=== PATIENT | female | born 1940 | race Caucasian/White ===

== ENCOUNTER 2018-09-26 06:08 | Inpatient (IN) | payer OTHER ==
[2018-09-26 07:11] LABS: BASO % 0.3 % (0-2.0); HEMATOCRIT 35.8 % (32.4-45.2); HEMOGLOBIN 11.1 GM/dL (10.7-15.3); LYMPH % 2.6 % (8-40); MCH 25.5 pg (25.7-33.7); MCHC 30.9 g/dl (32.0-36.0); MEAN CELL VOLUME 82.7 fl (80-96); MEAN PLT VOLUME 8.9 fl (7.5-11.1); NEUT % 90.1 % (42.8-82.8); PLATELET COUNT 246 K/MM3 (134-434); RBC 4.33 M/mm3 (3.60-5.2); RDW 15.8 % (11.6-15.6); WHITE BLOOD COUNT 18.2 K/mm3 (4.0-10.0)
--- NOTE | 2018-09-26 07:25 | PDOC ---
History of Present Illness - General Chief Complaint: Nausea/Vomiting Stated Complaint: NAUSEA,VOMITING Time Seen by Provider: 09/26/18 07:08 History Source: Patient, Family (daughter) Exam Limitations: Language Barrier - History of Present Illness Initial Comments: 09/26/18 07:25 Pt is a 78yo f with PMH of DM, HTN, CKD? dementia BIBA with daughter for nausea/ vomiting (green) x3 days, weakness, AMS and UTI. Per daughter pt was feeling weak, hallucinating and had reduced appetite. She called the nursing center and was told that patient had a UTI with hematuria. Per daughter, no abx were given. Daughter says that UTI was diagnosed 1 week ago. Daughter was also told that patient had "vaginal bleeding" last Thursday and Thursday but has since resolved. Pt has been unable to tolerate PO for three days and has green vomitus. Denies blood in vomit or stools. No fevers at home. Pt has been hallucinating, and has been unable to stand; she is usually ambulatory on her own. Pt says she has diffuse pain in her abdomen and throat. Pt lives alone PMD: PMH: see hpi PSH: hysterectomy Meds: see med rec Allergies: nkda 09/26/18 14:14 Daughter phone number: Sana Past History - Past Medical History Allergies/Adverse Reactions: Allergies Allergy/AdvReac Type Severity Reaction Status Date / Time No Known Allergies Allergy Verified 09/26/18 06:24 Home Medications: Ambulatory Orders Aripiprazole 1 tab PO HS 09/26/18 Calcium 500 + Vit D Caplet 1 cap PO DAILY 09/26/18 Duloxetine HCl 20 mg PO HS 09/26/18 Levothyroxine [Synthroid -] 50 mcg PO DAILY 09/26/18 Loratadine [Claritin] 10 mg PO DAILY 09/26/18 Losartan Potassium 50 mg PO DAILY 09/26/18 Mirabegron [Myrbetriq] 50 mg PO DAILY 09/26/18 Nabumetone 500 mg PO BID PRN 09/26/18 Omeprazole 20 mg PO AC 09/26/18 Rosuvastatin [Crestor -] 20 mg PO DAILY 09/26/18 Sitagliptin Phos/Metformin HCl [Janumet 50-1,000 mg Tablet] 1 tab PO BID Tramadol HCl 50 mg PO BID PRN 09/26/18 traZODone HCL [Trazodone HCl] 100 mg PO HS 09/26/18 COPD: No Diabetes: Yes GI Disorders: Yes Disorders: Yes (overactive bladder) HTN: Yes Thyroid Disease: Yes Other medical history: spinal stenosis - Suicide/Smoking/Psychosocial Hx Smoking History: Current every day smoker Number of Cigarettes Smoked Daily: 5 Information on smoking cessation initiated: No Hx Alcohol Use: No Drug/Substance Use Hx: No Review of Systems - Review of Systems Able to Perform ROS?: Yes Constitutional: No: Chills, Fever HEENTM: Yes: Throat Pain. No: Recent change in vision Respiratory: No: Cough, Shortness of Breath Cardiac (ROS): Yes: Lightheadedness. No: Chest Pain, Palpitations, Syncope ABD/GI: Yes: See HPI, Nausea, Vomiting, Abdominal cramping. No: Constipated, Diarrhea : Yes: Dysuria, Hematuria. No: Flank Pain Musculoskeletal: No: Symptoms Reported Integumentary: No: Symptoms Reported Neurological: No: Headache, Numbness, Paresthesia, Tingling *Physical Exam - Vital Signs Last Vital Signs Temp Pulse Resp BP Pulse Ox 97.8 F 98 H 18 114/51 L 96 09/26/18 06:24 09/26/18 06:24 09/26/18 06:24 09/26/18 06:24 09/26/18 06:24 - Physical Exam General Appearance: Yes: Nourished, Appropriately Dressed, Mild Distress HEENT: positive: EOMI, MEDHAT, Pharynx Normal Neck: positive: Trachea midline, Supple. negative: Lymphadenopathy (R), Lymphadenopathy (L) Respiratory/Chest: positive: Lungs Clear, Normal Breath Sounds. negative: Crackles, Rales, Rhonchi, Stridor, Wheezing Cardiovascular: positive: Regular Rhythm, Regular Rate, S1, S2, Systolic Murmur. negative: Edema, JVD, Murmur Vascular Pulses: Carotid (R): 2+, Carotid (L): 2+, Dorsalis-Pedis (R): 2+, Doralis-Pedis (L): 2+ Gastrointestinal/Abdominal: positive: Normal Bowel Sounds, Soft, Tenderness (RUQ , RLQ). negative: Pulsatile Mass, Distended, Guarding, Rebound Musculoskeletal: negative: CVA Tenderness Extremity: positive: Delayed Capillary Refill. negative: Coldness, Cyanosis, Pedal Edema, Swelling, Calf Tenderness Integumentary: positive: Normal Color, Dry, Warm. 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 Vitals: bp 114/51, HR 98 PE: dry membranes, delayed capillary refill, diffuse abdominal tenderness, no cva tenderness DDx includes but not limited to: UTI, pyelonephritis, nephrolithiasis, hypoglycemia, cholecystitis, pancreatitis, colitis, gastritis, pud, acs Dr Noguera placed in labs including bcx, ucx, ua, lactic, trop, lipase, pt/inr ekg, cxr. pt started on 1L NS. Pt needs to be straight cath for urine specimen 09/26/18 08:24 EKG: LBBB (no priors) negative sgarbossa. Labs significant for elevated K at 6.6. Pt started on nebulizer, sodium bicarb, calcium gluconate, insulin(6u) +D50. -Cr at 6.5 (no baseline to compare to). Refraining from giving Lasix and Kayaxelate. -Lactate at 10.8 -phos 8 and Na 130 -WBC 18.1 -Lipase and troponin negative. Added on CPK and Urine electrolytes. Lac and cmp will be repeated after medications. Zofran for nausea. Pt started on vanc/zosyn and another L of NS. Waiting for urine sample. Ordered CTAP. Daughter gave phone number of [facility]: [phone]. Left VM. Pt most likely has pyelo with SHERRON (however do not have baseline to compare to ). 09/26/18 08:[address] Woodward (television production assistant for nephrology) CXR: elevated R hemidiaphragm. Large heart. No acute chest pathology. Clear lung [place]. 09/26/18 09:[address] Slight tachycardia up to 105, most likely from albuterol. BP 124/ 50. Saturating 96% 3LNC. Will reevaluate. Will call back Dr. Woodward because no response yet 09/26/18 09:37 Sent out second call to Dr. Woodward. UA positive for infection (LE, WBC, bacteria) 1+ blood with RBC, 3+ protein. Urine electrolytes show normal Na 09/26/18 09:[address] Lewis. consult placed. Repeat EKG shows sinus tachycardia, no ingrid or depressions. poor lead quality in I, II, aVR, aVL. 09/26/18 09:53 CTAP: liver, spleen, pancreas and adrenal glands unremarkable. No gall stones, no retroperitoneal lymphadenopathy or AAA. Significant inflmmatory changes and stranding seen in retroperitoneum appear to originate and surround kidneys. Bilateral renal infection. No discrete abscess can be identified by CT scan due to lack of contrast. No hydronephrosis. Pt will need admission for pyelonephritis because pt lives on her own, is not tolerating PO. 09/26/18 09:56 09/26/18 10:23 *DC/Admit/Observation/Transfer Diagnosis at time of Disposition: Pyelonephritis, SHERRON (acute kidney injury) Sepsis Qualifiers: Sepsis type: sepsis due to unspecified organism Qualified Code(s): A41.9 - Sepsis, unspecified organism UTI (urinary tract infection) Qualifiers: Urinary tract infection type: site unspecified Hematuria presence: with hematuria Qualified Code(s): N39.0 - Urinary tract infection, site not specified - Discharge Dispostion Condition at time of disposition: Good Decision to Admit order: Yes - Referrals - Patient Instructions - Post Discharge Activity
[2018-09-26 07:38] LABS: INR 1.17 (0.83-1.09); PROTHROMBIN TIME (PATIENT) 13.8 SEC (9.7-13.0)
--- NOTE | 2018-09-26 07:46 | PDOC ---
Attending Attestation - Resident Resident Name: Litzy Taveras - ED Attending Attestation I have performed the following: I have examined & evaluated the patient, The case was reviewed & discussed with the resident, I agree w/resident's findings & plan, Exceptions are as noted - HPI HPI: 78 yo F presents with weakness, vomiting for past few days. As per daughter at bedside, she was diagnosed with a UTI as an outpatient but was not placed on antibiotics (unclear why and also unclear what testing she had). Now presenting with weakness and vomiting, inability to tolerate PO. +Lower abd pain, denies back pain, denies dysuria. - Physicial Exam PE: GENERAL: Awake, alert, and fully oriented, appears ill but nontoxic. HEAD: No signs of trauma EYES: PERRLA, EOMI, sclera anicteric, conjunctiva clear ENT: Auricles normal inspection, hearing grossly normal, nares patent, oropharynx clear without exudates. Dry mucosa NECK: Normal ROM, supple, no lymphadenopathy, JVD, or masses LUNGS: Breath sounds equal, clear to auscultation bilaterally. No wheezes, and no crackles HEART: Regular rate and rhythm, normal S1 and S2, no murmurs, rubs or gallops ABDOMEN: Soft, +BLQ tenderness with guarding, normoactive bowel sounds. No rebound. No masses. No CVAT. EXTREMITIES: Normal range of motion, no edema. No clubbing or cyanosis. No cords, erythema, or tenderness NEUROLOGICAL: Cranial nerves II through XII grossly intact. Normal speech. Motor and sensation intact. SKIN: Warm, Dry, normal turgor, no rashes or lesions noted. - Medical Decision Making Sxs suggestive of pyelonephritis. Pt found to have acute renal failure, hyperkalemia, UTI. Will plan for admission.
[2018-09-26 07:59] LABS: ALBUMIN 2.6 g/dl (3.4-5.0); ALK PHOS 108 U/L (45-117); ANION GAP 24 MMOL/L (8-16); BILIRUBIN,TOTAL 0.8 mg/dL (0.2-1); BLOOD UREA NITROGEN 77 mg/dL (7-18); CALCIUM 9.9 mg/dL (8.5-10.1); CHLORIDE 89 mmol/L (98-107); CO2 17 mmol/L (21-32); CREATININE 6.5 mg/dL (0.55-1.3); GLUCOSE,RANDOM 116 mg/dL (74-106); LIPASE 58 U/L (73-393); SGOT/AST 24 U/L (15-37); SGPT/ALT 16 U/L (13-61); SODIUM 130 mmol/L (136-145); TOT PROT 6.1 g/dl (6.4-8.2)
[2018-09-26 08:04] LABS: POTASSIUM 6.6 mmol/L (3.5-5.1)
[2018-09-26] MEDS ORDERED: ONDANSETRON 4 MG/2 ML VIAL IVPUSH ONE (08:04)
[2018-09-26] MEDS ORDERED: SODIUM CHLORIDE 1,000 ML IV STA ×2 (08:04→12:44)
[2018-09-26] MEDS ORDERED: VANCOMYCIN 1,000 MG in DEXTROSE 5%-WATER - 250 ML IVPB ONE (08:05)
[2018-09-26] MEDS ORDERED: PIPERACILLIN/TAZOB 3.375 GM 3.375 GM in DEXTROSE 5%-WATER - 50 ML IVPB ONE (08:05)
[2018-09-26] MEDS ORDERED: ALBUTEROL SO4 0.083% IH SOL 2.5 MG/3 ML VIAL.NEB. NEB ONE ×2 (08:08→08:09)
[2018-09-26] MEDS ORDERED: INSULIN REGULAR HUMAN 100 UNITS/ML *VIAL IVPUSH ONE (08:08)
[2018-09-26] MEDS ORDERED: SODIUM BICARBONATE 8.4% 50 MEQ/50 ML DISP.SYRIN IVPUSH ONE ×2 (08:08→17:50)
[2018-09-26] MEDS ORDERED: CALCIUM GLUCONATE 10% - 1,000 MG/10 ML VIAL IVPB ONE (08:08)
[2018-09-26] MEDS ORDERED: DEXTROSE 50%-WATER - 25 GM/50 ML VIAL IVPUSH ONE (08:08)
[2018-09-26] MEDS ORDERED: ONDANSETRON 4 MG/2 ML VIAL ONE (08:08)
[2018-09-26] MEDS ORDERED: DEXTROSE 50%-WATER - 25 GM/50 ML VIAL ONE (08:09)
[2018-09-26] MEDS ORDERED: INSULIN REGULAR HUMAN 100 UNITS/ML *VIAL ONE (08:10)
[2018-09-26] MEDS ORDERED: SODIUM BICARBONATE 8.4% 50 MEQ/50 ML VIAL ONE ×2 (08:10→17:43)
[2018-09-26] MEDS ORDERED: CALCIUM GLUCONATE 10% - 1,000 MG/10 ML VIAL ONE (08:28)
[2018-09-26] MEDS ORDERED: VANCOMYCIN 1 GRAM (PRE-DOCKED) 1,000 MG/250 ML BAG IVPB ONE (08:44)
[2018-09-26] MEDS ORDERED: PIPERACILLIN/TAZOB 3.375 GM 3.375 GM/50 ML BAG IVPB ONE (08:45)
[2018-09-26 09:22] LABS: URINE APPEARANCE TURBID; URINE BILIRUBIN NEGATIVE (<2.0 mg/dL); URINE COLOR YELLOW; URINE GLUCOSE (UA) NEGATIVE (NEGATIVE); URINE KETONE TRACE (NEGATIVE); URINE LEUK ESTERASE 3+ (NEGATIVE); URINE NITRITE NEGATIVE (NEGATIVE); URINE PROTEIN 3+ (NEGATIVE); URINE UROBILINOGEN NEGATIVE mg/dL (0.2-1.0)
[2018-09-26 09:33] LABS: URINE BACTERIA MODERATE /hpf (NONE SEEN)
[2018-09-26 10:25] LABS: ARTERIAL BLD GAS O2 SATURATION 97.9 % (90-98.9); ARTERIAL BLOOD GAS BASE EXCESS -10.5 meq/l (-2-2); ARTERIAL BLOOD GAS pH 7.22 (7.35-7.45); CARBOXYHEMOGLOBIN 0.4 gm% (0.5-2.0)
[2018-09-26 10:26] LABS: ALLENS TEST POSITIVE
[2018-09-26 10:35] LABS: ANISOCYTOSIS 1+; MACROCYTOSIS 0; OVALOCYTE 1+; PLATELET ESTIMATE NORMAL
[2018-09-26 10:46] LABS: ALBUMIN 2.1 g/dl (3.4-5.0); ALK PHOS 89 U/L (45-117); ANION GAP 21 MMOL/L (8-16); BILIRUBIN,TOTAL 0.6 mg/dL (0.2-1); BLOOD UREA NITROGEN 72 mg/dL (7-18); CALCIUM 8.4 mg/dL (8.5-10.1); CHLORIDE 102 mmol/L (98-107); CO2 16 mmol/L (21-32); GLUCOSE,RANDOM 80 mg/dL (74-106); POTASSIUM 5.7 mmol/L (3.5-5.1); SGOT/AST 18 U/L (15-37); SGPT/ALT 15 U/L (13-61); SODIUM 138 mmol/L (136-145)
--- NOTE | 2018-09-26 12:20 | EKG ---
Test Reason : Blood Pressure : / mmHG Vent. Rate : 105 BPM Atrial Rate : 105 BPM P-R Int : 192 ms QRS Dur : 082 ms QT Int : 332 ms P-R-T Axes : 034 048 029 degrees QTc Int : 438 ms POOR DATA QUALITY, INTERPRETATION MAY BE ADVERSELY AFFECTED SINUS TACHYCARDIA LOW VOLTAGE QRS POOR DATA QUALITY IN CURRENT ECG PRECLUDES SERIAL COMPARISON REPEAT EKG IF CLINICALLY INDICATED Confirmed by James Smart ([id number]) on 09/26/2018 12:19:42 PM Referred By: Confirmed By:James Smart
--- NOTE | 2018-09-26 12:31 | EKG ---
Test Reason : Blood Pressure : / mmHG Vent. Rate : 097 BPM Atrial Rate : 097 BPM P-R Int : 182 ms QRS Dur : 158 ms QT Int : 420 ms P-R-T Axes : -11 -34 110 degrees QTc Int : 533 ms NORMAL SINUS RHYTHM LEFT AXIS DEVIATION LEFT BUNDLE BRANCH BLOCK ABNORMAL ECG NO PREVIOUS ECGS AVAILABLE Confirmed by James Smart ([id number]) on 09/26/2018 12:30:58 PM Referred By: Confirmed By:James mSart
--- NOTE | 2018-09-26 12:58 | HP ---
CHIEF COMPLAINT: Weakness, vomiting x 3 days PCP: None HISTORY OF PRESENT ILLNESS: Pt is a 78 y/o lady with a significant past medical history of DM, HTN, CKD, and dementia. Pt presented to [facility] ED this AM with daughter c/o weakness, nausea /vomiting and AMS. Per ED records, daughter endorses that her mother has been hallucinating, feeling weak, and has had decreased PO intake. Furthermore, pt also endorses she had experienced 3 days of hematuria. Pt endorses subjective fevers and chills. Denies any dysuria or increased frequency of urination. No previous h/o previous UTI. Has not had consistent medical follow up. She states that she has visiting health care providers that come to her building, "[facility]" ?Denies chest pain, shortness of breath, or palpitations. ER course was notable for: (1) K+ 6.6 (2) CTAP--> Significant inflammatory changes in retroperitoneum appear to originate from kidneys compatible with significant b/l renal infection. (3) WBC 18.2 Recent Travel: PAST MEDICAL HISTORY: Per HPI PAST SURGICAL HISTORY: Hysterectomy approximately 20 years ago. Social History: Smokin pack year smoking history Alcohol: denies Drugs: denies Family History: Allergies denies No Known Allergies Allergy (Verified 09/26/18 06:24) HOME MEDICATIONS: Home Medications Medication Instructions Recorded Aripiprazole 1 tab PO HS 09/26/18 Calcium 500 + Vit D Caplet 1 cap PO DAILY 09/26/18 Duloxetine HCl 20 mg PO HS 09/26/18 Levothyroxine [Synthroid -] 50 mcg PO DAILY 09/26/18 Loratadine [Claritin] 10 mg PO DAILY 09/26/18 Losartan Potassium 50 mg PO DAILY 09/26/18 Mirabegron [Myrbetriq] 50 mg PO DAILY 09/26/18 Nabumetone 500 mg PO BID PRN 09/26/18 Omeprazole 20 mg PO AC 09/26/18 Rosuvastatin [Crestor -] 20 mg PO DAILY 09/26/18 Sitagliptin Phos/Metformin HCl 1 tab PO BID 09/26/18 [Janumet 50-1,000 mg Tablet] Tramadol HCl 50 mg PO BID PRN 09/26/18 traZODone HCL [Trazodone HCl] 100 mg PO HS 11/18/18 REVIEW OF SYSTEMS CONSTITUTIONAL: Absent: fever, chills, diaphoresis, generalized weakness, malaise, loss of appetite, weight change HEENT: PRESENT: headache CARDIOVASCULAR: Absent: chest pain, syncope, palpitations, irregular heart rate, lightheadedness , peripheral edema RESPIRATORY: Absent: cough, shortness of breath, dyspnea with exertion, orthopnea, wheezing, stridor, hemoptysis GASTROINTESTINAL: PRESENT: abdominal discomfort GENITOURINARY: PRESENT: hematuria MUSCULOSKELETAL: Absent: myalgia, arthralgia, joint swelling, back pain, neck pain SKIN: Absent: rash, itching, pallor HEMATOLOGIC/IMMUNOLOGIC: Absent: easy bleeding, easy bruising, lymphadenopathy, frequent infections ENDOCRINE: Absent: unexplained weight gain, unexplained weight loss, heat intolerance, cold intolerance NEUROLOGIC: Absent: headache, focal weakness or paresthesias, dizziness, unsteady gait, seizure, mental status changes, bladder or bowel incontinence PSYCHIATRIC: Absent: anxiety, depression, suicidal or homicidal ideation, hallucinations. PHYSICAL EXAMINATION Vital Signs - 24 hr 09/26/18 09/26/18 09/26/18 06:24 09:30 10:16 Temperature 97.8 F Pulse Rate 98 H Pulse Rate [ 105 H 107 H Apical] Respiratory 18 18 26 H Rate Blood Pressure 114/51 L Blood Pressure 124/50 L 126/54 L [Right Arm] O2 Sat by Pulse 96 97 98 Oximetry (%) 09/26/18 09/26/18 10:22 12:55 Temperature 97.4 F L Pulse Rate Pulse Rate [ 102 H Apical] Respiratory 18 Rate Blood Pressure Blood Pressure 101/44 L [Right Arm] O2 Sat by Pulse 99 Oximetry (%) GENERAL: Awake, alert, not oriented to time. HEAD: NC/AT EYES:EOMI PERRLA EARS, NOSE, THROAT: Dry mucous membranes NECK: Supple, No JVD LUNGS: CTA B/L No wheezing rhonchi or rales HEART: Systolic ejection murmur? ABDOMEN: B/L CVA Tenderness R more than left. MUSCULOSKELETAL: FROM UPPER EXTREMITIES: No CCE LOWER EXTREMITIES: No CCE. NEUROLOGICAL: Cranial nerves II-XII intact. Laboratory Results - last 24 hr 09/26/18 09/26/18 09/26/18 06:53 06:53 06:53 WBC 18.2 H RBC 4.33 Hgb 11.1 Hct 35.8 MCV 82.7 MCH 25.5 L MCHC 30.9 L RDW 15.8 H Plt Count 246 MPV 8.9 Absolute Neuts (auto) 16.4 H Neutrophils % 90.1 H Neutrophils % (Manual) 88.1 H Band Neutrophils % 4.0 Lymphocytes % 2.6 L Lymphocytes % (Manual) 1.0 L Monocytes % 7.0 Monocytes % (Manual) 4 Eosinophils % 0.0 Eosinophils % (Manual) 0.0 Basophils % 0.3 Basophils % (Manual) 1.0 Myelocytes % (Man) 0 Promyelocytes % (Man) 0 Blast Cells % (Manual) 0 Nucleated RBC % 0 Metamyelocytes 1 Hypochromia 1+ Platelet Estimate Normal Polychromasia 0 Poikilocytosis 1+ Anisocytosis 1+ Microcytosis 0 Macrocytosis 0 Ovalocytes 1+ Schistocytes 1+ PT with INR 13.80 H INR 1.17 H Anticoagulation Therapy Puncture Site ABG pH ABG pCO2 at Pt Temp ABG pO2 at Pt Temp ABG HCO3 ABG O2 Sat (Measured) ABG O2 Content ABG Base Excess Sam Test Carboxyhemoglobin Methemoglobin O2 Delivery Device Oxygen Flow Rate Vent Mode Vent Rate Mechanical Rate Pressure Support Vent Sodium 130 L Potassium 6.6 H* Chloride 89 L Carbon Dioxide 17 L Anion Gap 24 H BUN 77 H Creatinine 6.5 H Creat Clearance w eGFR 6.22 Random Glucose 116 H Lactic Acid Calcium 9.9 Phosphorus 8.0 H Magnesium 2.0 Total Bilirubin 0.8 AST 24 ALT 16 Alkaline Phosphatase 108 Creatine Kinase 61 Troponin I < 0.02 Total Protein 6.1 L Albumin 2.6 L Lipase 58 L Urine Color Urine Appearance Urine pH Ur Specific Naylor Urine Protein Urine Glucose (UA) Urine Ketones Urine Blood Urine Nitrite Urine Bilirubin Urine Urobilinogen Ur Leukocyte Esterase Urine WBC (Auto) Urine RBC (Auto) Urine Bacteria Ur Random Sodium Ur Random Potassium Ur Random Chloride Blood Type Antibody Screen 09/26/18 09/26/18 09/26/18 06:53 06:53 08:50 WBC RBC Hgb Hct MCV MCH MCHC RDW Plt Count MPV Absolute Neuts (auto) Neutrophils % Neutrophils % (Manual) Band Neutrophils % Lymphocytes % Lymphocytes % (Manual) Monocytes % Monocytes % (Manual) Eosinophils % Eosinophils % (Manual) Basophils % Basophils % (Manual) Myelocytes % (Man) Promyelocytes % (Man) Blast Cells % (Manual) Nucleated RBC % Metamyelocytes Hypochromia Platelet Estimate Polychromasia Poikilocytosis Anisocytosis Microcytosis Macrocytosis Ovalocytes Schistocytes PT with INR INR Anticoagulation Therapy Puncture Site ABG pH ABG pCO2 at Pt Temp ABG pO2 at Pt Temp ABG HCO3 ABG O2 Sat (Measured) ABG O2 Content ABG Base Excess Sam Test Carboxyhemoglobin Methemoglobin O2 Delivery Device Oxygen Flow Rate Vent Mode Vent Rate Mechanical Rate Pressure Support Vent Sodium Potassium Chloride Carbon Dioxide Anion Gap BUN Creatinine Creat Clearance w eGFR Random Glucose Lactic Acid 10.4 H* Calcium Phosphorus Magnesium Total Bilirubin AST ALT Alkaline Phosphatase Creatine Kinase Troponin I Total Protein Albumin Lipase Urine Color Yellow Urine Appearance Turbid Urine pH 5.0 Ur Specific Naylor 1.014 Urine Protein 3+ H Urine Glucose (UA) Negative Urine Ketones Trace H Urine Blood 1+ H Urine Nitrite Negative Urine Bilirubin Negative Urine Urobilinogen Negative Ur Leukocyte Esterase 3+ H Urine WBC (Auto) 500 Urine RBC (Auto) 54 Urine Bacteria Moderate Ur Random Sodium Ur Random Potassium Ur Random Chloride Blood Type A POSITIVE Antibody Screen Negative 09/26/18 09/26/18 09/26/18 08:50 09:54 09:54 WBC RBC Hgb Hct MCV MCH MCHC RDW Plt Count MPV Absolute Neuts (auto) Neutrophils % Neutrophils % (Manual) Band Neutrophils % Lymphocytes % Lymphocytes % (Manual) Monocytes % Monocytes % (Manual) Eosinophils % Eosinophils % (Manual) Basophils % Basophils % (Manual) Myelocytes % (Man) Promyelocytes % (Man) Blast Cells % (Manual) Nucleated RBC % Metamyelocytes Hypochromia Platelet Estimate Polychromasia Poikilocytosis Anisocytosis Microcytosis Macrocytosis Ovalocytes Schistocytes PT with INR INR Anticoagulation Therapy Puncture Site ABG pH ABG pCO2 at Pt Temp ABG pO2 at Pt Temp ABG HCO3 ABG O2 Sat (Measured) ABG O2 Content ABG Base Excess Sam Test Carboxyhemoglobin Methemoglobin O2 Delivery Device Oxygen Flow Rate Vent Mode Vent Rate Mechanical Rate Pressure Support Vent Sodium 138 Potassium 5.7 H Chloride 102 Carbon Dioxide 16 L Anion Gap 21 H BUN 72 H Creatinine 6.0 H Creat Clearance w eGFR 6.82 Random Glucose 80 Lactic Acid 8.0 H* Calcium 8.4 L Phosphorus Magnesium Total Bilirubin 0.6 AST 18 ALT 15 Alkaline Phosphatase 89 Creatine Kinase Troponin I Total Protein 5.0 L Albumin 2.1 L Lipase Urine Color Urine Appearance Urine pH Ur Specific Naylor Urine Protein Urine Glucose (UA) Urine Ketones Urine Blood Urine Nitrite Urine Bilirubin Urine Urobilinogen Ur Leukocyte Esterase Urine WBC (Auto) Urine RBC (Auto) Urine Bacteria Ur Random Sodium 89 Ur Random Potassium 17.0 L Ur Random Chloride 57 L Blood Type Antibody Screen 09/26/18 10:16 WBC RBC Hgb Hct MCV MCH MCHC RDW Plt Count MPV Absolute Neuts (auto) Neutrophils % Neutrophils % (Manual) Band Neutrophils % Lymphocytes % Lymphocytes % (Manual) Monocytes % Monocytes % (Manual) Eosinophils % Eosinophils % (Manual) Basophils % Basophils % (Manual) Myelocytes % (Man) Promyelocytes % (Man) Blast Cells % (Manual) Nucleated RBC % Metamyelocytes Hypochromia Platelet Estimate Polychromasia Poikilocytosis Anisocytosis Microcytosis Macrocytosis Ovalocytes Schistocytes PT with INR INR Anticoagulation Therapy No Result Required. Puncture Site No Result Required. ABG pH 7.22 L* ABG pCO2 at Pt Temp 41.0 ABG pO2 at Pt Temp 134.0 H ABG HCO3 16.1 L ABG O2 Sat (Measured) 97.9 ABG O2 Content 13.5 L ABG Base Excess -10.5 L* Sam Test Positive Carboxyhemoglobin 0.4 L Methemoglobin 0.7 O2 Delivery Device No Result Required. Oxygen Flow Rate No Result Required. Vent Mode No Result Required. Vent Rate No Result Required. Mechanical Rate No Result Required. Pressure Support Vent No Result Required. Sodium Potassium Chloride Carbon Dioxide Anion Gap BUN Creatinine Creat Clearance w eGFR Random Glucose Lactic Acid Calcium Phosphorus Magnesium Total Bilirubin AST ALT Alkaline Phosphatase Creatine Kinase Troponin I Total Protein Albumin Lipase Urine Color Urine Appearance Urine pH Ur Specific Naylor Urine Protein Urine Glucose (UA) Urine Ketones Urine Blood Urine Nitrite Urine Bilirubin Urine Urobilinogen Ur Leukocyte Esterase Urine WBC (Auto) Urine RBC (Auto) Urine Bacteria Ur Random Sodium Ur Random Potassium Ur Random Chloride Blood Type Antibody Screen ASSESSMENT/PLAN: Pt is a 78 y/o lady with a significant past medical history of DM, HTN, CKD, and dementia. Pt presented to [facility] ED this AM with daughter c/o weakness, nausea /vomiting and AMS. #Sepsis 2/2 Pyelonephritis -WBC 18.2 -Troponin negative - CTAP--> Significant inflammatory changes in retroperitoneum appear to originate from kidneys compatible with significant b/l renal infection. - Nephrology on Board - Renal Bladder Ultrasound to r/o Obstruction. - Lactic Acid 10.4--> 8.0 on repeat. Continue to trend. - ABG PH 7.22, repeat ABG pending, BiCarb drip if repeat PH < 7.0 - I.D on board--> Meropenem 1 gm today, 500 mg tomorrow- Per I.D--> adjusted for renal failure to cover for esbl organisms # Hyperkalemia - Potassium in ED 6.6, repeat 5.7. - Given Insulin/D5W, Albuterol 1 amp, Sodium Bicarb -Repeat BMP, if Hyperkalemia persistent to nonresolving acidosis---> HD #UTI: -Leukocyte Esterase 3+ - WBC 18.2 - Urine/Blood cultures pending - Vanc/Zosyn in ED - I.D on board #Murmur? -Echo to assess anatomy and function #FEN NS@100cc/hr Monitor electrolytes Diabetic Diet DVT ppx: Heparin SQ TID Dispo: Tele Visit type - Emergency Visit Emergency Visit: Yes ED Registration Date: 09/26/18 Care time: The patient presented to the Emergency Department on the above date and was hospitalized for further evaluation of their emergent condition. - New Patient This patient is new to me today: Yes Date on this admission: 09/26/18 - Critical Care Critical Care patient: No
[2018-09-26] MEDS ORDERED: HEPARIN NA (PORCINE) 5,000 UNITS/ML 1ML VIAL ONE (13:05)
[2018-09-26] MEDS: MEROPENEM 1 GM in DEXTROSE 5%-WATER 100 ML IVPB ONE (13:55)
[2018-09-26] MEDS ORDERED: HEPARIN NA (PORCINE) 5,000 UNITS/ML 1ML VIAL SQ SCH (14:00)
--- NOTE | 2018-09-26 14:15 | CON.ID ---
Consult Consult Specialty:: infectious disease Referred by:: hospitalist Reason for Consultation:: sepsis - History of Present Illness Chief Complaint: vomiting, UTI, weakness, change in mental status History of Present Illness: 78 yo female pmh DM, htn, dementia with 4 day history of vomiting and abdominal pain, weakness, couldn't walk daughter reports diagnosed with UTI last week with hematuria but not treated? 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 Cardio/Vascular: Yes: HTN Endocrine: Yes: Diabetes Mellitus - Past Surgical History Past Surgical History: Yes: Hysterectomy - Alcohol/Substance Use Hx Alcohol Use: No - Smoking History Smoking history: Current every day smoker Aproximately how many cigarettes per day: 5 - Social History Usual Living Arrangement: Assisted Living ADL: Independent History of Recent Travel: No Home Medications - Allergies Allergies/Adverse Reactions: Allergies Allergy/AdvReac Type Severity Reaction Status Date / Time No Known Allergies Allergy Verified 09/26/18 06:24 - Home Medications Home Medications: Ambulatory Orders Aripiprazole 1 tab PO HS 09/26/18 Calcium 500 + Vit D Caplet 1 cap PO DAILY 09/26/18 Duloxetine HCl 20 mg PO HS 09/26/18 Levothyroxine [Synthroid -] 50 mcg PO DAILY 09/26/18 Loratadine [Claritin] 10 mg PO DAILY 09/26/18 Losartan Potassium 50 mg PO DAILY 09/26/18 Mirabegron [Myrbetriq] 50 mg PO DAILY 09/26/18 Nabumetone 500 mg PO BID PRN 09/26/18 Omeprazole 20 mg PO AC 09/26/18 Rosuvastatin [Crestor -] 20 mg PO DAILY 09/26/18 Sitagliptin Phos/Metformin HCl [Janumet 50-1,000 mg Tablet] 1 tab PO BID Tramadol HCl 50 mg PO BID PRN 09/26/18 traZODone HCL [Trazodone HCl] 100 mg PO HS 09/26/18 Family Disease History - Family Disease History Family History: Unable to Obtain Review of Systems - Review of Systems Constitutional: reports: Lethargy, Weakness. denies: Fever Eyes: reports: No Symptoms HENT: reports: No Symptoms Neck: reports: No Symptoms Cardiovascular: reports: No Symptoms. denies: Chest Pain Respiratory: reports: No Symptoms. denies: Cough, SOB Gastrointestinal: reports: Abdominal Pain, Nausea, Vomiting Genitourinary: reports: Hematuria Physical Exam Vital Signs: Vital Signs Temperature 97.4 F L 09/26/18 10:22 Pulse Rate 102 H 09/26/18 12:55 Respiratory Rate 18 09/26/18 12:55 Blood Pressure 101/44 L 09/26/18 12:55 O2 Sat by Pulse Oximetry (%) 99 09/26/18 12:55 Constitutional: Yes: Well Nourished, No Distress, Calm Eyes: Yes: Conjunctiva Clear, EOM Intact HENT: Yes: Atraumatic, Normocephalic, Other (dry mucous membranes). No: Pharyngeal Erythema Neck: Yes: Supple Cardiovascular: Yes: Regular Rate and Rhythm Respiratory: Yes: Regular, CTA Bilaterally Gastrointestinal: Yes: Normal Bowel Sounds, Soft, Other (suprapubic pain to palpation) Renal/: Yes: CVA Tenderness - Left, CVA Tenderness - Right (right greater then left) Breast(s): Yes: WNL Musculoskeletal: Yes: WNL Extremities: Yes: WNL Edema: No Labs: CBC, BMP 09/26/18 06:53 09/26/18 09:54 Laboratory Tests 09/26/18 08:50 Ur Leukocyte Esterase 3+ H Urine WBC (Auto) 500 Imaging - Results Chest X-ray: Report Reviewed Cat Scan: Report Reviewed, Image Reviewed Problem List - Problems (1) Sepsis Code(s): A41.9 - SEPSIS, UNSPECIFIED ORGANISM Qualifiers: Sepsis type: sepsis due to unspecified organism Qualified Code(s): A41.9 - Sepsis, unspecified organism (2) SHERRON (acute kidney injury) Code(s): N17.9 - ACUTE KIDNEY FAILURE, UNSPECIFIED Assessment/Plan Severe sepsis ct scan with bilateral kidney inflammation-reviewed with radiologist patient interviewed with interpretor, poor historian agree with ultrasound-if she has renal abscess will need urology eval and IR for drainage continue agressive IV hydration, no signs volume overload do switch to meropenem adjusted for renal failure to cover for esbl organsims received vancomycin already check random vancomycin level in am renal consult pending over 45 minutes spent in the care of this critically ill ICU patient d/w john
[2018-09-26 14:20] LABS: ARTERIAL BLD GAS O2 SATURATION 93.3 % (90-98.9); ARTERIAL BLOOD GAS BASE EXCESS -9.6 meq/l (-2-2); ARTERIAL BLOOD GAS PCO2 42.6 mmHg (35-45); ARTERIAL BLOOD GAS PO2 80.3 mmHg (70-100); ARTERIAL BLOOD GAS pH 7.22 (7.35-7.45)
[2018-09-26 14:21] LABS: ALLENS TEST POSITIVE
[2018-09-26] MEDS ORDERED: SODIUM CHLORIDE 1,000 ML IV SCH ×2 (14:30→17:45)
[2018-09-26 14:42] LABS: ANION GAP 20 MMOL/L (8-16); BLOOD UREA NITROGEN 77 mg/dL (7-18); CALCIUM 8.1 mg/dL (8.5-10.1); CHLORIDE 100 mmol/L (98-107); CO2 15 mmol/L (21-32); GLUCOSE,RANDOM 128 mg/dL (74-106); SODIUM 135 mmol/L (136-145)
[2018-09-26 14:44] LABS: POTASSIUM 6.1 mmol/L (3.5-5.1)
--- NOTE | 2018-09-26 15:08 | CON.NEP ---
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 Cardio/Vascular: Yes: HTN Endocrine: Yes: Diabetes Mellitus - Past Surgical History Past Surgical History: Yes: Hysterectomy - Alcohol/Substance Use Hx Alcohol Use: No - Smoking History Smoking history: Current every day smoker Aproximately how many cigarettes per day: 5 - Social History Usual Living Arrangement: Assisted Living ADL: Independent History of Recent Travel: No Home Medications - Allergies Allergies/Adverse Reactions: Allergies Allergy/AdvReac Type Severity Reaction Status Date / Time No Known Allergies Allergy Verified 09/26/18 06:24 - Home Medications Home Medications: Ambulatory Orders Aripiprazole 1 tab PO HS 09/26/18 Calcium 500 + Vit D Caplet 1 cap PO DAILY 09/26/18 Duloxetine HCl 20 mg PO HS 09/26/18 Levothyroxine [Synthroid -] 50 mcg PO DAILY 09/26/18 Loratadine [Claritin] 10 mg PO DAILY 09/26/18 Losartan Potassium 50 mg PO DAILY 09/26/18 Mirabegron [Myrbetriq] 50 mg PO DAILY 09/26/18 Nabumetone 500 mg PO BID PRN 09/26/18 Omeprazole 20 mg PO AC 09/26/18 Rosuvastatin [Crestor -] 20 mg PO DAILY 09/26/18 Sitagliptin Phos/Metformin HCl [Janumet 50-1,000 mg Tablet] 1 tab PO BID Tramadol HCl 50 mg PO BID PRN 09/26/18 traZODone HCL [Trazodone HCl] 100 mg PO HS 09/26/18 Nephrology Consult - Height Height: 5 ft 1 in - Weight Weight: 150 lb - BMI Body Mass Index (BMI): 28.3 - Lab Results CBC,BMP: CBC, BMP 09/26/18 06:53 09/26/18 14:10 Anion Gap: Anion Gap Anion Gap 20 MMOL/L (8-16) H 09/26/18 14:10 - Physical Examination Vital Signs: Vital Signs Temperature 97.4 F L 09/26/18 10:22 Pulse Rate 94 H 09/26/18 14:39 Respiratory Rate 17 09/26/18 14:39 Blood Pressure 119/57 L 09/26/18 14:39 O2 Sat by Pulse Oximetry (%) 98 09/26/18 14:40 Constitutional: Yes: Well Nourished, No Distress, Calm Eyes: Yes: WNL, Conjunctiva Clear, EOM Intact HENT: Yes: WNL, Atraumatic, Normocephalic Neck: Yes: WNL, Supple, Trachea Midline Cardiovascular: Yes: WNL, Regular Rate and Rhythm Respiratory: Yes: WNL, Regular, CTA Bilaterally Gastrointestinal: Yes: WNL, Normal Bowel Sounds Renal/: Yes: WNL Musculoskeletal: Yes: WNL Extremities: Yes: WNL Edema: No Peripheral Pulses WNL: Yes Neurological: Yes: Confusion, Dysarthria, Lethargy, Pre-Existing Deficit, Weakness Assessment/Plan Oliguric ARF severe Metabolic acidosis/Hyperkalemia Sepsis/UTI/ Lactic acidosis Underlying CKD Urosepsis with signs of kidney inflammation on abd ct Plan- dialyze emergently today for hyperkalemia and acidosis with oliguria she is not expected to improve with medical treatment
--- NOTE | 2018-09-26 15:36 | PN ---
Teaching Attending Note Name of Resident: Pb Camargo ATTENDING PHYSICIAN STATEMENT I saw and evaluated the patient. I reviewed the resident's note and discussed the case with the resident. I agree with the resident's findings and plan as documented. HPI per report as pt is unable to provide good history SUBJECTIVE:78yo F with PMH DM, HTN, dementia and CKD brought in by daughter for altered mental status. as per report was not responding appropriately. was also c/o nausea and vomiting for the past 3 days with assoc subjective fevers and chills. also reports hematuria several days ago but has since resolved. currently only c/o gas. denies CP, SOB, fever, chills, N/V/C/D, dysuria, hematuria, urinary frequency OBJECTIVE: Last Vital Signs Temp Pulse Resp BP Pulse Ox 97.4 F L 94 H 17 119/57 L 98 09/26/18 10:22 09/26/18 14:39 09/26/18 14:39 09/26/18 14:39 09/26/18 14:39 General NAD, A&O x2 (self and place) HEENT dry oral mucosa CV S1 S2 RRR +murmur Lungs CTA B/L no wheezing/rales/rhonchi Abdomen soft diffusely tender +CVA tenderness, not distended Extremities no pedal edema ASSESSMENT AND PLAN: 78yo F with PMH DM, HTN, dementia and CKD brought in by daughter for altered mental status with nausea and vomiting. Pt was found to be acidemic with renal failure 1. Acute renal failure- has underlying Renal disease but unclear baseline values. pt also has AGMA with hyperkalemia. poor UOP iwth less than 30cc output after 4L IVF hydration. will repeat stat labs now. if acidemia and hyperkalemia persist will require emergent HD. spoke with yamiletcarlyle who agrees. awaiting repeat labs, will upgrade to MICU pending repeat labs. will attempt tomorrow to reach out to PMD for baseline labs. monitor UOP, IVF, stat renal/bladder u/s to look for obstruction and pyelo which are not seen on CT. CT also showing questionable renal abscess. will f/u imaging 2. AGMA- due to lactic acidosis. s/p sodium bicarb in the ER. slight improvement on repeat. repeat now 3. Acute metabolic uremic encephalopathy- due to infection and uremia. will treat underlying disorders. frequent neurochecks and re-direction. 4. Hyperkalemia- due to renal failure. treated in the ER. will liekly require HD if does not respond. check FOBT 5. severe sepsis due to pyelonephritis- tachycardia with leukocytosis, received 4L NS in the ER. will bolus another 2L NS. received vanco/zosyn in the ER. spoke with ID who will start meropenem. monitor UOP. f/u Cx 6. +murmur- unclear if new or not. will check echo 7. DM- hold oral agents. iss and BGM 8. HTN- currently normotesnive. hold oral antihypertensives 9. DVT ppx- hep sq The care of this patient involved high complexity decision making to prevent further life threatening deterioration of the patient's condition and/or to evaluate & treat vital organ system(s) failure or risk of failure. 45 mins
[2018-09-26] MEDS ORDERED: SODIUM CHLORIDE 250 ML IV PRN (15:37)
--- NOTE | 2018-09-26 16:02 | CONSULT ---
Consult - text type - Consultation Consultation Note: Pulm/CCM Pt seen and examined in ICU Hx obtained from medical record and family, pt poor historian,somewhat altered CC: Altered mental status, hematuria HPI: Ms Waldron is a 78 y/o lady with a significant past medical history of DM, HTN, CKD, and dementia. Pt presented to [facility] ED this AM with daughter c/o weakness, nausea/vomiting and AMS over last 48-72 Hrs. Daughter related that her mother has been hallucinating, feeling weak, and has had decreased PO intake. There was a report of hematuria and possibly that she had been seen for UTI but not prescribed medications. It is unclear where she gets her medical care, she is new to [facility]. In ED pt was awake but altered, appeared uremic. She was unable to clearly participate in history taking or ROS. She was non toxic appearing normotensive and without distress. Labs appeared to show acute on chronic renal failure BUN/Cr 6/70, K was 6, pH 7.22, Hco3 15. She appeared clinically dry. A fluid challenge of 4 Liters did not produce a significant UOP and K remained near 6 despite hyperK coctail. There were no acute Twave changes. CTAP was notable for inflammatory changes around kidneys, there was no hydro. She was started on Meropenem for possible pyelo. She was seen by Nephrology. Urgent HD was recommended. Coordination of HD ongoing. LIJ HD cath placed in ICU. 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 Cardio/Vascular HTN Endocrine Diabetes Mellitus Past Surgical History Past Surgical History Hysterectomy Smoking History Smoking history Current every day smoker Aproximately how many 5 cigarettes per day Alcohol/Substance Use Hx Alcohol Use No Social History Usual Living Arrangement Assisted Living ADL Independent History of Recent Travel No ROS unable 2/2 Altered mentation Ambulatory Orders Aripiprazole 1 tab PO HS 09/26/18 Calcium 500 + Vit D Caplet 1 cap PO DAILY 09/26/18 Duloxetine HCl 20 mg PO HS 09/26/18 Levothyroxine [Synthroid -] 50 mcg PO DAILY 09/26/18 Loratadine [Claritin] 10 mg PO DAILY 09/26/18 Losartan Potassium 50 mg PO DAILY 09/26/18 Mirabegron [Myrbetriq] 50 mg PO DAILY 09/26/18 Nabumetone 500 mg PO BID PRN 09/26/18 Omeprazole 20 mg PO AC 09/26/18 Rosuvastatin [Crestor -] 20 mg PO DAILY 09/26/18 Sitagliptin Phos/Metformin HCl [Janumet 50-1,000 mg Tablet] 1 tab PO BID Tramadol HCl 50 mg PO BID PRN 09/26/18 traZODone HCL [Trazodone HCl] 100 mg PO HS 09/26/18 Current Medications Chlorhexidine Gluconate (Hibiclens For Decolonization -) 1 applic TP HS [facility] Heparin Sodium (Porcine) (Heparin -) 5,000 unit SQ TID BLAYNE Last Admin: 09/26/18 13:04 Dose: 5,000 unit Meropenem 500 mg/ Dextrose 100 mls @ 200 mls/hr IVPB DAILY [facility] Sodium Chloride (Normal Saline -) 1,000 mls @ 100 mls/hr IV ASDIR BLAYNE Last Admin: 09/26/18 14:30 Dose: 100 mls/hr Sodium Chloride (Normal Saline -) 250 mls @ 3,000 mls/hr IV PRN PRN PRN Reason: Hypotension during Dialysis Stop: 09/27/18 15:37 Mupirocin (Bactroban Ointment (For Decolonization) -) 1 applic NS BID [facility] Stop: 10/01/18 21:59 CBCD WBC 18.2 K/mm3 (4.0-10.0) H 09/26/18 06:53 RBC 4.33 M/mm3 (3.60-5.2) 09/26/18 06:53 Hgb 11.1 GM/dL (10.7-15.3) 09/26/18 06:53 Hct 35.8 % (32.4-45.2) 09/26/18 06:53 MCV 82.7 fl (80-96) 09/26/18 06:53 MCHC 30.9 g/dl (32.0-36.0) L 09/26/18 06:53 RDW 15.8 % (11.6-15.6) H 09/26/18 06:53 Plt Count 246 K/MM3 (134-434) 09/26/18 06:53 MPV 8.9 fl (7.5-11.1) 09/26/18 06:53 CMP Sodium 135 mmol/L (136-145) L 09/26/18 14:10 Potassium 6.1 mmol/L (3.5-5.1) H* 09/26/18 14:10 Chloride 100 mmol/L (98-107) 09/26/18 14:10 Carbon Dioxide 15 mmol/L (21-32) L 09/26/18 14:10 Anion Gap 20 MMOL/L (8-16) H 09/26/18 14:10 BUN 77 mg/dL (7-18) H 09/26/18 14:10 Creatinine 6.0 mg/dL (0.55-1.3) H 09/26/18 14:10 Creat Clearance w eGFR 6.82 (>60) 09/26/18 14:10 Calcium 8.1 mg/dL (8.5-10.1) L 09/26/18 14:10 Total Bilirubin 0.6 mg/dL (0.2-1) 09/26/18 09:54 AST 18 U/L (15-37) 09/26/18 09:54 ALT 15 U/L (13-61) 09/26/18 09:54 Alkaline Phosphatase 89 U/L (45-117) 09/26/18 09:54 Total Protein 5.0 g/dl (6.4-8.2) L 09/26/18 09:54 Albumin 2.1 g/dl (3.4-5.0) L 09/26/18 09:54 ABG Results ABG pH 7.22 (7.35-7.45) L* 09/26/18 14:15 ABG pCO2 at Pt Temp 42.6 mmHg (35-45) 09/26/18 14:15 ABG pO2 at Pt Temp 80.3 mmHg (70-100) D 09/26/18 14:15 ABG HCO3 16.8 meq/L (22-26) L 09/26/18 14:15 ABG O2 Sat (Measured) 93.3 % (90-98.9) 09/26/18 14:15 ABG O2 Content 8.1 % vol (15-22) L* 09/26/18 14:15 ABG Base Excess -9.6 meq/l (-2-2) L 09/26/18 14:15 Vital Signs Temp 98.4 F 09/26/18 16:20 Pulse 94 H 09/26/18 17:35 Resp 17 09/26/18 17:35 BP 109/48 L 09/26/18 17:35 Pulse Ox 100 09/26/18 16:40 Intake & Output 09/25/18 09/26/18 09/26/18 23:59 11:59 23:59 Intake Total 3000 Balance 3000 Weight 68.039 kg 65.952 kg Intake: IV 3000 Normal Saline - 1,000 ml 3000 @ 1000 mls/hr IV ASDIR STA Rx#:[id number] Other: Voiding Method Indwelling Catheter Height 5 ft 1 in 5 ft 1 in Body Mass Index (BMI) 28.3 28.3 Weight Measurement Method Built in [facility] Weight Measurement Method Estimated by Staff CXR: no focal infiltrate, LI[facility] HD cath crosses midline, tip flips up into R inominate. PE: Gen: eld woman, confused, INAD HEENT: PERRL, EOMI, neck supple PULM: clear anterior, no wheezes CV: RRR, iii/Vi EYAL LSB ABD: soft, NT, ND Ext wwp Neuro: non focal but confused, uremic. 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 IR if found -started on david, ID consulted, repeat bcxl until cleared -f/u cxls DM -sliding scale, hold oral agents -check a1c and hx from PMD CV: has EYAL, likely flow in high output sepsis -again need hx from familyPPMD -no ischmeic changes on EKG FEN: NPo until more awake and then renal diet Proph -[facility] [place] ACNP [id number]
[2018-09-26] MEDS ORDERED: MIDAZOLAM HCL 2 MG/2 ML SINGLE DOSE VIAL IVPUSH ONE (16:15)
[2018-09-26] MEDS ORDERED: SODIUM BICARBONATE 8.4% - 50 ML ONE (17:44)
[2018-09-26] MEDS ORDERED: MEROPENEM 500 MG in DEXTROSE 5%-WATER 100 ML IVPB ONE ×2 (18:30→21:15)
[2018-09-26] MEDS ORDERED: SODIUM BICARBONATE 8.4% 50 MEQ/50 ML VIAL IV ONE (18:30)
[2018-09-26] MEDS: MUPIROCIN 2% TOPICAL OINTMENT FOR DECOLONIZATION NS SCH (21:44)
[2018-09-26] MEDS: HEPARIN NA (PORCINE) 5,000 UNITS/ML 1ML VIAL SQ SCH (21:46)
[2018-09-26] MEDS: CHLORHEXIDINE GLUCONATE 4% CLEANSER FOR DECOLONIZATION TP SCH (21:46)
[2018-09-26 22:12] LABS: ARTERIAL BLD GAS O2 SATURATION 95.4 % (90-98.9); ARTERIAL BLOOD GAS BASE EXCESS 3.6 meq/l (-2-2); ARTERIAL BLOOD GAS PCO2 50.9 mmHg (35-45); ARTERIAL BLOOD GAS pH 7.37 (7.35-7.45)
[2018-09-26 22:13] LABS: ALLENS TEST POSITIVE
[2018-09-26 22:30] LABS: ANION GAP 14 MMOL/L (8-16); BLOOD UREA NITROGEN 43 mg/dL (7-18); CALCIUM 7.2 mg/dL (8.5-10.1); CHLORIDE 102 mmol/L (98-107); CO2 25 mmol/L (21-32); CREATININE 3.8 mg/dL (0.55-1.3); GLUCOSE,RANDOM 122 mg/dL (74-106); POTASSIUM 5.1 mmol/L (3.5-5.1); SODIUM 141 mmol/L (136-145)
[2018-09-27 06:16] LABS: HEMATOCRIT 29.8 % (32.4-45.2); HEMOGLOBIN 9.6 GM/dL (10.7-15.3); MCHC 32.3 g/dl (32.0-36.0); MEAN CELL VOLUME 80.7 fl (80-96); MEAN PLT VOLUME 8.5 fl (7.5-11.1); PLATELET COUNT 154 K/MM3 (134-434); RBC 3.69 M/mm3 (3.60-5.2); RDW 15.7 % (11.6-15.6); WHITE BLOOD COUNT 9.1 K/mm3 (4.0-10.0)
[2018-09-27] MEDS: HEPARIN NA (PORCINE) 5,000 UNITS/ML 1ML VIAL SQ SCH ×3 (06:17→21:33)
[2018-09-27 07:14] LABS: ALBUMIN 1.9 g/dl (3.4-5.0); ALK PHOS 89 U/L (45-117); ANION GAP 8 MMOL/L (8-16); BILIRUBIN,TOTAL 0.6 mg/dL (0.2-1); BLOOD UREA NITROGEN 44 mg/dL (7-18); CALCIUM 7.7 mg/dL (8.5-10.1); CHLORIDE 99 mmol/L (98-107); CO2 31 mmol/L (21-32); GLUCOSE,RANDOM 135 mg/dL (74-106); MAGNESIUM 2.1 mg/dL (1.8-2.4); PHOSPHOROUS 5.1 mg/dL (2.5-4.9); POTASSIUM 5.3 mmol/L (3.5-5.1); SGOT/AST 25 U/L (15-37); SGPT/ALT 17 U/L (13-61); SODIUM 138 mmol/L (136-145); TOT PROT 4.8 g/dl (6.4-8.2)
[2018-09-27 07:18] LABS: ARTERIAL BLD GAS O2 SATURATION 95.2 % (90-98.9); ARTERIAL BLOOD GAS BASE EXCESS 3.8 meq/l (-2-2); ARTERIAL BLOOD GAS PO2 84.3 mmHg (70-100); ARTERIAL BLOOD GAS pH 7.34 (7.35-7.45)
--- NOTE | 2018-09-27 09:00 | PN ---
Progress Note (short form) - Note Progress Note: s/p emergent HD last night awake and alert but confused daughter at bedside anuric never required pressors last night d/w records technician last pm, she received meropenem post HD Vital Signs Period Temp Pulse Resp BP Sys/Ivan Pulse Ox Last 24 Hr 97.4 F-99.2 F 89-107 14-26 85-126/44-97 97-100 left IJ HD catheter cor-rrr lung decreased bs at bases abd diffuse discomfort to palpation ext no edema CBC, BMP 09/27/18 05:30 09/27/18 05:30 Microbiology 09/26/18 06:53 Blood - Peripheral Venous Blood Culture - Preliminary Pending Organism 09/26/18 06:53 Blood - Peripheral Venous Blood Culture - Preliminary Pending Organism a/p gram negative sepsis urinary source- ?pyelo, ?renal abscess, ?stones acute renal failure daughter reports she urinates poorly and has hematuria ?history of stones continue meropenem-adjust for renal failure needs renal ultrasound - if abscess or obstruction will need intervention continue meropenem (history prior UTIs predisposes to drug resistance) would contact PMD- daughter has information d/w ICU residents Problem List - Problems (1) Sepsis Code(s): A41.9 - SEPSIS, UNSPECIFIED ORGANISM Qualifiers: Sepsis type: sepsis due to unspecified organism Qualified Code(s): A41.9 - Sepsis, unspecified organism (2) SHERRON (acute kidney injury) Code(s): N17.9 - ACUTE KIDNEY FAILURE, UNSPECIFIED
[2018-09-27] MEDS ORDERED: PT OWN MED DRAWER 7, Y5N ONE (09:46)
[2018-09-27] MEDS ORDERED: MEROPENEM 500 MG in DEXTROSE 5%-WATER 100 ML IVPB SCH (10:00)
[2018-09-27] MEDS: MEROPENEM 500 MG in DEXTROSE 5%-WATER 100 ML IVPB SCH (10:30)
[2018-09-27] MEDS: MUPIROCIN 2% TOPICAL OINTMENT FOR DECOLONIZATION NS SCH ×2 (10:30→21:34)
--- NOTE | 2018-09-27 12:24 | PN ---
Teaching Attending Note Name of Resident: Delilah Rao ATTENDING PHYSICIAN STATEMENT I saw and evaluated the patient. I reviewed the resident's note and discussed the case with the resident. I agree with the resident's findings and plan as documented. SUBJECTIVE: Patient seen and examined in the ICU. Drowsy but arousable. Confused. S/P HD Intake & Output 09/24/18 09/25/18 09/26/18 09/27/18 23:59 23:59 23:59 23:59 Intake Total 3250 Balance 3250 Weight 150 lb 149 lb 8 oz Last Vital Signs Temp Pulse Resp BP Pulse Ox 99.2 F 90 18 113/50 L 96 09/27/18 02:00 09/27/18 08:00 09/27/18 08:00 09/27/18 08:00 09/27/18 09:00 Active Medications Chlorhexidine Gluconate (Hibiclens For Decolonization -) 1 applic TP HS [facility] Last Admin: 09/26/18 21:46 Dose: 1 applic Heparin Sodium (Porcine) (Heparin -) 5,000 unit SQ TID [facility] Last Admin: 09/27/18 06:17 Dose: 5,000 unit Sodium Chloride (Normal Saline -) 250 mls @ 3,000 mls/hr IV PRN PRN PRN Reason: Hypotension during Dialysis Stop: 09/27/18 15:37 Meropenem 500 mg/ Dextrose 100 mls @ 200 mls/hr IVPB Q24H [facility] Mupirocin (Bactroban Ointment (For Decolonization) -) 1 applic NS BID [facility] Stop: 10/01/18 21:59 Last Admin: 09/26/18 21:44 Dose: 1 applic Gen: elderly woman, confused, INAD HEENT: PERRL, EOMI, neck supple PULM: clear anterior, no wheezes CV: RRR, iii/Vi EYAL LSB ABD: soft, NT, ND Ext: (-) edema Neuro: non focal but confused Laboratory Results - last 24 hr 09/26/18 09/26/18 09/26/18 12:00 14:10 14:10 WBC RBC Hgb Hct MCV MCH MCHC RDW Plt Count MPV Anticoagulation Therapy Puncture Site ABG pH ABG pCO2 at Pt Temp ABG pO2 at Pt Temp ABG HCO3 ABG O2 Sat (Measured) ABG O2 Content ABG Base Excess Sam Test O2 Delivery Device Oxygen Flow Rate Vent Mode Vent Rate Mechanical Rate Pressure Support Vent Sodium 135 L Potassium 6.1 H* Chloride 100 Carbon Dioxide 15 L Anion Gap 20 H BUN 77 H Creatinine 6.0 H Creat Clearance w eGFR 6.82 POC Glucometer Random Glucose 128 H Lactic Acid 6.3 H* Calcium 8.1 L Phosphorus Magnesium Total Bilirubin AST ALT Alkaline Phosphatase Total Protein Albumin Blood Type A POSITIVE 09/26/18 09/26/18 09/26/18 14:15 17:09 21:45 WBC RBC Hgb Hct MCV MCH MCHC RDW Plt Count MPV Anticoagulation Therapy Puncture Site Right brachial ABG pH 7.22 L* ABG pCO2 at Pt Temp 42.6 ABG pO2 at Pt Temp 80.3 D ABG HCO3 16.8 L ABG O2 Sat (Measured) 93.3 ABG O2 Content 8.1 L* ABG Base Excess -9.6 L Sam Test Positive O2 Delivery Device Oxygen Flow Rate Yes Vent Mode Vent Rate Mechanical Rate Pressure Support Vent Sodium 141 Potassium 5.1 Chloride 102 Carbon Dioxide 25 Anion Gap 14 BUN 43 H Creatinine 3.8 H Creat Clearance w eGFR 11.55 POC Glucometer [phone] Random Glucose 122 H Lactic Acid Calcium 7.2 L Phosphorus Magnesium Total Bilirubin AST ALT Alkaline Phosphatase Total Protein Albumin Blood Type 09/26/18 09/26/18 09/27/18 21:45 22:00 05:30 WBC 9.1 RBC 3.69 Hgb 9.6 L Hct 29.8 L D MCV 80.7 MCH 26.0 MCHC 32.3 RDW 15.7 H Plt Count 154 D MPV 8.5 Anticoagulation Therapy No Result Required. Puncture Site Right radial ABG pH 7.37 D ABG pCO2 at Pt Temp 50.9 H ABG pO2 at Pt Temp 79.0 ABG HCO3 28.9 H ABG O2 Sat (Measured) 95.4 ABG O2 Content 11.9 L ABG Base Excess 3.6 H Sam Test Positive O2 Delivery Device N/c Oxygen Flow Rate 3 Vent Mode No Result Required. Vent Rate No Result Required. Mechanical Rate No Result Required. Pressure Support Vent No Result Required. Sodium Potassium Chloride Carbon Dioxide Anion Gap BUN Creatinine Creat Clearance w eGFR POC Glucometer Random Glucose Lactic Acid 4.5 H* Calcium Phosphorus Magnesium Total Bilirubin AST ALT Alkaline Phosphatase Total Protein Albumin Blood Type 09/27/18 09/27/18 09/27/18 05:30 05:39 06:00 WBC RBC Hgb Hct MCV MCH MCHC RDW Plt Count MPV Anticoagulation Therapy Puncture Site Right brachial ABG pH 7.34 L ABG pCO2 at Pt Temp 58.0 H ABG pO2 at Pt Temp 84.3 ABG HCO3 30.2 H ABG O2 Sat (Measured) 95.2 ABG O2 Content 14.9 L ABG Base Excess 3.8 H Sam Test No Result Required. O2 Delivery Device Oxygen Flow Rate Yes Vent Mode Vent Rate Mechanical Rate Pressure Support Vent Sodium 138 Potassium 5.3 H Chloride 99 Carbon Dioxide 31 Anion Gap 8 BUN 44 H Creatinine 4.0 H Creat Clearance w eGFR 10.89 POC Glucometer [phone] Random Glucose 135 H Lactic Acid Calcium 7.7 L Phosphorus 5.1 H Magnesium 2.1 Total Bilirubin 0.6 AST 25 ALT 17 Alkaline Phosphatase 89 Total Protein 4.8 L Albumin 1.9 L Blood Type 09/27/18 10:21 WBC RBC Hgb Hct MCV MCH MCHC RDW Plt Count MPV Anticoagulation Therapy Puncture Site ABG pH ABG pCO2 at Pt Temp ABG pO2 at Pt Temp ABG HCO3 ABG O2 Sat (Measured) ABG O2 Content ABG Base Excess Sam Test O2 Delivery Device Oxygen Flow Rate Vent Mode Vent Rate Mechanical Rate Pressure Support Vent Sodium Potassium Chloride Carbon Dioxide Anion Gap BUN Creatinine Creat Clearance w eGFR POC Glucometer Random Glucose Lactic Acid 1.8 Calcium Phosphorus Magnesium Total Bilirubin AST ALT Alkaline Phosphatase Total Protein Albumin Blood Type ASSESSMENT AND PLAN: Uremia due to Suspected Acute on Chronic Kidney Disease DM HTN Dementia Hyperkalemia Metabolic Acidosis HD per Renal O2 as needed Follow K+ Will likely remove access today Repeat blood cultures ABX per ID Glycemic control Renal US: May need IR intervention ICU Monitoring for tenuous overall status Dr Nova Critical care time spent in reviewing chart, evaluating patient and formulating plan - 36 minutes.
--- NOTE | 2018-09-27 12:40 | PN ---
Physical Exam: SUBJECTIVE: Patient seen and examined Patient minimally verbal, mumbling able to follow commands. OBJECTIVE: Vital Signs Period Temp Pulse Resp BP Sys/Ivan Pulse Ox Last 24 Hr 98.4 F-99.2 F 89-102 14-20 85-123/44-97 96-100 GENERAL: confused, repeatedly mumbling HEAD: Normal with no signs of trauma. EYES: PERRLA, extraocular movements intact, sclera anicteric, conjunctiva clear. No ptosis. ENT:moist mucous membranes. NECK: Trachea midline, full range of motion, supple. L IJ catheter LUNGS: Breath sounds equal, clear to auscultation bilaterally, no wheezes, no crackles, no accessory muscle use. HEART: Regular rate and rhythm, S1, S2 without murmur, rub or gallop. ABDOMEN: Soft, + tender in all qaudrants w/ guarding, no rebound, no hepatosplenomegaly, no masses. EXTREMITIES: 2+ pulses, warm, well-perfused, no edema. NEUROLOGICAL: AOx2, can follow commands, gait not observed. PSYCH: Normal mood, normal affect. SKIN: Warm, dry, normal turgor, no rashes or lesions noted Laboratory Results - last 24 hr 09/26/18 09/26/18 09/26/18 12:00 14:10 14:10 WBC RBC Hgb Hct MCV MCH MCHC RDW Plt Count MPV Anticoagulation Therapy Puncture Site ABG pH ABG pCO2 at Pt Temp ABG pO2 at Pt Temp ABG HCO3 ABG O2 Sat (Measured) ABG O2 Content ABG Base Excess Sam Test O2 Delivery Device Oxygen Flow Rate Vent Mode Vent Rate Mechanical Rate Pressure Support Vent Sodium 135 L Potassium 6.1 H* Chloride 100 Carbon Dioxide 15 L Anion Gap 20 H BUN 77 H Creatinine 6.0 H Creat Clearance w eGFR 6.82 POC Glucometer Random Glucose 128 H Lactic Acid 6.3 H* Calcium 8.1 L Phosphorus Magnesium Total Bilirubin AST ALT Alkaline Phosphatase Total Protein Albumin Blood Type A POSITIVE 09/26/18 09/26/18 09/26/18 14:15 17:09 21:45 WBC RBC Hgb Hct MCV MCH MCHC RDW Plt Count MPV Anticoagulation Therapy Puncture Site Right brachial ABG pH 7.22 L* ABG pCO2 at Pt Temp 42.6 ABG pO2 at Pt Temp 80.3 D ABG HCO3 16.8 L ABG O2 Sat (Measured) 93.3 ABG O2 Content 8.1 L* ABG Base Excess -9.6 L Sam Test Positive O2 Delivery Device Oxygen Flow Rate Yes Vent Mode Vent Rate Mechanical Rate Pressure Support Vent Sodium 141 Potassium 5.1 Chloride 102 Carbon Dioxide 25 Anion Gap 14 BUN 43 H Creatinine 3.8 H Creat Clearance w eGFR 11.55 POC Glucometer [phone] Random Glucose 122 H Lactic Acid Calcium 7.2 L Phosphorus Magnesium Total Bilirubin AST ALT Alkaline Phosphatase Total Protein Albumin Blood Type 09/26/18 09/26/18 09/27/18 21:45 22:00 05:30 WBC 9.1 RBC 3.69 Hgb 9.6 L Hct 29.8 L D MCV 80.7 MCH 26.0 MCHC 32.3 RDW 15.7 H Plt Count 154 D MPV 8.5 Anticoagulation Therapy No Result Required. Puncture Site Right radial ABG pH 7.37 D ABG pCO2 at Pt Temp 50.9 H ABG pO2 at Pt Temp 79.0 ABG HCO3 28.9 H ABG O2 Sat (Measured) 95.4 ABG O2 Content 11.9 L ABG Base Excess 3.6 H Sam Test Positive O2 Delivery Device N/c Oxygen Flow Rate 3 Vent Mode No Result Required. Vent Rate No Result Required. Mechanical Rate No Result Required. Pressure Support Vent No Result Required. Sodium Potassium Chloride Carbon Dioxide Anion Gap BUN Creatinine Creat Clearance w eGFR POC Glucometer Random Glucose Lactic Acid 4.5 H* Calcium Phosphorus Magnesium Total Bilirubin AST ALT Alkaline Phosphatase Total Protein Albumin Blood Type 09/27/18 09/27/18 09/27/18 05:30 05:39 06:00 WBC RBC Hgb Hct MCV MCH MCHC RDW Plt Count MPV Anticoagulation Therapy Puncture Site Right brachial ABG pH 7.34 L ABG pCO2 at Pt Temp 58.0 H ABG pO2 at Pt Temp 84.3 ABG HCO3 30.2 H ABG O2 Sat (Measured) 95.2 ABG O2 Content 14.9 L ABG Base Excess 3.8 H Sam Test No Result Required. O2 Delivery Device Oxygen Flow Rate Yes Vent Mode Vent Rate Mechanical Rate Pressure Support Vent Sodium 138 Potassium 5.3 H Chloride 99 Carbon Dioxide 31 Anion Gap 8 BUN 44 H Creatinine 4.0 H Creat Clearance w eGFR 10.89 POC Glucometer [phone] Random Glucose 135 H Lactic Acid Calcium 7.7 L Phosphorus 5.1 H Magnesium 2.1 Total Bilirubin 0.6 AST 25 ALT 17 Alkaline Phosphatase 89 Total Protein 4.8 L Albumin 1.9 L Blood Type 09/27/18 10:21 WBC RBC Hgb Hct MCV MCH MCHC RDW Plt Count MPV Anticoagulation Therapy Puncture Site ABG pH ABG pCO2 at Pt Temp ABG pO2 at Pt Temp ABG HCO3 ABG O2 Sat (Measured) ABG O2 Content ABG Base Excess Sam Test O2 Delivery Device Oxygen Flow Rate Vent Mode Vent Rate Mechanical Rate Pressure Support Vent Sodium Potassium Chloride Carbon Dioxide Anion Gap BUN Creatinine Creat Clearance w eGFR POC Glucometer Random Glucose Lactic Acid 1.8 Calcium Phosphorus Magnesium Total Bilirubin AST ALT Alkaline Phosphatase Total Protein Albumin Blood Type Active Medications Generic Name Dose Route Start Last Admin Trade Name Freq PRN Reason Stop Dose Admin Chlorhexidine Gluconate 1 applic 09/26/18 22:00 09/26/18 21:46 Hibiclens For Decolonization - TP 1 applic HS BLAYNE Administration Heparin Sodium (Porcine) 5,000 unit 09/26/18 22:00 09/27/18 06:17 Heparin - SQ 5,000 unit TID BLAYNE Administration Sodium Chloride 250 mls @ 3,000 mls/hr 09/26/18 15:37 Normal Saline - IV 09/27/18 15:37 PRN PRN Hypotension during Dialysis Meropenem 500 mg/ Dextrose 100 mls @ 200 mls/hr 09/27/18 09:15 IVPB Q24H BLAYNE Mupirocin 1 applic 09/26/18 22:00 09/26/18 21:44 Bactroban Ointment (For Decolonization) - NS 10/01/18 21:59 1 applic BID BLAYNE Administration ASSESSMENT/PLAN: 78 year old with history of DM, HTN, CKD and dementia who presented with AMS and UTI and found to have hyperkalemia, acute renal failure and uremic encephalopathy. CTA showed inflammatory changes in the retroperitoneum likely bilateral renal infection. Patient was emergently dialyzed overnight. K 5.3 up from 5.1 BUN: 44 up from 43 Cr: 4 up from 3.8 lactic 1.8 down from 4.5 UO of 100cc Nephro Acute renal failure - Spoke with patient's PCP Dr. Green ([phone]) who denies CKD. And notes patient was alert oriented and coorehent at last visit on 08/18/18. PMD to fax patient records to ICU. - Dr. Corcoran contacted would like to hemodialyze patient this AM - L IJ hemodialysis catheter measured 20 at the neck. however missed placed and looped cephalad into the R IV. Plan to replace catheter for AM dialysis - Patient with 100cc urine output in last 24 - Pending renal/bladder ultrasound to r/o obstruction vs abscess ID UTI/Pylenophritis - Meropenem 500mg as recommended by ID. - Per ID s/p ultrasound-if she has renal abscess will need urology eval and IR for drainage Cardiac Murmur - ECHO done this AM, pending final read. PPX - Heparin SQ Visit type - Emergency Visit Emergency Visit: Yes ED Registration Date: 09/26/18 Care time: The patient presented to the Emergency Department on the above date and was hospitalized for further evaluation of their emergent condition. - New Patient This patient is new to me today: Yes Date on this admission: 09/27/18 - Critical Care Critical Care patient: Yes Total Critical Care Time (in minutes): 35 Critical Care Statement: The care of this patient involved high complexity decision making to prevent further life threatening deterioration of the patient 's condition and/or to evaluate & treat vital organ system(s) failure or risk of failure.
--- NOTE | 2018-09-27 13:21 | ECHO ---
Name: CRIS PERALES Exam:Adult Echocardiogram Study Date: 09/27/2018 08:00 AM Age: 78 yrs Reason For Study: LV Function Height: 61 in Weight: 150 lb BSA: 1.7 m2 BP: 113/52 mmHg MMode/2D Measurements & Calculations IVSd: 0.90 cm Ao root diam: 3.2 cm LVIDd: 4.4 cm LA dimension: 3.0 cm LVIDs: 2.9 cm LVPWd: 0.98 cm EDV(Teich): 88.3 ml LVOT diam: 2.0 cm ESV(Teich): 30.9 ml TAPSE: 2.6 cm RV S Jagdeep: 14.4 cm/sec Doppler Measurements & Calculations MV E max jagdeep: 102.0 cm/sec Ao V2 max: 225.3 cm/sec MV A max jagdeep: 110.1 cm/sec Ao max P.3 mmHg MV E/A: 0.93 CLARISA(V,D): 1.4 cm2 LV V1 max P.1 mmHg Med Peak E' Jagdeep: 7.7 cm/sec LV V1 max: 100.9 cm/sec Med E/e': 13.2 Lat Peak E' Jagdeep: 7.1 cm/sec Lat E/e': 14.4 Procedure A complete two-dimensional transthoracic echocardiogram was performed (2D, M-mode, Doppler and color flow Doppler). Left Ventricle The left ventricle is normal in size. Left ventricular systolic function is normal. Ejection Fraction = 60- 65%. No regional wall motion abnormalities noted. Right Ventricle The right ventricle is normal size. The right ventricular systolic function is normal. RV systolic TD I is 14 cm/s. Atria The left atrial size is normal. Right atrial size is normal. Mitral Valve There is mild mitral annular calcification. There is trace mitral regurgitation. Tricuspid Valve The tricuspid valve is normal in structure and function. There is mild tricuspid regurgitation. Aortic Valve There is mild aortic sclerosis.;. No aortic regurgitation is present. Pulmonic Valve The pulmonic valve is not well visualized. Mild pulmonic valvular regurgitation. Great Vessels The aortic root is normal size. Pericardium/Pleura Trivial pericardial effusion not hemodynamically significant. Interpretation Summary The left ventricle is normal in size. Left ventricular systolic function is normal. No regional wall motion abnormalities noted. Ejection Fraction = 60-65%. The right ventricular systolic function is normal. The left atrial size is normal. Right atrial size is normal. There is mild mitral annular calcification. There is trace mitral regurgitation. There is mild tricuspid regurgitation. There is mild aortic sclerosis. Mild pulmonic valvular regurgitation. Trivial pericardial effusion not hemodynamically significant Previous study is not available for comparison Moses Pelletier MD 09/27/2018 01:21 PM
[2018-09-27] MEDS ORDERED: SODIUM POLYSTYRENE SULFONATE 15 GM/60 ML BOTTLE PO ONE (13:49)
[2018-09-27] MEDS ORDERED: SODIUM CHLORIDE 0.45% 1,000 ML IV SCH (14:00)
--- NOTE | 2018-09-27 17:14 | PN ---
Progress Note, Physician History of Present Illness: Pt seen and examined at bedside. She remain in the ICU. She denies shortness of breath. - Current Medication List Current Medications: Active Medications Chlorhexidine Gluconate (Hibiclens For Decolonization -) 1 applic TP HS [facility] Last Admin: 09/26/18 21:46 Dose: 1 applic Heparin Sodium (Porcine) (Heparin -) 5,000 unit SQ TID [facility] Last Admin: 09/27/18 15:17 Dose: 5,000 unit Sodium Chloride (Normal Saline -) 250 mls @ 3,000 mls/hr IV PRN PRN PRN Reason: Hypotension during Dialysis Stop: 09/27/18 15:37 Meropenem 500 mg/ Dextrose 100 mls @ 200 mls/hr IVPB Q24H [facility] Last Admin: 09/27/18 10:30 Dose: 200 mls/hr Sodium Chloride (1/2 Normal Saline) 1,000 mls @ 75 mls/hr IV ASDIR [facility] Last Admin: 09/27/18 16:27 Dose: 75 mls/hr Insulin Aspart (Novolog Vial Sliding Scale -) 1 vial SQ ACHS [facility]; Protocol Mupirocin (Bactroban Ointment (For Decolonization) -) 1 applic NS BID [facility] Stop: 10/01/18 21:59 Last Admin: 09/27/18 10:30 Dose: 1 applic - Objective Vital Signs: Vital Signs Temperature 98.2 F 09/27/18 16:17 Pulse Rate 92 H 09/27/18 16:17 Respiratory Rate 18 09/27/18 16:17 Blood Pressure 96/53 L 09/27/18 16:17 O2 Sat by Pulse Oximetry (%) 96 09/27/18 09:00 Constitutional: Yes: Calm Eyes: Yes: Conjunctiva Clear HENT: Yes: Atraumatic Neck: Yes: Supple Cardiovascular: Yes: S1, S2 Respiratory: Yes: CTA Bilaterally Gastrointestinal: Yes: Soft Genitourinary: Yes: [place] Present Musculoskeletal: Yes: Muscle Weakness Edema: No Neurological: Yes: Confusion Labs: CBC, BMP 09/27/18 05:30 09/27/18 05:30 INR, PTT INR 1.17 (0.83-1.09) H 09/26/18 06:53 - ....Imaging Ultrasound: Report Reviewed Problem List - Problems (1) SHERRON (acute kidney injury) Code(s): N17.9 - ACUTE KIDNEY FAILURE, UNSPECIFIED (2) Sepsis Code(s): A41.9 - SEPSIS, UNSPECIFIED ORGANISM Qualifiers: Sepsis type: sepsis due to unspecified organism Qualified Code(s): A41.9 - Sepsis, unspecified organism (3) UTI (urinary tract infection) Code(s): N39.0 - URINARY TRACT INFECTION, SITE NOT SPECIFIED Qualifiers: Urinary tract infection type: site unspecified Hematuria presence: with hematuria Qualified Code(s): N39.0 - Urinary tract infection, site not specified; R31.9 - Hematuria, unspecified Assessment/Plan Current Medications Generic Name Dose Route Start Last Admin Trade Name Freq PRN Reason Stop Dose Admin Chlorhexidine Gluconate 1 applic 09/26/18 22:00 09/26/18 21:46 Hibiclens For Decolonization - TP 1 applic HS BLAYNE Administration Heparin Sodium (Porcine) 5,000 unit 09/26/18 22:00 09/27/18 15:17 Heparin - SQ 5,000 unit TID BLAYNE Administration Sodium Chloride 250 mls @ 3,000 mls/hr 09/26/18 15:37 Normal Saline - IV 09/27/18 15:37 PRN PRN Hypotension during Dialysis Meropenem 500 mg/ Dextrose 100 mls @ 200 mls/hr 09/27/18 09:15 09/27/18 10:30 IVPB 200 mls/hr Q24H BLAYNE Administration Sodium Chloride 1,000 mls @ 75 mls/hr 09/27/18 14:00 09/27/18 16:27 1/2 Normal Saline IV 75 mls/hr ASDIR BLAYNE Administration Insulin Aspart 1 vial 09/27/18 16:30 Novolog Vial Sliding Scale - SQ ACHS BLAYNE Protocol Mupirocin 1 applic 09/26/18 22:00 09/27/18 10:30 Bactroban Ointment (For Decolonization) - NS 10/01/18 21:59 1 applic BID BLAYNE Administration Microbiology 09/26/18 08:50 Urine - Urine Clean Catch Urine Culture - Preliminary Lactose Fermenting Neg Bacilli 09/26/18 06:53 Blood - Peripheral Venous Blood Culture - Preliminary Lactose Fermenting Neg Bacilli 09/26/18 06:53 Blood - Peripheral Venous Blood Culture - Preliminary Lactose Fermenting Neg Bacilli Impression 1. SHERRON vs progression of CKD 2. sepsis 3. bacteremia 4. DM 5. HTN 6. active smoker 7. dementia Plan - remove shiley catheter as it is not in correct position - pt will get another catheter tomorrow - will likely dialyze tomorrow - renal ultrasound reviewed - discussed with ICU team - cont abx - monitor urine output Dr Conde
--- NOTE | 2018-09-27 18:46 | PN ---
Teaching Attending Note Name of Resident: Pb Camargo ATTENDING PHYSICIAN STATEMENT I saw and evaluated the patient. I reviewed the resident's note and discussed the case with the resident. I agree with the resident's findings and plan as documented. SUBJECTIVE:states she has no pain and asked to be left alone. denies Cp, SOB, fever, chills, N/V/C/D OBJECTIVE: Last Vital Signs Temp Pulse Resp BP Pulse Ox 98.2 F 92 H 18 96/53 L 96 09/27/18 16:17 09/27/18 16:17 09/27/18 16:17 09/27/18 16:17 09/27/18 09:00 Intake & Output 09/24/18 09/25/18 09/26/18 09/27/18 23:59 23:59 23:59 23:59 Intake Total 3250 Output Total 20 Balance 3250 -20 Weight 150 lb 149 lb 8 oz General NAD, A&O x2 (self and place) CV S1 S2 RRR +murmur Lungs CTA B/L no wheezing/rales/rhonchi Abdomen soft + flank tenderness, not distended Extremities no pedal edema ASSESSMENT AND PLAN: 78yo F with PMH DM, HTN, dementia brought in by daughter for altered mental status with nausea and vomiting. Pt was found to be acidemic with renal failure 1. Acute renal failure-s/p HD yesterday. tolerated well. acidemia and hyperkalemia resolved. no indication for urgent HD at this time. resident spoke with PMD who states based on labs from last month has no pre-existing renal disease. renal/bladdder u/s pending. do in place. strict I&O. nephro on board. 2. AGMA- due to lactic acidosis. s/p sodium bicarb in the ER and urgent HD last night. resolved 3. Acute metabolic uremic encephalopathy- due to infection and uremia. will treat underlying disorders. as per family improved from yesterday but not at baseline. states she is typically oriented but forgetful. performs her own ADL' s with minimal assistance from [employer]. cont neurochecks 4. Hyperkalemia- due to renal failure. s/p HD iwth resolution, slight uptrend. will medically treat. if persists may require repeat HD 5. severe sepsis due to pyelonephritis and bacteremia- clinically improved. cont meropenem. f/u renal u/s. ID on board. f/u Cx 6. +murmur- unclear if new or not. will check echo 7. DM- hold oral agents. iss and BGM 8. HTN- currently normotesnive. hold oral antihypertensives 9. DVT ppx- hep sq 10. MICU monitoring 11. spoke with daughter and granddaughter present at bedside, states both are HCP and will bring in forms from home. all questions answered. verbalized understanding and agreement with plan The care of this patient involved high complexity decision making to prevent further life threatening deterioration of the patient's condition and/or to evaluate & treat vital organ system(s) failure or risk of failure. 40 mins
--- NOTE | 2018-09-27 19:30 | PN ---
Physical Exam: SUBJECTIVE: Patient seen and examined at bedside. Confused, mumbling. Underwent emergent dialysis yesterday. OBJECTIVE: Vital Signs Period Temp Pulse Resp BP Sys/Ivan Pulse Ox Last 24 Hr 98.2 F-99.2 F 88-100 14-20 85-123/45-97 96-100 GENERAL: Confused, AAOx2 HEAD:NC/AT EYES: EOMI ENT: Dry mucous membranes LUNGS: CTA B/L HEART: Systolic murmur? ABDOMEN: Tender to touch. Flank tenderness persists. EXTREMITIES: No CCE Laboratory Results - last 24 hr 09/26/18 09/26/18 09/26/18 21:45 21:45 22:00 WBC RBC Hgb Hct MCV MCH MCHC RDW Plt Count MPV Anticoagulation Therapy No Result Required. Puncture Site Right radial ABG pH 7.37 D ABG pCO2 at Pt Temp 50.9 H ABG pO2 at Pt Temp 79.0 ABG HCO3 28.9 H ABG O2 Sat (Measured) 95.4 ABG O2 Content 11.9 L ABG Base Excess 3.6 H Sam Test Positive O2 Delivery Device N/c Oxygen Flow Rate 3 Vent Mode No Result Required. Vent Rate No Result Required. Mechanical Rate No Result Required. Pressure Support Vent No Result Required. Sodium 141 Potassium 5.1 Chloride 102 Carbon Dioxide 25 Anion Gap 14 BUN 43 H Creatinine 3.8 H Creat Clearance w eGFR 11.55 POC Glucometer Random Glucose 122 H Lactic Acid 4.5 H* Calcium 7.2 L Phosphorus Magnesium Total Bilirubin AST ALT Alkaline Phosphatase Total Protein Albumin 09/27/18 09/27/18 09/27/18 05:30 05:30 05:39 WBC 9.1 RBC 3.69 Hgb 9.6 L Hct 29.8 L D MCV 80.7 MCH 26.0 MCHC 32.3 RDW 15.7 H Plt Count 154 D MPV 8.5 Anticoagulation Therapy Puncture Site ABG pH ABG pCO2 at Pt Temp ABG pO2 at Pt Temp ABG HCO3 ABG O2 Sat (Measured) ABG O2 Content ABG Base Excess Sam Test O2 Delivery Device Oxygen Flow Rate Vent Mode Vent Rate Mechanical Rate Pressure Support Vent Sodium 138 Potassium 5.3 H Chloride 99 Carbon Dioxide 31 Anion Gap 8 BUN 44 H Creatinine 4.0 H Creat Clearance w eGFR 10.89 POC Glucometer 164.49835 Random Glucose 135 H Lactic Acid Calcium 7.7 L Phosphorus 5.1 H Magnesium 2.1 Total Bilirubin 0.6 AST 25 ALT 17 Alkaline Phosphatase 89 Total Protein 4.8 L Albumin 1.9 L 09/27/18 09/27/18 06:00 10:21 WBC RBC Hgb Hct MCV MCH MCHC RDW Plt Count MPV Anticoagulation Therapy Puncture Site Right brachial ABG pH 7.34 L ABG pCO2 at Pt Temp 58.0 H ABG pO2 at Pt Temp 84.3 ABG HCO3 30.2 H ABG O2 Sat (Measured) 95.2 ABG O2 Content 14.9 L ABG Base Excess 3.8 H Sam Test No Result Required. O2 Delivery Device Oxygen Flow Rate Yes Vent Mode Vent Rate Mechanical Rate Pressure Support Vent Sodium Potassium Chloride Carbon Dioxide Anion Gap BUN Creatinine Creat Clearance w eGFR POC Glucometer Random Glucose Lactic Acid 1.8 Calcium Phosphorus Magnesium Total Bilirubin AST ALT Alkaline Phosphatase Total Protein Albumin Active Medications Generic Name Dose Route Start Last Admin Trade Name Freq PRN Reason Stop Dose Admin Chlorhexidine Gluconate 1 applic 09/26/18 22:00 09/26/18 21:46 Hibiclens For Decolonization - TP 1 applic HS BLAYNE Administration Heparin Sodium (Porcine) 5,000 unit 09/26/18 22:00 09/27/18 15:17 Heparin - SQ 5,000 unit TID BLAYNE Administration Sodium Chloride 250 mls @ 3,000 mls/hr 09/26/18 15:37 Normal Saline - IV 09/27/18 15:37 PRN PRN Hypotension during Dialysis Meropenem 500 mg/ Dextrose 100 mls @ 200 mls/hr 09/27/18 09:15 09/27/18 10:30 IVPB 200 mls/hr Q24H BLAYNE Administration Sodium Chloride 1,000 mls @ 75 mls/hr 09/27/18 14:00 09/27/18 16:27 1/2 Normal Saline IV 75 mls/hr ASDIR BLAYNE Administration Insulin Aspart 1 vial 09/27/18 16:30 Novolog Vial Sliding Scale - SQ ACHS [facility] Protocol Mupirocin 1 applic 09/26/18 22:00 09/27/18 10:30 Bactroban Ointment (For Decolonization) - NS 10/01/18 21:59 1 applic BID BLAYNE Administration ASSESSMENT/PLAN: Pt is a 78 y/o lady with a significant past medical history of DM, HTN, CKD, and dementia. Pt presented to [facility] ED this AM with daughter c/o weakness, nausea /vomiting and AMS. #Sepsis 2/2 Pyelonephritis -WBC 18.2--> 9.1 today 09/27/2018 -Troponin negative - CTAP--> Significant inflammatory changes in retroperitoneum appear to originate from kidneys compatible with significant b/l renal infection. - Nephrology on Board - Renal Bladder Ultrasound--> MORPHOLOGICALLY NORMAL KIDNEYS WITH NO EVIDENCE OF HYDRONEPHROSIS OR ACUTE PATHOLOGY - Lactic Acid 10.4--> 8.0--> 4.5--> 1.8 TODAY 09/27/18 - ABG PH 7.22,7.34 TODAY 09/27/2018 - I.D on board--> Meropenem 1 gm Yesterday, 500 mg today- Per I.D--> adjusted for renal failure to cover for esbl organisms -Spoke with PCP Dr Green this afternoon 09/27/2018, States that pt has NO underlying Kidney disease and Creatinine has been WNL. PCP recently saw and examined pt and has faxed blood work to ICU. # Hyperkalemia - Potassium in ED 6.6, 5.3 today 09/27/18 - Given Insulin/D5W, Albuterol 1 amp, Sodium Bicarb -HD yesterday 09/26/2018 #UTI: -Leukocyte Esterase 3+ - WBC 18.2--> now 9.1 - Urine/Blood cultures--> Lactose Fermenting Gram Neg Bacilli - Vanc/Zosyn in ED - I.D on board - Merrem #Murmur? -Echo -->EF 60-65%. #FEN 1/2 NS @75cc/hr Monitor electrolytes Diabetic Diet DVT ppx: Heparin SQ TID Dispo: ICU Visit type - Emergency Visit Emergency Visit: Yes ED Registration Date: 09/26/18 Care time: The patient presented to the Emergency Department on the above date and was hospitalized for further evaluation of their emergent condition. - New Patient This patient is new to me today: No - Critical Care Critical Care patient: Yes Total Critical Care Time (in minutes): 35 Critical Care Statement: The care of this patient involved high complexity decision making to prevent further life threatening deterioration of the patient 's condition and/or to evaluate & treat vital organ system(s) failure or risk of failure.
[2018-09-27] MEDS: INSULIN SLIDING SCALE (NOVOLOG) 1 VIAL SQ SCH (21:33)
[2018-09-27] MEDS: CHLORHEXIDINE GLUCONATE 4% CLEANSER FOR DECOLONIZATION TP SCH (21:34)
[2018-09-28] MEDS: HEPARIN NA (PORCINE) 5,000 UNITS/ML 1ML VIAL SQ SCH ×3 (05:52→21:27)
[2018-09-28] MEDS: INSULIN SLIDING SCALE (NOVOLOG) 1 VIAL SQ SCH ×5 (05:52→21:33)
[2018-09-28] MEDS ORDERED: PT OWN MED DRAWER 7, Y5N ONE (08:01)
[2018-09-28] MEDS: MEROPENEM 500 MG in DEXTROSE 5%-WATER 100 ML IVPB SCH (08:19)
[2018-09-28] MEDS: MUPIROCIN 2% TOPICAL OINTMENT FOR DECOLONIZATION NS SCH ×2 (10:13→21:26)
[2018-09-28] MEDS ORDERED: DEXTROSE 50%-WATER - 25 GM/50 ML VIAL IVPUSH ONE (11:29)
[2018-09-28] MEDS ORDERED: DEXTROSE 50%-WATER 25 GM/50 ML DISP.SYRIN ONE (11:30)
[2018-09-28 11:35] LABS: ANION GAP 16 MMOL/L (8-16); BLOOD UREA NITROGEN 65 mg/dL (7-18); CALCIUM 7.4 mg/dL (8.5-10.1); CHLORIDE 102 mmol/L (98-107); CO2 24 mmol/L (21-32); CREATININE 5.9 mg/dL (0.55-1.3); GLUCOSE,RANDOM 129 mg/dL (74-106); MAGNESIUM 2.4 mg/dL (1.8-2.4); PHOSPHOROUS 5.3 mg/dL (2.5-4.9); POTASSIUM 4.8 mmol/L (3.5-5.1); SODIUM 142 mmol/L (136-145)
[2018-09-28 11:36] LABS: ALBUMIN 1.9 g/dl (3.4-5.0); ALK PHOS 192 U/L (45-117); BILIRUBIN,TOTAL 0.5 mg/dL (0.2-1); SGOT/AST 35 U/L (15-37); SGPT/ALT 19 U/L (13-61)
--- NOTE | 2018-09-28 12:09 | PN ---
Teaching Attending Note Name of Resident: Delilah Rao ATTENDING PHYSICIAN STATEMENT I saw and evaluated the patient. I reviewed the resident's note and discussed the case with the resident. I agree with the resident's findings and plan as documented. SUBJECTIVE: Patient seen and examined in the ICU. Remains lethargic and confused. Labs are pending. Only 25cc Urine Output. Intake & Output 09/25/18 09/26/18 09/27/18 09/28/18 23:59 23:59 23:59 23:59 Intake Total 3250 100 900 Output Total 20 25 Balance 3250 80 875 Weight 150 lb 149 lb 8 oz 151 lb 11.2 oz Last Vital Signs Temp Pulse Resp BP Pulse Ox 98.2 F 90 18 131/64 96 09/28/18 10:02 09/28/18 10:02 09/28/18 10:02 09/28/18 10:02 09/28/18 09:00 Active Medications Chlorhexidine Gluconate (Hibiclens For Decolonization -) 1 applic TP HS [facility] Last Admin: 09/27/18 21:34 Dose: 1 applic Heparin Sodium (Porcine) (Heparin -) 5,000 unit SQ TID [facility] Last Admin: 09/28/18 05:52 Dose: 5,000 unit Sodium Chloride (Normal Saline -) 250 mls @ 3,000 mls/hr IV PRN PRN PRN Reason: Hypotension during Dialysis Stop: 09/27/18 15:37 Meropenem 500 mg/ Dextrose 100 mls @ 200 mls/hr IVPB Q24H [facility] Last Admin: 09/28/18 08:19 Dose: 200 mls/hr Sodium Chloride (1/2 Normal Saline) 1,000 mls @ 75 mls/hr IV ASDIR [facility] Last Admin: 09/27/18 16:27 Dose: 75 mls/hr Insulin Aspart (Novolog Vial Sliding Scale -) 1 vial SQ ACHS [facility]; Protocol Last Admin: 09/28/18 11:23 Dose: Not Given Mupirocin (Bactroban Ointment (For Decolonization) -) 1 applic NS BID [facility] Stop: 10/01/18 21:59 Last Admin: 09/28/18 10:13 Dose: 1 applic Gen: elderly woman, confused, INAD HEENT: PERRL, EOMI, neck supple PULM: clear anterior, no wheezes CV: RRR, iii/Vi EYAL LSB ABD: soft, NT, ND Ext: (-) edema Neuro: non focal but confused ASSESSMENT AND PLAN: Uremia due to Suspected Acute on Chronic Kidney Disease DM HTN Dementia Hyperkalemia Metabolic Acidosis Will need access HD per Renal O2 as needed Follow K+ Repeat blood cultures ABX per ID Glycemic control Follow Renal US ICU Monitoring for tenuous overall status Dr Nova Critical care time spent in reviewing chart, evaluating patient and formulating plan - 36 minutes.
--- NOTE | 2018-09-28 12:21 | PN ---
Physical Exam: SUBJECTIVE: Patient seen and examined Patient more alert than yesterday, AOx2. Conversational, improved since yesterday OBJECTIVE: Vital Signs Period Temp Pulse Resp BP Sys/Ivan Pulse Ox Last 24 Hr 98.2 F-98.6 F 83-98 14-21 89-131/44-80 96-96 GENERAL: awake, alert, AOx2 HEAD: Normal with no signs of trauma. EYES: PERRL, extraocular movements intact, sclera anicteric, conjunctiva clear. No ptosis. ENT: moist mucous membranes. NECK: Trachea midline, full range of motion, supple. LUNGS: Breath sounds equal, clear to auscultation bilaterally, no wheezes, no crackles, no accessory muscle use. HEART: Regular rate and rhythm, S1, S2 without murmur, rub or gallop. ABDOMEN: Soft, + mild tenderness to palpation in all quadrants, nondistended, normoactive bowel sounds, no guarding, no rebound, no hepatosplenomegaly, no masses. EXTREMITIES: 2+ pulses, warm, well-perfused, no edema. NEUROLOGICAL: Cranial nerves II through XII grossly intact. Mumbling speech, gait not observed. PSYCH: Normal mood, normal affect. SKIN: Warm, dry, normal turgor, no rashes or lesions noted Laboratory Results - last 24 hr 09/26/18 09/26/18 09/27/18 19:08 22:05 11:51 Sodium Potassium Chloride Carbon Dioxide Anion Gap BUN Creatinine Creat Clearance w eGFR POC Glucometer 143.78735 167.55110 Random Glucose Lactic Acid Calcium Phosphorus Magnesium Total Bilirubin AST ALT Alkaline Phosphatase Total Protein Albumin Hep C Ab Diagnostic <0.1 09/27/18 09/27/18 09/28/18 17:31 21:29 05:59 Sodium Potassium Chloride Carbon Dioxide Anion Gap BUN Creatinine Creat Clearance w eGFR POC Glucometer 182.57633 141.46591 102.42913 Random Glucose Lactic Acid Calcium Phosphorus Magnesium Total Bilirubin AST ALT Alkaline Phosphatase Total Protein Albumin Hep C Ab Diagnostic 09/28/18 09/28/18 07:45 08:15 Sodium 142 Potassium 4.8 Chloride 102 Carbon Dioxide 24 Anion Gap 16 BUN 65 H Creatinine 5.9 H Creat Clearance w eGFR 6.95 POC Glucometer Random Glucose 129 H Lactic Acid 1.5 Calcium 7.4 L Phosphorus 5.3 H Magnesium 2.4 Total Bilirubin 0.5 AST 35 ALT 19 Alkaline Phosphatase 192 H Total Protein 5.0 L Albumin 1.9 L Hep C Ab Diagnostic Active Medications Generic Name Dose Route Start Last Admin Trade Name Josue PRN Reason Stop Dose Admin Chlorhexidine Gluconate 1 applic 09/26/18 22:00 09/27/18 21:34 Hibiclens For Decolonization - TP 1 applic HS [facility] Administration Heparin Sodium (Porcine) 5,000 unit 09/26/18 22:00 09/28/18 05:52 Heparin - SQ 5,000 unit TID [facility] Administration Sodium Chloride 250 mls @ 3,000 mls/hr 09/26/18 15:37 Normal Saline - IV 09/27/18 15:37 PRN PRN Hypotension during Dialysis Meropenem 500 mg/ Dextrose 100 mls @ 200 mls/hr 09/27/18 09:15 09/28/18 08:19 IVPB 200 mls/hr Q24H [facility] Administration Sodium Chloride 1,000 mls @ 75 mls/hr 09/27/18 14:00 09/27/18 16:27 1/2 Normal Saline IV 75 mls/hr ASDIR [facility] Administration Insulin Aspart 1 vial 09/27/18 16:30 09/28/18 11:23 Novolog Vial Sliding Scale - SQ Not Given ACHS [facility] Protocol Mupirocin 1 applic 09/26/18 22:00 09/28/18 10:13 Bactroban Ointment (For Decolonization) - NS 10/01/18 21:59 1 applic BID [facility] Administration ASSESSMENT/PLAN: 78 year old with history of DM, HTN, CKD and dementia who presented with AMS and UTI and found to have hyperkalemia, acute renal failure and uremic encephalopathy. CTA showed inflammatory changes in the retroperitoneum likely bilateral renal infection. Patient was emergently dialyzed overnight. Nephro Acute renal failure - Spoke with patient's PCP Dr. Green ([phone]) who denies CKD. And notes patient was alert oriented and coorehent at last visit on 08/18/18. PMD to fax patient records to ICU. - Dr. Corcoran contacted would like to hemodialyze patient this AM - L IJ shiley catheter to be replaced today for subsequent hemodialysis. - Patient with 50cc urine output in last 24 - Pending renal/bladder ultrasound to r/o obstruction vs abscess ID UTI/Pylenophritis - Meropenem 500mg as recommended by ID. Cardiac Murmur - ECHO done 09/27 - 60%EF PPX - Heparin SQ Visit type - Emergency Visit Emergency Visit: No - New Patient This patient is new to me today: No - Critical Care Critical Care patient: No
[2018-09-28 12:30] LABS: BASO % 0.1 % (0-2.0); EOS % 0.5 % (0-4.5); HEMATOCRIT 31.3 % (32.4-45.2); HEMOGLOBIN 9.8 GM/dL (10.7-15.3); LYMPH % 4.1 % (8-40); MCH 25.5 pg (25.7-33.7); MCHC 31.2 g/dl (32.0-36.0); MEAN PLT VOLUME 8.5 fl (7.5-11.1); NEUT % 88.3 % (42.8-82.8); PLATELET COUNT 119 K/MM3 (134-434); RBC 3.82 M/mm3 (3.60-5.2); WHITE BLOOD COUNT 8.6 K/mm3 (4.0-10.0)
[2018-09-28 12:51] LABS: ANION GAP 13 MMOL/L (8-16); BLOOD UREA NITROGEN 63 mg/dL (7-18); CALCIUM 7.3 mg/dL (8.5-10.1); CHLORIDE 100 mmol/L (98-107); CO2 28 mmol/L (21-32); CREATININE 6.2 mg/dL (0.55-1.3); GLUCOSE,RANDOM 263 mg/dL (74-106); POTASSIUM 4.4 mmol/L (3.5-5.1); SODIUM 140 mmol/L (136-145)
[2018-09-28] MEDS ORDERED: MIDAZOLAM HCL 2 MG/2 ML SINGLE DOSE VIAL IVPUSH ONE (13:00)
--- NOTE | 2018-09-28 13:09 | PN ---
Physical Exam: SUBJECTIVE: Patient seen and examined at bedside. No acute events overnight. HD today,Dialysis catheter placed today by ER Resident. OBJECTIVE: Vital Signs Period Temp Pulse Resp BP Sys/Ivan Pulse Ox Last 24 Hr 98.2 F-98.6 F 83-98 14-21 89-131/44-80 96-96 GENERAL: Confused, lethargic HEAD:NC/AT EYES: EOMI ENT: Dry mucous membranes LUNGS: CTA B/L No wheezing rales or rhonchi Anteriorly HEART: Possible Systolic murmur? ABDOMEN: Not tender upon palpation this AM, jarod vest on. [place] in place EXTREMITIES: No CCE Laboratory Results - last 24 hr 09/26/18 09/26/18 09/27/18 19:08 22:05 11:51 WBC RBC Hgb Hct MCV MCH MCHC RDW Plt Count MPV Absolute Neuts (auto) Neutrophils % Lymphocytes % Monocytes % Eosinophils % Basophils % Nucleated RBC % Sodium Potassium Chloride Carbon Dioxide Anion Gap BUN Creatinine Creat Clearance w eGFR POC Glucometer 143.06765 167.96082 Random Glucose Lactic Acid Calcium Phosphorus Magnesium Total Bilirubin AST ALT Alkaline Phosphatase Total Protein Albumin Hep C Ab Diagnostic <0.1 09/27/18 09/27/18 09/28/18 17:31 21:29 05:59 WBC RBC Hgb Hct MCV MCH MCHC RDW Plt Count MPV Absolute Neuts (auto) Neutrophils % Lymphocytes % Monocytes % Eosinophils % Basophils % Nucleated RBC % Sodium Potassium Chloride Carbon Dioxide Anion Gap BUN Creatinine Creat Clearance w eGFR POC Glucometer 182.31899 141.17807 102.16141 Random Glucose Lactic Acid Calcium Phosphorus Magnesium Total Bilirubin AST ALT Alkaline Phosphatase Total Protein Albumin Hep C Ab Diagnostic 09/28/18 09/28/18 09/28/18 07:45 08:15 11:21 WBC RBC Hgb Hct MCV MCH MCHC RDW Plt Count MPV Absolute Neuts (auto) Neutrophils % Lymphocytes % Monocytes % Eosinophils % Basophils % Nucleated RBC % Sodium 142 Potassium 4.8 Chloride 102 Carbon Dioxide 24 Anion Gap 16 BUN 65 H Creatinine 5.9 H Creat Clearance w eGFR 6.95 POC Glucometer < 50 Random Glucose 129 H Lactic Acid 1.5 Calcium 7.4 L Phosphorus 5.3 H Magnesium 2.4 Total Bilirubin 0.5 AST 35 ALT 19 Alkaline Phosphatase 192 H Total Protein 5.0 L Albumin 1.9 L Hep C Ab Diagnostic 09/28/18 09/28/18 12:05 12:05 WBC 8.6 RBC 3.82 Hgb 9.8 L Hct 31.3 L MCV 82.0 MCH 25.5 L MCHC 31.2 L RDW 16.0 H Plt Count 119 L D MPV 8.5 Absolute Neuts (auto) 7.6 Neutrophils % 88.3 H Lymphocytes % 4.1 L D Monocytes % 7.0 Eosinophils % 0.5 D Basophils % 0.1 Nucleated RBC % 0 Sodium 140 Potassium 4.4 Chloride 100 Carbon Dioxide 28 Anion Gap 13 BUN 63 H Creatinine 6.2 H Creat Clearance w eGFR 6.56 POC Glucometer Random Glucose 263 H Lactic Acid Calcium 7.3 L Phosphorus Magnesium Total Bilirubin AST ALT Alkaline Phosphatase Total Protein Albumin Hep C Ab Diagnostic Active Medications Generic Name Dose Route Start Last Admin Trade Name Freq PRN Reason Stop Dose Admin Chlorhexidine Gluconate 1 applic 09/26/18 22:00 09/27/18 21:34 Hibiclens For Decolonization - TP 1 applic HS [facility] Administration Heparin Sodium (Porcine) 5,000 unit 09/26/18 22:00 09/28/18 05:52 Heparin - SQ 5,000 unit TID [facility] Administration Meropenem 500 mg/ Dextrose 100 mls @ 200 mls/hr 09/27/18 09:15 09/28/18 08:19 IVPB 200 mls/hr Q24H [facility] Administration Sodium Chloride 1,000 mls @ 75 mls/hr 09/27/18 14:00 09/27/18 16:27 1/2 Normal Saline IV 75 mls/hr ASDIR [facility] Administration Insulin Aspart 1 vial 09/27/18 16:30 09/28/18 11:23 Novolog Vial Sliding Scale - SQ Not Given ACHS [facility] Protocol Mupirocin 1 applic 09/26/18 22:00 09/28/18 10:13 Bactroban Ointment (For Decolonization) - NS 10/01/18 21:59 1 applic BID [facility] Administration ASSESSMENT/PLAN: Pt is a 78 y/o lady with a significant past medical history of DM, HTN, CKD, and dementia. Pt presented to [facility] ED this AM with daughter c/o weakness, nausea /vomiting and AMS. #Sepsis 2/2 Pyelonephritis -WBC 18.2--> 9.1 09/27/2018-- WBC 8.2 today 09/28/18 -Troponin negative - CTAP--> Significant inflammatory changes in retroperitoneum appear to originate from kidneys compatible with significant b/l renal infection. - Nephrology on Board - Renal Bladder Ultrasound--> MORPHOLOGICALLY NORMAL KIDNEYS WITH NO EVIDENCE OF HYDRONEPHROSIS OR ACUTE PATHOLOGY - Lactic Acid 10.4--> 8.0--> 4.5--> 1.8 09/27/18 - ABG PH 7.22,7.34 09/27/2018 - I.D on board--> Meropenem 1 gm 09/26/18, 500 mg 09/27/18- Per I.D--> SWITCHED to Cefazolin 1 GM Q24H -Spoke with PCP Dr Green 09/27/2018, States that pt has NO underlying Kidney disease and Creatinine has been WNL. PCP recently saw and examined pt and has faxed blood work to ICU. # Hyperkalemia - Potassium in ED 6.6, 4.8 today 09/28/18 - Given Insulin/D5W, Albuterol 1 amp, Sodium Bicarb -HD 09/26/2018 -HD Today 09/28/18 #UTI: -Leukocyte Esterase 3+ - WBC 18.2--> 8.6 today - Urine/Blood cultures--> Lactose Fermenting Gram Neg Bacilli - Vanc/Zosyn in ED - I.D on board - Merrem switched to Cefazolin to day 1 GM Q24H #Murmur? -Echo -->EF 60-65%. #FEN No Fluids Monitor electrolytes Diabetic Diet DVT ppx: Heparin SQ TID Dispo: ICU Visit type - Emergency Visit Emergency Visit: Yes ED Registration Date: 09/26/18 Care time: The patient presented to the Emergency Department on the above date and was hospitalized for further evaluation of their emergent condition. - New Patient This patient is new to me today: No - Critical Care Critical Care patient: Yes Total Critical Care Time (in minutes): 35 Critical Care Statement: The care of this patient involved high complexity decision making to prevent further life threatening deterioration of the patient 's condition and/or to evaluate & treat vital organ system(s) failure or risk of failure. - Discharge Referral Referred to [facility] Med P.C.: No
[2018-09-28] MEDS ORDERED: LIDOCAINE HCL 1%, 10 MG/ML (20ML VIAL) ONE (13:23)
--- NOTE | 2018-09-28 14:13 | PN ---
Progress Note, Physician History of Present Illness: Pt seen and examined at bedside. She is more awake. She is confused. She denies shortness of breath. - Current Medication List Current Medications: Active Medications Chlorhexidine Gluconate (Hibiclens For Decolonization -) 1 applic TP HS [facility] Last Admin: 09/27/18 21:34 Dose: 1 applic Heparin Sodium (Porcine) (Heparin -) 5,000 unit SQ TID [facility] Last Admin: 09/28/18 05:52 Dose: 5,000 unit Meropenem 500 mg/ Dextrose 100 mls @ 200 mls/hr IVPB Q24H [facility] Last Admin: 09/28/18 08:19 Dose: 200 mls/hr Sodium Chloride (1/2 Normal Saline) 1,000 mls @ 75 mls/hr IV ASDIR [facility] Last Admin: 09/27/18 16:27 Dose: 75 mls/hr Insulin Aspart (Novolog Vial Sliding Scale -) 1 vial SQ ACHS [facility]; Protocol Last Admin: 09/28/18 11:23 Dose: Not Given Mupirocin (Bactroban Ointment (For Decolonization) -) 1 applic NS BID [facility] Stop: 10/01/18 21:59 Last Admin: 09/28/18 10:13 Dose: 1 applic - Objective Vital Signs: Vital Signs Temperature 98.2 F 09/28/18 10:02 Pulse Rate 90 09/28/18 10:02 Respiratory Rate 18 09/28/18 10:02 Blood Pressure 131/64 09/28/18 10:02 O2 Sat by Pulse Oximetry (%) 96 09/28/18 09:00 Constitutional: Yes: Calm Eyes: Yes: Conjunctiva Clear HENT: Yes: Atraumatic Cardiovascular: Yes: S1, S2 Respiratory: Yes: CTA Bilaterally Gastrointestinal: Yes: Normal Bowel Sounds, Soft Genitourinary: Yes: Austin Present, Oliguria Musculoskeletal: Yes: Muscle Weakness Edema: LLE: Trace, RLE: Trace Neurological: Yes: Confusion Labs: CBC, BMP 09/28/18 12:05 09/28/18 12:05 INR, PTT INR 1.17 (0.83-1.09) H 09/26/18 06:53 Problem List - Problems (1) SHERRON (acute kidney injury) Code(s): N17.9 - ACUTE KIDNEY FAILURE, UNSPECIFIED (2) Sepsis Code(s): A41.9 - SEPSIS, UNSPECIFIED ORGANISM Qualifiers: Sepsis type: sepsis due to unspecified organism Qualified Code(s): A41.9 - Sepsis, unspecified organism (3) UTI (urinary tract infection) Code(s): N39.0 - URINARY TRACT INFECTION, SITE NOT SPECIFIED Qualifiers: Urinary tract infection type: site unspecified Hematuria presence: with hematuria Qualified Code(s): N39.0 - Urinary tract infection, site not specified; R31.9 - Hematuria, unspecified Assessment/Plan Current Medications Generic Name Dose Route Start Last Admin Trade Name Freq PRN Reason Stop Dose Admin Chlorhexidine Gluconate 1 applic 09/26/18 22:00 09/27/18 21:34 Hibiclens For Decolonization - TP 1 applic HS [facility] Administration Heparin Sodium (Porcine) 5,000 unit 09/26/18 22:00 09/28/18 05:52 Heparin - SQ 5,000 unit TID [facility] Administration Meropenem 500 mg/ Dextrose 100 mls @ 200 mls/hr 09/27/18 09:15 09/28/18 08:19 IVPB 200 mls/hr Q24H [facility] Administration Sodium Chloride 1,000 mls @ 75 mls/hr 09/27/18 14:00 09/27/18 16:27 1/2 Normal Saline IV 75 mls/hr ASDIR [facility] Administration Insulin Aspart 1 vial 09/27/18 16:30 09/28/18 11:23 Novolog Vial Sliding Scale - SQ Not Given ACHS [facility] Protocol Mupirocin 1 applic 09/26/18 22:00 09/28/18 10:13 Bactroban Ointment (For Decolonization) - NS 10/01/18 21:59 1 applic BID [facility] Administration Impression 1. SHERRON vs progression of CKD 2. sepsis 3. bacteremia 4. DM 5. HTN 6. active smoker 7. dementia Plan - ICU to place access - HD today - follow renal workup - pt remains oliguric - discussed with ICU team - cont abx - monitor urine output Dr Conde
[2018-09-28] MEDS ORDERED: SODIUM CHLORIDE 250 ML IV PRN (14:15)
--- NOTE | 2018-09-28 14:20 | PROC ---
Central Line Insertion Indication: Other Risks and Benefits Explained: Yes Consent on Chart: Yes Central Line: Dialysis Cath, Tri Lumen Anesthesia: 1% Lidocaine Sterile Technique: Yes Ultrasound Guided Assistance: Yes Position: Right Internal Jugular Post Insertion: Yes: Bilateral Breath Sounds Sterile Dressing Applied: Yes
--- NOTE | 2018-09-28 15:35 | PN ---
Progress Note (short form) - Note Progress Note: sedated for dialysis today confused earlier jarod vest anuric Vital Signs Period Temp Pulse Resp BP Sys/Ivan Pulse Ox Last 24 Hr 98.0 F-98.6 F 83-98 14-21 89-131/44-80 96-96 cor-rrr lungs clear abd soft,nt do ext no edema CBC, BMP 09/28/18 12:05 09/28/18 12:05 Microbiology 09/26/18 06:53 Blood - Peripheral Venous Blood Culture - Final Lactose Fermenting Neg Bacilli 09/26/18 06:53 Blood - Peripheral Venous Blood Culture - Final Escherichia Coli 09/26/18 08:50 Urine - Urine Clean Catch Urine Culture - Final Escherichia Coli a/p gram negative sepsis-Ecoli urinary source--ecoli uti, sonogram no obstruction acute renal failure can switch to cefazolin for HD blood cultures repeated Problem List - Problems (1) Sepsis Code(s): A41.9 - SEPSIS, UNSPECIFIED ORGANISM Qualifiers: Sepsis type: sepsis due to unspecified organism Qualified Code(s): A41.9 - Sepsis, unspecified organism (2) SHERRON (acute kidney injury) Code(s): N17.9 - ACUTE KIDNEY FAILURE, UNSPECIFIED
[2018-09-28] MEDS ORDERED: LIDOCAINE HCL 1%, 10 MG/ML (50 mL VIAL) SQ ONE (16:13)
[2018-09-28] MEDS ORDERED: METOPROLOL TARTRATE 5 MG/5 ML VIAL IVPUSH ONE ×2 (17:11→18:09)
[2018-09-28] MEDS ORDERED: DIGOXIN 0.5 MG/2 ML AMPUL IVPUSH ONE (17:20)
--- NOTE | 2018-09-28 17:26 | PN ---
Progress Note (short form) - Note Progress Note: Patient on dialysis. starting have HR of 152-160 found to be in afib. BP 98/70. Called Dr. Corcoran advised to stop dialysis. Called cardiology Dr. Guerin advised to load with digoxin. If BP improves, rate control with beta zoe.
[2018-09-28 17:50] LABS: ALBUMIN 1.9 g/dl (3.4-5.0); ALK PHOS 234 U/L (45-117); ANION GAP 9 MMOL/L (8-16); BILIRUBIN,TOTAL 0.4 mg/dL (0.2-1); BLOOD UREA NITROGEN 34 mg/dL (7-18); CHLORIDE 101 mmol/L (98-107); CO2 31 mmol/L (21-32); CREATININE 3.4 mg/dL (0.55-1.3); GLUCOSE,RANDOM 165 mg/dL (74-106); PHOSPHOROUS 2.4 mg/dL (2.5-4.9); POTASSIUM 3.2 mmol/L (3.5-5.1); SGOT/AST 50 U/L (15-37); SGPT/ALT 26 U/L (13-61); SODIUM 141 mmol/L (136-145)
--- NOTE | 2018-09-28 18:55 | PN ---
Teaching Attending Note Name of Resident: Pb Camargo ATTENDING PHYSICIAN STATEMENT I saw and evaluated the patient. I reviewed the resident's note and discussed the case with the resident. I agree with the resident's findings and plan as documented with exceptions below. SUBJECTIVE: Patient seen and examined, confused but denies pain, dyspnea or complaints. ROS limited by confusion, underlying dementia. OBJECTIVE: Vital Signs Period Temp Pulse Resp BP Sys/Ivan Pulse Ox Last 24 Hr 98.0 F-98.6 F 83-155 14-21 89-131/44-80 96-96 Intake & Output 09/25/18 09/26/18 09/27/18 09/28/18 23:59 23:59 23:59 23:59 Intake Total 3250 100 1300 Output Total 20 75 Balance 3250 80 1225 Weight 150 lb 149 lb 8 oz 151 lb General: lying in bed in no acute distress Chest: poor effort, few basilar rales Abdomen: soft, NT, ND, no CVA tenderness Extremities: no edema Neuro : drowsy but appropriate, oriented to self, moves all extremities freely Home Medications Medication Instructions Recorded Aripiprazole 1 tab PO HS 09/26/18 Calcium 500 + Vit D Caplet 1 cap PO DAILY 09/26/18 Duloxetine HCl 20 mg PO HS 09/26/18 Levothyroxine [Synthroid -] 50 mcg PO DAILY 09/26/18 Loratadine [Claritin] 10 mg PO DAILY 09/26/18 Losartan Potassium 50 mg PO DAILY 09/26/18 Mirabegron [Myrbetriq] 50 mg PO DAILY 09/26/18 Nabumetone 500 mg PO BID PRN 09/26/18 Omeprazole 20 mg PO AC 09/26/18 Rosuvastatin [Crestor -] 20 mg PO DAILY 09/26/18 Sitagliptin Phos/Metformin HCl 1 tab PO BID 09/26/18 [Janumet 50-1,000 mg Tablet] Tramadol HCl 50 mg PO BID PRN 09/26/18 traZODone HCL [Trazodone HCl] 100 mg PO HS 09/26/18 Active Medications Chlorhexidine Gluconate (Hibiclens For Decolonization -) 1 applic TP HS [facility] Last Admin: 09/27/18 21:34 Dose: 1 applic Digoxin (Lanoxin Injection -) 0.25 mg IVPUSH Q6H [facility] Stop: 09/29/18 06:01 Heparin Sodium (Porcine) (Heparin -) 5,000 unit SQ TID [facility] Last Admin: 09/28/18 14:11 Dose: 5,000 unit Sodium Chloride (Normal Saline -) 250 mls @ 3,000 mls/hr IV PRN PRN PRN Reason: Hypotension during Dialysis Stop: 09/29/18 14:15 Cefazolin Sodium 1 gm/ (Dextrose) 50 mls @ 100 mls/hr IVPB Q24H [facility] Insulin Aspart (Novolog Vial Sliding Scale -) 1 vial SQ ACHS [facility]; Protocol Last Admin: 09/28/18 16:42 Dose: 4 units Mupirocin (Bactroban Ointment (For Decolonization) -) 1 applic NS BID [facility] Stop: 10/01/18 21:59 Last Admin: 09/28/18 10:13 Dose: 1 applic Laboratory Results - last 24 hr 09/26/18 09/26/18 09/27/18 19:08 22:05 11:51 WBC RBC Hgb Hct MCV MCH MCHC RDW Plt Count MPV Absolute Neuts (auto) Neutrophils % Lymphocytes % Monocytes % Eosinophils % Basophils % Nucleated RBC % Sodium Potassium Chloride Carbon Dioxide Anion Gap BUN Creatinine Creat Clearance w eGFR POC Glucometer 143.45009 167.08957 Random Glucose Lactic Acid Calcium Phosphorus Magnesium Total Bilirubin AST ALT Alkaline Phosphatase Total Protein Albumin Hep C Ab Diagnostic <0.1 09/27/18 09/27/18 09/28/18 17:31 21:29 05:59 WBC RBC Hgb Hct MCV MCH MCHC RDW Plt Count MPV Absolute Neuts (auto) Neutrophils % Lymphocytes % Monocytes % Eosinophils % Basophils % Nucleated RBC % Sodium Potassium Chloride Carbon Dioxide Anion Gap BUN Creatinine Creat Clearance w eGFR POC Glucometer 182.36185 141.35002 102.56473 Random Glucose Lactic Acid Calcium Phosphorus Magnesium Total Bilirubin AST ALT Alkaline Phosphatase Total Protein Albumin Hep C Ab Diagnostic 09/28/18 09/28/18 09/28/18 07:45 08:15 11:21 WBC RBC Hgb Hct MCV MCH MCHC RDW Plt Count MPV Absolute Neuts (auto) Neutrophils % Lymphocytes % Monocytes % Eosinophils % Basophils % Nucleated RBC % Sodium 142 Potassium 4.8 Chloride 102 Carbon Dioxide 24 Anion Gap 16 BUN 65 H Creatinine 5.9 H Creat Clearance w eGFR 6.95 POC Glucometer < 50 Random Glucose 129 H Lactic Acid 1.5 Calcium 7.4 L Phosphorus 5.3 H Magnesium 2.4 Total Bilirubin 0.5 AST 35 ALT 19 Alkaline Phosphatase 192 H Total Protein 5.0 L Albumin 1.9 L Hep C Ab Diagnostic 09/28/18 09/28/18 09/28/18 12:05 12:05 16:20 WBC 8.6 RBC 3.82 Hgb 9.8 L Hct 31.3 L MCV 82.0 MCH 25.5 L MCHC 31.2 L RDW 16.0 H Plt Count 119 L D MPV 8.5 Absolute Neuts (auto) 7.6 Neutrophils % 88.3 H Lymphocytes % 4.1 L D Monocytes % 7.0 Eosinophils % 0.5 D Basophils % 0.1 Nucleated RBC % 0 Sodium 140 Potassium 4.4 Chloride 100 Carbon Dioxide 28 Anion Gap 13 BUN 63 H Creatinine 6.2 H Creat Clearance w eGFR 6.56 POC Glucometer 211.67025 Random Glucose 263 H Lactic Acid Calcium 7.3 L Phosphorus Magnesium Total Bilirubin AST ALT Alkaline Phosphatase Total Protein Albumin Hep C Ab Diagnostic 09/28/18 17:00 WBC RBC Hgb Hct MCV MCH MCHC RDW Plt Count MPV Absolute Neuts (auto) Neutrophils % Lymphocytes % Monocytes % Eosinophils % Basophils % Nucleated RBC % Sodium 141 Potassium 3.2 L Chloride 101 Carbon Dioxide 31 Anion Gap 9 BUN 34 H Creatinine 3.4 H Creat Clearance w eGFR 13.13 POC Glucometer Random Glucose 165 H Lactic Acid Calcium 7.0 L Phosphorus 2.4 L Magnesium 2.0 Total Bilirubin 0.4 AST 50 H ALT 26 Alkaline Phosphatase 234 H Total Protein 5.0 L Albumin 1.9 L Hep C Ab Diagnostic Microbiology 09/26/18 06:53 Blood - Peripheral Venous Blood Culture - Final Lactose Fermenting Neg Bacilli 09/26/18 06:53 Blood - Peripheral Venous Blood Culture - Final Escherichia Coli 09/26/18 08:50 Urine - Urine Clean Catch Urine Culture - Final Escherichia Coli ASSESSMENT AND PLAN: 78yo F with PMH DM, HTN, dementia brought in by daughter for altered mental status with nausea and vomiting. Pt was found to be acidemic with renal failure -Severe sepsis with pyelonephritis/E. coli bacteremia -Complicated E. coli UTI/pyelonephritis -Acute renal failure, -Anion gap metabolic acidosis -Acute metabolic uremic encephalopathy -Hyperkalemia -DM -HTN Plan: Plan for repeat [facility] and HD today. Closely monitor. ID input noted. Abx changed to Ancef. Hold antihypertensives. Continue MICU monitoring. The care of this patient involved high complexity decision making to prevent further life threatening deterioration of the patient's condition and/or to evaluate & treat vital organ system(s) failure or risk of failure. 40 mins
[2018-09-28] MEDS ORDERED: dilTIAZem HCL 50 MG/10 ML - 10 ML VIAL IVPUSH ONE (18:57)
[2018-09-28] MEDS ORDERED: dilTIAZem HCL 50 MG/10 ML - 10 ML VIAL IVPUSH PRN ×2 (20:25→20:34)
[2018-09-28] MEDS ORDERED: DEXTROSE 5%-WATER - 50 ML IVPB ONE (21:02)
[2018-09-28] MEDS ORDERED: ceFAZolin SODIUM 1 GM VIAL ONE (21:02)
[2018-09-28] MEDS: CEFAZOLIN 1 GM in DEXTROSE 5%-WATER - 50 ML IVPB SCH (21:26)
[2018-09-28] MEDS: CHLORHEXIDINE GLUCONATE 4% CLEANSER FOR DECOLONIZATION TP SCH (21:27)
[2018-09-28 22:08] LABS: RATIO URIN PROTEIN/URIN CREAT 7.3 MG/DL
[2018-09-28 22:16] LABS: URINE APPEARANCE SLCLOUDY; URINE BILIRUBIN NEGATIVE (<2.0 mg/dL); URINE COLOR LTYELLOW; URINE GLUCOSE (UA) 2+ (NEGATIVE); URINE KETONE TRACE (NEGATIVE); URINE LEUK ESTERASE 3+ (NEGATIVE); URINE NITRITE NEGATIVE (NEGATIVE); URINE PROTEIN 2+ (NEGATIVE); URINE UROBILINOGEN NEGATIVE mg/dL (0.2-1.0)
[2018-09-28 22:43] LABS: URINE BACTERIA RARE /hpf (NONE SEEN); URINE MUCUS RARE
[2018-09-29 00:07] LABS: HBSAG SCREEN Negative (Negative); HEP A AB, IGM Negative (Negative); HEP B CORE AB, TOT Positive (Negative)
[2018-09-29] MEDS: DIGOXIN 0.5 MG/2 ML AMPUL IVPUSH SCH ×2 (00:21→06:27)
[2018-09-29 06:24] LABS: BASO % 0.2 % (0-2.0); EOS % 1.6 % (0-4.5); HEMATOCRIT 29.9 % (32.4-45.2); HEMOGLOBIN 9.5 GM/dL (10.7-15.3); LYMPH % 5.6 % (8-40); MCH 25.7 pg (25.7-33.7); MCHC 31.7 g/dl (32.0-36.0); MEAN CELL VOLUME 81.2 fl (80-96); MEAN PLT VOLUME 8.4 fl (7.5-11.1); MONO % 8.1 % (3.8-10.2); NEUT % 84.5 % (42.8-82.8); PLATELET COUNT 117 K/MM3 (134-434); RBC 3.68 M/mm3 (3.60-5.2); RDW 15.7 % (11.6-15.6); WHITE BLOOD COUNT 8.5 K/mm3 (4.0-10.0)
[2018-09-29] MEDS: INSULIN SLIDING SCALE (NOVOLOG) 1 VIAL SQ SCH ×4 (06:25→22:19)
[2018-09-29] MEDS: HEPARIN NA (PORCINE) 5,000 UNITS/ML 1ML VIAL SQ SCH ×3 (06:27→22:06)
[2018-09-29] MEDS ORDERED: VASOPRESSIN 20 UNITS/ML VIAL IV ONE (06:37)
[2018-09-29 07:43] LABS: ALBUMIN 1.6 g/dl (3.4-5.0); ALK PHOS 208 U/L (45-117); ANION GAP 7 MMOL/L (8-16); BILIRUBIN,TOTAL 0.4 mg/dL (0.2-1); BLOOD UREA NITROGEN 41 mg/dL (7-18); CHLORIDE 101 mmol/L (98-107); CO2 32 mmol/L (21-32); CREATININE 4.5 mg/dL (0.55-1.3); GLUCOSE,RANDOM 123 mg/dL (74-106); PHOSPHOROUS 3.1 mg/dL (2.5-4.9); SGOT/AST 39 U/L (15-37); SGPT/ALT 22 U/L (13-61); SODIUM 140 mmol/L (136-145); TOT PROT 4.6 g/dl (6.4-8.2)
[2018-09-29 08:13] LABS: CALCIUM 6.6 mg/dL (8.5-10.1)
--- NOTE | 2018-09-29 09:00 | PN ---
Progress Note (short form) - Note Progress Note: awake and alert jarod on-wants it off s/p HD yesterday minimal urine output Vital Signs Period Temp Pulse Resp BP Sys/Ivan Pulse Ox Last 24 Hr 98 F-99.5 F 73-155 12- 92-138/48-70 96-96 cor-rrr lungs decreased bs at bases abd soft, diffuse discomfort to palpation ext no edema +do CBC, BMP 09/29/18 05:30 09/29/18 05:30 cxray unchanged Microbiology 09/28/18 05:35 Blood - Peripheral Venous Blood Culture - Preliminary NO GROWTH OBTAINED AFTER 24 HOURS, INCUBATION TO CONTINUE FOR 4 DAYS. 09/28/18 05:20 Blood - Peripheral Venous Blood Culture - Preliminary NO GROWTH OBTAINED AFTER 24 HOURS, INCUBATION TO CONTINUE FOR 4 DAYS. 09/26/18 06:53 Blood - Peripheral Venous Blood Culture - Final Lactose Fermenting Neg Bacilli 09/26/18 06:53 Blood - Peripheral Venous Blood Culture - Final Escherichia Coli 09/26/18 08:50 Urine - Urine Clean Catch Urine Culture - Final Escherichia Coli Current Medications Chlorhexidine Gluconate (Hibiclens For Decolonization -) 1 applic TP HS [facility] Last Admin: 09/28/18 21:27 Dose: Not Given Heparin Sodium (Porcine) (Heparin -) 5,000 unit SQ TID [facility] Last Admin: 09/29/18 06:27 Dose: 5,000 unit Sodium Chloride (Normal Saline -) 250 mls @ 3,000 mls/hr IV PRN PRN PRN Reason: Hypotension during Dialysis Stop: 09/29/18 14:15 Cefazolin Sodium 1 gm/ (Dextrose) 50 mls @ 100 mls/hr IVPB Q24H [facility] Last Admin: 09/28/18 21:26 Dose: 100 mls/hr Insulin Aspart (Novolog Vial Sliding Scale -) 1 vial SQ ACHS [facility]; Protocol Last Admin: 09/29/18 06:25 Dose: Not Given Metoprolol Tartrate (Lopressor -) 25 mg PO BID [facility] Mupirocin (Bactroban Ointment (For Decolonization) -) 1 applic NS BID [facility] Stop: 10/01/18 21:59 Last Admin: 09/28/18 21:26 Dose: 1 applic a/p gram negative sepsis-Ecoli urinary source--ecoli uti, sonogram no obstruction acute renal failure continue cefazolin adjusted for renal failure repat blood cultures are negative to date Problem List - Problems (1) Sepsis Code(s): A41.9 - SEPSIS, UNSPECIFIED ORGANISM Qualifiers: Sepsis type: sepsis due to unspecified organism Qualified Code(s): A41.9 - Sepsis, unspecified organism (2) SHERRON (acute kidney injury) Code(s): N17.9 - ACUTE KIDNEY FAILURE, UNSPECIFIED
[2018-09-29] MEDS: MUPIROCIN 2% TOPICAL OINTMENT FOR DECOLONIZATION NS SCH (10:01)
[2018-09-29] MEDS: METOPROLOL TARTRATE 25 MG TABLET (FP) PO SCH ×2 (10:01→22:06)
--- NOTE | 2018-09-29 13:12 | PN ---
Teaching Attending Note Name of Resident: Delilah Rao ATTENDING PHYSICIAN STATEMENT I saw and evaluated the patient. I reviewed the resident's note and discussed the case with the resident. I agree with the resident's findings and plan as documented. SUBJECTIVE: Pt seen and examined in the ICU. Confused but more alert. Blood and urine cultures growing E coli. OBJECTIVE: Vital Signs Period Temp Pulse Resp BP Sys/Ivan Pulse Ox Last 24 Hr 98 F-99.5 F 73-155 12-21 92-156/48-70 96-96 Intake & Output 09/26/18 09/27/18 09/28/18 09/29/18 23:59 23:59 23:59 23:59 Intake Total 3250 100 1650 50 Output Total 20 75 40 Balance 3250 80 1575 10 Weight 68.039 kg 67.812 kg 68.492 kg 68.521 kg Gen: confused but in NAD Heart: RRR Lung: decreased breath sounds at the bases Abd: soft, nontender Ext: no edema CBC, BMP 09/29/18 05:30 09/29/18 05:30 Active Medications Chlorhexidine Gluconate (Hibiclens For Decolonization -) 1 applic TP HS [facility] Last Admin: 09/28/18 21:27 Dose: Not Given Heparin Sodium (Porcine) (Heparin -) 5,000 unit SQ TID [facility] Last Admin: 09/29/18 06:27 Dose: 5,000 unit Sodium Chloride (Normal Saline -) 250 mls @ 3,000 mls/hr IV PRN PRN PRN Reason: Hypotension during Dialysis Stop: 09/29/18 14:15 Cefazolin Sodium 1 gm/ (Dextrose) 50 mls @ 100 mls/hr IVPB Q24H [facility] Last Admin: 09/28/18 21:26 Dose: 100 mls/hr Insulin Aspart (Novolog Vial Sliding Scale -) 1 vial SQ ACHS [facility]; Protocol Last Admin: 09/29/18 11:32 Dose: 2 units Metoprolol Tartrate (Lopressor -) 25 mg PO BID [facility] Last Admin: 09/29/18 10:01 Dose: 25 mg Mupirocin (Bactroban Ointment (For Decolonization) -) 1 applic NS BID [facility] Stop: 10/01/18 21:59 Last Admin: 09/29/18 10:01 Dose: 1 applic ASSESSMENT AND PLAN: UTI Gram Negative Bacteremia Acute on Chronic Renal Failure requiring HD Severe Sepsis Lactic Acidosis Thrombocytopenia ?Paroxysmal Atrial Fibrillation Hyperkalemia improved Metabolic Acidosis resolved HTN DM - continue antibiotics - HD per renal - monitor urine output, creatinine - glucose control - monitor CBC - PO as tolerated - aspiration precautions - DVT prophylaxis - can monitor on telemetry critical care time spent in reviewing chart, evaluating patient and formulating plan 35 minutes.
--- NOTE | 2018-09-29 13:24 | PN ---
Progress Note, Physician History of Present Illness: Pt seen and examined at bedside. She had an episode of rapid a-fib and HD was stopped last night. She is awake but confused. - Current Medication List Current Medications: Active Medications Chlorhexidine Gluconate (Hibiclens For Decolonization -) 1 applic TP HS [facility] Last Admin: 09/28/18 21:27 Dose: Not Given Heparin Sodium (Porcine) (Heparin -) 5,000 unit SQ TID [facility] Last Admin: 09/29/18 13:12 Dose: 5,000 unit Sodium Chloride (Normal Saline -) 250 mls @ 3,000 mls/hr IV PRN PRN PRN Reason: Hypotension during Dialysis Stop: 09/29/18 14:15 Cefazolin Sodium 1 gm/ (Dextrose) 50 mls @ 100 mls/hr IVPB Q24H [facility] Last Admin: 09/28/18 21:26 Dose: 100 mls/hr Insulin Aspart (Novolog Vial Sliding Scale -) 1 vial SQ ACHS [facility]; Protocol Last Admin: 09/29/18 11:32 Dose: 2 units Metoprolol Tartrate (Lopressor -) 25 mg PO BID [facility] Last Admin: 09/29/18 10:01 Dose: 25 mg Mupirocin (Bactroban Ointment (For Decolonization) -) 1 applic NS BID [facility] Stop: 10/01/18 21:59 Last Admin: 09/29/18 10:01 Dose: 1 applic - Objective Vital Signs: Vital Signs Temperature 98.6 F 09/29/18 10:00 Pulse Rate 73 09/29/18 12:00 Respiratory Rate 19 09/29/18 12:00 Blood Pressure 138/65 09/29/18 12:00 O2 Sat by Pulse Oximetry (%) 96 09/29/18 09:00 Constitutional: Yes: Calm Eyes: Yes: Conjunctiva Clear HENT: Yes: Atraumatic Neck: Yes: Supple Cardiovascular: Yes: S1, S2 Respiratory: Yes: CTA Bilaterally Gastrointestinal: Yes: Soft Musculoskeletal: Yes: Muscle Weakness Edema: No Neurological: Yes: Confusion Labs: CBC, BMP 09/29/18 05:30 09/29/18 05:30 INR, PTT INR 1.17 (0.83-1.09) H 09/26/18 06:53 Problem List - Problems (1) SHERRON (acute kidney injury) Code(s): N17.9 - ACUTE KIDNEY FAILURE, UNSPECIFIED (2) Sepsis Code(s): A41.9 - SEPSIS, UNSPECIFIED ORGANISM Qualifiers: Sepsis type: sepsis due to unspecified organism Qualified Code(s): A41.9 - Sepsis, unspecified organism (3) UTI (urinary tract infection) Code(s): N39.0 - URINARY TRACT INFECTION, SITE NOT SPECIFIED Qualifiers: Urinary tract infection type: site unspecified Hematuria presence: with hematuria Qualified Code(s): N39.0 - Urinary tract infection, site not specified; R31.9 - Hematuria, unspecified Assessment/Plan Current Medications Generic Name Dose Route Start Last Admin Trade Name Freq PRN Reason Stop Dose Admin Chlorhexidine Gluconate 1 applic 09/26/18 22:00 09/28/18 21:27 Hibiclens For Decolonization - TP Not Given HS [facility] Heparin Sodium (Porcine) 5,000 unit 09/26/18 22:00 09/29/18 13:12 Heparin - SQ 5,000 unit TID [facility] Administration Sodium Chloride 250 mls @ 3,000 mls/hr 09/28/18 14:15 Normal Saline - IV 09/29/18 14:15 PRN PRN Hypotension during Dialysis Cefazolin Sodium 1 gm/ 50 mls @ 100 mls/hr 09/28/18 22:00 09/28/18 21:26 Dextrose IVPB 100 mls/hr Q24H [facility] Administration Insulin Aspart 1 vial 09/27/18 16:30 09/29/18 11:32 Novolog Vial Sliding Scale - SQ 2 units ACHS [facility] Administration Protocol Metoprolol Tartrate 25 mg 09/29/18 10:00 09/29/18 10:01 Lopressor - PO 25 mg BID [facility] Administration Mupirocin 1 applic 09/26/18 22:00 09/29/18 10:01 Bactroban Ointment (For Decolonization) - NS 10/01/18 21:59 1 applic BID [facility] Administration Laboratory Tests 09/26/18 09/28/18 19:08 16:00 PATRICIA M-Neil Pending CHARLES Screen Pending c-ANCA Pending Proteinase 3 (PR3) Pending p-ANCA Pending Atypical p-ANCA Pending Myeloperoxidase Ab Pending Double Strand DNA Ab Pending Glomerular Base Memb Ab Pending Hep Bs Antigen Negative Hep Bs Antibody Reactive Hep B Core Total Ab Positive H Impression 1. SHERRON vs progression of CKD 2. sepsis 3. bacteremia 4. DM 5. HTN 6. active smoker 7. dementia Plan - pt dialyzed last night - HD tomorrow - will evaluate tomorrow - follow renal workup - pt remains oliguric - discussed with ICU team - cont abx - monitor urine output Dr Conde
--- NOTE | 2018-09-29 14:08 | PN ---
Physical Exam: SUBJECTIVE: Patient seen and examined Patient more coherent, able to hold conversation. Uncooperative with commands as desires to have restraints removed. OBJECTIVE: Vital Signs Period Temp Pulse Resp BP Sys/Ivan Pulse Ox Last 24 Hr 98 F-99.5 F 73-155 12-21 92-156/48-70 96-96 GENERAL: awake, alert, AOx2 HEAD: Normal with no signs of trauma. EYES: PERRL, extraocular movements intact, sclera anicteric, conjunctiva clear. No ptosis. ENT: moist mucous membranes. NECK: Trachea midline, full range of motion, supple. LUNGS: Breath sounds equal, clear to auscultation bilaterally, no wheezes, no crackles, no accessory muscle use. HEART: Regular rate and rhythm, S1, S2 without murmur, rub or gallop. ABDOMEN: Soft, + mild tenderness to palpation in RUQ and LUQ, nondistended, normoactive bowel sounds, no guarding, no rebound, no hepatosplenomegaly, no masses. EXTREMITIES: 2+ pulses, warm, well-perfused, no edema. NEUROLOGICAL: Cranial nerves II through XII grossly intact. Mumbling speech, gait not observed. PSYCH: Normal mood, normal affect. SKIN: Warm, dry, normal turgor, no rashes or lesions noted Laboratory Results - last 24 hr 09/26/18 09/28/18 09/28/18 19:08 16:20 17:00 WBC RBC Hgb Hct MCV MCH MCHC RDW Plt Count MPV Absolute Neuts (auto) Neutrophils % Lymphocytes % Monocytes % Eosinophils % Basophils % Nucleated RBC % Sodium 141 Potassium 3.2 L Chloride 101 Carbon Dioxide 31 Anion Gap 9 BUN 34 H Creatinine 3.4 H Creat Clearance w eGFR 13.13 POC Glucometer [phone] Random Glucose 165 H Calcium 7.0 L Phosphorus 2.4 L Magnesium 2.0 Total Bilirubin 0.4 AST 50 H ALT 26 Alkaline Phosphatase 234 H Total Protein 5.0 L Albumin 1.9 L TSH Urine Color Urine Appearance Urine pH Ur Specific [place] Urine Protein Urine Glucose (UA) Urine Ketones Urine Blood Urine Nitrite Urine Bilirubin Urine Urobilinogen Ur Leukocyte Esterase Urine WBC (Auto) Urine RBC (Auto) Urine Bacteria Urine Mucus U Random Total Protein Urine Creatinine Protein/Creatinin Ratio Hep A IgM Ab Confirm Negative Hepatitis A Ab Total Positive H Hep Bs Antigen Negative Hep Bs Antibody Reactive Hep B Core Total Ab Positive H 09/28/18 09/28/18 09/28/18 21:00 21:00 21:32 WBC RBC Hgb Hct MCV MCH MCHC RDW Plt Count MPV Absolute Neuts (auto) Neutrophils % Lymphocytes % Monocytes % Eosinophils % Basophils % Nucleated RBC % Sodium Potassium Chloride Carbon Dioxide Anion Gap BUN Creatinine Creat Clearance w eGFR POC Glucometer [phone] Random Glucose Calcium Phosphorus Magnesium Total Bilirubin AST ALT Alkaline Phosphatase Total Protein Albumin TSH Urine Color Ltyellow Urine Appearance Slcloudy Urine pH 7.0 D Ur Specific [place] 1.011 Urine Protein 2+ H Urine Glucose (UA) 2+ H Urine Ketones Trace H Urine Blood 2+ H Urine Nitrite Negative Urine Bilirubin Negative Urine Urobilinogen Negative Ur Leukocyte Esterase 3+ H Urine WBC (Auto) 192 Urine RBC (Auto) 40 Urine Bacteria Rare Urine Mucus Rare U Random Total Protein 242 H Urine Creatinine 33.0 Protein/Creatinin Ratio 7.3 Hep A IgM Ab Confirm Hepatitis A Ab Total Hep Bs Antigen Hep Bs Antibody Hep B Core Total Ab 09/29/18 09/29/18 09/29/18 05:30 05:30 05:40 WBC 8.5 RBC 3.68 Hgb 9.5 L Hct 29.9 L MCV 81.2 MCH 25.7 MCHC 31.7 L RDW 15.7 H Plt Count 117 L MPV 8.4 Absolute Neuts (auto) 7.2 Neutrophils % 84.5 H Lymphocytes % 5.6 L D Monocytes % 8.1 Eosinophils % 1.6 D Basophils % 0.2 Nucleated RBC % 0 Sodium 140 Potassium 4.0 Chloride 101 Carbon Dioxide 32 Anion Gap 7 L BUN 41 H Creatinine 4.5 H Creat Clearance w eGFR 9.50 POC Glucometer 141.55814 Random Glucose 123 H Calcium 6.6 L* Phosphorus 3.1 Magnesium 2.0 Total Bilirubin 0.4 AST 39 H ALT 22 Alkaline Phosphatase 208 H Total Protein 4.6 L Albumin 1.6 L TSH 0.28 L Urine Color Urine Appearance Urine pH Ur Specific [place] Urine Protein Urine Glucose (UA) Urine Ketones Urine Blood Urine Nitrite Urine Bilirubin Urine Urobilinogen Ur Leukocyte Esterase Urine WBC (Auto) Urine RBC (Auto) Urine Bacteria Urine Mucus U Random Total Protein Urine Creatinine Protein/Creatinin Ratio Hep A IgM Ab Confirm Hepatitis A Ab Total Hep Bs Antigen Hep Bs Antibody Hep B Core Total Ab 09/29/18 11:28 WBC RBC Hgb Hct MCV MCH MCHC RDW Plt Count MPV Absolute Neuts (auto) Neutrophils % Lymphocytes % Monocytes % Eosinophils % Basophils % Nucleated RBC % Sodium Potassium Chloride Carbon Dioxide Anion Gap BUN Creatinine Creat Clearance w eGFR POC Glucometer [phone] Random Glucose Calcium Phosphorus Magnesium Total Bilirubin AST ALT Alkaline Phosphatase Total Protein Albumin TSH Urine Color Urine Appearance Urine pH Ur Specific [place] Urine Protein Urine Glucose (UA) Urine Ketones Urine Blood Urine Nitrite Urine Bilirubin Urine Urobilinogen Ur Leukocyte Esterase Urine WBC (Auto) Urine RBC (Auto) Urine Bacteria Urine Mucus U Random Total Protein Urine Creatinine Protein/Creatinin Ratio Hep A IgM Ab Confirm Hepatitis A Ab Total Hep Bs Antigen Hep Bs Antibody Hep B Core Total Ab Active Medications Generic Name Dose Route Start Last Admin Trade Name Freq PRN Reason Stop Dose Admin Chlorhexidine Gluconate 1 applic 09/26/18 22:00 09/28/18 21:27 Hibiclens For Decolonization - TP Not Given HS [facility] Heparin Sodium (Porcine) 5,000 unit 09/26/18 22:00 09/29/18 13:12 Heparin - SQ 5,000 unit TID [facility] Administration Sodium Chloride 250 mls @ 3,000 mls/hr 09/28/18 14:15 Normal Saline - IV 09/29/18 14:15 PRN PRN Hypotension during Dialysis Cefazolin Sodium 1 gm/ 50 mls @ 100 mls/hr 09/28/18 22:00 09/28/18 21:26 Dextrose IVPB 100 mls/hr Q24H [facility] Administration Insulin Aspart 1 vial 09/27/18 16:30 09/29/18 11:32 Novolog Vial Sliding Scale - SQ 2 units ACHS [facility] Administration Protocol Metoprolol Tartrate 25 mg 09/29/18 10:00 09/29/18 10:01 Lopressor - PO 25 mg BID [facility] Administration Mupirocin 1 applic 09/26/18 22:00 09/29/18 10:01 Bactroban Ointment (For Decolonization) - NS 10/01/18 21:59 1 applic BID [facility] Administration ASSESSMENT/PLAN: 78 year old with history of DM, HTN, CKD and dementia who presented with AMS and UTI and found to have hyperkalemia, acute renal failure and uremic encephalopathy. CTA showed inflammatory changes in the retroperitoneum likely bilateral renal infection. Patient was emergently dialyzed with improvement of mentation. Second dialysis attempted yesterday - stopped 2/2 Afib w/RVR and hypotension. Per Cardiology ([place]) Digoxin .5mg load at 1730 with total of 1mg administered until 0630 09/29. Patient now normotensive and in sinus rhythm. Pending completion of dialysis. Nephro Acute Renal Failure - Pending second hemodialysis, will discuss w/ Dr. Corcoran - Patient with 115cc urine output in last 24hr - still anuric - Renal/Bladder US (09/27) - without obstruction ID UTI/Pylenophritis - Blood cultures w/ gram neg - per ID d/c meropenem, started cefazolin day 11/15 Cardiac Murmur, New onset Afib w/RVR - Metoprolol 25mg BID - ECHO done 09/27 - 60%EF DVT PPX - Heparin SQ Visit type Visit type - Emergency Visit Emergency Visit: No - New Patient This patient is new to me today: No - Critical Care Critical Care patient: Yes Total Critical Care Time (in minutes): 35 Critical Care Statement: The care of this patient involved high complexity decision making to prevent further life threatening deterioration of the patient 's condition and/or to evaluate & treat vital organ system(s) failure or risk of failure.
--- NOTE | 2018-09-29 15:00 | CON.CARD ---
Consult Consult Specialty:: Cardiology Referred by:: ICU Reason for Consultation:: PAF - History of Present Illness Chief Complaint: paf History of Present Illness: Ms Waldron is a 78 y/o lady with a significant past medical history of DM, HTN, CKD, and dementia. She was admitted with acute on chronic renal failure, started HD, had unresponsive episode with low bp on HD found also in atrial fibrillation with RVR. Given dig, dilt and BB. Now in NSR. Being treated for sepsis. Echo 09/27/18 nlef trace MR, mild TR, FCDAOV. 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 Cardio/Vascular: Yes: HTN Endocrine: Yes: Diabetes Mellitus - Past Surgical History Past Surgical History: Yes: Hysterectomy - Alcohol/Substance Use Hx Alcohol Use: No - Smoking History Smoking history: Current every day smoker Aproximately how many cigarettes per day: 5 - Social History Usual Living Arrangement: Assisted Living ADL: Independent History of Recent Travel: No Home Medications - Allergies Allergies/Adverse Reactions: Allergies Allergy/AdvReac Type Severity Reaction Status Date / Time No Known Allergies Allergy Verified 09/26/18 06:24 - Home Medications Home Medications: Ambulatory Orders Aripiprazole 1 tab PO HS 09/26/18 Calcium 500 + Vit D Caplet 1 cap PO DAILY 09/26/18 Duloxetine HCl 20 mg PO HS 09/26/18 Levothyroxine [Synthroid -] 50 mcg PO DAILY 09/26/18 Loratadine [Claritin] 10 mg PO DAILY 09/26/18 Losartan Potassium 50 mg PO DAILY 09/26/18 Mirabegron [Myrbetriq] 50 mg PO DAILY 09/26/18 Nabumetone 500 mg PO BID PRN 09/26/18 Omeprazole 20 mg PO AC 09/26/18 Rosuvastatin [Crestor -] 20 mg PO DAILY 09/26/18 Sitagliptin Phos/Metformin HCl [Janumet 50-1,000 mg Tablet] 1 tab PO BID Tramadol HCl 50 mg PO BID PRN 09/26/18 traZODone HCL [Trazodone HCl] 100 mg PO HS 09/26/18 Vital Signs: Vital Signs Temperature 98.6 F 09/29/18 10:00 Pulse Rate 73 09/29/18 12:00 Respiratory Rate 19 09/29/18 12:00 Blood Pressure 138/65 09/29/18 12:00 O2 Sat by Pulse Oximetry (%) 96 09/29/18 09:00 Constitutional: Yes: No Distress, Calm Eyes: Yes: Conjunctiva Clear, EOM Intact HENT: Yes: Atraumatic, Normocephalic Neck: Yes: Supple, Trachea Midline Respiratory: Yes: CTA Bilaterally Gastrointestinal: Yes: Normal Bowel Sounds, Soft Renal/: Yes: WNL Cardiovascular: Yes: Regular Rate and Rhythm JVD: No Carotid Bruit: No PMI: Non-Displaced Heart Sounds: Yes: S1, S2 Murmur: No: Systolic Murmur, Diastolic Murmur, Grade 1, Grade 2, Grade 3, Grade 4, Grade 5, Grade 6 Musculoskeletal: Yes: WNL Extremities: Yes: WNL Edema: No Peripheral Pulses WNL: Yes - Other Data Labs, Other Data: CBC, BMP 09/29/18 05:30 09/29/18 05:30 INR, PTT INR 1.17 (0.83-1.09) H 09/26/18 06:53 Imaging - Results Chest X-ray: Report Reviewed X-ray: Report Reviewed EKG: Report Reviewed Assessment/Plan Ms Waldron is a 78 y/o lady with a significant past medical history of DM, HTN, CKD, and dementia. She was admitted with acute on chronic renal failure, started HD, had unresponsive episode with low bp on HD found also in atrial fibrillation with RVR. Given dig, dilt and BB. Now in NSR. Being treated for sepsis, gram negative bacteremia. Echo 09/27/18 nlef trace MR, mild TR, FCDAOV. 1. PAF -Now in NSR -possibly all driven by severe sepsis and metabolic status. -defer AC for now. -Echo is unremarkable -ABx per primary team -continue telemetry for one more day.
--- NOTE | 2018-09-29 18:17 | PN ---
Physical Exam: SUBJECTIVE: Patient seen and examined at bedside. Received Inderal and Cardizem yesterday evening for tachycardia. Eventually placed on Toprol XL per cardiology. OBJECTIVE: Vital Signs Period Temp Pulse Resp BP Sys/Ivan Pulse Ox Last 24 Hr 98 F-99.5 F 73-144 12-21 92-156/48-68 96-96 GENERAL: Mumbling, Lethargic HEAD:NC/AT EYES: EOMI no scleral icterus conjunctiva not injected ENT: MMM LUNGS: CTA B/L No wheezing rales or rhonchi Anteriorly HEART: RRR. Murmur? ABDOMEN: Tenderness entire abdomen. B/L CVA tenderness. EXTREMITIES: No CCE Laboratory Results - last 24 hr 09/26/18 09/28/18 09/28/18 19:08 21:00 21:00 WBC RBC Hgb Hct MCV MCH MCHC RDW Plt Count MPV Absolute Neuts (auto) Neutrophils % Lymphocytes % Monocytes % Eosinophils % Basophils % Nucleated RBC % Sodium Potassium Chloride Carbon Dioxide Anion Gap BUN Creatinine Creat Clearance w eGFR POC Glucometer Random Glucose Calcium Phosphorus Magnesium Total Bilirubin AST ALT Alkaline Phosphatase Total Protein Albumin TSH Urine Color Ltyellow Urine Appearance Slcloudy Urine pH 7.0 D Ur Specific [place] 1.011 Urine Protein 2+ H Urine Glucose (UA) 2+ H Urine Ketones Trace H Urine Blood 2+ H Urine Nitrite Negative Urine Bilirubin Negative Urine Urobilinogen Negative Ur Leukocyte Esterase 3+ H Urine WBC (Auto) 192 Urine RBC (Auto) 40 Urine Bacteria Rare Urine Mucus Rare U Random Total Protein 242 H Urine Creatinine 33.0 Protein/Creatinin Ratio 7.3 Hep A IgM Ab Confirm Negative Hepatitis A Ab Total Positive H Hep Bs Antigen Negative Hep Bs Antibody Reactive Hep B Core Total Ab Positive H 09/28/18 09/29/18 09/29/18 21:32 05:30 05:30 WBC 8.5 RBC 3.68 Hgb 9.5 L Hct 29.9 L MCV 81.2 MCH 25.7 MCHC 31.7 L RDW 15.7 H Plt Count 117 L MPV 8.4 Absolute Neuts (auto) 7.2 Neutrophils % 84.5 H Lymphocytes % 5.6 L D Monocytes % 8.1 Eosinophils % 1.6 D Basophils % 0.2 Nucleated RBC % 0 Sodium 140 Potassium 4.0 Chloride 101 Carbon Dioxide 32 Anion Gap 7 L BUN 41 H Creatinine 4.5 H Creat Clearance w eGFR 9.50 POC Glucometer [phone] Random Glucose 123 H Calcium 6.6 L* Phosphorus 3.1 Magnesium 2.0 Total Bilirubin 0.4 AST 39 H ALT 22 Alkaline Phosphatase 208 H Total Protein 4.6 L Albumin 1.6 L TSH 0.28 L Urine Color Urine Appearance Urine pH Ur Specific [place] Urine Protein Urine Glucose (UA) Urine Ketones Urine Blood Urine Nitrite Urine Bilirubin Urine Urobilinogen Ur Leukocyte Esterase Urine WBC (Auto) Urine RBC (Auto) Urine Bacteria Urine Mucus U Random Total Protein Urine Creatinine Protein/Creatinin Ratio Hep A IgM Ab Confirm Hepatitis A Ab Total Hep Bs Antigen Hep Bs Antibody Hep B Core Total Ab 09/29/18 09/29/18 09/29/18 05:40 11:28 16:34 WBC RBC Hgb Hct MCV MCH MCHC RDW Plt Count MPV Absolute Neuts (auto) Neutrophils % Lymphocytes % Monocytes % Eosinophils % Basophils % Nucleated RBC % Sodium Potassium Chloride Carbon Dioxide Anion Gap BUN Creatinine Creat Clearance w eGFR POC Glucometer 141.15017 164.35095 169.07932 Random Glucose Calcium Phosphorus Magnesium Total Bilirubin AST ALT Alkaline Phosphatase Total Protein Albumin TSH Urine Color Urine Appearance Urine pH Ur Specific [place] Urine Protein Urine Glucose (UA) Urine Ketones Urine Blood Urine Nitrite Urine Bilirubin Urine Urobilinogen Ur Leukocyte Esterase Urine WBC (Auto) Urine RBC (Auto) Urine Bacteria Urine Mucus U Random Total Protein Urine Creatinine Protein/Creatinin Ratio Hep A IgM Ab Confirm Hepatitis A Ab Total Hep Bs Antigen Hep Bs Antibody Hep B Core Total Ab Active Medications Generic Name Dose Route Start Last Admin Trade Name Freq PRN Reason Stop Dose Admin Chlorhexidine Gluconate 1 applic 09/26/18 22:00 09/28/18 21:27 Hibiclens For Decolonization - TP Not Given HS BLAYNE Heparin Sodium (Porcine) 5,000 unit 09/26/18 22:00 09/29/18 13:12 Heparin - SQ 5,000 unit TID [facility] Administration Sodium Chloride 250 mls @ 3,000 mls/hr 09/28/18 14:15 Normal Saline - IV 09/29/18 14:15 PRN PRN Hypotension during Dialysis Cefazolin Sodium 1 gm/ 50 mls @ 100 mls/hr 09/28/18 22:00 09/28/18 21:26 Dextrose IVPB 100 mls/hr Q24H [facility]NE Administration Insulin Aspart 1 vial 09/27/18 16:30 09/29/18 18:08 Novolog Vial Sliding Scale - SQ Not Given ACHS [facility] Protocol Metoprolol Tartrate 25 mg 09/29/18 10:00 09/29/18 10:01 Lopressor - PO 25 mg BID [facility]NE Administration Mupirocin 1 applic 09/26/18 22:00 09/29/18 10:01 Bactroban Ointment (For Decolonization) - NS 10/01/18 21:59 1 applic BID [facility]LAYNE Administration ASSESSMENT/PLAN: Pt is a 78 y/o lady with a significant past medical history of DM, HTN, CKD, and dementia. Pt presented to [facility] ED this AM with daughter c/o weakness, nausea /vomiting and AMS. #Sepsis 2/2 Pyelonephritis -WBC trending down. Today--> 8.5 09/29/18 -Troponin negative - CTAP--> Significant inflammatory changes in retroperitoneum appear to originate from kidneys compatible with significant b/l renal infection. - Nephrology on Board - Renal Bladder Ultrasound--> MORPHOLOGICALLY NORMAL KIDNEYS WITH NO EVIDENCE OF HYDRONEPHROSIS OR ACUTE PATHOLOGY - Lactic Acidosis resolved - ABG PH 7.22,7.34 09/27/2018 - I.D on board--> Cefazolin 1 GM Q24H day 2 -Spoke with PCP Dr Green 09/27/2018, States that pt has NO underlying Kidney disease and Creatinine has been WNL. PCP recently saw and examined pt and has faxed blood work to ICU. # Hyperkalemia - Potassium WNL today - HD Tomorrow 09/30/18 #UTI: -Leukocyte Esterase 3+ - WBC 18.2--> 8.6 today - Urine/Blood cultures--> Lactose Fermenting Gram Neg Bacilli - Vanc/Zosyn in ED - I.D on board - Cefazolin to day 2 GM Q24H #Atrial Fibrillation W/ RVR? - Metoprolol 25 MG PO BID -Echo -->EF 60-65%. #FEN No Fluids Monitor electrolytes Diabetic Diet DVT ppx: Heparin SQ TID Dispo: ICU Visit type - Emergency Visit Emergency Visit: Yes ED Registration Date: 09/26/18 Care time: The patient presented to the Emergency Department on the above date and was hospitalized for further evaluation of their emergent condition. - New Patient This patient is new to me today: No - Critical Care Critical Care patient: Yes Total Critical Care Time (in minutes): 35 Critical Care Statement: The care of this patient involved high complexity decision making to prevent further life threatening deterioration of the patient 's condition and/or to evaluate & treat vital organ system(s) failure or risk of failure. - Discharge Referral Referred to [facility] Med P.C.: No
--- NOTE | 2018-09-29 18:17 | PN ---
Teaching Attending Note Name of Resident: Pb Camargo ATTENDING PHYSICIAN STATEMENT I saw and evaluated the patient. I reviewed the resident's note and discussed the case with the resident. I agree with the resident's findings and plan as documented with exceptions below. SUBJECTIVE: Patient seen and examined. oriented to self and time, no pain or dyspnea, more awake and interactive today. OBJECTIVE: Vital Signs Period Temp Pulse Resp BP Sys/Ivan Pulse Ox Last 24 Hr 98 F-99.5 F 73-144 12-21 92-156/48-68 96-96 Intake & Output 09/26/18 09/27/18 09/28/18 09/29/18 23:59 23:59 23:59 23:59 Intake Total 3250 100 1650 50 Output Total 20 75 40 Balance 3250 80 1575 10 Weight 150 lb 149 lb 8 oz 151 lb 151 lb 1 oz General: sitting in bed in no acute distress, more awake and interactive, oriented to self, knows is Nov, but not to place, re-oriented. Chest: decreased effort, few basilar rales, no wheezing Abdomen:soft, obese, NT, no CVA tenderness Extremities: no edema Home Medications Medication Instructions Recorded Aripiprazole 1 tab PO HS 09/26/18 Calcium 500 + Vit D Caplet 1 cap PO DAILY 09/26/18 Duloxetine HCl 20 mg PO HS 09/26/18 Levothyroxine [Synthroid -] 50 mcg PO DAILY 09/26/18 Loratadine [Claritin] 10 mg PO DAILY 09/26/18 Losartan Potassium 50 mg PO DAILY 09/26/18 Mirabegron [Myrbetriq] 50 mg PO DAILY 09/26/18 Nabumetone 500 mg PO BID PRN 09/26/18 Omeprazole 20 mg PO AC 09/26/18 Rosuvastatin [Crestor -] 20 mg PO DAILY 09/26/18 Sitagliptin Phos/Metformin HCl 1 tab PO BID 09/26/18 [Janumet 50-1,000 mg Tablet] Tramadol HCl 50 mg PO BID PRN 09/26/18 traZODone HCL [Trazodone HCl] 100 mg PO HS 09/26/18 Active Medications Chlorhexidine Gluconate (Hibiclens For Decolonization -) 1 applic TP HS [facility] Last Admin: 09/28/18 21:27 Dose: Not Given Heparin Sodium (Porcine) (Heparin -) 5,000 unit SQ TID [facility] Last Admin: 09/29/18 13:12 Dose: 5,000 unit Sodium Chloride (Normal Saline -) 250 mls @ 3,000 mls/hr IV PRN PRN PRN Reason: Hypotension during Dialysis Stop: 09/29/18 14:15 Cefazolin Sodium 1 gm/ (Dextrose) 50 mls @ 100 mls/hr IVPB Q24H [facility] Last Admin: 09/28/18 21:26 Dose: 100 mls/hr Insulin Aspart (Novolog Vial Sliding Scale -) 1 vial SQ ACHS [facility]; Protocol Last Admin: 09/29/18 18:08 Dose: Not Given Metoprolol Tartrate (Lopressor -) 25 mg PO BID [facility] Last Admin: 09/29/18 10:01 Dose: 25 mg Mupirocin (Bactroban Ointment (For Decolonization) -) 1 applic NS BID [facility] Stop: 10/01/18 21:59 Last Admin: 09/29/18 10:01 Dose: 1 applic Laboratory Results - last 24 hr 09/26/18 09/28/18 09/28/18 19:08 21:00 21:00 WBC RBC Hgb Hct MCV MCH MCHC RDW Plt Count MPV Absolute Neuts (auto) Neutrophils % Lymphocytes % Monocytes % Eosinophils % Basophils % Nucleated RBC % Sodium Potassium Chloride Carbon Dioxide Anion Gap BUN Creatinine Creat Clearance w eGFR POC Glucometer Random Glucose Calcium Phosphorus Magnesium Total Bilirubin AST ALT Alkaline Phosphatase Total Protein Albumin TSH Urine Color Ltyellow Urine Appearance Slcloudy Urine pH 7.0 D Ur Specific [place] 1.011 Urine Protein 2+ H Urine Glucose (UA) 2+ H Urine Ketones Trace H Urine Blood 2+ H Urine Nitrite Negative Urine Bilirubin Negative Urine Urobilinogen Negative Ur Leukocyte Esterase 3+ H Urine WBC (Auto) 192 Urine RBC (Auto) 40 Urine Bacteria Rare Urine Mucus Rare U Random Total Protein 242 H Urine Creatinine 33.0 Protein/Creatinin Ratio 7.3 Hep A IgM Ab Confirm Negative Hepatitis A Ab Total Positive H Hep Bs Antigen Negative Hep Bs Antibody Reactive Hep B Core Total Ab Positive H 09/28/18 09/29/18 09/29/18 21:32 05:30 05:30 WBC 8.5 RBC 3.68 Hgb 9.5 L Hct 29.9 L MCV 81.2 MCH 25.7 MCHC 31.7 L RDW 15.7 H Plt Count 117 L MPV 8.4 Absolute Neuts (auto) 7.2 Neutrophils % 84.5 H Lymphocytes % 5.6 L D Monocytes % 8.1 Eosinophils % 1.6 D Basophils % 0.2 Nucleated RBC % 0 Sodium 140 Potassium 4.0 Chloride 101 Carbon Dioxide 32 Anion Gap 7 L BUN 41 H Creatinine 4.5 H Creat Clearance w eGFR 9.50 POC Glucometer [phone] Random Glucose 123 H Calcium 6.6 L* Phosphorus 3.1 Magnesium 2.0 Total Bilirubin 0.4 AST 39 H ALT 22 Alkaline Phosphatase 208 H Total Protein 4.6 L Albumin 1.6 L TSH 0.28 L Urine Color Urine Appearance Urine pH Ur Specific [place] Urine Protein Urine Glucose (UA) Urine Ketones Urine Blood Urine Nitrite Urine Bilirubin Urine Urobilinogen Ur Leukocyte Esterase Urine WBC (Auto) Urine RBC (Auto) Urine Bacteria Urine Mucus U Random Total Protein Urine Creatinine Protein/Creatinin Ratio Hep A IgM Ab Confirm Hepatitis A Ab Total Hep Bs Antigen Hep Bs Antibody Hep B Core Total Ab 09/29/18 09/29/18 09/29/18 05:40 11:28 16:34 WBC RBC Hgb Hct MCV MCH MCHC RDW Plt Count MPV Absolute Neuts (auto) Neutrophils % Lymphocytes % Monocytes % Eosinophils % Basophils % Nucleated RBC % Sodium Potassium Chloride Carbon Dioxide Anion Gap BUN Creatinine Creat Clearance w eGFR POC Glucometer 141.92753 164.32321 169.66697 Random Glucose Calcium Phosphorus Magnesium Total Bilirubin AST ALT Alkaline Phosphatase Total Protein Albumin TSH Urine Color Urine Appearance Urine pH Ur Specific [place] Urine Protein Urine Glucose (UA) Urine Ketones Urine Blood Urine Nitrite Urine Bilirubin Urine Urobilinogen Ur Leukocyte Esterase Urine WBC (Auto) Urine RBC (Auto) Urine Bacteria Urine Mucus U Random Total Protein Urine Creatinine Protein/Creatinin Ratio Hep A IgM Ab Confirm Hepatitis A Ab Total Hep Bs Antigen Hep Bs Antibody Hep B Core Total Ab Microbiology 09/27/18 12:00 Urine - Urine [place] Urine Culture - Preliminary Lactose Fermenting Neg Bacilli 09/28/18 05:35 Blood - Peripheral Venous Blood Culture - Preliminary NO GROWTH OBTAINED AFTER 24 HOURS, INCUBATION TO CONTINUE FOR 4 DAYS. 09/28/18 05:20 Blood - Peripheral Venous Blood Culture - Preliminary NO GROWTH OBTAINED AFTER 24 HOURS, INCUBATION TO CONTINUE FOR 4 DAYS. 09/26/18 06:53 Blood - Peripheral Venous Blood Culture - Final Lactose Fermenting Neg Bacilli 09/26/18 06:53 Blood - Peripheral Venous Blood Culture - Final Escherichia Coli 09/26/18 08:50 Urine - Urine Clean Catch Urine Culture - Final Escherichia Coli ASSESSMENT AND PLAN: 78yo F with PMH DM, HTN, dementia brought in by daughter for altered mental status with nausea and vomiting. Pt was found to be acidemic with renal failure -Severe sepsis with pyelonephritis/E. coli bacteremia -Complicated E. coli UTI/pyelonephritis -Acute renal failure, -Anion gap metabolic acidosis -Acute metabolic uremic encephalopathy -Atrial fibrillation with RVR, ?new onset. -Hyperkalemia -DM -HTN Plan: Reverted to NSR now, cardiology input appreciated. Metoprolol BID. 2D echo results noted. s/p HD yesterday, terminated given tachycardia/hypotension. discussed with Dr. Conde, plan for HD tomorrow Will follow up for permacath and additional access. ID input appreciated. Cefazolin, monitor for now. Hold oral hypoglycemics. . Agree with transfer to telemetry. The care of this patient involved high complexity decision making to prevent further life threatening deterioration of the patient's condition and/or to evaluate & treat vital organ system(s) failure or risk of failure. 40 mins
[2018-09-29] MEDS ORDERED: DEXTROSE 5%-WATER - 50 ML IVPB ONE (21:48)
[2018-09-29] MEDS ORDERED: ceFAZolin SODIUM 1 GM VIAL ONE (21:48)
[2018-09-29] MEDS: CEFAZOLIN 1 GM in DEXTROSE 5%-WATER - 50 ML IVPB SCH (22:05)
[2018-09-30] MEDS: HEPARIN NA (PORCINE) 5,000 UNITS/ML 1ML VIAL SQ SCH ×3 (05:21→22:09)
[2018-09-30] MEDS: INSULIN SLIDING SCALE (NOVOLOG) 1 VIAL SQ SCH ×4 (06:27→22:08)
[2018-09-30 07:51] LABS: BASO % 0.3 % (0-2.0); EOS % 0.8 % (0-4.5); HEMATOCRIT 34.9 % (32.4-45.2); HEMOGLOBIN 10.9 GM/dL (10.7-15.3); MCH 25.7 pg (25.7-33.7); MCHC 31.3 g/dl (32.0-36.0); MEAN PLT VOLUME 8.6 fl (7.5-11.1); MONO % 9.7 % (3.8-10.2); NEUT % 80.2 % (42.8-82.8); PLATELET COUNT 143 K/MM3 (134-434); RBC 4.25 M/mm3 (3.60-5.2); RDW 15.7 % (11.6-15.6); WHITE BLOOD COUNT 11.6 K/mm3 (4.0-10.0)
[2018-09-30 08:08] LABS: ALBUMIN 1.7 g/dl (3.4-5.0); ALK PHOS 207 U/L (45-117); ANION GAP 11 MMOL/L (8-16); BILIRUBIN,TOTAL 0.5 mg/dL (0.2-1); BLOOD UREA NITROGEN 56 mg/dL (7-18); CALCIUM 7.6 mg/dL (8.5-10.1); CHLORIDE 99 mmol/L (98-107); CO2 28 mmol/L (21-32); CREATININE 5.6 mg/dL (0.55-1.3); GLUCOSE,RANDOM 100 mg/dL (74-106); MAGNESIUM 2.3 mg/dL (1.8-2.4); PHOSPHOROUS 2.8 mg/dL (2.5-4.9); POTASSIUM 4.3 mmol/L (3.5-5.1); SGOT/AST 34 U/L (15-37); SGPT/ALT 15 U/L (13-61); SODIUM 139 mmol/L (136-145); TOT PROT 5.2 g/dl (6.4-8.2)
[2018-09-30] MEDS ORDERED: SODIUM CHLORIDE 250 ML IV PRN (08:27)
--- NOTE | 2018-09-30 08:47 | PN ---
Progress Note (short form) - Note Progress Note: 400 cc urine output overnight! remains agitated Vital Signs Period Temp Pulse Resp BP Sys/Ivan Pulse Ox Last 24 Hr 97.9 F-98.8 F 55-85 17-19 138-161/60-79 96-96 cor-rrr lungs clear abd soft,nt ext no edema CBC, BMP 09/30/18 05:45 09/30/18 05:45 Microbiology 09/28/18 05:35 Blood - Peripheral Venous Blood Culture - Preliminary NO GROWTH OBTAINED AFTER 48 HOURS, INCUBATION TO CONTINUE FOR 3 DAYS. 09/28/18 05:20 Blood - Peripheral Venous Blood Culture - Preliminary NO GROWTH OBTAINED AFTER 48 HOURS, INCUBATION TO CONTINUE FOR 3 DAYS. 09/27/18 12:00 Urine - Urine [place] Urine Culture - Preliminary Lactose Fermenting Neg Bacilli 09/26/18 06:53 Blood - Peripheral Venous Blood Culture - Final Lactose Fermenting Neg Bacilli 09/26/18 06:53 Blood - Peripheral Venous Blood Culture - Final Escherichia Coli 09/26/18 08:50 Urine - Urine Clean Catch Urine Culture - Final Escherichia Coli Current Medications Heparin Sodium (Porcine) (Heparin -) 5,000 unit SQ TID [facility] Last Admin: 09/30/18 05:21 Dose: 5,000 unit Sodium Chloride (Normal Saline -) 250 mls @ 3,000 mls/hr IV PRN PRN PRN Reason: Hypotension during Dialysis Stop: 09/29/18 14:15 Cefazolin Sodium 1 gm/ (Dextrose) 50 mls @ 100 mls/hr IVPB Q24H [facility] Last Admin: 09/29/18 22:05 Dose: 100 mls/hr Sodium Chloride (Normal Saline -) 250 mls @ 3,000 mls/hr IV PRN PRN PRN Reason: Hypotension during Dialysis Stop: 10/01/18 08:27 Insulin Aspart (Novolog Vial Sliding Scale -) 1 vial SQ ACHS [facility]; Protocol Last Admin: 09/30/18 06:27 Dose: Not Given Metoprolol Tartrate (Lopressor -) 25 mg PO BID [facility] Last Admin: 09/29/18 22:06 Dose: 25 mg a/p gram negative sepsis-Ecoli urinary source--ecoli uti, sonogram no obstruction acute renal failure-oliguric continue cefazolin adjusted for renal failure increased urine output today Problem List - Problems (1) Sepsis Code(s): A41.9 - SEPSIS, UNSPECIFIED ORGANISM Qualifiers: Sepsis type: sepsis due to unspecified organism Qualified Code(s): A41.9 - Sepsis, unspecified organism (2) SHERRON (acute kidney injury) Code(s): N17.9 - ACUTE KIDNEY FAILURE, UNSPECIFIED
--- NOTE | 2018-09-30 10:22 | PN ---
Teaching Attending Note Name of Resident: Pb Camargo ATTENDING PHYSICIAN STATEMENT I saw and evaluated the patient. I reviewed the resident's note and discussed the case with the resident. I agree with the resident's findings and plan as documented with exceptions below. SUBJECTIVE: Patient seen and examined. agitated, oriented to self only, unable to do further ROS. OBJECTIVE: Vital Signs Period Temp Pulse Resp BP Sys/Ivan Pulse Ox Last 24 Hr 97.9 F-98.8 F 55-85 17-19 138-161/60-79 96-98 Intake & Output 09/27/18 09/28/18 09/29/18 09/30/18 23:59 23:59 23:59 23:59 Intake Total 100 1650 50 Output Total 20 75 40 Balance 80 1575 10 Weight 149 lb 8 oz 151 lb 151 lb 1 oz General: sitting in bed, agitated but no acute distress Neck: right permacath present Chest: limited given lack of co=operation and intermittent screaming Abdomen:soft, obese, NT Extremities: no edema Active Medications Heparin Sodium (Porcine) (Heparin -) 5,000 unit SQ TID [facility] Last Admin: 09/30/18 05:21 Dose: 5,000 unit Sodium Chloride (Normal Saline -) 250 mls @ 3,000 mls/hr IV PRN PRN PRN Reason: Hypotension during Dialysis Stop: 09/29/18 14:15 Cefazolin Sodium 1 gm/ (Dextrose) 50 mls @ 100 mls/hr IVPB Q24H [facility] Last Admin: 09/29/18 22:05 Dose: 100 mls/hr Sodium Chloride (Normal Saline -) 250 mls @ 3,000 mls/hr IV PRN PRN PRN Reason: Hypotension during Dialysis Stop: 10/01/18 08:27 Insulin Aspart (Novolog Vial Sliding Scale -) 1 vial SQ ACHS [facility]; Protocol Last Admin: 09/30/18 06:27 Dose: Not Given Metoprolol Tartrate (Lopressor -) 25 mg PO BID [facility] Last Admin: 09/29/18 22:06 Dose: 25 mg Laboratory Results - last 24 hr 09/29/18 09/29/18 09/29/18 11:28 16:34 18:04 WBC RBC Hgb Hct MCV MCH MCHC RDW Plt Count MPV Absolute Neuts (auto) Neutrophils % Lymphocytes % Monocytes % Eosinophils % Basophils % Nucleated RBC % Sodium Potassium Chloride Carbon Dioxide Anion Gap BUN Creatinine Creat Clearance w eGFR POC Glucometer 164.12500 169.44165 68 Random Glucose Calcium Phosphorus Magnesium Total Bilirubin AST ALT Alkaline Phosphatase Total Protein Albumin Free T4 09/29/18 09/30/18 09/30/18 22:18 05:22 05:45 WBC RBC Hgb Hct MCV MCH MCHC RDW Plt Count MPV Absolute Neuts (auto) Neutrophils % Lymphocytes % Monocytes % Eosinophils % Basophils % Nucleated RBC % Sodium 139 Potassium 4.3 Chloride 99 Carbon Dioxide 28 Anion Gap 11 BUN 56 H Creatinine 5.6 H Creat Clearance w eGFR 7.38 POC Glucometer 103 106 Random Glucose 100 Calcium 7.6 L Phosphorus 2.8 Magnesium 2.3 Total Bilirubin 0.5 AST 34 ALT 15 Alkaline Phosphatase 207 H Total Protein 5.2 L Albumin 1.7 L Free T4 1.15 09/30/18 05:45 WBC 11.6 H RBC 4.25 Hgb 10.9 Hct 34.9 D MCV 82.0 MCH 25.7 MCHC 31.3 L RDW 15.7 H Plt Count 143 D MPV 8.6 Absolute Neuts (auto) 9.3 H Neutrophils % 80.2 Lymphocytes % 9.0 D Monocytes % 9.7 Eosinophils % 0.8 Basophils % 0.3 Nucleated RBC % 0 Sodium Potassium Chloride Carbon Dioxide Anion Gap BUN Creatinine Creat Clearance w eGFR POC Glucometer Random Glucose Calcium Phosphorus Magnesium Total Bilirubin AST ALT Alkaline Phosphatase Total Protein Albumin Free T4 ASSESSMENT AND PLAN: 78yo F with PMH DM, HTN, dementia brought in by daughter for altered mental status with nausea and vomiting. Pt was found to be acidemic with renal failure -Severe sepsis with pyelonephritis/E. coli bacteremia -Complicated E. coli UTI/pyelonephritis -Acute renal failure, -Anion gap metabolic acidosis -Acute toxic metabolic encephalopathy, suspect multifactorial from Uremia/sepsis /hospitalization superimposed on underlying dementia. -Atrial fibrillation with RVR, ?new onset. -Hyperkalemia -DM -HTN Plan: For HD today. FOllow up with renal. Anticipate will need permacath and HD given lack of renal recovery so far. Cardiology input noted. Continue metoprolol. 2D echo noted. ID input appreciated. Mild leucocytosis, trend. Cefazolin, monitor for now. Check LFTs. Hold oral hypoglycemics. ISS, diabetic diet Behavioral measures, frequent re-orientation to environment, encourage OOB, avoid frequent stimulus. DVTPPX with heparin Dispo in 2-3 days pending HD plans and clinical improvement. .
[2018-09-30 12:02] LABS: ANISOCYTOSIS 1+; MACROCYTOSIS 0; PLATELET ESTIMATE NORMAL
--- NOTE | 2018-09-30 12:23 | PN ---
Progress Note, Physician History of Present Illness: Pt seen and examined at bedside. She is agitated. She is also confused. - Current Medication List Current Medications: Active Medications Heparin Sodium (Porcine) (Heparin -) 5,000 unit SQ TID [facility] Last Admin: 09/30/18 05:21 Dose: 5,000 unit Sodium Chloride (Normal Saline -) 250 mls @ 3,000 mls/hr IV PRN PRN PRN Reason: Hypotension during Dialysis Stop: 09/29/18 14:15 Cefazolin Sodium 1 gm/ (Dextrose) 50 mls @ 100 mls/hr IVPB Q24H [facility] Last Admin: 09/29/18 22:05 Dose: 100 mls/hr Sodium Chloride (Normal Saline -) 250 mls @ 3,000 mls/hr IV PRN PRN PRN Reason: Hypotension during Dialysis Stop: 10/01/18 08:27 Insulin Aspart (Novolog Vial Sliding Scale -) 1 vial SQ ACHS [facility]; Protocol Last Admin: 09/30/18 06:27 Dose: Not Given Metoprolol Tartrate (Lopressor -) 25 mg PO BID [facility] Last Admin: 09/29/18 22:06 Dose: 25 mg - Objective Vital Signs: Vital Signs Temperature 98.8 F 09/30/18 05:00 Pulse Rate 78 09/30/18 09:00 Respiratory Rate 18 09/30/18 09:00 Blood Pressure 143/68 09/30/18 09:00 O2 Sat by Pulse Oximetry (%) 98 09/30/18 09:00 Constitutional: Yes: Calm Eyes: Yes: Conjunctiva Clear Cardiovascular: Yes: S1, S2 Respiratory: Yes: CTA Bilaterally Gastrointestinal: Yes: Soft Genitourinary: Yes: WNL Musculoskeletal: Yes: WNL Edema: No Neurological: Yes: Confusion Psychiatric: Yes: Agitated Labs: CBC, BMP 09/30/18 05:45 09/30/18 05:45 INR, PTT INR 1.17 (0.83-1.09) H 09/26/18 06:53 Problem List - Problems (1) SHERRON (acute kidney injury) Code(s): N17.9 - ACUTE KIDNEY FAILURE, UNSPECIFIED (2) Sepsis Code(s): A41.9 - SEPSIS, UNSPECIFIED ORGANISM Qualifiers: Sepsis type: sepsis due to unspecified organism Qualified Code(s): A41.9 - Sepsis, unspecified organism (3) UTI (urinary tract infection) Code(s): N39.0 - URINARY TRACT INFECTION, SITE NOT SPECIFIED Qualifiers: Urinary tract infection type: site unspecified Hematuria presence: with hematuria Qualified Code(s): N39.0 - Urinary tract infection, site not specified; R31.9 - Hematuria, unspecified Assessment/Plan Current Medications Generic Name Dose Route Start Last Admin Trade Name Freq PRN Reason Stop Dose Admin Heparin Sodium (Porcine) 5,000 unit 09/26/18 22:00 09/30/18 05:21 Heparin - SQ 5,000 unit TID [facility]LAYNE Administration Sodium Chloride 250 mls @ 3,000 mls/hr 09/28/18 14:15 Normal Saline - IV 09/29/18 14:15 PRN PRN Hypotension during Dialysis Cefazolin Sodium 1 gm/ 50 mls @ 100 mls/hr 09/28/18 22:00 09/29/18 22:05 Dextrose IVPB 100 mls/hr Q24H [facility] Administration Sodium Chloride 250 mls @ 3,000 mls/hr 09/30/18 08:27 Normal Saline - IV 10/01/18 08:27 PRN PRN Hypotension during Dialysis Insulin Aspart 1 vial 09/27/18 16:30 09/30/18 06:27 Novolog Vial Sliding Scale - SQ Not Given ACHS [facility] Protocol Metoprolol Tartrate 25 mg 09/29/18 10:00 09/29/18 22:06 Lopressor - PO 25 mg BID [facility]LAYNE Administration Laboratory Tests 09/28/18 16:00 PATRICIA M-Neil Pending CHARLES Screen Pending c-ANCA Pending Proteinase 3 (PR3) Pending p-ANCA Pending Atypical p-ANCA Pending Myeloperoxidase Ab Pending Double Strand DNA Ab Pending Glomerular Base Memb Ab Pending Impression 1. SHERRON vs progression of CKD 2. sepsis 3. bacteremia 4. DM 5. HTN 6. active smoker 7. dementia 8. a-fib Plan - renal workup is in progress - HD today - called family to discuss kidney biopsy - pt remains oliguric - monitor urine output Dr Conde
[2018-09-30] MEDS: METOPROLOL TARTRATE 25 MG TABLET (FP) PO SCH ×2 (12:25→22:11)
--- NOTE | 2018-09-30 14:39 | PN ---
Progress Note, Physician History of Present Illness: seen and examined today in [facility]. awake and alert. appears confused. closing manager used. - Current Medication List Current Medications: Active Medications Heparin Sodium (Porcine) (Heparin -) 5,000 unit SQ TID [facility] Last Admin: 09/30/18 05:21 Dose: 5,000 unit Sodium Chloride (Normal Saline -) 250 mls @ 3,000 mls/hr IV PRN PRN PRN Reason: Hypotension during Dialysis Stop: 09/29/18 14:15 Cefazolin Sodium 1 gm/ (Dextrose) 50 mls @ 100 mls/hr IVPB Q24H [facility] Last Admin: 09/29/18 22:05 Dose: 100 mls/hr Sodium Chloride (Normal Saline -) 250 mls @ 3,000 mls/hr IV PRN PRN PRN Reason: Hypotension during Dialysis Stop: 10/01/18 08:27 Insulin Aspart (Novolog Vial Sliding Scale -) 1 vial SQ ACHS [facility]; Protocol Last Admin: 09/30/18 12:25 Dose: Not Given Metoprolol Tartrate (Lopressor -) 25 mg PO BID [facility] Last Admin: 09/30/18 12:25 Dose: 25 mg - Objective Vital Signs: Vital Signs Temperature 98.2 F 09/30/18 14:13 Pulse Rate 69 09/30/18 14:13 Respiratory Rate 18 09/30/18 14:13 Blood Pressure 150/64 09/30/18 14:13 O2 Sat by Pulse Oximetry (%) 98 09/30/18 09:00 Constitutional: Yes: No Distress, Calm Eyes: Yes: Conjunctiva Clear, EOM Intact HENT: Yes: Atraumatic, Normocephalic Neck: Yes: Supple, Trachea Midline Cardiovascular: Yes: Regular Rate and Rhythm, S1, S2. No: Bradycardia, Tachycardia, Pulse Irregular, Bruit, JVD, Gallop, Murmur, Rub, S3, S4, Varicosities Respiratory: Yes: Regular, Diminished. No: Rales, Rhonchi, SOB, Wheezes Gastrointestinal: Yes: Normal Bowel Sounds, Soft. No: Distention, Tenderness Extremities: Yes: WNL Edema: No Peripheral Pulses WNL: Yes Peripheral Pulses: Left Doralis Pedis: 2+, Right Dorsalis Pedis: 2+ Neurological: Yes: Alert Psychiatric: Yes: Alert Labs: CBC, BMP 09/30/18 05:45 09/30/18 05:45 INR, PTT INR 1.17 (0.83-1.09) H 09/26/18 06:53 - ....Imaging Chest X-ray: Report Reviewed, Image Reviewed EKG: Report Reviewed, Image Reviewed Other: Report Reviewed, Image Reviewed (tele-nsr, brief psvt vs paf overnight, otherwise currently nsr, HR adequate) Assessment/Plan Ms Waldron is a 78 y/o lady with a significant past medical history of DM, HTN, CKD, and dementia. She was admitted with acute on chronic renal failure, started HD, had unresponsive episode with low bp on HD found also in atrial fibrillation with RVR. Given dig, dilt and BB. Now in NSR. Being treated for sepsis, gram negative bacteremia. Echo 09/27/18 nlef trace MR, mild TR, FCDAOV. 1. PAF -Now in NSR, Paf overnight -possibly all driven by severe sepsis and metabolic status. -can start heparin gtt for now which can be held for procedures if needed ( kidney bx, permacath). -Echo is unremarkable -ABx per primary team -nsr on tele today -can dc tele -cont metoprolol 25mg bid for now, can be uptitrated as needed if recurrent afib with RVR
--- NOTE | 2018-09-30 18:36 | PN ---
Physical Exam: SUBJECTIVE: Patient seen and examined today at bedside. Agitated and confused. Oligouric. HD today. OBJECTIVE: Vital Signs Period Temp Pulse Resp BP Sys/Ivan Pulse Ox Last 24 Hr 97.3 F-98.8 F 55-85 17-18 141-177/60-88 96-98 GENERAL: Agitated Confused HEAD: NC/AT EYES: EOMI no scleral icterus conjunctiva not injected ENT: MMM LUNGS: CTA B/L HEART: RRR. ABDOMEN: NDNT EXTREMITIES: No CCE Laboratory Results - last 24 hr 09/29/18 09/30/18 09/30/18 22:18 05:22 05:45 WBC RBC Hgb Hct MCV MCH MCHC RDW Plt Count MPV Absolute Neuts (auto) Neutrophils % Neutrophils % (Manual) Band Neutrophils % Lymphocytes % Lymphocytes % (Manual) Monocytes % Monocytes % (Manual) Eosinophils % Eosinophils % (Manual) Basophils % Basophils % (Manual) Myelocytes % (Man) Promyelocytes % (Man) Blast Cells % (Manual) Nucleated RBC % Metamyelocytes Hypochromia Platelet Estimate Polychromasia Poikilocytosis Anisocytosis Microcytosis Macrocytosis [place] Cells Sodium 139 Potassium 4.3 Chloride 99 Carbon Dioxide 28 Anion Gap 11 BUN 56 H Creatinine 5.6 H Creat Clearance w eGFR 7.38 POC Glucometer 103 106 Random Glucose 100 Calcium 7.6 L Phosphorus 2.8 Magnesium 2.3 Total Bilirubin 0.5 AST 34 ALT 15 Alkaline Phosphatase 207 H Total Protein 5.2 L Albumin 1.7 L Free T4 1.15 09/30/18 09/30/18 05:45 11:43 WBC 11.6 H RBC 4.25 Hgb 10.9 Hct 34.9 D MCV 82.0 MCH 25.7 MCHC 31.3 L RDW 15.7 H Plt Count 143 D MPV 8.6 Absolute Neuts (auto) 9.3 H Neutrophils % 80.2 Neutrophils % (Manual) 79.4 Band Neutrophils % 0.0 Lymphocytes % 9.0 D Lymphocytes % (Manual) 7.2 L D Monocytes % 9.7 Monocytes % (Manual) 10 D Eosinophils % 0.8 Eosinophils % (Manual) 1.0 D Basophils % 0.3 Basophils % (Manual) 0.0 Myelocytes % (Man) 0 Promyelocytes % (Man) 0 Blast Cells % (Manual) 0 Nucleated RBC % 0 Metamyelocytes 2 D Hypochromia 0 Platelet Estimate Normal Polychromasia 1+ Poikilocytosis 1+ Anisocytosis 1+ Microcytosis 1+ Macrocytosis 0 [place] Cells 1+ Sodium Potassium Chloride Carbon Dioxide Anion Gap BUN Creatinine Creat Clearance w eGFR POC Glucometer 108 Random Glucose Calcium Phosphorus Magnesium Total Bilirubin AST ALT Alkaline Phosphatase Total Protein Albumin Free T4 Active Medications Generic Name Dose Route Start Last Admin Trade Name Freq PRN Reason Stop Dose Admin Heparin Sodium (Porcine) 5,000 unit 09/26/18 22:00 09/30/18 15:18 Heparin - SQ Not Given TID BLAYNE Cefazolin Sodium 1 gm/ 50 mls @ 100 mls/hr 09/28/18 22:00 09/29/18 22:05 Dextrose IVPB 100 mls/hr Q24H [facility] Administration Sodium Chloride 250 mls @ 3,000 mls/hr 09/30/18 08:27 Normal Saline - IV 10/01/18 08:27 PRN PRN Hypotension during Dialysis Insulin Aspart 1 vial 09/27/18 16:30 09/30/18 12:25 Novolog Vial Sliding Scale - SQ Not Given ACHS [facility] Protocol Metoprolol Tartrate 25 mg 09/29/18 10:00 09/30/18 12:25 Lopressor - PO 25 mg BID [facility] Administration ASSESSMENT/PLAN: Pt is a 78 y/o lady with a significant past medical history of DM, HTN, CKD, and dementia. Pt presented to [facility] ED this AM with daughter c/o weakness, nausea /vomiting and AMS. #Sepsis 2/2 Pyelonephritis -WBC trending down. Today--> 8.5 09/29/18 -Troponin negative - CTAP--> Significant inflammatory changes in retroperitoneum appear to originate from kidneys compatible with significant b/l renal infection. - Nephrology on Board - Renal Bladder Ultrasound--> MORPHOLOGICALLY NORMAL KIDNEYS WITH NO EVIDENCE OF HYDRONEPHROSIS OR ACUTE PATHOLOGY - Lactic Acidosis resolved - ABG PH 7.22,7.34 09/27/2018 - I.D on board--> Cefazolin 1 GM Q24H day 3 -Spoke with PCP Dr Green 09/27/2018, States that pt has NO underlying Kidney disease and Creatinine has been WNL. PCP recently saw and examined pt and has faxed blood work to ICU. # SHERRON, Oliguria, Hyperkalemia -Potassium WNL -HD today HD x 3 hours initiated without problems; UF 0.5-0.7L as tolerated -Possible kidney biopsy -Monitor urine output -400 cc urine output overnight #UTI: -Leukocyte Esterase 3+ - WBC 18.2--> 11.6 today - Urine/Blood cultures--> Lactose Fermenting Gram Neg Bacilli - Vanc/Zosyn in ED - I.D on board - Cefazolin to day 3 GM Q24H #Atrial Fibrillation W/ RVR? - Metoprolol 25 MG PO BID, Dr Argueta on board -Echo --> EF 60-65%. #FEN No Fluids Monitor electrolytes Diabetic Diet DVT ppx: Heparin SQ TID Dispo: Tele Visit type - Emergency Visit Emergency Visit: Yes ED Registration Date: 09/26/18 Care time: The patient presented to the Emergency Department on the above date and was hospitalized for further evaluation of their emergent condition. - New Patient This patient is new to me today: No - Critical Care Critical Care patient: No - Discharge Referral Referred to [facility] Med P.C.: No
[2018-09-30] MEDS ORDERED: ceFAZolin SODIUM 1 GM VIAL ONE (21:51)
[2018-09-30] MEDS ORDERED: DEXTROSE 5%-WATER - 50 ML IVPB ONE (21:52)
[2018-09-30] MEDS ORDERED: INSULIN (NOVOLOG) ASPART 100 UNITS/ML 10ML VIAL ONE ×2 (21:53→21:54)
[2018-09-30] MEDS: CEFAZOLIN 1 GM in DEXTROSE 5%-WATER - 50 ML IVPB SCH (22:09)
[2018-10-01] MEDS: HEPARIN NA (PORCINE) 5,000 UNITS/ML 1ML VIAL SQ SCH ×3 (05:34→21:16)
[2018-10-01] MEDS: INSULIN SLIDING SCALE (NOVOLOG) 1 VIAL SQ SCH ×4 (06:11→21:07)
[2018-10-01 07:20] LABS: ALBUMIN 1.9 g/dl (3.4-5.0); ALK PHOS 178 U/L (45-117); BILIRUBIN,DIRECT 0.1 mg/dL (0.0-0.2); BILIRUBIN,TOTAL 0.5 mg/dL (0.2-1); SGOT/AST 31 U/L (15-37); SGPT/ALT 11 U/L (13-61); TOT PROT 5.6 g/dl (6.4-8.2)
[2018-10-01 08:27] LABS: BASO % 0.3 % (0-2.0); EOS % 0.8 % (0-4.5); HEMATOCRIT 33.7 % (32.4-45.2); HEMOGLOBIN 10.6 GM/dL (10.7-15.3); LYMPH % 6.7 % (8-40); MCH 25.5 pg (25.7-33.7); MCHC 31.6 g/dl (32.0-36.0); MEAN CELL VOLUME 80.8 fl (80-96); MEAN PLT VOLUME 8.3 fl (7.5-11.1); MONO % 7.1 % (3.8-10.2); NEUT % 85.1 % (42.8-82.8); PLATELET COUNT 170 K/MM3 (134-434); RBC 4.17 M/mm3 (3.60-5.2); RDW 15.4 % (11.6-15.6); WHITE BLOOD COUNT 11.5 K/mm3 (4.0-10.0)
[2018-10-01 08:46] LABS: ANION GAP 10 MMOL/L (8-16); BLOOD UREA NITROGEN 32 mg/dL (7-18); CALCIUM 8.1 mg/dL (8.5-10.1); CHLORIDE 100 mmol/L (98-107); CO2 30 mmol/L (21-32); GLUCOSE,RANDOM 113 mg/dL (74-106); POTASSIUM 4.5 mmol/L (3.5-5.1); SODIUM 140 mmol/L (136-145)
--- NOTE | 2018-10-01 09:20 | PN ---
Progress Note, Physician Chief Complaint: Off tele Some confusion Appears in no distress History of Present Illness: Ms Waldron is a 78 y/o lady with a significant past medical history of DM, HTN, CKD, and dementia. She was admitted with acute on chronic renal failure, started HD, had unresponsive episode with low bp on HD found also in atrial fibrillation with RVR. Given dig, dilt and BB. Now in NSR. Being treated for sepsis, gram negative bacteremia. Echo 09/27/18 nlef trace MR, mild TR, FCDAOV. - Current Medication List Current Medications: Active Medications Heparin Sodium (Porcine) (Heparin -) 5,000 unit SQ TID [facility] Last Admin: 10/01/18 05:34 Dose: 5,000 unit Cefazolin Sodium 1 gm/ (Dextrose) 50 mls @ 100 mls/hr IVPB Q24H [facility] Last Admin: 09/30/18 22:09 Dose: 100 mls/hr Sodium Chloride (Normal Saline -) 250 mls @ 3,000 mls/hr IV PRN PRN PRN Reason: Hypotension during Dialysis Stop: 10/01/18 08:27 Insulin Aspart (Novolog Vial Sliding Scale -) 1 vial SQ ACHS [facility]; Protocol Last Admin: 10/01/18 06:11 Dose: Not Given Metoprolol Tartrate (Lopressor -) 25 mg PO BID [facility] Last Admin: 09/30/18 22:11 Dose: 25 mg - Objective Vital Signs: Vital Signs Temperature 98.8 F 10/01/18 05:00 Pulse Rate 78 10/01/18 07:56 Respiratory Rate 18 10/01/18 07:56 Blood Pressure 142/64 10/01/18 07:56 O2 Sat by Pulse Oximetry (%) 97 09/30/18 21:00 Constitutional: Yes: No Distress Neck: Yes: Supple Cardiovascular: Yes: Regular Rate and Rhythm, S1, S2. No: JVD Respiratory: Yes: CTA Bilaterally Gastrointestinal: Yes: Soft Edema: No Labs: CBC, BMP 10/01/18 06:00 10/01/18 06:00 INR, PTT INR 1.17 (0.83-1.09) H 09/26/18 06:53 Assessment/Plan Ms Waldron is a 78 y/o lady with a significant past medical history of DM, HTN, CKD, and dementia. She was admitted with acute on chronic renal failure, started HD, had unresponsive episode with low bp on HD found also in atrial fibrillation with RVR. Given dig, dilt and BB. Now in NSR. Being treated for sepsis, gram negative bacteremia. Echo 09/27/18 nlef trace MR, mild TR, FCDAOV. 1. PAF -off tele. HR regular and controlled on exam today. -possibly all driven by severe sepsis and metabolic status. -Echo is unremarkable -ABx per primary team -cont metoprolol 25mg bid for now, can be uptitrated as needed if recurrent afib with RVR -Has indications for afib but it has been on hold during admission. Would leave decision for anticoagulation up to primary team and need to discuss with family given patients confusion. Will sign off at this time.
--- NOTE | 2018-10-01 10:37 | PN ---
Progress Note (short form) - Note Progress Note: improved urine output alert Vital Signs Period Temp Pulse Resp BP Sys/Ivan Pulse Ox Last 24 Hr 97.2 F-98.8 F 60-78 17-20 142-177/64-88 97 cor-rrr lungs decreased bs at bases abd soft,nt ext no edema +do CBC, BMP 10/01/18 06:00 10/01/18 06:00 Microbiology 09/28/18 05:35 Blood - Peripheral Venous Blood Culture - Preliminary NO GROWTH OBTAINED AFTER 72 HOURS, INCUBATION TO CONTINUE FOR 2 DAYS. 09/28/18 05:20 Blood - Peripheral Venous Blood Culture - Preliminary NO GROWTH OBTAINED AFTER 72 HOURS, INCUBATION TO CONTINUE FOR 2 DAYS. 09/27/18 12:00 Urine - Urine Do Urine Culture - Final Escherichia Coli 09/26/18 06:53 Blood - Peripheral Venous Blood Culture - Final Lactose Fermenting Neg Bacilli 09/26/18 06:53 Blood - Peripheral Venous Blood Culture - Final Escherichia Coli 09/26/18 08:50 Urine - Urine Clean Catch Urine Culture - Final Escherichia Coli Current Medications Heparin Sodium (Porcine) (Heparin -) 5,000 unit SQ TID [facility] Last Admin: 09/30/18 05:21 Dose: 5,000 unit Sodium Chloride (Normal Saline -) 250 mls @ 3,000 mls/hr IV PRN PRN PRN Reason: Hypotension during Dialysis Stop: 09/29/18 14:15 Cefazolin Sodium 1 gm/ (Dextrose) 50 mls @ 100 mls/hr IVPB Q24H [facility] Last Admin: 09/29/18 22:05 Dose: 100 mls/hr Sodium Chloride (Normal Saline -) 250 mls @ 3,000 mls/hr IV PRN PRN PRN Reason: Hypotension during Dialysis Stop: 10/01/18 08:27 Insulin Aspart (Novolog Vial Sliding Scale -) 1 vial SQ ACHS [facility]; Protocol Last Admin: 09/30/18 06:27 Dose: Not Given Metoprolol Tartrate (Lopressor -) 25 mg PO BID [facility] Last Admin: 09/29/18 22:06 Dose: 25 mg a/p gram negative sepsis-Ecoli urinary source--ecoli uti, sonogram no obstruction acute renal failure-urine output improving continue cefazolin adjusted for renal failure-day #4 Problem List - Problems (1) Sepsis Code(s): A41.9 - SEPSIS, UNSPECIFIED ORGANISM Qualifiers: Sepsis type: sepsis due to unspecified organism Qualified Code(s): A41.9 - Sepsis, unspecified organism (2) SHERRON (acute kidney injury) Code(s): N17.9 - ACUTE KIDNEY FAILURE, UNSPECIFIED
[2018-10-01] MEDS: METOPROLOL TARTRATE 25 MG TABLET (FP) PO SCH ×2 (10:40→21:07)
[2018-10-01 12:22] LABS: ANISOCYTOSIS 1+; MACROCYTOSIS 0; PLATELET ESTIMATE NORMAL
--- NOTE | 2018-10-01 13:49 | PN ---
Physical Exam: SUBJECTIVE: Patient seen and examined at bedside. No acute events overnight. Complaining that she needs help but cannot elaborate on what she wants. HD Tomorrow. OBJECTIVE: Vital Signs Period Temp Pulse Resp BP Sys/Ivan Pulse Ox Last 24 Hr 97.2 F-98.8 F 60-78 17-20 142-177/64-88 97 GENERAL: Remains Agitated and Confused. HEAD: NC/AT EYES: EOMI no scleral icterus conjunctiva not injected ENT: MMM LUNGS: CTA B/L Dec Bs at bases HEART: RRR. ABDOMEN: Tenderness to deep palpation of abdomen. EXTREMITIES: No CCE Laboratory Results - last 24 hr 09/30/18 10/01/18 10/01/18 22:07 05:41 06:00 WBC RBC Hgb Hct MCV MCH MCHC RDW Plt Count MPV Absolute Neuts (auto) Neutrophils % Neutrophils % (Manual) Band Neutrophils % Lymphocytes % Lymphocytes % (Manual) Monocytes % Monocytes % (Manual) Eosinophils % Eosinophils % (Manual) Basophils % Basophils % (Manual) Myelocytes % (Man) Promyelocytes % (Man) Blast Cells % (Manual) Nucleated RBC % Metamyelocytes Hypochromia Platelet Estimate Polychromasia Poikilocytosis Anisocytosis Microcytosis Macrocytosis Sodium 140 Potassium 4.5 Chloride 100 Carbon Dioxide 30 Anion Gap 10 BUN 32 H Creatinine 4.0 H Creat Clearance w eGFR 10.89 POC Glucometer 166 118 Random Glucose 113 H Calcium 8.1 L Total Bilirubin 0.5 Direct Bilirubin 0.1 AST 31 ALT 11 L Alkaline Phosphatase 178 H Total Protein 5.6 L Albumin 1.9 L 10/01/18 10/01/18 06:00 12:29 WBC 11.5 H RBC 4.17 Hgb 10.6 L Hct 33.7 MCV 80.8 MCH 25.5 L MCHC 31.6 L RDW 15.4 Plt Count 170 MPV 8.3 Absolute Neuts (auto) 9.8 H Neutrophils % 85.1 H Neutrophils % (Manual) 77.0 Band Neutrophils % 0.0 Lymphocytes % 6.7 L D Lymphocytes % (Manual) 6.0 L Monocytes % 7.1 Monocytes % (Manual) 7 Eosinophils % 0.8 Eosinophils % (Manual) 4.0 D Basophils % 0.3 Basophils % (Manual) 1.0 D Myelocytes % (Man) 1 D Promyelocytes % (Man) 0 Blast Cells % (Manual) 0 Nucleated RBC % 0 Metamyelocytes 1 D Hypochromia 0 Platelet Estimate Normal Polychromasia 0 Poikilocytosis 0 Anisocytosis 1+ Microcytosis 1+ Macrocytosis 0 Sodium Potassium Chloride Carbon Dioxide Anion Gap BUN Creatinine Creat Clearance w eGFR POC Glucometer 116 Random Glucose Calcium Total Bilirubin Direct Bilirubin AST ALT Alkaline Phosphatase Total Protein Albumin Active Medications Generic Name Dose Route Start Last Admin Trade Name Freq PRN Reason Stop Dose Admin Heparin Sodium (Porcine) 5,000 unit 09/26/18 22:00 10/01/18 05:34 Heparin - SQ 5,000 unit TID [facility] Administration Cefazolin Sodium 1 gm/ 50 mls @ 100 mls/hr 09/28/18 22:00 09/30/18 22:09 Dextrose IVPB 100 mls/hr Q24H [facility] Administration Sodium Chloride 250 mls @ 3,000 mls/hr 09/30/18 08:27 Normal Saline - IV 10/01/18 08:27 PRN PRN Hypotension during Dialysis Insulin Aspart 1 vial 09/27/18 16:30 10/01/18 13:05 Novolog Vial Sliding Scale - SQ Not Given ACHS [facility] Protocol Metoprolol Tartrate 25 mg 09/29/18 10:00 10/01/18 10:40 Lopressor - PO 25 mg BID [facility]NE Administration ASSESSMENT/PLAN: Pt is a 78 y/o lady with a significant past medical history of DM, HTN, CKD, and dementia. Pt presented to [facility] ED this AM with daughter c/o weakness, nausea /vomiting and AMS. #Sepsis 2/2 Pyelonephritis -WBC 11.5 today. -Troponin negative - CTAP--> Significant inflammatory changes in retroperitoneum appear to originate from kidneys compatible with significant b/l renal infection. - Nephrology on Board - Renal Bladder Ultrasound--> MORPHOLOGICALLY NORMAL KIDNEYS WITH NO EVIDENCE OF HYDRONEPHROSIS OR ACUTE PATHOLOGY - I.D on board--> Cefazolin 1 GM Q24H day 4 -Spoke with PCP Dr Green 09/27/2018, States that pt has NO underlying Kidney disease and Creatinine has been WNL. PCP recently saw and examined pt and has faxed blood work to ICU. # SHERRON, Oliguria, Hyperkalemia -Potassium WNL -HD tomorrow -Possible kidney biopsy -Monitor urine output #UTI: -Leukocyte Esterase 3+ - WBC 11.6 today - Urine/Blood cultures--> Lactose Fermenting Gram Neg Bacilli - I.D on board - Cefazolin to day 4 GM Q24H #Atrial Fibrillation W/ RVR? - Metoprolol 25 MG PO BID, Dr Guevara saw pt today -Echo --> EF 60-65%. #FEN No Fluids Monitor electrolytes Diabetic Diet DVT ppx: Heparin SQ TID Dispo: med-surg Visit type - Emergency Visit Emergency Visit: Yes ED Registration Date: 09/26/18 Care time: The patient presented to the Emergency Department on the above date and was hospitalized for further evaluation of their emergent condition. - New Patient This patient is new to me today: No - Critical Care Critical Care patient: No - Discharge Referral Referred to [facility] Med P.C.: No
--- NOTE | 2018-10-01 16:09 | PN ---
Progress Note, Physician History of Present Illness: Pt seen and examined at bedside. She is much calmer today. She tolerated HD yesterday. She is starting to make urine. - Current Medication List Current Medications: Active Medications Heparin Sodium (Porcine) (Heparin -) 5,000 unit SQ TID [facility] Last Admin: 10/01/18 05:34 Dose: 5,000 unit Cefazolin Sodium 1 gm/ (Dextrose) 50 mls @ 100 mls/hr IVPB Q24H [facility] Last Admin: 09/30/18 22:09 Dose: 100 mls/hr Sodium Chloride (Normal Saline -) 250 mls @ 3,000 mls/hr IV PRN PRN PRN Reason: Hypotension during Dialysis Stop: 10/01/18 08:27 Insulin Aspart (Novolog Vial Sliding Scale -) 1 vial SQ ACHS [facility]; Protocol Last Admin: 10/01/18 13:05 Dose: Not Given Metoprolol Tartrate (Lopressor -) 25 mg PO BID [facility] Last Admin: 10/01/18 10:40 Dose: 25 mg - Objective Vital Signs: Vital Signs Temperature 98.1 F 10/01/18 15:46 Pulse Rate 61 10/01/18 15:46 Respiratory Rate 20 10/01/18 15:46 Blood Pressure 142/51 L 10/01/18 15:46 O2 Sat by Pulse Oximetry (%) 97 09/30/18 21:00 Constitutional: Yes: Calm Eyes: Yes: Conjunctiva Clear Cardiovascular: Yes: S1, S2 Respiratory: Yes: CTA Bilaterally Gastrointestinal: Yes: Normal Bowel Sounds, Soft Genitourinary: Yes: [place] Present Musculoskeletal: Yes: WNL Edema: No Neurological: Yes: Oriented Psychiatric: Yes: Oriented Labs: CBC, BMP 10/01/18 06:00 10/01/18 06:00 INR, PTT INR 1.17 (0.83-1.09) H 09/26/18 06:53 Problem List - Problems (1) SHERRON (acute kidney injury) Code(s): N17.9 - ACUTE KIDNEY FAILURE, UNSPECIFIED (2) Sepsis Code(s): A41.9 - SEPSIS, UNSPECIFIED ORGANISM Qualifiers: Sepsis type: sepsis due to unspecified organism Qualified Code(s): A41.9 - Sepsis, unspecified organism (3) UTI (urinary tract infection) Code(s): N39.0 - URINARY TRACT INFECTION, SITE NOT SPECIFIED Qualifiers: Urinary tract infection type: site unspecified Hematuria presence: with hematuria Qualified Code(s): N39.0 - Urinary tract infection, site not specified; R31.9 - Hematuria, unspecified Assessment/Plan Current Medications Generic Name Dose Route Start Last Admin Trade Name Freq PRN Reason Stop Dose Admin Heparin Sodium (Porcine) 5,000 unit 09/26/18 22:00 10/01/18 05:34 Heparin - SQ 5,000 unit TID [facility]NE Administration Cefazolin Sodium 1 gm/ 50 mls @ 100 mls/hr 09/28/18 22:00 09/30/18 22:09 Dextrose IVPB 100 mls/hr Q24H [facility]LAYNE Administration Sodium Chloride 250 mls @ 3,000 mls/hr 09/30/18 08:27 Normal Saline - IV 10/01/18 08:27 PRN PRN Hypotension during Dialysis Insulin Aspart 1 vial 09/27/18 16:30 10/01/18 13:05 Novolog Vial Sliding Scale - SQ Not Given ACHS [facility] Protocol Metoprolol Tartrate 25 mg 09/29/18 10:00 10/01/18 10:40 Lopressor - PO 25 mg BID [facility]LAYNE Administration Laboratory Tests 09/26/18 09/28/18 19:08 16:00 PATRICIA M-Neil Pending CHARLES Screen Pending c-ANCA Pending Proteinase 3 (PR3) Pending p-ANCA Pending Atypical p-ANCA Pending Myeloperoxidase Ab Pending Double Strand DNA Ab <1 Glomerular Base Memb Ab Pending Hep Bs Antigen Negative Hep Bs Antibody Reactive Hep B Core Total Ab Positive H Impression 1. SHERRON vs progression of CKD 2. sepsis 3. bacteremia 4. DM 5. HTN 6. active smoker 7. dementia 8. a-fib Plan - pt is starting to make urine - renal workup is in progress, will follow - discussed care with daughter Sana, - discussed kidney biopsy - renal function appears to be improving - will order an HD session for tomorrow - pt may have had ATN from sepsis Dr Conde
[2018-10-01] MEDS ORDERED: SODIUM CHLORIDE 250 ML IV PRN (16:11)
[2018-10-01] MEDS ORDERED: SODIUM CHLORIDE 0.45% 1,000 ML IV SCH (16:15)
[2018-10-01] MEDS ORDERED: ACETAMINOPHEN 650 MG/20.3 ML ORAL SOLUTION (CUPS) PO PRN (17:26)
--- NOTE | 2018-10-01 17:58 | PN ---
Teaching Attending Note Name of Resident: Pb Camargo ATTENDING PHYSICIAN STATEMENT I saw and evaluated the patient. I reviewed the resident's note and discussed the case with the resident. I agree with the resident's findings and plan as documented with exceptions below. SUBJECTIVE: Patient seen and examined. calmer today, generalized aches and pains currently. OBJECTIVE: Vital Signs Period Temp Pulse Resp BP Sys/Ivan Pulse Ox Last 24 Hr 97.2 F-98.8 F 60-78 17-20 142-169/51-86 97 Intake & Output 09/28/18 09/29/18 09/30/18 10/01/18 23:59 23:59 23:59 23:59 Intake Total 1650 50 150 Output Total 75 40 500 400 Balance 1575 10 -500 -250 Weight 151 lb 151 lb 1 oz General: sleeping comfortably, easily arousable, no acute distress Chest: CTAB, no rales or wheezing Abdomen: soft, obese, NT Extremities: no edema Active Medications Acetaminophen (Tylenol Oral Solution -) 650 mg PO Q6H PRN PRN Reason: PAIN 1-3 Heparin Sodium (Porcine) (Heparin -) 5,000 unit SQ TID [facility] Last Admin: 10/01/18 15:00 Dose: 5,000 unit Cefazolin Sodium 1 gm/ (Dextrose) 50 mls @ 100 mls/hr IVPB Q24H [facility] Last Admin: 09/30/18 22:09 Dose: 100 mls/hr Sodium Chloride (Normal Saline -) 250 mls @ 3,000 mls/hr IV PRN PRN PRN Reason: Hypotension during Dialysis Stop: 10/02/18 16:11 Sodium Chloride (1/2 Normal Saline) 1,000 mls @ 65 mls/hr IV ASDIR [facility] Stop: 10/01/18 23:14 Last Admin: 10/01/18 17:01 Dose: 65 mls/hr Insulin Aspart (Novolog Vial Sliding Scale -) 1 vial SQ ACHS [facility]; Protocol Last Admin: 10/01/18 17:22 Dose: 2 units Metoprolol Tartrate (Lopressor -) 25 mg PO BID [facility] Last Admin: 10/01/18 10:40 Dose: 25 mg Laboratory Results - last 24 hr 09/28/18 09/30/18 10/01/18 16:00 22:07 05:41 WBC RBC Hgb Hct MCV MCH MCHC RDW Plt Count MPV Absolute Neuts (auto) Neutrophils % Neutrophils % (Manual) Band Neutrophils % Lymphocytes % Lymphocytes % (Manual) Monocytes % Monocytes % (Manual) Eosinophils % Eosinophils % (Manual) Basophils % Basophils % (Manual) Myelocytes % (Man) Promyelocytes % (Man) Blast Cells % (Manual) Nucleated RBC % Metamyelocytes Hypochromia Platelet Estimate Polychromasia Poikilocytosis Anisocytosis Microcytosis Macrocytosis Sodium Potassium Chloride Carbon Dioxide Anion Gap BUN Creatinine Creat Clearance w eGFR POC Glucometer 166 118 Random Glucose Calcium Total Bilirubin Direct Bilirubin AST ALT Alkaline Phosphatase Total Protein Albumin Double Strand DNA Ab <1 10/01/18 10/01/18 10/01/18 06:00 06:00 12:29 WBC 11.5 H RBC 4.17 Hgb 10.6 L Hct 33.7 MCV 80.8 MCH 25.5 L MCHC 31.6 L RDW 15.4 Plt Count 170 MPV 8.3 Absolute Neuts (auto) 9.8 H Neutrophils % 85.1 H Neutrophils % (Manual) 77.0 Band Neutrophils % 0.0 Lymphocytes % 6.7 L D Lymphocytes % (Manual) 6.0 L Monocytes % 7.1 Monocytes % (Manual) 7 Eosinophils % 0.8 Eosinophils % (Manual) 4.0 D Basophils % 0.3 Basophils % (Manual) 1.0 D Myelocytes % (Man) 1 D Promyelocytes % (Man) 0 Blast Cells % (Manual) 0 Nucleated RBC % 0 Metamyelocytes 1 D Hypochromia 0 Platelet Estimate Normal Polychromasia 0 Poikilocytosis 0 Anisocytosis 1+ Microcytosis 1+ Macrocytosis 0 Sodium 140 Potassium 4.5 Chloride 100 Carbon Dioxide 30 Anion Gap 10 BUN 32 H Creatinine 4.0 H Creat Clearance w eGFR 10.89 POC Glucometer 116 Random Glucose 113 H Calcium 8.1 L Total Bilirubin 0.5 Direct Bilirubin 0.1 AST 31 ALT 11 L Alkaline Phosphatase 178 H Total Protein 5.6 L Albumin 1.9 L Double Strand DNA Ab 10/01/18 16:56 WBC RBC Hgb Hct MCV MCH MCHC RDW Plt Count MPV Absolute Neuts (auto) Neutrophils % Neutrophils % (Manual) Band Neutrophils % Lymphocytes % Lymphocytes % (Manual) Monocytes % Monocytes % (Manual) Eosinophils % Eosinophils % (Manual) Basophils % Basophils % (Manual) Myelocytes % (Man) Promyelocytes % (Man) Blast Cells % (Manual) Nucleated RBC % Metamyelocytes Hypochromia Platelet Estimate Polychromasia Poikilocytosis Anisocytosis Microcytosis Macrocytosis Sodium Potassium Chloride Carbon Dioxide Anion Gap BUN Creatinine Creat Clearance w eGFR POC Glucometer 185 Random Glucose Calcium Total Bilirubin Direct Bilirubin AST ALT Alkaline Phosphatase Total Protein Albumin Double Strand DNA Ab Microbiology 09/28/18 05:35 Blood - Peripheral Venous Blood Culture - Preliminary NO GROWTH OBTAINED AFTER 72 HOURS, INCUBATION TO CONTINUE FOR 2 DAYS. 09/28/18 05:20 Blood - Peripheral Venous Blood Culture - Preliminary NO GROWTH OBTAINED AFTER 72 HOURS, INCUBATION TO CONTINUE FOR 2 DAYS. 09/27/18 12:00 Urine - Urine [place] Urine Culture - Final Escherichia Coli 09/26/18 06:53 Blood - Peripheral Venous Blood Culture - Final Lactose Fermenting Neg Bacilli 09/26/18 06:53 Blood - Peripheral Venous Blood Culture - Final Escherichia Coli 09/26/18 08:50 Urine - Urine Clean Catch Urine Culture - Final Escherichia Coli ASSESSMENT AND PLAN: 78yo F with PMH DM, HTN, dementia brought in by daughter for altered mental status with nausea and vomiting. Pt was found to be acidemic with renal failure -Severe sepsis with pyelonephritis/E. coli bacteremia -Complicated E. coli UTI/pyelonephritis -Acute renal failure, -Anion gap metabolic acidosis -Acute toxic metabolic encephalopathy, suspect multifactorial from Uremia/sepsis /hospitalization superimposed on underlying dementia. -Atrial fibrillation with RVR, ?new onset. -Hyperkalemia -DM -HTN Plan: Urine output with some improvement. REnal function better. Discussed with Dr. Conde, plan for HD tomorrow and likely removal of Shiley Cardiology input noted. Continue metoprolol. 2D echo noted. AC on hold given removal of Shiley and possible HD access procedures planned. Discuss with family about AC once active issues improve and no procedures planned. ID input appreciated. Cefazolin, monitor for now. Hold oral hypoglycemics. ISS, diabetic diet Behavioral measures, frequent re-orientation to environment, encourage OOB, avoid frequent stimulus. DVTPPX with heparin Dispo in 2-3 days pending HD plans and clinical improvement. .
[2018-10-01] MEDS ORDERED: MAG HYDROX/AL HYDROX/SIMETH -MYLANTA- ORAL SUSPENSION PO ONE (19:35)
[2018-10-01] MEDS ORDERED: MAG HYDROX/AL HYDROX/SIMETH 30 ML UNIT-DOSE CUP PO ONE (20:15)
[2018-10-01] MEDS ORDERED: DEXTROSE 5%-WATER - 50 ML IVPB ONE (20:21)
[2018-10-01] MEDS ORDERED: ceFAZolin SODIUM 1 GM VIAL ONE (20:21)
[2018-10-01] MEDS: CEFAZOLIN 1 GM in DEXTROSE 5%-WATER - 50 ML IVPB SCH (21:07)
[2018-10-02] MEDS: INSULIN SLIDING SCALE (NOVOLOG) 1 VIAL SQ SCH ×4 (07:01→23:20)
[2018-10-02] MEDS: HEPARIN NA (PORCINE) 5,000 UNITS/ML 1ML VIAL SQ SCH ×3 (07:02→23:12)
[2018-10-02 09:40] LABS: BASO % 0.5 % (0-2.0); EOS % 1.1 % (0-4.5); HEMATOCRIT 28.9 % (32.4-45.2); HEMOGLOBIN 9.1 GM/dL (10.7-15.3); LYMPH % 6.4 % (8-40); MCH 25.5 pg (25.7-33.7); MCHC 31.6 g/dl (32.0-36.0); MEAN CELL VOLUME 80.6 fl (80-96); MEAN PLT VOLUME 7.9 fl (7.5-11.1); MONO % 7.6 % (3.8-10.2); NEUT % 84.4 % (42.8-82.8); PLATELET COUNT 191 K/MM3 (134-434); RBC 3.58 M/mm3 (3.60-5.2); RDW 15.8 % (11.6-15.6); WHITE BLOOD COUNT 12.4 K/mm3 (4.0-10.0)
[2018-10-02] MEDS: METOPROLOL TARTRATE 25 MG TABLET (FP) PO SCH ×3 (10:35→23:12)
--- NOTE | 2018-10-02 11:46 | PN ---
Physical Exam: SUBJECTIVE: Patient seen and examined at bedside. Pt states her bed is uncomfortable. OBJECTIVE: Vital Signs Period Temp Pulse Resp BP Sys/Ivan Pulse Ox Last 24 Hr 97.6 F-98.1 F 57-72 18-20 142-152/51-81 99 Gen: NAD, sleeping comfortably HEENT: NCAT, EOMI, moist membranes Neck: supple, no jvd Cardio: rrr, normal s1s2, systolic 3/6 murmur at RUSB, no rubs/gallops Pulm: CTA b/l ext: 2+ pulses, no edema Laboratory Results - last 24 hr 09/28/18 10/01/18 10/01/18 16:00 06:00 12:29 WBC RBC Hgb Hct MCV MCH MCHC RDW Plt Count MPV Absolute Neuts (auto) Neutrophils % Neutrophils % (Manual) 77.0 Band Neutrophils % 0.0 Lymphocytes % Lymphocytes % (Manual) 6.0 L Monocytes % Monocytes % (Manual) 7 Eosinophils % Eosinophils % (Manual) 4.0 D Basophils % Basophils % (Manual) 1.0 D Myelocytes % (Man) 1 D Promyelocytes % (Man) 0 Blast Cells % (Manual) 0 Nucleated RBC % Metamyelocytes 1 D Hypochromia 0 Platelet Estimate Normal Polychromasia 0 Poikilocytosis 0 Anisocytosis 1+ Microcytosis 1+ Macrocytosis 0 POC Glucometer 116 Total Protein (PEP) 4.6 L Albumin (PEP) 1.9 L Globulin 2.7 Albumin/Globulin Ratio 0.7 Beta Globulins 0.7 PATRICIA M-Neil Not observed CHARLES Screen Negative Double Strand DNA Ab <1 10/01/18 10/01/18 10/02/18 16:56 21:06 06:57 WBC RBC Hgb Hct MCV MCH MCHC RDW Plt Count MPV Absolute Neuts (auto) Neutrophils % Neutrophils % (Manual) Band Neutrophils % Lymphocytes % Lymphocytes % (Manual) Monocytes % Monocytes % (Manual) Eosinophils % Eosinophils % (Manual) Basophils % Basophils % (Manual) Myelocytes % (Man) Promyelocytes % (Man) Blast Cells % (Manual) Nucleated RBC % Metamyelocytes Hypochromia Platelet Estimate Polychromasia Poikilocytosis Anisocytosis Microcytosis Macrocytosis POC Glucometer 185 93 110 Total Protein (PEP) Albumin (PEP) Globulin Albumin/Globulin Ratio Beta Globulins PATRICIA M-Neil CHARLES Screen Double Strand DNA Ab 10/02/18 10/02/18 09:00 11:10 WBC 12.4 H RBC 3.58 L Hgb 9.1 L Hct 28.9 L MCV 80.6 MCH 25.5 L MCHC 31.6 L RDW 15.8 H Plt Count 191 MPV 7.9 Absolute Neuts (auto) 10.5 H Neutrophils % 84.4 H Neutrophils % (Manual) Band Neutrophils % Lymphocytes % 6.4 L Lymphocytes % (Manual) Monocytes % 7.6 Monocytes % (Manual) Eosinophils % 1.1 Eosinophils % (Manual) Basophils % 0.5 Basophils % (Manual) Myelocytes % (Man) Promyelocytes % (Man) Blast Cells % (Manual) Nucleated RBC % 0 Metamyelocytes Hypochromia Platelet Estimate Polychromasia Poikilocytosis Anisocytosis Microcytosis Macrocytosis POC Glucometer 108 Total Protein (PEP) Albumin (PEP) Globulin Albumin/Globulin Ratio Beta Globulins PATRICIA M-Neil CHARLES Screen Double Strand DNA Ab Active Medications Generic Name Dose Route Start Last Admin Trade Name Freq PRN Reason Stop Dose Admin Acetaminophen 650 mg 10/02/18 03:28 Tylenol - PO Q4H PRN PAIN LEVEL 1 - 3 Heparin Sodium (Porcine) 5,000 unit 09/26/18 22:00 10/02/18 07:02 Heparin - SQ 5,000 unit TID [facility] Administration Cefazolin Sodium 1 gm/ 50 mls @ 100 mls/hr 09/28/18 22:00 10/01/18 21:07 Dextrose IVPB 100 mls/hr Q24H [facility] Administration Sodium Chloride 250 mls @ 3,000 mls/hr 10/01/18 16:11 Normal Saline - IV 10/02/18 16:11 PRN PRN Hypotension during Dialysis Insulin Aspart 1 vial 09/27/18 16:30 10/02/18 07:01 Novolog Vial Sliding Scale - SQ Not Given ACHS [facility] Protocol Metoprolol Tartrate 25 mg 09/29/18 10:00 10/01/18 21:07 Lopressor - PO 25 mg BID [facility] Administration ASSESSMENT/PLAN: Pt is a 78 y/o lady with past medical history of DM, HTN, CKD, and dementia. Pt presented to [facility] ED by daughter with c/o weakness, nausea/vomiting and AMS. #Complicated E. coli UTI/pyelonephritis -ID on board. continue cefazolin #Acute renal failure -making urine now -? ATN 2/2 sepsis -no obstruction/abscess noted on sono -? need for renal Biopsy at a future time -Nephro on board. f/u HD recs #Acute toxic metabolic encephalopathy, suspect multifactorial from Uremia/sepsis /hospitalization superimposed on underlying dementia. #Atrial fibrillation with RVR, ?new onset. -likely 2/2 electrolyte derrangement with sepsis -cardio input noted -will hold AC at this time -c/w lopressor #DM -BGM -ISS #HTN -Lopressor #Hyperkalemia -resolved #Severe sepsis 2/2 pyelonephritis & E. coli bacteremia -resolved #Anion gap metabolic acidosis -resolved #FEN -fluid prn for hypotension during HD -lytes wnl -DM diet #PPx -Hep SubQ #Dispo -MedSurg Pb Badillo MD PGY-2 IM Visit type - Emergency Visit Emergency Visit: No - New Patient This patient is new to me today: No - Critical Care Critical Care patient: No
[2018-10-02 12:11] LABS: ANISOCYTOSIS 1+; MACROCYTOSIS 1+; PLATELET ESTIMATE NORMAL
--- NOTE | 2018-10-02 12:43 | PN ---
Teaching Attending Note Name of Resident: Pb Badillo ATTENDING PHYSICIAN STATEMENT I saw and evaluated the patient. I reviewed the resident's note and discussed the case with the resident. I agree with the resident's findings and plan as documented with exceptions below. SUBJECTIVE: Patient seen and examined. More pleasant and awake today, uncomfortable in her bed, but no complaints otherwise. Occasional tangential conversations. OBJECTIVE: Vital Signs Period Temp Pulse Resp BP Sys/Ivan Pulse Ox Last 24 Hr 97.6 F-98.1 F 57-72 18-20 142-152/51-81 99 Intake & Output 09/29/18 09/30/18 10/01/18 10/02/18 23:59 23:59 23:59 23:59 Intake Total 50 150 Output Total 40 500 600 Balance 10 -500 -450 Weight 151 lb 1 oz General: sitting in bed in no acute distress Chest: decreased effort, occasional rales, no wheezing Abdomen:soft, obese, NT Extremities: no edema Active Medications Acetaminophen (Tylenol -) 650 mg PO Q4H PRN PRN Reason: PAIN LEVEL 1 - 3 Heparin Sodium (Porcine) (Heparin -) 5,000 unit SQ TID [facility] Last Admin: 10/02/18 07:02 Dose: 5,000 unit Cefazolin Sodium 1 gm/ (Dextrose) 50 mls @ 100 mls/hr IVPB Q24H [facility] Last Admin: 10/01/18 21:07 Dose: 100 mls/hr Sodium Chloride (Normal Saline -) 250 mls @ 3,000 mls/hr IV PRN PRN PRN Reason: Hypotension during Dialysis Stop: 10/02/18 16:11 Insulin Aspart (Novolog Vial Sliding Scale -) 1 vial SQ ACHS [facility]; Protocol Last Admin: 10/02/18 07:01 Dose: Not Given Metoprolol Tartrate (Lopressor -) 25 mg PO BID [facility] Last Admin: 10/01/18 21:07 Dose: 25 mg Laboratory Results - last 24 hr 09/28/18 10/01/18 10/01/18 16:00 12:29 16:56 WBC RBC Hgb Hct MCV MCH MCHC RDW Plt Count MPV Absolute Neuts (auto) Neutrophils % Neutrophils % (Manual) Band Neutrophils % Lymphocytes % Lymphocytes % (Manual) Monocytes % Monocytes % (Manual) Eosinophils % Eosinophils % (Manual) Basophils % Basophils % (Manual) Myelocytes % (Man) Promyelocytes % (Man) Blast Cells % (Manual) Nucleated RBC % Metamyelocytes Hypochromia Platelet Estimate Polychromasia Poikilocytosis Anisocytosis Macrocytosis POC Glucometer 116 185 Total Protein (PEP) 4.6 L Albumin (PEP) 1.9 L Globulin 2.7 Albumin/Globulin Ratio 0.7 Beta Globulins 0.7 PATRICIA M-Neil Not observed CHARLES Screen Negative Double Strand DNA Ab <1 10/01/18 10/02/18 10/02/18 21:06 06:57 09:00 WBC 12.4 H RBC 3.58 L Hgb 9.1 L Hct 28.9 L MCV 80.6 MCH 25.5 L MCHC 31.6 L RDW 15.8 H Plt Count 191 MPV 7.9 Absolute Neuts (auto) 10.5 H Neutrophils % 84.4 H Neutrophils % (Manual) 79.0 Band Neutrophils % 2.0 Lymphocytes % 6.4 L Lymphocytes % (Manual) 6.0 L Monocytes % 7.6 Monocytes % (Manual) 8 Eosinophils % 1.1 Eosinophils % (Manual) 0.0 D Basophils % 0.5 Basophils % (Manual) 0.0 Myelocytes % (Man) 3 H D Promyelocytes % (Man) 0 Blast Cells % (Manual) 0 Nucleated RBC % 0 Metamyelocytes 1 Hypochromia 1+ Platelet Estimate Normal Polychromasia 0 Poikilocytosis 0 Anisocytosis 1+ Macrocytosis 1+ POC Glucometer 93 110 Total Protein (PEP) Albumin (PEP) Globulin Albumin/Globulin Ratio Beta Globulins PATRICIA M-Neil CHARLES Screen Double Strand DNA Ab 10/02/18 11:10 WBC RBC Hgb Hct MCV MCH MCHC RDW Plt Count MPV Absolute Neuts (auto) Neutrophils % Neutrophils % (Manual) Band Neutrophils % Lymphocytes % Lymphocytes % (Manual) Monocytes % Monocytes % (Manual) Eosinophils % Eosinophils % (Manual) Basophils % Basophils % (Manual) Myelocytes % (Man) Promyelocytes % (Man) Blast Cells % (Manual) Nucleated RBC % Metamyelocytes Hypochromia Platelet Estimate Polychromasia Poikilocytosis Anisocytosis Macrocytosis POC Glucometer 108 Total Protein (PEP) Albumin (PEP) Globulin Albumin/Globulin Ratio Beta Globulins PATRICIA M-Neil CHARLES Screen Double Strand DNA Ab ASSESSMENT AND PLAN: 78yo F with PMH DM, HTN, dementia brought in by daughter for altered mental status with nausea and vomiting. Pt was found to be acidemic with renal failure -Severe sepsis with pyelonephritis/E. coli bacteremia -Complicated E. coli UTI/pyelonephritis -Acute renal failure, -Anion gap metabolic acidosis -Acute toxic metabolic encephalopathy, suspect multifactorial from Uremia/sepsis /hospitalization superimposed on underlying dementia. -Atrial fibrillation with RVR, ?new onset. -Hyperkalemia -DM -HTN Plan: Urine output with some improvement. Follow up pre-HD labs today. HD today, possible removal of Shiley after the procedure. Follow up with renal. Cardiology input noted. Continue metoprolol. 2D echo noted. AC on hold given removal of Shiley and possible HD access procedures planned. Not a candidate for NOAC currently given SHERRON and no good baseline renal function yet. Coumadin might be difficult given her overall cognitive function, need for monitoring and follow ups. Discuss with family about AC once active issues improve and no procedures planned. ID input appreciated. Cefazolin, monitor for now. WBC trending up, follow up for now. Hold oral hypoglycemics. ISS, diabetic diet Behavioral measures, frequent re-orientation to environment, encourage OOB, avoid frequent stimulus. DVTPPX with heparin Dispo in 2-3 days pending HD plans and clinical improvement. .
[2018-10-02 13:57] LABS: ANION GAP 9 MMOL/L (8-16); BLOOD UREA NITROGEN 43 mg/dL (7-18); CALCIUM 7.4 mg/dL (8.5-10.1); CHLORIDE 97 mmol/L (98-107); CO2 28 mmol/L (21-32); CREATININE 4.8 mg/dL (0.55-1.3); GLUCOSE,RANDOM 120 mg/dL (74-106); POTASSIUM 3.9 mmol/L (3.5-5.1); SODIUM 134 mmol/L (136-145)
--- NOTE | 2018-10-02 15:24 | PN ---
Progress Note (short form) - Note Progress Note: RENAL Pt was seen during HD denied complaints except that she wanted to go home Last Vital Signs Temp Pulse Resp BP Pulse Ox 97.4 F L 61 18 160/83 99 10/02/18 12:50 10/02/18 15:00 10/02/18 15:00 10/02/18 15:00 10/01/18 21:00 lungs clear cvs s1s2 rr abd soft ext no edema neuro a+ox3 skin no rash noted CBC, BMP 10/02/18 09:00 10/02/18 13:00 Current Medications Generic Name Dose Route Start Last Admin Trade Name Freq PRN Reason Stop Dose Admin Acetaminophen 650 mg 10/02/18 03:28 Tylenol - PO Q4H PRN PAIN LEVEL 1 - 3 Heparin Sodium (Porcine) 5,000 unit 09/26/18 22:00 10/02/18 07:02 Heparin - SQ 5,000 unit TID [facility] Administration Cefazolin Sodium 1 gm/ 50 mls @ 100 mls/hr 09/28/18 22:00 10/01/18 21:07 Dextrose IVPB 100 mls/hr Q24H [facility] Administration Sodium Chloride 250 mls @ 3,000 mls/hr 10/01/18 16:11 Normal Saline - IV 10/02/18 16:11 PRN PRN Hypotension during Dialysis Insulin Aspart 1 vial 09/27/18 16:30 10/02/18 07:01 Novolog Vial Sliding Scale - SQ Not Given ACHS [facility] Protocol Metoprolol Tartrate 25 mg 09/29/18 10:00 10/01/18 21:07 Lopressor - PO 25 mg BID [facility] Administration Impression 1. SHERRON vs progression of CKD 2. sepsis 3. bacteremia 4. DM 5. HTN 6. active smoker 7. dementia 8. a-fib Plan appears to continue to need hd would ask urology to eval given hematuria in this age group await vasculitis work up would benefit from kidney biopsy MV
--- NOTE | 2018-10-02 19:39 | HOSP ---
Subjective - Review of Symptoms Events since last encounter: Was informed that inspecting engineer requested HD cath be removed today as it presents an infection risk. Line was removed successfully, without complications. Physical Examination Vital Signs: Vital Signs Temperature 97.5 F L 10/02/18 16:30 Pulse Rate 66 10/02/18 16:30 Respiratory Rate 18 10/02/18 16:30 Blood Pressure 163/72 10/02/18 16:30 O2 Sat by Pulse Oximetry (%) 99 10/02/18 09:00 Labs: CBC, BMP 10/02/18 09:00 10/02/18 13:00 Visit type - Emergency Visit Emergency Visit: No - New Patient This patient is new to me today: No - Critical Care Critical Care patient: No
[2018-10-02] MEDS ORDERED: ceFAZolin SODIUM 1 GM VIAL ONE (21:08)
[2018-10-02] MEDS ORDERED: DEXTROSE 5%-WATER - 50 ML IVPB ONE (21:08)
[2018-10-02] MEDS ORDERED: MELATONIN 5 MG TABLETS PO ONE (21:30)
[2018-10-02] MEDS: ACETAMINOPHEN 325 MG TABLET (FP) PO PRN (23:10)
[2018-10-02] MEDS: CEFAZOLIN 1 GM in DEXTROSE 5%-WATER - 50 ML IVPB SCH (23:11)
[2018-10-03] MEDS: HEPARIN NA (PORCINE) 5,000 UNITS/ML 1ML VIAL SQ SCH ×3 (05:57→21:18)
[2018-10-03] MEDS: INSULIN SLIDING SCALE (NOVOLOG) 1 VIAL SQ SCH ×4 (06:01→21:18)
[2018-10-03] MEDS: METOPROLOL TARTRATE 25 MG TABLET (FP) PO SCH ×2 (10:23→21:19)
--- NOTE | 2018-10-03 10:52 | PN ---
Progress Note (short form) - Note Progress Note: RENAL sitting in wheel chair asking to go home says she is well Last Vital Signs Temp Pulse Resp BP Pulse Ox 97.4 F L 57 L 18 132/53 L 98 10/03/18 06:05 10/03/18 06:05 10/03/18 06:05 10/03/18 06:05 10/02/18 21:00 lungs clear cvs s1s2 rr abd soft ext no edema neuro a+ox3 skin no rash noted has a do CBC, BMP 10/02/18 09:00 10/02/18 13:00 Current Medications Generic Name Dose Route Start Last Admin Trade Name Freq PRN Reason Stop Dose Admin Acetaminophen 650 mg 10/02/18 03:28 10/02/18 23:10 Tylenol - PO 650 mg Q4H PRN Administration PAIN LEVEL 1 - 3 Heparin Sodium (Porcine) 5,000 unit 09/26/18 22:00 10/03/18 05:57 Heparin - SQ 5,000 unit TID [facility] Administration Cefazolin Sodium 1 gm/ 50 mls @ 100 mls/hr 09/28/18 22:00 10/02/18 23:11 Dextrose IVPB 100 mls/hr Q24H [facility] Administration Sodium Chloride 250 mls @ 3,000 mls/hr 10/01/18 16:11 Normal Saline - IV 10/02/18 16:11 PRN PRN Hypotension during Dialysis Insulin Aspart 1 vial 09/27/18 16:30 10/03/18 06:01 Novolog Vial Sliding Scale - SQ Not Given ACHS [facility] Protocol Metoprolol Tartrate 25 mg 09/29/18 10:00 10/03/18 10:23 Lopressor - PO 25 mg BID [facility] Administration Impression 1. SHERRON vs progression of CKD 2. sepsis 3. bacteremia 4. DM 5. HTN 6. active smoker 7. dementia 8. a-fib Plan appears to continue to need hd- repeat BMP dc do cath would ask urology to eval given hematuria in this age group- though it can be from UTI await vasculitis work up would benefit from kidney biopsy MV
--- NOTE | 2018-10-03 14:56 | PN ---
Physical Exam: SUBJECTIVE: Patient seen and examined, awake, oriented x3 currently, appropriate , eager to go home, no complaints. OBJECTIVE: Vital Signs Period Temp Pulse Resp BP Sys/Ivan Pulse Ox Last 24 Hr 97.4 F-98.0 F 57-89 18-20 132-163/53-83 98-98 GENERAL: The patient is awake, alert, and Ox3 today, in no acute distress. HEAD: Normal with no signs of trauma. EYES: PERRL, extraocular movements intact, sclera anicteric, conjunctiva clear. No ptosis. Neck: soft, supple, no JVD, Right IJ Shiley removed Chest: good effort, CTAB, no rales or wheezing Abdomen;Soft, obese, NT, no CVA tenderness Extremities: no edema Laboratory Results - last 24 hr 10/02/18 10/02/18 10/03/18 17:31 23:09 05:56 POC Glucometer 74 123 100 10/03/18 12:08 POC Glucometer 95 Active Medications Generic Name Dose Route Start Last Admin Trade Name Freq PRN Reason Stop Dose Admin Acetaminophen 650 mg 10/02/18 03:28 10/02/18 23:10 Tylenol - PO 650 mg Q4H PRN Administration PAIN LEVEL 1 - 3 Heparin Sodium (Porcine) 5,000 unit 09/26/18 22:00 10/03/18 05:57 Heparin - SQ 5,000 unit TID [facility] Administration Cefazolin Sodium 1 gm/ 50 mls @ 100 mls/hr 09/28/18 22:00 10/02/18 23:11 Dextrose IVPB 100 mls/hr Q24H [facility] Administration Sodium Chloride 250 mls @ 3,000 mls/hr 10/01/18 16:11 Normal Saline - IV 10/02/18 16:11 PRN PRN Hypotension during Dialysis Insulin Aspart 1 vial 09/27/18 16:30 10/03/18 12:16 Novolog Vial Sliding Scale - SQ Not Given ACHS [facility] Protocol Metoprolol Tartrate 25 mg 09/29/18 10:00 10/03/18 10:23 Lopressor - PO 25 mg BID [facility] Administration Microbiology 09/28/18 05:35 Blood - Peripheral Venous Blood Culture - Final NO GROWTH AFTER 5 DAYS INCUBATION 09/28/18 05:20 Blood - Peripheral Venous Blood Culture - Final NO GROWTH AFTER 5 DAYS INCUBATION 09/27/18 12:00 Urine - Urine Do Urine Culture - Final Escherichia Coli 09/26/18 06:53 Blood - Peripheral Venous Blood Culture - Final Lactose Fermenting Neg Bacilli 09/26/18 06:53 Blood - Peripheral Venous Blood Culture - Final Escherichia Coli 09/26/18 08:50 Urine - Urine Clean Catch Urine Culture - Final Escherichia Coli ASSESSMENT/PLAN: 78yo F with PMH DM, HTN, dementia brought in by daughter for altered mental status with nausea and vomiting. Pt was found to be acidemic with renal failure -Severe sepsis with pyelonephritis/E. coli bacteremia -Complicated E. coli UTI/pyelonephritis -Acute renal failure, -Anion gap metabolic acidosis -Acute toxic metabolic encephalopathy, suspect multifactorial from Uremia/sepsis /hospitalization superimposed on underlying dementia. -Atrial fibrillation with RVR, ?new onset. -Hyperkalemia -DM -HTN Plan: Follow up labs today. Overall mental status improved Urine output with minimal improvement. Nephrology input noted. Shiley removed. follow up for possible permacath. Follow up vasculitis work up. Defer kidney biopsy to nephrology. Urology input for hematuria. d/c do. Bladder scan q6h to monitor for retention. Dark stools reported by nursing today, check FOBT. Cardiology input noted. Continue metoprolol. 2D echo noted. AC on hold given possible HD access procedures planned and now with concerns for dark stools. Not a candidate for NOAC currently given SHERRON and no good baseline renal function yet. Coumadin might be difficult given her overall cognitive function, need for monitoring and follow ups. Discuss with family about AC once active issues improve and no procedures planned. ID input appreciated. Cefazolin, monitor for now. WBC trending up, follow up for now. Hold oral hypoglycemics. ISS, diabetic diet Behavioral measures, frequent re-orientation to environment, encourage OOB, avoid frequent stimulus. DVTPPX with heparin Dispo in 2-3 days pending HD plans and clinical improvement. Plan discussed with patient and nursing, all questions answered. . Visit type - Emergency Visit Emergency Visit: Yes ED Registration Date: 09/26/18 Care time: The patient presented to the Emergency Department on the above date and was hospitalized for further evaluation of their emergent condition. - New Patient This patient is new to me today: No - Critical Care Critical Care patient: No - Discharge Referral Referred to [facility] Med [facility] No
[2018-10-03 17:29] LABS: BASO % 0.7 % (0-2.0); EOS % 0.9 % (0-4.5); HEMATOCRIT 24.3 % (32.4-45.2); HEMOGLOBIN 8.1 GM/dL (10.7-15.3); LYMPH % 8.7 % (8-40); MCH 26.6 pg (25.7-33.7); MCHC 33.4 g/dl (32.0-36.0); MEAN CELL VOLUME 79.5 fl (80-96); MEAN PLT VOLUME 8.4 fl (7.5-11.1); MONO % 8.1 % (3.8-10.2); NEUT % 81.6 % (42.8-82.8); PLATELET COUNT 296 K/MM3 (134-434); RBC 3.05 M/mm3 (3.60-5.2); RDW 15.8 % (11.6-15.6); WHITE BLOOD COUNT 15.1 K/mm3 (4.0-10.0)
[2018-10-03 17:56] LABS: ANION GAP 11 MMOL/L (8-16); BLOOD UREA NITROGEN 47 mg/dL (7-18); CALCIUM 7.6 mg/dL (8.5-10.1); CHLORIDE 102 mmol/L (98-107); CO2 26 mmol/L (21-32); CREATININE 3.7 mg/dL (0.55-1.3); GLUCOSE,RANDOM 125 mg/dL (74-106); MAGNESIUM 1.7 mg/dL (1.8-2.4); PHOSPHOROUS 1.9 mg/dL (2.5-4.9); POTASSIUM 4.2 mmol/L (3.5-5.1); SODIUM 140 mmol/L (136-145)
[2018-10-03 18:06] LABS: ANISOCYTOSIS 1+; MACROCYTOSIS 1+
[2018-10-03 18:07] LABS: PLATELET ESTIMATE ADEQUATE
[2018-10-03] MEDS ORDERED: SODIUM PHOSPHATE - 20 MM in SODIUM CHLORIDE 250 ML IVPB ONE (18:30)
[2018-10-03] MEDS: MAGNESIUM OXIDE 400 MG TABLET (FP) PO SCH (18:39)
[2018-10-03] MEDS ORDERED: PT OWN MED DRAWER 7, Y5N ONE (18:51)
[2018-10-03] MEDS ORDERED: ceFAZolin SODIUM 1 GM VIAL ONE (20:20)
[2018-10-03] MEDS ORDERED: DEXTROSE 5%-WATER - 50 ML IVPB ONE (20:21)
[2018-10-03] MEDS: ACETAMINOPHEN 325 MG TABLET (FP) PO PRN (21:17)
[2018-10-03] MEDS: CEFAZOLIN 1 GM in DEXTROSE 5%-WATER - 50 ML IVPB SCH (21:17)
[2018-10-03] MEDS ORDERED: MELATONIN 5 MG TABLETS PO ONE (21:26)
[2018-10-04] MEDS: ACETAMINOPHEN 325 MG TABLET (FP) PO PRN (02:15)
--- NOTE | 2018-10-04 03:40 | HOSP ---
Physical Examination Vital Signs: Vital Signs Temperature 97.3 F L 10/03/18 23:00 Pulse Rate 74 10/03/18 23:00 Respiratory Rate 20 10/03/18 23:00 Blood Pressure 135/57 L 10/03/18 23:00 O2 Sat by Pulse Oximetry (%) 99 10/03/18 21:00 Labs: CBC, BMP 10/03/18 17:00 10/03/18 17:00 Hospitalist Encounter Assessment: Called to evaluate patient. Informed pt feeling lightheaded after bowel movement with difficulty returning to bed. Blood pressure taken 88/49 significantly lower than patients recent baseline. Arrived to evaluate pt and found pt mildly diaphoretic and states that she feels very bad. Denies any chest pain or shortness of breath. Large dark bowel movement noted in toilet Awake alert, mild acute distress Irregularly irregular, rate normal Lungs CTA b/l with no crackles Pale with cool clammy skin 1+ pitting edema LE b/l A/P chart reviewed. CBC noted trending down Stat CBC, CMP, Coag, Stool occult, Mg, Phos Will reevaluate and recheck b.p. shortly in addition to following up labs Pt currently sitting more comfortably out by nursing station and b.p stable 94/ 52 with HR of 69. Visit type - Emergency Visit Emergency Visit: Yes ED Registration Date: 09/26/18 Care time: The patient presented to the Emergency Department on the above date and was hospitalized for further evaluation of their emergent condition. - New Patient This patient is new to me today: Yes Date on this admission: 10/04/18 - Critical Care Critical Care patient: No
[2018-10-04] MEDS: INSULIN SLIDING SCALE (NOVOLOG) 1 VIAL SQ SCH ×3 (06:21→17:00)
[2018-10-04] MEDS: HEPARIN NA (PORCINE) 5,000 UNITS/ML 1ML VIAL SQ SCH (06:21)
[2018-10-04 07:24] LABS: BASO % 0.3 % (0-2.0); EOS % 0.5 % (0-4.5); HEMATOCRIT 14.5 % (32.4-45.2); LYMPH % 8.8 % (8-40); MCH 25.7 pg (25.7-33.7); MEAN CELL VOLUME 80.2 fl (80-96); MEAN PLT VOLUME 8.6 fl (7.5-11.1); MONO % 5.3 % (3.8-10.2); NEUT % 85.1 % (42.8-82.8); PLATELET COUNT 277 K/MM3 (134-434); RBC 1.81 M/mm3 (3.60-5.2); RDW 15.8 % (11.6-15.6); WHITE BLOOD COUNT 17.1 K/mm3 (4.0-10.0)
[2018-10-04 07:58] LABS: ANION GAP 9 MMOL/L (8-16); BLOOD UREA NITROGEN 79 mg/dL (7-18); CALCIUM 7.1 mg/dL (8.5-10.1); CHLORIDE 104 mmol/L (98-107); CO2 27 mmol/L (21-32); CREATININE 4.1 mg/dL (0.55-1.3); GLUCOSE,RANDOM 148 mg/dL (74-106); MAGNESIUM 2.2 mg/dL (1.8-2.4); PHOSPHOROUS 5.5 mg/dL (2.5-4.9); POTASSIUM 4.4 mmol/L (3.5-5.1); SODIUM 140 mmol/L (136-145)
[2018-10-04 08:04] LABS: HEMOGLOBIN 4.7 GM/dL (10.7-15.3)
--- NOTE | 2018-10-04 08:27 | PN ---
Teaching Attending Note Name of Resident: Pb Camargo ATTENDING PHYSICIAN STATEMENT I saw and evaluated the patient. I reviewed the resident's note and discussed the case with the resident. I agree with the resident's findings and plan as documented with exceptions below. SUBJECTIVE: patient seen and examined. Feels weak, no dyspnea, dizziness, nausea,vomiting, abdominal pain while in bed. Overnight events noted, large dark BM overnight. OBJECTIVE: Vital Signs Period Temp Pulse Resp BP Sys/Ivan Pulse Ox Last 24 Hr 97.3 F-98.4 F 62-74 18-20 94-151/57-70 98-99 Intake & Output 10/01/18 10/02/18 10/03/18 10/04/18 23:59 23:59 23:59 23:59 Intake Total 150 150 Output Total 827 638 7003 500 Balance -450 -700 -950 -500 Weight 146 lb 7 oz General: weak looking, in bed, positive pallor Chest: CTAB, no rales or wheezing Abdomen:soft, obese, NT, throughout, ND, positive bowel sounds Extremities: no edema neck: soft, supple no JVD, right IJ shiley removed with clean dressing Active Medications Acetaminophen (Tylenol -) 650 mg PO Q4H PRN PRN Reason: PAIN LEVEL 1 - 3 Last Admin: 10/04/18 02:15 Dose: 650 mg Heparin Sodium (Porcine) (Heparin -) 5,000 unit SQ TID [facility] Last Admin: 10/04/18 06:21 Dose: 5,000 unit Cefazolin Sodium 1 gm/ (Dextrose) 50 mls @ 100 mls/hr IVPB Q24H [facility] Last Admin: 10/03/18 21:17 Dose: 100 mls/hr Sodium Chloride (Normal Saline -) 250 mls @ 3,000 mls/hr IV PRN PRN PRN Reason: Hypotension during Dialysis Stop: 10/02/18 16:11 Pantoprazole Sodium 80 mg/ (Sodium Chloride) 100 mls @ 10 mls/hr IVPB Q10H [facility] Insulin Aspart (Novolog Vial Sliding Scale -) 1 vial SQ ACHS [facility]; Protocol Last Admin: 10/04/18 06:21 Dose: 2 units Magnesium Oxide (Mag-Ox -) 800 mg PO DAILY [facility] Stop: 10/05/18 10:01 Last Admin: 10/03/18 18:39 Dose: 800 mg Metoprolol Tartrate (Lopressor -) 25 mg PO BID [facility]NE Last Admin: 10/03/18 21:19 Dose: 25 mg Laboratory Results - last 24 hr 10/03/18 10/03/18 10/03/18 09:30 12:08 17:00 WBC 15.1 H RBC 3.05 L Hgb 8.1 L Hct 24.3 L D MCV 79.5 L MCH 26.6 MCHC 33.4 RDW 15.8 H Plt Count 296 D MPV 8.4 Absolute Neuts (auto) 12.3 H Neutrophils % 81.6 Neutrophils % (Manual) 80.0 Band Neutrophils % 3.0 Lymphocytes % 8.7 D Lymphocytes % (Manual) 8.0 D Monocytes % 8.1 Monocytes % (Manual) 8 Eosinophils % 0.9 Eosinophils % (Manual) 1.0 D Basophils % 0.7 Nucleated RBC % 0 Hypochromia 1+ Platelet Estimate Adequate Platelet Comment No clumping noted Poikilocytosis 1+ Anisocytosis 1+ Macrocytosis 1+ Sodium Potassium Chloride Carbon Dioxide Anion Gap BUN Creatinine Creat Clearance w eGFR POC Glucometer 95 Random Glucose Calcium Phosphorus Magnesium Stool Occult Blood Positive 10/03/18 10/03/18 10/03/18 17:00 17:08 20:56 WBC RBC Hgb Hct MCV MCH MCHC RDW Plt Count MPV Absolute Neuts (auto) Neutrophils % Neutrophils % (Manual) Band Neutrophils % Lymphocytes % Lymphocytes % (Manual) Monocytes % Monocytes % (Manual) Eosinophils % Eosinophils % (Manual) Basophils % Nucleated RBC % Hypochromia Platelet Estimate Platelet Comment Poikilocytosis Anisocytosis Macrocytosis Sodium 140 Potassium 4.2 Chloride 102 Carbon Dioxide 26 Anion Gap 11 BUN 47 H Creatinine 3.7 H Creat Clearance w eGFR 11.91 POC Glucometer 134 223 Random Glucose 125 H Calcium 7.6 L Phosphorus 1.9 L Magnesium 1.7 L Stool Occult Blood 10/04/18 10/04/18 10/04/18 06:17 06:50 06:50 WBC 17.1 H RBC 1.81 L Hgb 4.7 L* Hct 14.5 L MCV 80.2 MCH 25.7 MCHC 32.0 RDW 15.8 H Plt Count 277 MPV 8.6 Absolute Neuts (auto) 14.6 H Neutrophils % 85.1 H Neutrophils % (Manual) Band Neutrophils % Lymphocytes % 8.8 Lymphocytes % (Manual) Monocytes % 5.3 Monocytes % (Manual) Eosinophils % 0.5 Eosinophils % (Manual) Basophils % 0.3 Nucleated RBC % 0 Hypochromia Platelet Estimate Platelet Comment Poikilocytosis Anisocytosis Macrocytosis Sodium 140 Potassium 4.4 Chloride 104 Carbon Dioxide 27 Anion Gap 9 BUN 79 H Creatinine 4.1 H Creat Clearance w eGFR 10.58 POC Glucometer 155 Random Glucose 148 H Calcium 7.1 L Phosphorus 5.5 H Magnesium 2.2 Stool Occult Blood Microbiology 09/28/18 05:35 Blood - Peripheral Venous Blood Culture - Final NO GROWTH AFTER 5 DAYS INCUBATION 09/28/18 05:20 Blood - Peripheral Venous Blood Culture - Final NO GROWTH AFTER 5 DAYS INCUBATION 09/27/18 12:00 Urine - Urine [place] Urine Culture - Final Escherichia Coli 09/26/18 06:53 Blood - Peripheral Venous Blood Culture - Final Lactose Fermenting Neg Bacilli 09/26/18 06:53 Blood - Peripheral Venous Blood Culture - Final Escherichia Coli 09/26/18 08:50 Urine - Urine Clean Catch Urine Culture - Final Escherichia Coli ASSESSMENT AND PLAN: 78yo F with PMH DM, HTN, dementia brought in by daughter for altered mental status with nausea and vomiting. Pt was found to be acidemic with renal failure -severe acute anemia, suspect ongoing GI bleed, ?PUD/gastritis/AVM, suspicious for upper GI. r/o divetiucular, malignancy -Severe sepsis with pyelonephritis/E. coli bacteremia -Complicated E. coli UTI/pyelonephritis -Acute renal failure, -Anion gap metabolic acidosis -Acute toxic metabolic encephalopathy, suspect multifactorial from Uremia/sepsis /hospitalization superimposed on underlying dementia. -Atrial fibrillation with RVR, ?new onset. -Hyperkalemia -DM -HTN Plan: Overnight events noted. hb noted. Concerning for ongoing GI bleed with hemodynamic instability (hypotensive overnight) more suspicious for upper GI bleed. repeat CBC, check coags (discussed with nursing) 2 large bore IVs, Transfuse [address] on Protonix drip for now. NPO. GI consulted, case discussed with Dr. Robles. Case discussed with ICU, patient accepted. Urine output with minimal improvement. Nephrology input noted. Shiley removed. follow up for possible permacath once active GI bleed concerns resolved. Follow up vasculitis work up. Defer kidney biopsy to nephrology. Urology input for hematuria. Austin d/sherman. Bladder scan q6h to monitor for retention. Cardiology input noted. Continue metoprolol. 2D echo noted. AC on hold for now given active bleed concerns. Also possible HD access procedures planned. Not a candidate for NOAC currently given SHERRON and no good baseline renal function yet. Coumadin might be difficult given her overall cognitive function, need for monitoring and follow ups. Discuss with family about AC once active issues improve and no procedures planned. ID input appreciated. Cefazolin, monitor for now. WBC trending up, ?from GI bleed,follow up for now. Hold oral hypoglycemics. ISS, NPO Behavioral measures, frequent re-orientation to environment, encourage OOB, avoid frequent stimulus. DVTPPX d/c heparin for now. SCDs Dispo transfer to ICU for closer monitoring. Total critical care time spent including patient visit, co-ordination of care with GI, ICU, Rn 30 min.
[2018-10-04] MEDS ORDERED: PANTOPRAZOLE SODIUM 80 MG in SODIUM CHLORIDE 100 ML IVPB SCH (08:30)
[2018-10-04 08:56] LABS: HEMATOCRIT 14.2 % (32.4-45.2); MCH 25.5 pg (25.7-33.7); MCHC 31.6 g/dl (32.0-36.0); MEAN CELL VOLUME 80.6 fl (80-96); MEAN PLT VOLUME 8.3 fl (7.5-11.1); PLATELET COUNT 277 K/MM3 (134-434); RBC 1.76 M/mm3 (3.60-5.2); RDW 15.9 % (11.6-15.6); WHITE BLOOD COUNT 15.8 K/mm3 (4.0-10.0)
--- NOTE | 2018-10-04 09:03 | CON.GI ---
Consult Consult Specialty:: GI Referred by:: Hospitalist service Reason for Consultation:: Anemia - History of Present Illness Chief Complaint: Anemia History of Present Illness: 78F admitted through [facility] ER 05/26 for generalized weakness / hematuria. CT scan on admission revealed changes c/w ? bilateral pyelonephritis. Asked top evaluate anemia and dark BM's overnight. hgb 8.1 ---> 4.7 from yesterday to today. guaiac + on specimen sent from yesterday. Uclear history regarding endoscopic evaluations in past. home medications list omeprazole. She has been getting dialyzed through an access that has been removed. She is due for dialysis tomorrow. - Past Medical History [employer]: Yes: Dementia Cardio/Vascular: Yes: HTN Endocrine: Yes: Diabetes Mellitus - Past Surgical History Past Surgical History: Yes: Hysterectomy - Alcohol/Substance Use Hx Alcohol Use: No - Smoking History Smoking history: Current every day smoker Aproximately how many cigarettes per day: 5 - Social History Usual Living Arrangement: Assisted Living ADL: Independent History of Recent Travel: No Home Medications - Allergies Allergies/Adverse Reactions: Allergies Allergy/AdvReac Type Severity Reaction Status Date / Time No Known Allergies Allergy Verified 09/26/18 06:24 - Home Medications Home Medications: Ambulatory Orders Aripiprazole 1 tab PO HS 09/26/18 Calcium 500 + Vit D Caplet 1 cap PO DAILY 09/26/18 Duloxetine HCl 20 mg PO HS 09/26/18 Levothyroxine [Synthroid -] 50 mcg PO DAILY 09/26/18 Loratadine [Claritin] 10 mg PO DAILY 09/26/18 Losartan Potassium 50 mg PO DAILY 09/26/18 Mirabegron [Myrbetriq] 50 mg PO DAILY 09/26/18 Nabumetone 500 mg PO BID PRN 09/26/18 Omeprazole 20 mg PO AC 09/26/18 Rosuvastatin [Crestor -] 20 mg PO DAILY 09/26/18 Sitagliptin Phos/Metformin HCl [Janumet 50-1,000 mg Tablet] 1 tab PO BID Tramadol HCl 50 mg PO BID PRN 09/26/18 traZODone HCL [Trazodone HCl] 100 mg PO HS 09/26/18 Family Disease History - Family Disease History Family History: Unable to Obtain Review of Systems - Review of Systems Cardiovascular: denies: Chest Pain Gastrointestinal: denies: Abdominal Pain Physical Exam-GI Vital Signs: Vital Signs Temperature 97.3 F L 10/04/18899 Pulse Rate 72 10/04/18899 Respiratory Rate 18 10/04/18899 Blood Pressure 103/48 10/04/18899 O2 Sat by Pulse Oximetry (%) 99 RA 10/03/18 09 Constitutional: Yes: Calm, Pallor Eyes: No: Sclera Icterus Cardiovascular: Yes: Regular Rate and Rhythm Respiratory: Yes: CTA Bilaterally Gastrointestinal Inspection: Yes: Scars (surgical sca: + vertical pelvic midline ). No: Distention ...Auscultate: Yes: Normoactive Bowel Sounds ...Palpate: No: Hepatomegaly, Splenomegaly, Tenderness ...Percussion: No: Tympanitic ...Rectal Exam: Yes: Other (No external lesions, no masses, dark brown stool in rectal vault, strongly guaiac +) Edema: LLE: 1+, RLE: 1+ Labs: CBC, BMP 10/04/18 06:50 INR, PTT INR 1.17 (0.83-1.09) H 09/26/18 06:53 Problem List - Problems (1) Anemia Assessment/Plan: Precipitous drop in H/H with suspected Melena: Advised: Repeat CBC Type and screen if not already done Transfuse to Hgb 7-8 Large bore IV access ICU transfer NPO except meds with small sips water Check PTT along with PT/INR Agree with PPI Drip. A bolus of 80mg protonix should preceed the drip A Sana Matos called the floor stating that she is Ms. Waldron' daughter and that the name listed in the chart, Ayesha Patino, is actually a cousin and not Ms. Waldron' daughter. Clarification will be needed as Ms. Waldron carries a diagnosis of dementia. I will need to discuss the current clinical situation with her decision maker, discuss plan for upper endoscopy and obtain consent. Code(s): D64.9 - ANEMIA, UNSPECIFIED
[2018-10-04 09:09] LABS: HEMOGLOBIN 4.5 GM/dL (10.7-15.3)
[2018-10-04 09:26] LABS: INR 1.39 (0.83-1.09); PROTHROMBIN TIME (PATIENT) 16.5 SEC (9.7-13.0)
[2018-10-04] MEDS: MAGNESIUM OXIDE 400 MG TABLET (FP) PO SCH (10:00)
[2018-10-04] MEDS ORDERED: MIDAZOLAM HCL 5 MG/1 ML Single Dose Vial IVPUSH ONE (10:00)
[2018-10-04 10:07] LABS: ANTIGLOMERULAR BASEMENT MEN.AB 3 units (0-20)
[2018-10-04] MEDS ORDERED: MIDAZOLAM HCL 5 MG/1 ML Single Dose Vial ONE (10:10)
[2018-10-04] MEDS ORDERED: LIDOCAINE HCL 1%, 10 MG/ML (20ML VIAL) ONE (10:32)
[2018-10-04 11:02] LABS: ACANTHOCYTES 1+; ANISOCYTOSIS 2+; MACROCYTOSIS 0; OVALOCYTE 1+; PLATELET ESTIMATE NORMAL; TEAR DROP CELLS 1+
--- NOTE | 2018-10-04 11:02 | PN ---
Problem List - Problems (1) Anemia Code(s): D64.9 - ANEMIA, UNSPECIFIED
[2018-10-04] MEDS ORDERED: LIDOCAINE HCL 1%, 10 MG/ML (50 mL VIAL) SQ ONE (11:20)
--- NOTE | 2018-10-04 11:21 | PN ---
Progress Note (short form) - Note Progress Note: Spoke with Sana Mcmillanalta, explained the disrepency in chart re: next of kin. I explained that contact # we had for Ayesha Tubbs kept resulting in a busy signal multipe times. She gave me isabella #. [phone]. I spoke to Ms. Tubbs. She confirmed that Ms. Matos is Ms. Waldron' daughter and that she herself is her step daughter. I called back Ms. matos. Explained the concern for GI bleeding. Discussed the plan for EGD to evaluate for and potentially treat a bleeding source, once Ms. Waldron, transfused / resuscitated. Discussed potential risks of the procedure like but not limited to bleeding, perforation requiring surgery to repair, infection, sedation medication effects all of which could be potentially life threatening. She has agreed to the procedure. Witnessed by ICU nurse.I asked that she be available via cell phone as anesthesia consent will need to be obtained. Problem List - Problems (1) Anemia Code(s): D64.9 - ANEMIA, UNSPECIFIED
--- NOTE | 2018-10-04 11:27 | PROC ---
Central Line Insertion Indication: Other Risks and Benefits Explained: Yes Consent on Chart: Yes Central Line: Dialysis Cath, Tri Lumen Anesthesia: 1% Lidocaine Sterile Technique: Yes Ultrasound Guided Assistance: Yes Position: Right Internal Jugular Post Insertion: Yes: Bilateral Breath Sounds, Bilateral Chest Expansion, Chest X-Ray Ordered Sterile Dressing Applied: Yes
--- NOTE | 2018-10-04 11:35 | CONSULT ---
Consultation: REQUESTING PROVIDER: CONSULT REQUEST: We have been asked to medically evaluate this patient for ( specify). HISTORY OF PRESENT ILLNESS: 78yo F with PMH DM, HTN, dementia brought in by daughter for altered mental status with nausea and vomiting found to be acidemic with acute renal failure and uremic encephalopathy. Patient was previously in the ICU, but showed improvement and was transferred. Overnight the patient had dark stools, looked pale and diaphoretic. Morning labs showed Hb 4.7, transferred to ICU and repeat Hb was 4.5. REVIEW OF SYSTEMS: CONSTITUTIONAL: Absent: fever, chills, diaphoresis, generalized weakness, malaise, loss of appetite, weight change HEENT: Absent: rhinorrhea, nasal congestion, throat pain, throat swelling, difficulty swallowing, mouth swelling, ear pain, eye pain, visual changes CARDIOVASCULAR: Absent: chest pain, syncope, palpitations, irregular heart rate, lightheadedness , peripheral edema RESPIRATORY: Absent: cough, shortness of breath, dyspnea with exertion, orthopnea, wheezing, stridor, hemoptysis GASTROINTESTINAL: + melena Absent: abdominal pain, abdominal distension, nausea, vomiting, diarrhea, constipation, hematochezia GENITOURINARY: Absent: dysuria, frequency, urgency, hesitancy, hematuria, flank pain, genital pain MUSCULOSKELETAL: Absent: myalgia, arthralgia, joint swelling, back pain, neck pain SKIN: Absent: rash, itching, pallor HEMATOLOGIC/IMMUNOLOGIC: Absent: easy bleeding, easy bruising, lymphadenopathy, frequent infections ENDOCRINE: Absent: unexplained weight gain, unexplained weight loss, heat intolerance, cold intolerance NEUROLOGIC: Absent: headache, focal weakness or paresthesias, dizziness, unsteady gait, seizure, mental status changes, bladder or bowel incontinence PSYCHIATRIC: Absent: anxiety, depression, suicidal or homicidal ideation, hallucinations. PHYSICAL EXAMINATION Vital Signs - 24 hr 10/03/18 10/03/18 10/03/18 15:04 19:00 21:00 Temperature 98.2 F 98.4 F Pulse Rate 62 71 Respiratory 18 18 Rate Blood Pressure 139/63 149/70 O2 Sat by Pulse 99 Oximetry (%) 10/03/18 10/04/18 10/04/18 23:00 03:00 08:25 Temperature 97.3 F L 97.5 F L 98 F Pulse Rate 74 69 86 Respiratory 20 18 18 Rate Blood Pressure 135/57 L 94/65 117/76 O2 Sat by Pulse Oximetry (%) GENERAL: Awake, alert, and fully oriented, weak appearing with significant pallor HEAD: Normal with no signs of trauma. EYES: Pupils equal, round and reactive to light, extraocular movements intact, sclera anicteric, conjunctiva clear. No lid lag. + conjunctival pallor EARS, NOSE, THROAT: Ears normal, nares patent, oropharynx clear without exudates. Moist mucous membranes. NECK: Normal range of motion, supple without lymphadenopathy LUNGS: Breath sounds equal, clear to auscultation bilaterally. No wheezes, and no crackles. No accessory muscle use. HEART: Regular rate and rhythm, normal S1 and S2 without murmur, rub or gallop. ABDOMEN: Soft, nontender, not distended, normoactive bowel sounds, no guarding, no rebound, no masses. No hepatomegaly or splenomegaly. MUSCULOSKELETAL: Normal range of motion at all joints. No bony deformities or tenderness. No CVA tenderness. NEUROLOGICAL: Cranial nerves II-XII intact. Normal speech. PSYCHIATRIC: Cooperative. Good eye contact. Appropriate mood and affect. SKIN: Warm, dry, normal turgor, no rashes or lesions noted. Laboratory Results - last 24 hr 09/28/18 10/03/18 10/03/18 16:00 09:30 12:08 WBC RBC Hgb Hct MCV MCH MCHC RDW Plt Count MPV Absolute Neuts (auto) Neutrophils % Neutrophils % (Manual) Band Neutrophils % Lymphocytes % Lymphocytes % (Manual) Monocytes % Monocytes % (Manual) Eosinophils % Eosinophils % (Manual) Basophils % Nucleated RBC % Hypochromia Platelet Estimate Platelet Comment Poikilocytosis Anisocytosis Macrocytosis PT with INR INR PTT (Actin FS) Sodium Potassium Chloride Carbon Dioxide Anion Gap BUN Creatinine Creat Clearance w eGFR POC Glucometer 95 Random Glucose Calcium Phosphorus Magnesium Stool Occult Blood Positive Glomerular Base Memb Ab 3 Blood Type Antibody Screen Crossmatch 10/03/18 10/03/18 10/03/18 17:00 17:00 17:08 WBC 15.1 H RBC 3.05 L Hgb 8.1 L Hct 24.3 L D MCV 79.5 L MCH 26.6 MCHC 33.4 RDW 15.8 H Plt Count 296 D MPV 8.4 Absolute Neuts (auto) 12.3 H Neutrophils % 81.6 Neutrophils % (Manual) 80.0 Band Neutrophils % 3.0 Lymphocytes % 8.7 D Lymphocytes % (Manual) 8.0 D Monocytes % 8.1 Monocytes % (Manual) 8 Eosinophils % 0.9 Eosinophils % (Manual) 1.0 D Basophils % 0.7 Nucleated RBC % 0 Hypochromia 1+ Platelet Estimate Adequate Platelet Comment No clumping noted Poikilocytosis 1+ Anisocytosis 1+ Macrocytosis 1+ PT with INR INR PTT (Actin FS) Sodium 140 Potassium 4.2 Chloride 102 Carbon Dioxide 26 Anion Gap 11 BUN 47 H Creatinine 3.7 H Creat Clearance w eGFR 11.91 POC Glucometer 134 Random Glucose 125 H Calcium 7.6 L Phosphorus 1.9 L Magnesium 1.7 L Stool Occult Blood Glomerular Base Memb Ab Blood Type Antibody Screen Crossmatch 10/03/18 10/04/18 10/04/18 20:56 06:17 06:50 WBC 17.1 H RBC 1.81 L Hgb 4.7 L* Hct 14.5 L MCV 80.2 MCH 25.7 MCHC 32.0 RDW 15.8 H Plt Count 277 MPV 8.6 Absolute Neuts (auto) 14.6 H Neutrophils % 85.1 H Neutrophils % (Manual) Band Neutrophils % Lymphocytes % 8.8 Lymphocytes % (Manual) Monocytes % 5.3 Monocytes % (Manual) Eosinophils % 0.5 Eosinophils % (Manual) Basophils % 0.3 Nucleated RBC % 0 Hypochromia Platelet Estimate Platelet Comment Poikilocytosis Anisocytosis Macrocytosis PT with INR INR PTT (Actin FS) Sodium Potassium Chloride Carbon Dioxide Anion Gap BUN Creatinine Creat Clearance w eGFR POC Glucometer 223 155 Random Glucose Calcium Phosphorus Magnesium Stool Occult Blood Glomerular Base Memb Ab Blood Type Antibody Screen Crossmatch 10/04/18 10/04/18 10/04/18 06:50 08:47 08:47 WBC 15.8 H RBC 1.76 L Hgb 4.5 L* Hct 14.2 L MCV 80.6 MCH 25.5 L MCHC 31.6 L RDW 15.9 H Plt Count 277 MPV 8.3 Absolute Neuts (auto) Neutrophils % Neutrophils % (Manual) Band Neutrophils % Lymphocytes % Lymphocytes % (Manual) Monocytes % Monocytes % (Manual) Eosinophils % Eosinophils % (Manual) Basophils % Nucleated RBC % Hypochromia Platelet Estimate Platelet Comment Poikilocytosis Anisocytosis Macrocytosis PT with INR INR PTT (Actin FS) Sodium 140 Potassium 4.4 Chloride 104 Carbon Dioxide 27 Anion Gap 9 BUN 79 H Creatinine 4.1 H Creat Clearance w eGFR 10.58 POC Glucometer Random Glucose 148 H Calcium 7.1 L Phosphorus 5.5 H Magnesium 2.2 Stool Occult Blood Glomerular Base Memb Ab Blood Type A POSITIVE Antibody Screen Negative Crossmatch See Detail 10/04/18 10/04/18 08:47 08:47 WBC RBC Hgb Hct MCV MCH MCHC RDW Plt Count MPV Absolute Neuts (auto) Neutrophils % Neutrophils % (Manual) Band Neutrophils % Lymphocytes % Lymphocytes % (Manual) Monocytes % Monocytes % (Manual) Eosinophils % Eosinophils % (Manual) Basophils % Nucleated RBC % Hypochromia Platelet Estimate Platelet Comment Poikilocytosis Anisocytosis Macrocytosis PT with INR 16.50 H INR 1.39 H PTT (Actin FS) 28.7 Sodium Potassium Chloride Carbon Dioxide Anion Gap BUN Creatinine Creat Clearance w eGFR POC Glucometer Random Glucose Calcium Phosphorus Magnesium Stool Occult Blood Glomerular Base Memb Ab Blood Type Antibody Screen Crossmatch Active Medications Generic Name Dose Route Start Last Admin Trade Name Freq PRN Reason Stop Dose Admin Acetaminophen 650 mg 10/02/18 03:28 10/04/18 02:15 Tylenol - PO 650 mg Q4H PRN Administration PAIN LEVEL 1 - 3 Cefazolin Sodium 1 gm/ 50 mls @ 100 mls/hr 09/28/18 22:00 10/03/18 21:17 Dextrose IVPB 100 mls/hr Q24H BLAYNE Administration Sodium Chloride 250 mls @ 3,000 mls/hr 10/01/18 16:11 Normal Saline - IV 10/02/18 16:11 PRN PRN Hypotension during Dialysis Pantoprazole Sodium 80 mg/ 100 mls @ 10 mls/hr 10/04/18 09:45 Sodium Chloride IVPB Q10H BLAYNE 8 MG/HR Insulin Aspart 1 vial 09/27/18 16:30 10/04/18 06:21 Novolog Vial Sliding Scale - SQ 2 units ACHS B[facility]NE Administration Protocol Magnesium Oxide 800 mg 10/03/18 18:00 10/03/18 18:39 Mag-Ox - PO 10/05/18 10:01 800 mg DAILY BLAYNE Administration ASSESSMENT/PLAN: 78yo F with PMH DM, HTN, dementia brought in by daughter for altered mental status with nausea and vomiting found to be acidemic with acute renal failure and uremic encephalopathy. Patient was previously in the ICU, but showed improvement and was transferred. Overnight the patient had dark stools, looked pale and diaphoretic. Morning labs showed Hb 4.7, transferred to ICU and repeat Hb was 4.5. Heme - UGIB vs LGIB Patient with acute drop in Hb overnight and with notable findings of dark stools , pale and diaphoretic concerning for UGIB vs LGIB. - trend H/H - 2pRBC admin today - recheck Hb at 4pm - GI following, (Dr. Baum) consent for EGD to r/o UGIB. - protonix 80mg push and protonix gtt Renal - Acute renal failure, pyelonephritis, uremic encephalopathy In setting of ARF, uremia and now with acute GIB consider uremic bleeding. There is suggested evidence of uremia prolonging bleeding time without prolonging PT or PTT. Bleeding time test is no longer run by the laboratory. As of 10/04 platelets are wnl at 277, PTT 28.7, PTw/INR 16.50 and INR 1.39. Hemodialysis will be therapeutic for uremia and bleeding time. Will discuss with Dr. Corcoran for next dialysis. - Shiley removed 10/02 for infection risk - R IJ trilumen catheter placed this AM - Nephrology following Dr. Corcoran, vasculitis and kideny biopsy pending 2/2 GIB - Austin d/sherman. Bladder scan q6h to monitor for retention. ID - gram negative sepsis- urine source, Ecoli UTI - Per ID: cefazolin - WBC 15.1--> (10/04) 17.1 --> 15.8 likely elevated 2/2 GIB Cardiac - New onset Afib w/ RVR considered to be likely 2/2 to sepsis vs electrolyte derangement Patient now with maintained sinus rhythm after initial conversion. - AC held at this time - Cardiology following - Echo 09/27/18: nlef, trace MR, mild TR, FCDAOV. - Metoprolol 25mg bid if repeat afib with RVR - not a candidate for NOAC or coumadin considering SHERRON and cognition. F/E/N - NPO - hold oral hypoglycemics GI ppx: protonix gtt DVT ppx: SCDs, heparin held 2/2 GIB Code status: full code Dispo: Continue ICU monitoring Visit type - Emergency Visit Emergency Visit: No - New Patient This patient is new to me today: No - Critical Care Critical Care patient: Yes Total Critical Care Time (in minutes): 40 Critical Care Statement: The care of this patient involved high complexity decision making to prevent further life threatening deterioration of the patient 's condition and/or to evaluate & treat vital organ system(s) failure or risk of failure.
--- NOTE | 2018-10-04 13:17 | PN ---
Teaching Attending Note Name of Resident: Delilah Rao ATTENDING PHYSICIAN STATEMENT I saw and evaluated the patient. I reviewed the resident's note and discussed the case with the resident. I agree with the resident's findings and plan as documented. SUBJECTIVE: Pt seen and examined in the ICU. Transferred down for melena and severe anemia. Emergent trialysis catheter placed as pt without IV access. OBJECTIVE: Vital Signs Period Temp Pulse Resp BP Sys/Ivan Pulse Ox Last 24 Hr 97.3 F-98.4 F 62-88 - 94-149/40-99 97-99 Intake & Output 10/01/18 10/02/18 10/03/18 10/04/18 23:59 23:59 23:59 23:59 Intake Total 150 150 Output Total 929 883 9378 500 Balance -450 -700 -950 -500 Weight 66.423 kg Gen: NAD at rest Heart: RRR Lung: decreased breath sounds at the bases Abd: soft, nontender Ext: no edema CBC, BMP 10/04/18 08:47 10/04/18 06:50 Active Medications Acetaminophen (Tylenol -) 650 mg PO Q4H PRN PRN Reason: PAIN LEVEL 1 - 3 Last Admin: 10/04/18 02:15 Dose: 650 mg Cefazolin Sodium 1 gm/ (Dextrose) 50 mls @ 100 mls/hr IVPB Q24H [facility] Last Admin: 10/03/18 21:17 Dose: 100 mls/hr Sodium Chloride (Normal Saline -) 250 mls @ 3,000 mls/hr IV PRN PRN PRN Reason: Hypotension during Dialysis Stop: 10/02/18 16:11 Pantoprazole Sodium 80 mg/ (Sodium Chloride) 100 mls @ 10 mls/hr IVPB Q10H [facility] Insulin Aspart (Novolog Vial Sliding Scale -) 1 vial SQ ACHS BLAYNE; Protocol Last Admin: 10/04/18 06:21 Dose: 2 units Magnesium Oxide (Mag-Ox -) 800 mg PO DAILY [facility]NE Stop: 10/05/18 10:01 Last Admin: 10/03/18 18:39 Dose: 800 mg ASSESSMENT AND PLAN: GI Bleed Acute Blood Loss Anemia Acute on Chronic Renal Failure requiring HD UTI Gram Negative Bacteremia Severe Sepsis resolving Thrombocytopenia resolved Paroxysmal Atrial Fibrillation HTN DM - transfuse PRBC - monitor H/H - protonix gtt - for EGD - continue antibiotics - HD per renal - monitor urine output, creatinine - glucose control - NPO - DVT prophylaxis - continue ICU monitoring critical care time spent in reviewing chart, evaluating patient and formulating plan 35 minutes
--- NOTE | 2018-10-04 14:21 | PN ---
Progress Note (short form) - Note Progress Note: transferred to ICU for GI bleed, anemia receiving blood transfusion Vital Signs Period Temp Pulse Resp BP Sys/Ivan Pulse Ox Last 24 Hr 97.3 F-98.4 F 62-88 0-25 94-149/40-99 97-99 cor-rrr lungs clear abd soft, mild midepigastric tenderness to palpation ext no edema CBC, BMP 10/04/18 08:47 10/04/18 06:50 Microbiology 09/28/18 05:35 Blood - Peripheral Venous Blood Culture - Final NO GROWTH AFTER 5 DAYS INCUBATION 09/28/18 05:20 Blood - Peripheral Venous Blood Culture - Final NO GROWTH AFTER 5 DAYS INCUBATION 09/27/18 12:00 Urine - Urine [place] Urine Culture - Final Escherichia Coli 09/26/18 06:53 Blood - Peripheral Venous Blood Culture - Final Lactose Fermenting Neg Bacilli 09/26/18 06:53 Blood - Peripheral Venous Blood Culture - Final Escherichia Coli 09/26/18 08:50 Urine - Urine Clean Catch Urine Culture - Final Escherichia Coli Current Medications Acetaminophen (Tylenol -) 650 mg PO Q4H PRN PRN Reason: PAIN LEVEL 1 - 3 Last Admin: 10/04/18 02:15 Dose: 650 mg Cefazolin Sodium 1 gm/ (Dextrose) 50 mls @ 100 mls/hr IVPB Q24H [facility] Last Admin: 10/03/18 21:17 Dose: 100 mls/hr Sodium Chloride (Normal Saline -) 250 mls @ 3,000 mls/hr IV PRN PRN PRN Reason: Hypotension during Dialysis Stop: 10/02/18 16:11 Pantoprazole Sodium 80 mg/ (Sodium Chloride) 100 mls @ 10 mls/hr IVPB Q10H [facility] Insulin Aspart (Novolog Vial Sliding Scale -) 1 vial SQ ACHS BLAYNE; Protocol Last Admin: 10/04/18 06:21 Dose: 2 units Magnesium Oxide (Mag-Ox -) 800 mg PO DAILY [facility] Stop: 10/05/18 10:01 Last Admin: 10/03/18 18:39 Dose: 800 mg a/p gram negative sepsis-Ecoli urinary source--ecoli uti, sonogram no obstruction acute renal failure-urine output improving now with GI bleed - for transfusion and endoscoopy continue cefazolin adjusted for renal failure-day #7 Problem List - Problems (1) Sepsis Code(s): A41.9 - SEPSIS, UNSPECIFIED ORGANISM Qualifiers: Sepsis type: sepsis due to unspecified organism Qualified Code(s): A41.9 - Sepsis, unspecified organism (2) SHERRON (acute kidney injury) Code(s): N17.9 - ACUTE KIDNEY FAILURE, UNSPECIFIED
--- NOTE | 2018-10-04 14:56 | PN ---
Progress Note, Physician History of Present Illness: Pt seen and examined at bedside. She is now in the ICU. She had a GI bleed and was transferred. She is getting PRBC. - Current Medication List Current Medications: Active Medications Acetaminophen (Tylenol -) 650 mg PO Q4H PRN PRN Reason: PAIN LEVEL 1 - 3 Last Admin: 10/04/18 02:15 Dose: 650 mg Cefazolin Sodium 1 gm/ (Dextrose) 50 mls @ 100 mls/hr IVPB Q24H [facility] Last Admin: 10/03/18 21:17 Dose: 100 mls/hr Sodium Chloride (Normal Saline -) 250 mls @ 3,000 mls/hr IV PRN PRN PRN Reason: Hypotension during Dialysis Stop: 10/02/18 16:11 Pantoprazole Sodium 80 mg/ (Sodium Chloride) 100 mls @ 10 mls/hr IVPB Q10H [facility] Insulin Aspart (Novolog Vial Sliding Scale -) 1 vial SQ ACHS [facility]; Protocol Last Admin: 10/04/18 06:21 Dose: 2 units Magnesium Oxide (Mag-Ox -) 800 mg PO DAILY [facility]NE Stop: 10/05/18 10:01 Last Admin: 10/03/18 18:39 Dose: 800 mg - Objective Vital Signs: Vital Signs Temperature 98 F 10/04/18 12:00 Pulse Rate 69 10/04/18 14:23 Respiratory Rate 0 L 10/04/18 13:00 Blood Pressure 117/49 L 10/04/18 14:23 O2 Sat by Pulse Oximetry (%) 97 10/04/18 09:30 Constitutional: Yes: Calm Eyes: Yes: Conjunctiva Clear HENT: Yes: Atraumatic Cardiovascular: Yes: S1, S2 Respiratory: Yes: On Nasal O2 Gastrointestinal: Yes: Normal Bowel Sounds, Soft Genitourinary: Yes: WNL Musculoskeletal: Yes: WNL Edema: No Neurological: Yes: Confusion Labs: CBC, BMP 10/04/18 08:47 10/04/18 06:50 INR, PTT INR 1.39 (0.83-1.09) H 10/04/18 08:47 - ....Imaging Chest X-ray: Report Reviewed Problem List - Problems (1) SHERRON (acute kidney injury) Code(s): N17.9 - ACUTE KIDNEY FAILURE, UNSPECIFIED (2) Sepsis Code(s): A41.9 - SEPSIS, UNSPECIFIED ORGANISM Qualifiers: Sepsis type: sepsis due to unspecified organism Qualified Code(s): A41.9 - Sepsis, unspecified organism (3) UTI (urinary tract infection) Code(s): N39.0 - URINARY TRACT INFECTION, SITE NOT SPECIFIED Qualifiers: Urinary tract infection type: site unspecified Hematuria presence: with hematuria Qualified Code(s): N39.0 - Urinary tract infection, site not specified; R31.9 - Hematuria, unspecified Assessment/Plan Current Medications Generic Name Dose Route Start Last Admin Trade Name Freq PRN Reason Stop Dose Admin Acetaminophen 650 mg 10/02/18 03:28 10/04/18 02:15 Tylenol - PO 650 mg Q4H PRN Administration PAIN LEVEL 1 - 3 Cefazolin Sodium 1 gm/ 50 mls @ 100 mls/hr 09/28/18 22:00 10/03/18 21:17 Dextrose IVPB 100 mls/hr Q24H BLAYNE Administration Sodium Chloride 250 mls @ 3,000 mls/hr 10/01/18 16:11 Normal Saline - IV 10/02/18 16:11 PRN PRN Hypotension during Dialysis Pantoprazole Sodium 80 mg/ 100 mls @ 10 mls/hr 10/04/18 09:45 Sodium Chloride IVPB Q10H BLAYNE 8 MG/HR Insulin Aspart 1 vial 09/27/18 16:30 10/04/18 06:21 Novolog Vial Sliding Scale - SQ 2 units ACHS BLAYNE Administration Protocol Magnesium Oxide 800 mg 10/03/18 18:00 10/03/18 18:39 Mag-Ox - PO 10/05/18 10:01 800 mg DAILY BLAYNE Administration Laboratory Tests 09/28/18 16:00 PATRICIA M-Neil Not observed CHARLES Screen Negative c-ANCA Pending Proteinase 3 (PR3) Pending p-ANCA Pending Atypical p-ANCA Pending Myeloperoxidase Ab Pending Double Strand DNA Ab <1 Glomerular Base Memb Ab 3 Impression 1. SHERRON vs progression of CKD 2. sepsis 3. bacteremia 4. DM 5. HTN 6. active smoker 7. dementia 8. a-fib 9. anemia 10. GI bleed Plan - transfuse PRBC - HD tomorrow - monitor hg - GI eval - monitor urine output - renal workup is in progress, will follow - HCP Sana, [phone] - kidney biopsy once stable - pt may have had ATN from sepsis Dr Conde
[2018-10-04] MEDS ORDERED: SODIUM CHLORIDE 250 ML IV PRN (14:57)
[2018-10-04] MEDS: PANTOPRAZOLE SODIUM 80 MG in SODIUM CHLORIDE 100 ML IVPB SCH (16:00)
--- NOTE | 2018-10-04 19:38 | PN ---
Physical Exam: SUBJECTIVE: Patient seen and examined this am. Episode of dark large bowel movement overnight. No complaints. Pt has since been transferred to ICU after HGB level this am 4.7 OBJECTIVE: Vital Signs Period Temp Pulse Resp BP Sys/Ivan Pulse Ox Last 24 Hr 97.3 F-98 F 68-88 16-25 94-135/40-99 97-99 GENERAL: Awake Alert NAD HEAD: Normal with no signs of trauma. EYES: EOMi No scleral icterus ENT: MMM NECK: Trachea midline, full range of motion, supple. LUNGS:CTA B/L HEART: RRR ABDOMEN: NDNT No HSM EXTREMITIES: No CCE. NEUROLOGICAL: No neuro deficits appreciated PSYCH: Normal mood, normal affect. SKIN: No rashes or lesions appreciated Laboratory Results - last 24 hr 09/28/18 10/03/18 10/04/18 16:00 20:56 06:17 WBC RBC Hgb Hct MCV MCH MCHC RDW Plt Count MPV Absolute Neuts (auto) Neutrophils % Neutrophils % (Manual) Band Neutrophils % Lymphocytes % Lymphocytes % (Manual) Monocytes % Monocytes % (Manual) Eosinophils % Eosinophils % (Manual) Basophils % Basophils % (Manual) Myelocytes % (Man) Promyelocytes % (Man) Blast Cells % (Manual) Nucleated RBC % Metamyelocytes Hypochromia Platelet Estimate Platelet Comment Polychromasia Poikilocytosis Basophilic Stippling Anisocytosis Microcytosis Macrocytosis Tear Drop Cells Ovalocytes Acanthocytes (Spur) PT with INR INR PTT (Actin FS) Sodium Potassium Chloride Carbon Dioxide Anion Gap BUN Creatinine Creat Clearance w eGFR POC Glucometer 223 155 Random Glucose Calcium Phosphorus Magnesium Glomerular Base Memb Ab 3 Blood Type Antibody Screen Crossmatch 10/04/18 10/04/18 10/04/18 06:50 06:50 08:47 WBC 17.1 H 15.8 H RBC 1.81 L 1.76 L Hgb 4.7 L* 4.5 L* Hct 14.5 L 14.2 L MCV 80.2 80.6 MCH 25.7 25.5 L MCHC 32.0 31.6 L RDW 15.8 H 15.9 H Plt Count 277 277 MPV 8.6 8.3 Absolute Neuts (auto) 14.6 H Neutrophils % 85.1 H Neutrophils % (Manual) 77.2 Band Neutrophils % 3.0 Lymphocytes % 8.8 Lymphocytes % (Manual) 11.9 D Monocytes % 5.3 Monocytes % (Manual) 4 Eosinophils % 0.5 Eosinophils % (Manual) 0.0 D Basophils % 0.3 Basophils % (Manual) 0.0 Myelocytes % (Man) 2 D Promyelocytes % (Man) 0 Blast Cells % (Manual) 0 Nucleated RBC % 0 Metamyelocytes 1 Hypochromia 0 Platelet Estimate Normal Platelet Comment Present Polychromasia 2+ Poikilocytosis 0 Basophilic Stippling 1+ Anisocytosis 2+ Microcytosis 2+ Macrocytosis 0 Tear Drop Cells 1+ Ovalocytes 1+ Acanthocytes (Spur) 1+ PT with INR INR PTT (Actin FS) Sodium 140 Potassium 4.4 Chloride 104 Carbon Dioxide 27 Anion Gap 9 BUN 79 H Creatinine 4.1 H Creat Clearance w eGFR 10.58 POC Glucometer Random Glucose 148 H Calcium 7.1 L Phosphorus 5.5 H Magnesium 2.2 Glomerular Base Memb Ab Blood Type Antibody Screen Crossmatch 10/04/18 10/04/18 10/04/18 08:47 08:47 08:47 WBC RBC Hgb Hct MCV MCH MCHC RDW Plt Count MPV Absolute Neuts (auto) Neutrophils % Neutrophils % (Manual) Band Neutrophils % Lymphocytes % Lymphocytes % (Manual) Monocytes % Monocytes % (Manual) Eosinophils % Eosinophils % (Manual) Basophils % Basophils % (Manual) Myelocytes % (Man) Promyelocytes % (Man) Blast Cells % (Manual) Nucleated RBC % Metamyelocytes Hypochromia Platelet Estimate Platelet Comment Polychromasia Poikilocytosis Basophilic Stippling Anisocytosis Microcytosis Macrocytosis Tear Drop Cells Ovalocytes Acanthocytes (Spur) PT with INR 16.50 H INR 1.39 H PTT (Actin FS) 28.7 Sodium Potassium Chloride Carbon Dioxide Anion Gap BUN Creatinine Creat Clearance w eGFR POC Glucometer Random Glucose Calcium Phosphorus Magnesium Glomerular Base Memb Ab Blood Type A POSITIVE Antibody Screen Negative Crossmatch See Detail Active Medications Generic Name Dose Route Start Last Admin Trade Name Freq PRN Reason Stop Dose Admin Acetaminophen 650 mg 10/02/18 03:28 10/04/18 02:15 Tylenol - PO 650 mg Q4H PRN Administration PAIN LEVEL 1 - 3 Cefazolin Sodium 1 gm/ 50 mls @ 100 mls/hr 09/28/18 22:00 10/03/18 21:17 Dextrose IVPB 100 mls/hr Q24H BLAYNE Administration Sodium Chloride 250 mls @ 3,000 mls/hr 10/01/18 16:11 Normal Saline - IV 10/02/18 16:11 PRN PRN Hypotension during Dialysis Pantoprazole Sodium 80 mg/ 100 mls @ 10 mls/hr 10/04/18 09:45 10/04/18 16:00 Sodium Chloride IVPB 10 mls/hr Q10H BLAYNE Administration 8 MG/HR Sodium Chloride 250 mls @ 3,000 mls/hr 10/04/18 14:57 Normal Saline - IV 10/05/18 14:57 PRN PRN Hypotension during Dialysis Insulin Aspart 1 vial 09/27/18 16:30 10/04/18 17:00 Novolog Vial Sliding Scale - SQ Not Given ACHS BLAYNE Protocol Magnesium Oxide 800 mg 10/03/18 18:00 10/04/18 10:00 Mag-Ox - PO 10/05/18 10:01 Not Given DAILY BLAYNE ASSESSMENT/PLAN: Pt is a 78 y/o lady with a significant past medical history of DM, HTN, CKD, and dementia. Pt presented to [facility] ED this AM with daughter c/o weakness, nausea /vomiting and AMS. #G.I Bleed -Gastroenterology on board, EGD tomorrow - HGB this am 4.7 with episode of hypotensive overnight, has received 2 U PRBC. Repeat HBH this evening 7.0. Continue to follow -Transferred to ICU - Protonix drip - New Triple lumen Shiley cath placed today by ICU Resident #Sepsis 2/2 Pyelonephritis -WBC 13.7 today. -Troponin negative - CTAP--> Significant inflammatory changes in retroperitoneum appear to originate from kidneys compatible with significant b/l renal infection. - Nephrology on Board - Renal Bladder Ultrasound--> MORPHOLOGICALLY NORMAL KIDNEYS WITH NO EVIDENCE OF HYDRONEPHROSIS OR ACUTE PATHOLOGY - I.D on board--> Cefazolin 1 GM Q24H day 7 # SHERRON, Oliguria, Hyperkalemia -Potassium WNL -HD tomorrow 10/05/18 -Possible kidney biopsy -Monitor urine output #UTI: -Leukocyte Esterase 3+ - Urine/Blood cultures--> Lactose Fermenting Gram Neg Bacilli - I.D on board - Cefazolin to day 7 GM Q24H #Atrial Fibrillation W/ RVR? - Metoprolol 25 MG PO BID -Echo --> EF 60-65%. #FEN No Fluids Monitor electrolytes Diabetic Diet DVT ppx: SCD's Dispo: ICU Visit type - Emergency Visit Emergency Visit: Yes ED Registration Date: 09/26/18 Care time: The patient presented to the Emergency Department on the above date and was hospitalized for further evaluation of their emergent condition. - New Patient This patient is new to me today: No - Critical Care Critical Care patient: No - Discharge Referral Referred to [facility] Med P.C.: No
[2018-10-04 19:46] LABS: BASO % 0.6 % (0-2.0); EOS % 1.2 % (0-4.5); HEMATOCRIT 19.9 % (32.4-45.2); LYMPH % 10.7 % (8-40); MCH 28.7 pg (25.7-33.7); MEAN PLT VOLUME 8.6 fl (7.5-11.1); MONO % 6.9 % (3.8-10.2); NEUT % 80.6 % (42.8-82.8); PLATELET COUNT 302 K/MM3 (134-434); RBC 2.43 M/mm3 (3.60-5.2); RDW 14.4 % (11.6-15.6); WHITE BLOOD COUNT 13.7 K/mm3 (4.0-10.0)
[2018-10-04 20:26] LABS: ANISOCYTOSIS 1+; MACROCYTOSIS 1+; OVALOCYTE 1+; PLATELET ESTIMATE ADEQUATE
[2018-10-04 22:02] LABS: URINE APPEARANCE CLEAR; URINE BILIRUBIN NEGATIVE (<2.0 mg/dL); URINE COLOR STRAW; URINE GLUCOSE (UA) NEGATIVE (NEGATIVE); URINE KETONE NEGATIVE (NEGATIVE); URINE LEUK ESTERASE 2+ (NEGATIVE); URINE NITRITE NEGATIVE (NEGATIVE); URINE PROTEIN 1+ (NEGATIVE); URINE UROBILINOGEN NEGATIVE mg/dL (0.2-1.0)
[2018-10-04 22:07] LABS: EPI CELLS RARE /HPF (FEW)
[2018-10-04] MEDS ORDERED: ceFAZolin SODIUM 1 GM VIAL ONE (23:28)
[2018-10-04] MEDS ORDERED: DEXTROSE 5%-WATER - 50 ML IVPB ONE (23:28)
[2018-10-05] MEDS: CEFAZOLIN 1 GM in DEXTROSE 5%-WATER - 50 ML IVPB SCH ×2 (00:05→21:27)
[2018-10-05 00:06] LABS: ATYPICAL pANCA 1:40 titer (Neg:<1:20); C-ANCA <1:20 titer (Neg:<1:20); P-ANCA <1:20 titer (Neg:<1:20)
[2018-10-05] MEDS: INSULIN SLIDING SCALE (NOVOLOG) 1 VIAL SQ SCH ×4 (00:06→22:12)
[2018-10-05 06:06] LABS: SERUM IRON SATURATION 23 % (15-55); TOTAL IRON BINDING CAPACITY 218 ug/dL (250-450); UIBC 167 ug/dL (118-369)
[2018-10-05 06:17] LABS: BASO % 0.4 % (0-2.0); EOS % 1.4 % (0-4.5); HEMOGLOBIN 8.2 GM/dL (10.7-15.3); LYMPH % 8.4 % (8-40); MCH 27.1 pg (25.7-33.7); MCHC 32.8 g/dl (32.0-36.0); MEAN CELL VOLUME 82.9 fl (80-96); MEAN PLT VOLUME 8.2 fl (7.5-11.1); MONO % 6.1 % (3.8-10.2); NEUT % 83.7 % (42.8-82.8); PLATELET COUNT 305 K/MM3 (134-434); RBC 3.02 M/mm3 (3.60-5.2); RDW 14.5 % (11.6-15.6); WHITE BLOOD COUNT 13.4 K/mm3 (4.0-10.0)
[2018-10-05] MEDS: PANTOPRAZOLE SODIUM 80 MG in SODIUM CHLORIDE 100 ML IVPB SCH ×2 (06:19→16:09)
[2018-10-05 06:36] LABS: ALBUMIN 1.8 g/dl (3.4-5.0); ALK PHOS 80 U/L (45-117); ANION GAP 8 MMOL/L (8-16); BILIRUBIN,TOTAL 0.4 mg/dL (0.2-1); BLOOD UREA NITROGEN 89 mg/dL (7-18); CALCIUM 7.6 mg/dL (8.5-10.1); CHLORIDE 108 mmol/L (98-107); CO2 28 mmol/L (21-32); CREATININE 4.4 mg/dL (0.55-1.3); GLUCOSE,RANDOM 123 mg/dL (74-106); MAGNESIUM 1.9 mg/dL (1.8-2.4); PHOSPHOROUS 4.9 mg/dL (2.5-4.9); POTASSIUM 4.3 mmol/L (3.5-5.1); SGOT/AST 26 U/L (15-37); SGPT/ALT 7 U/L (13-61); SODIUM 144 mmol/L (136-145); TOT PROT 4.9 g/dl (6.4-8.2)
[2018-10-05] MEDS: MAGNESIUM OXIDE 400 MG TABLET (FP) PO SCH (10:00)
[2018-10-05 10:01] LABS: ACANTHOCYTES 0; ANISOCYTOSIS 0; HELMET CELLS 0; HOWELL-JOLLY BODIES 0; MACROCYTOSIS 0; OVALOCYTE 0; PLATELET ESTIMATE NORMAL; ROULEAU 0; SICKELED CELLS 0; TARGET CELLS 0; TEAR DROP CELLS 0; TOXIC GRANULATION 0
[2018-10-05] MEDS ORDERED: EPINEPHrine 1:10,000 (P-F SYR) 1 MG/10 ML DISP.SYRIN IM ONE (11:50)
[2018-10-05] MEDS ORDERED: EPINEPHrine 1:1,000 1 MG/1 ML - 30ML VIAL (INJECTION) SQ ONE (11:50)
--- NOTE | 2018-10-05 12:26 | PN ---
Progress Note (short form) - Note Progress Note: EGD complete. Procedure report left in procedural section of physical chart and to be scanned into [employer]. Problem List - Problems (1) Anemia Code(s): D64.9 - ANEMIA, UNSPECIFIED
[2018-10-05] MEDS ORDERED: EPINEPHrine 1:10,000 (P-F SYR) 1 MG/10 ML DISP.SYRIN ONE (13:10)
--- NOTE | 2018-10-05 13:36 | PN ---
Teaching Attending Note Name of Resident: Delilah Rao ATTENDING PHYSICIAN STATEMENT I saw and evaluated the patient. I reviewed the resident's note and discussed the case with the resident. I agree with the resident's findings and plan as documented. SUBJECTIVE: Pt seen and examined in the ICU. Dark stools overnight. Transfused 3 units PRBC yesterday with appropriate response. s/p EGD today with reoprt pending. OBJECTIVE: Vital Signs Period Temp Pulse Resp BP Sys/Ivan Pulse Ox Last 24 Hr 97.4 F-98.7 F 64-77 16- 117-144/49-64 97-100 Intake & Output 10/02/18 10/03/18 10/04/18 10/05/18 23:59 23:59 23:59 23:59 Intake Total 150 780 720 Output Total 700 1100 1000 1000 Balance -700 -950 -220 -280 Weight 66.423 kg 66.3 kg Gen: NAD at rest Heart: RRR Lung: decreased breath sounds at the bases Abd: soft, nontender Ext: no edema CBC, BMP 10/05/18 05:30 10/05/18 05:30 Active Medications Acetaminophen (Tylenol -) 650 mg PO Q4H PRN PRN Reason: PAIN LEVEL 1 - 3 Last Admin: 10/04/18 02:15 Dose: 650 mg Cefazolin Sodium 1 gm/ (Dextrose) 50 mls @ 100 mls/hr IVPB Q24H [facility] Last Admin: 10/05/18 00:05 Dose: 100 mls/hr Sodium Chloride (Normal Saline -) 250 mls @ 3,000 mls/hr IV PRN PRN PRN Reason: Hypotension during Dialysis Stop: 10/02/18 16:11 Pantoprazole Sodium 80 mg/ (Sodium Chloride) 100 mls @ 10 mls/hr IVPB Q10H [facility] Last Admin: 10/05/18 06:19 Dose: 10 mls/hr Sodium Chloride (Normal Saline -) 250 mls @ 3,000 mls/hr IV PRN PRN PRN Reason: Hypotension during Dialysis Stop: 10/05/18 14:57 Insulin Aspart (Novolog Vial Sliding Scale -) 1 vial SQ ACHS [facility]; Protocol Last Admin: 10/05/18 06:37 Dose: Not Given ASSESSMENT AND PLAN: GI Bleed Acute Blood Loss Anemia Acute on Chronic Renal Failure requiring HD UTI Gram Negative Bacteremia Severe Sepsis resolving Thrombocytopenia resolved Paroxysmal Atrial Fibrillation HTN DM - monitor H/H - transfuse as needed - protonix gtt - f/u EGD report - continue antibiotics - HD per renal - monitor urine output, creatinine - glucose control - PO per GI - DVT prophylaxis critical care time spent in reviewing chart, evaluating patient and formulating plan 35 minutes
--- NOTE | 2018-10-05 14:43 | PN ---
Progress Note, Physician History of Present Illness: Pt seen and examined at bedside. She had the endoscopy. She appears comfortable. She denies shortness of breath. - Current Medication List Current Medications: Active Medications Acetaminophen (Tylenol -) 650 mg PO Q4H PRN PRN Reason: PAIN LEVEL 1 - 3 Last Admin: 10/04/18 02:15 Dose: 650 mg Cefazolin Sodium 1 gm/ (Dextrose) 50 mls @ 100 mls/hr IVPB Q24H [facility] Last Admin: 10/05/18 00:05 Dose: 100 mls/hr Sodium Chloride (Normal Saline -) 250 mls @ 3,000 mls/hr IV PRN PRN PRN Reason: Hypotension during Dialysis Stop: 10/02/18 16:11 Pantoprazole Sodium 80 mg/ (Sodium Chloride) 100 mls @ 10 mls/hr IVPB Q10H [facility] Last Admin: 10/05/18 06:19 Dose: 10 mls/hr Sodium Chloride (Normal Saline -) 250 mls @ 3,000 mls/hr IV PRN PRN PRN Reason: Hypotension during Dialysis Stop: 10/05/18 14:57 Insulin Aspart (Novolog Vial Sliding Scale -) 1 vial SQ ACHS [facility]; Protocol Last Admin: 10/05/18 06:37 Dose: Not Given - Objective Vital Signs: Vital Signs Temperature 97.4 F L 10/05/18 12:50 Pulse Rate 67 10/05/18 14:00 Respiratory Rate 18 10/05/18 14:00 Blood Pressure 139/52 L 10/05/18 14:00 O2 Sat by Pulse Oximetry (%) 99 10/05/18 12:45 Constitutional: Yes: Calm Eyes: Yes: Conjunctiva Clear Cardiovascular: Yes: S1, S2 Respiratory: Yes: CTA Bilaterally Gastrointestinal: Yes: Soft Genitourinary: Yes: Austin Present Musculoskeletal: Yes: WNL Edema: No Neurological: Yes: Confusion Labs: CBC, BMP 10/05/18 05:30 10/05/18 05:30 INR, PTT INR 1.39 (0.83-1.09) H 10/04/18 08:47 - ....Imaging Chest X-ray: Report Reviewed Problem List - Problems (1) SHERRON (acute kidney injury) Code(s): N17.9 - ACUTE KIDNEY FAILURE, UNSPECIFIED (2) Sepsis Code(s): A41.9 - SEPSIS, UNSPECIFIED ORGANISM Qualifiers: Sepsis type: sepsis due to unspecified organism Qualified Code(s): A41.9 - Sepsis, unspecified organism (3) UTI (urinary tract infection) Code(s): N39.0 - URINARY TRACT INFECTION, SITE NOT SPECIFIED Qualifiers: Urinary tract infection type: site unspecified Hematuria presence: with hematuria Qualified Code(s): N39.0 - Urinary tract infection, site not specified; R31.9 - Hematuria, unspecified Assessment/Plan Current Medications Generic Name Dose Route Start Last Admin Trade Name Freq PRN Reason Stop Dose Admin Acetaminophen 650 mg 10/02/18 03:28 10/04/18 02:15 Tylenol - PO 650 mg Q4H PRN Administration PAIN LEVEL 1 - 3 Cefazolin Sodium 1 gm/ 50 mls @ 100 mls/hr 09/28/18 22:00 10/05/18 00:05 Dextrose IVPB 100 mls/hr Q24H BLAYNE Administration Sodium Chloride 250 mls @ 3,000 mls/hr 10/01/18 16:11 Normal Saline - IV 10/02/18 16:11 PRN PRN Hypotension during Dialysis Pantoprazole Sodium 80 mg/ 100 mls @ 10 mls/hr 10/04/18 09:45 10/05/18 06:19 Sodium Chloride IVPB 10 mls/hr Q10H BLAYNE Administration 8 MG/HR Sodium Chloride 250 mls @ 3,000 mls/hr 10/04/18 14:57 Normal Saline - IV 10/05/18 14:57 PRN PRN Hypotension during Dialysis Insulin Aspart 1 vial 09/27/18 16:30 10/05/18 06:37 Novolog Vial Sliding Scale - SQ Not Given ACHS BLAYNE Protocol Laboratory Tests 09/28/18 16:00 PATRICIA M-Neil Not observed CHARLES Screen Negative c-ANCA <1:20 Proteinase 3 (PR3) <3.5 p-ANCA <1:20 Atypical p-ANCA 1:40 H Myeloperoxidase Ab <9.0 Double Strand DNA Ab <1 Glomerular Base Memb Ab 3 Impression 1. SHERRON vs progression of CKD 2. sepsis 3. bacteremia 4. DM 5. HTN 6. active smoker 7. dementia 8. a-fib 9. anemia 10. GI bleed Plan - urine output is improving - HD today - monitor hg - kidney biopsy once stable - renal workup is in progress, will follow - [facility] [place], [phone] Conde
--- NOTE | 2018-10-05 15:24 | PN ---
Teaching Attending Note Name of Resident: Pb Camargo ATTENDING PHYSICIAN STATEMENT I saw and evaluated the patient. I reviewed the resident's note and discussed the case with the resident. I agree with the resident's findings and plan as documented. SUBJECTIVE:c/o she wants to eat. denies CP, SOB, fever, chills, N/V/C/D no reports of melena OBJECTIVE: Last Vital Signs Temp Pulse Resp BP Pulse Ox 97.7 F 69 18 140/69 99 10/05/18 14:00 10/05/18 14:00 10/05/18 14:00 10/05/18 14:00 10/05/18 12:45 Intake & Output 10/02/18 10/03/18 10/04/18 10/05/18 23:59 23:59 23:59 23:59 Intake Total 150 780 720 Output Total 700 1100 1000 2000 Balance -700 -950 -220 -1280 Weight 146 lb 7 oz 146 lb 2.664 oz General NAD, CV S1 S2 RRR +murmur Lungs CTA B/L no wheezing/rales/rhonchi Abdomen soft NT/ND Extremities no pedal edema ASSESSMENT AND PLAN: 78yo F with PMH DM, HTN, dementia and CKD brought in by daughter for altered mental status with nausea and vomiting. Pt was found to be acidemic with renal failure and started on HD. course complicated by development of melena 1. UGI bleed- no repeat episodes of melena. NPO for EGD today. will f/u official report. cont NPO and PPI ggt. GI onboard. may require colonoscopy if EGD unrevealing 2. Acute blood loss anemia- due to suspected GI bleed. s/p 3 units PRBC yesterday with good response. will need to trend HGb Q8H. transfusion for Hgb < 8. no active bleeding per RN at this time. 3. Acute renal failure-s/p HD initiation here on this hospital stay. been tolerating regular HD. will need semi-permanent access prior to d/c and HD set up as outpatient. will try to remove do after acute issues are stabilized. 2. Severe sepsis due to pylenopehritis and Ecoli bacteremia- leukocytosis stable. afebrile. BCX NGTD from 09/28. on Cefazolin day 8. cont to monitor. ID on board. 4. AGMA- resolved 5. Hyperkalemia- resolved 6. DM- hold oral agents. iss and BGM 7. HTN- currently normotesnive. hold oral antihypertensives 8. DVT ppx- SCD. hold pharmacologic anticoagluation at this time 9. MICU monitoring. full code The care of this patient involved high complexity decision making to prevent further life threatening deterioration of the patient's condition and/or to evaluate & treat vital organ system(s) failure or risk of failure. 45 mins
--- NOTE | 2018-10-05 15:36 | PN ---
Physical Exam: SUBJECTIVE: Patient seen and examined OBJECTIVE: Vital Signs Period Temp Pulse Resp BP Sys/Ivan Pulse Ox Last 24 Hr 97.4 F-98.7 F 60-77 16-26 118-149/49-77 97-100 GENERAL: The patient is awake, alert, and fully oriented, in no acute distress. HEAD: Normal with no signs of trauma. EYES: PERRL, extraocular movements intact, sclera anicteric, conjunctiva clear. No ptosis. ENT: Ears normal, nares patent, oropharynx clear without exudates, moist mucous membranes. NECK: Trachea midline, full range of motion, supple. LUNGS: Breath sounds equal, clear to auscultation bilaterally, no wheezes, no crackles, no accessory muscle use. HEART: Regular rate and rhythm, S1, S2 without murmur, rub or gallop. ABDOMEN: Soft, nontender, nondistended, normoactive bowel sounds, no guarding, no rebound, no hepatosplenomegaly, no masses. EXTREMITIES: 2+ pulses, warm, well-perfused, no edema. NEUROLOGICAL: Cranial nerves II through XII grossly intact. Normal speech, gait not observed. PSYCH: Normal mood, normal affect. SKIN: Warm, dry, normal turgor, no rashes or lesions noted Laboratory Results - last 24 hr 09/28/18 10/04/18 10/04/18 16:00 06:50 08:47 WBC RBC Hgb Hct MCV MCH MCHC RDW Plt Count MPV Absolute Neuts (auto) Neutrophils % Neutrophils % (Manual) Band Neutrophils % Lymphocytes % Lymphocytes % (Manual) Monocytes % Monocytes % (Manual) Eosinophils % Eosinophils % (Manual) Basophils % Basophils % (Manual) Myelocytes % (Man) Promyelocytes % (Man) Blast Cells % (Manual) Nucleated RBC % Metamyelocytes Hypochromia Toxic Granulation Dohle Bodies Platelet Estimate Platelet Comment Polychromasia Poikilocytosis Basophilic Stippling Anisocytosis Microcytosis Macrocytosis Spherocytes Sickle Cells Target Cells Tear Drop Cells Ovalocytes Stomatocytes Helmet Cells [place] Bodies [place] Rings Sofia Cells Acanthocytes (Spur) Rouleaux Fragmented RBCs Schistocytes Sodium Potassium Chloride Carbon Dioxide Anion Gap BUN Creatinine Creat Clearance w eGFR POC Glucometer Random Glucose Calcium Phosphorus Magnesium Iron 51 TIBC 218 L Iron Saturation 23 Total Bilirubin AST ALT Alkaline Phosphatase Total Protein Albumin Urine Color Urine Appearance Urine pH Ur Specific [place] Urine Protein Urine Glucose (UA) Urine Ketones Urine Blood Urine Nitrite Urine Bilirubin Urine Urobilinogen Ur Leukocyte Esterase Urine WBC (Auto) Urine RBC (Auto) Ur Epithelial Cells c-ANCA <1:20 Proteinase 3 (PR3) <3.5 p-ANCA <1:20 Atypical p-ANCA 1:40 H Myeloperoxidase Ab <9.0 Blood Type A POSITIVE Antibody Screen Negative Crossmatch See Detail 10/04/18 10/04/18 10/04/18 15:37 17:45 19:30 WBC 13.7 H RBC 2.43 L Hgb 7.0 L Hct 19.9 L D MCV 82.0 MCH 28.7 D MCHC 35.0 RDW 14.4 Plt Count 302 MPV 8.6 Absolute Neuts (auto) 11.0 H Neutrophils % 80.6 Neutrophils % (Manual) 76.0 Band Neutrophils % 2.0 Lymphocytes % 10.7 D Lymphocytes % (Manual) 16.0 D Monocytes % 6.9 Monocytes % (Manual) 4 Eosinophils % 1.2 D Eosinophils % (Manual) 2.0 D Basophils % 0.6 Basophils % (Manual) Myelocytes % (Man) Promyelocytes % (Man) Blast Cells % (Manual) Nucleated RBC % 0 Metamyelocytes Hypochromia 3+ Toxic Granulation Dohle Bodies Platelet Estimate Adequate Platelet Comment No clumping noted Polychromasia Poikilocytosis Basophilic Stippling Anisocytosis 1+ Microcytosis Macrocytosis 1+ Spherocytes Sickle Cells Target Cells Tear Drop Cells Ovalocytes 1+ Stomatocytes Helmet Cells [place] Bodies [place] Rings Sofia Cells Acanthocytes (Spur) Rouleaux Fragmented RBCs Schistocytes Sodium Potassium Chloride Carbon Dioxide Anion Gap BUN Creatinine Creat Clearance w eGFR POC Glucometer [phone] Random Glucose Calcium Phosphorus Magnesium Iron TIBC Iron Saturation Total Bilirubin AST ALT Alkaline Phosphatase Total Protein Albumin Urine Color Straw Urine Appearance Clear Urine pH 7.0 Ur Specific [place] 1.008 L Urine Protein 1+ H Urine Glucose (UA) Negative Urine Ketones Negative Urine Blood 2+ H Urine Nitrite Negative Urine Bilirubin Negative Urine Urobilinogen Negative Ur Leukocyte Esterase 2+ H Urine WBC (Auto) 16 Urine RBC (Auto) 1 Ur Epithelial Cells Rare c-ANCA Proteinase 3 (PR3) p-ANCA Atypical p-ANCA Myeloperoxidase Ab Blood Type Antibody Screen Crossmatch 10/04/18 10/05/18 10/05/18 23:25 05:30 05:30 WBC 13.4 H RBC 3.02 L Hgb 8.2 L Hct 25.0 L D MCV 82.9 MCH 27.1 MCHC 32.8 RDW 14.5 Plt Count 305 MPV 8.2 Absolute Neuts (auto) 11.2 H Neutrophils % 83.7 H Neutrophils % (Manual) 78.0 Band Neutrophils % 5.0 Lymphocytes % 8.4 D Lymphocytes % (Manual) 6.0 L D Monocytes % 6.1 Monocytes % (Manual) 6 Eosinophils % 1.4 Eosinophils % (Manual) 0.0 D Basophils % 0.4 Basophils % (Manual) 0.0 Myelocytes % (Man) 1 D Promyelocytes % (Man) 0 Blast Cells % (Manual) 0 Nucleated RBC % 0 Metamyelocytes 2 D Hypochromia 0 Toxic Granulation 0 Dohle Bodies 0 Platelet Estimate Normal Platelet Comment Polychromasia 0 Poikilocytosis 0 Basophilic Stippling 0 Anisocytosis 0 Microcytosis 0 Macrocytosis 0 Spherocytes 0 Sickle Cells 0 Target Cells 0 Tear Drop Cells 0 Ovalocytes 0 Stomatocytes 0 Helmet Cells 0 [place] Bodies 0 Kat[place] Rings 0 Sofia Cells 0 Acanthocytes (Spur) 0 Rouleaux 0 Fragmented RBCs 0 Schistocytes 0 Sodium 144 Potassium 4.3 Chloride 108 H Carbon Dioxide 28 Anion Gap 8 BUN 89 H Creatinine 4.4 H Creat Clearance w eGFR 9.75 POC Glucometer [phone] Random Glucose 123 H Calcium 7.6 L Phosphorus 4.9 Magnesium 1.9 Iron TIBC Iron Saturation Total Bilirubin 0.4 AST 26 ALT 7 L Alkaline Phosphatase 80 Total Protein 4.9 L Albumin 1.8 L Urine Color Urine Appearance Urine pH Ur Specific [place] Urine Protein Urine Glucose (UA) Urine Ketones Urine Blood Urine Nitrite Urine Bilirubin Urine Urobilinogen Ur Leukocyte Esterase Urine WBC (Auto) Urine RBC (Auto) Ur Epithelial Cells c-ANCA Proteinase 3 (PR3) p-ANCA Atypical p-ANCA Myeloperoxidase Ab Blood Type Antibody Screen Crossmatch 10/05/18 10/05/18 06:25 10:55 WBC RBC Hgb Hct MCV MCH MCHC RDW Plt Count MPV Absolute Neuts (auto) Neutrophils % Neutrophils % (Manual) Band Neutrophils % Lymphocytes % Lymphocytes % (Manual) Monocytes % Monocytes % (Manual) Eosinophils % Eosinophils % (Manual) Basophils % Basophils % (Manual) Myelocytes % (Man) Promyelocytes % (Man) Blast Cells % (Manual) Nucleated RBC % Metamyelocytes Hypochromia Toxic Granulation Dohle Bodies Platelet Estimate Platelet Comment Polychromasia Poikilocytosis Basophilic Stippling Anisocytosis Microcytosis Macrocytosis Spherocytes Sickle Cells Target Cells Tear Drop Cells Ovalocytes Stomatocytes Helmet Cells [place] Bodies [place] Rings [place] Cells Acanthocytes (Spur) Rouleaux Fragmented RBCs Schistocytes Sodium Potassium Chloride Carbon Dioxide Anion Gap BUN Creatinine Creat Clearance w eGFR POC Glucometer [phone] Random Glucose Calcium Phosphorus Magnesium Iron TIBC Iron Saturation Total Bilirubin AST ALT Alkaline Phosphatase Total Protein Albumin Urine Color Urine Appearance Urine pH Ur Specific [place] Urine Protein Urine Glucose (UA) Urine Ketones Urine Blood Urine Nitrite Urine Bilirubin Urine Urobilinogen Ur Leukocyte Esterase Urine WBC (Auto) Urine RBC (Auto) Ur Epithelial Cells c-ANCA Proteinase 3 (PR3) p-ANCA Atypical p-ANCA Myeloperoxidase Ab Blood Type Antibody Screen Crossmatch Active Medications Generic Name Dose Route Start Last Admin Trade Name Freq PRN Reason Stop Dose Admin Acetaminophen 650 mg 10/02/18 03:28 10/04/18 02:15 Tylenol - PO 650 mg Q4H PRN Administration PAIN LEVEL 1 - 3 Cefazolin Sodium 1 gm/ 50 mls @ 100 mls/hr 09/28/18 22:00 10/05/18 00:05 Dextrose IVPB 100 mls/hr Q24H BLAYNE Administration Sodium Chloride 250 mls @ 3,000 mls/hr 10/01/18 16:11 Normal Saline - IV 10/02/18 16:11 PRN PRN Hypotension during Dialysis Pantoprazole Sodium 80 mg/ 100 mls @ 10 mls/hr 10/04/18 09:45 10/05/18 06:19 Sodium Chloride IVPB 10 mls/hr Q10H BLAYNE Administration 8 MG/HR Insulin Aspart 1 vial 09/27/18 16:30 10/05/18 06:37 Novolog Vial Sliding Scale - SQ Not Given ACHS BLAYNE Protocol ASSESSMENT/PLAN: 78yo F with PMH DM, HTN, dementia brought in by daughter for altered mental status with nausea and vomiting found to be acidemic with acute renal failure and uremic encephalopathy. Patient was previously in the ICU, but showed improvement and was transferred. Overnight the patient had dark stools, looked pale and diaphoretic. Morning labs showed Hb 4.7, transferred to ICU and repeat Hb was 4.5. Heme - UGIB vs LGIB Patient with acute drop in Hb overnight and with notable findings of dark stools , pale and diaphoretic concerning for UGIB vs LGIB. - trend H/H - 3pRBC admin 10/04 - GI following, (Dr. Baum) EGD today, pending report, may require colonoscopy if EGD unrevealing - protonix 80mg push and protonix gtt Renal - Acute renal failure, pyelonephritis, uremic encephalopathy In setting of ARF, uremia and now with acute GIB consider uremic bleeding. There is suggested evidence of uremia prolonging bleeding time without prolonging PT or PTT. Bleeding time test is no longer run by the laboratory. As of 10/04 platelets are wnl at 277, PTT 28.7, PTw/INR 16.50 and INR 1.39. Hemodialysis will be therapeutic for uremia and bleeding time. Will discuss with Dr. Corcoran for next dialysis. - Shiley removed 10/02 for infection risk - R IJ trilumen catheter placed 10/04 - Nephrology following Dr. Corcoran, vasculitis and kidney biopsy pending 2/2 GIB - HD today ID - gram negative sepsis- urine source, Ecoli UTI - Per ID: cefazolin - WBC 15.1--> (10/04) 17.1 --> 15.8 -->13.4 likely elevated 2/2 GIB Cardiac - New onset Afib w/ RVR considered to be likely 2/2 to sepsis vs electrolyte derangement Patient now with maintained sinus rhythm after initial conversion. - AC held at this time - Cardiology following - Echo 09/27/18: nlef, trace MR, mild TR, FCDAOV. - Metoprolol 25mg bid if repeat afib with RVR - not a candidate for NOAC or coumadin considering SHERRON and cognition. F/E/N - NPO - hold oral hypoglycemics GI ppx: protonix gtt DVT ppx: SCDs, heparin held 2/2 GIB Code status: full code Dispo: Continue ICU monitoring Visit type - Emergency Visit Emergency Visit: No - New Patient This patient is new to me today: No - Critical Care Critical Care patient: No
--- NOTE | 2018-10-05 15:54 | PN ---
Physical Exam: SUBJECTIVE: Patient seen and examined at [facility]. Resting in bed. Pt went for EGD earlier today. OBJECTIVE: Vital Signs Period Temp Pulse Resp BP Sys/Ivan Pulse Ox Last 24 Hr 97.4 F-98.7 F 60-77 16- 118-149/49-77 97-100 GENERAL: Alert Awake, irritable, anxious, HEAD: NC/AT EYES: EOMI No scleral icterus Conjunctive clear ENT: MMM NECK: Trachea midline, full range of motion, supple. LUNGS:CTA B/L HEART: RRR ABDOMEN: NDNT No HSM EXTREMITIES: No CCE. NEUROLOGICAL: No neuro deficits appreciated PSYCH: Normal mood, normal affect. SKIN: No rashes or lesions appreciated Laboratory Results - last 24 hr 09/28/18 10/04/18 10/04/18 16:00 06:50 08:47 WBC RBC Hgb Hct MCV MCH MCHC RDW Plt Count MPV Absolute Neuts (auto) Neutrophils % Neutrophils % (Manual) Band Neutrophils % Lymphocytes % Lymphocytes % (Manual) Monocytes % Monocytes % (Manual) Eosinophils % Eosinophils % (Manual) Basophils % Basophils % (Manual) Myelocytes % (Man) Promyelocytes % (Man) Blast Cells % (Manual) Nucleated RBC % Metamyelocytes Hypochromia Toxic Granulation Dohle Bodies Platelet Estimate Platelet Comment Polychromasia Poikilocytosis Basophilic Stippling Anisocytosis Microcytosis Macrocytosis Spherocytes Sickle Cells Target Cells Tear Drop Cells Ovalocytes Stomatocytes Helmet Cells [place] Bodies [place] Rings [place] Cells Acanthocytes (Spur) Rouleaux Fragmented RBCs Schistocytes Sodium Potassium Chloride Carbon Dioxide Anion Gap BUN Creatinine Creat Clearance w eGFR POC Glucometer Random Glucose Calcium Phosphorus Magnesium Iron 51 TIBC 218 L Iron Saturation 23 Total Bilirubin AST ALT Alkaline Phosphatase Total Protein Albumin Urine Color Urine Appearance Urine pH Ur Specific [place] Urine Protein Urine Glucose (UA) Urine Ketones Urine Blood Urine Nitrite Urine Bilirubin Urine Urobilinogen Ur Leukocyte Esterase Urine WBC (Auto) Urine RBC (Auto) Ur Epithelial Cells c-ANCA <1:20 Proteinase 3 (PR3) <3.5 p-ANCA <1:20 Atypical p-ANCA 1:40 H Myeloperoxidase Ab <9.0 Blood Type A POSITIVE Antibody Screen Negative Crossmatch See Detail 10/04/18 10/04/18 10/04/18 15:37 17:45 19:30 WBC 13.7 H RBC 2.43 L Hgb 7.0 L Hct 19.9 L D MCV 82.0 MCH 28.7 D MCHC 35.0 RDW 14.4 Plt Count 302 MPV 8.6 Absolute Neuts (auto) 11.0 H Neutrophils % 80.6 Neutrophils % (Manual) 76.0 Band Neutrophils % 2.0 Lymphocytes % 10.7 D Lymphocytes % (Manual) 16.0 D Monocytes % 6.9 Monocytes % (Manual) 4 Eosinophils % 1.2 D Eosinophils % (Manual) 2.0 D Basophils % 0.6 Basophils % (Manual) Myelocytes % (Man) Promyelocytes % (Man) Blast Cells % (Manual) Nucleated RBC % 0 Metamyelocytes Hypochromia 3+ Toxic Granulation Dohle Bodies Platelet Estimate Adequate Platelet Comment No clumping noted Polychromasia Poikilocytosis Basophilic Stippling Anisocytosis 1+ Microcytosis Macrocytosis 1+ Spherocytes Sickle Cells Target Cells Tear Drop Cells Ovalocytes 1+ Stomatocytes Helmet Cells [place] Bodies [place] Rings [place] Cells Acanthocytes (Spur) Rouleaux Fragmented RBCs Schistocytes Sodium Potassium Chloride Carbon Dioxide Anion Gap BUN Creatinine Creat Clearance w eGFR POC Glucometer [phone] Random Glucose Calcium Phosphorus Magnesium Iron TIBC Iron Saturation Total Bilirubin AST ALT Alkaline Phosphatase Total Protein Albumin Urine Color Straw Urine Appearance Clear Urine pH 7.0 Ur Specific [place] 1.008 L Urine Protein 1+ H Urine Glucose (UA) Negative Urine Ketones Negative Urine Blood 2+ H Urine Nitrite Negative Urine Bilirubin Negative Urine Urobilinogen Negative Ur Leukocyte Esterase 2+ H Urine WBC (Auto) 16 Urine RBC (Auto) 1 Ur Epithelial Cells Rare c-ANCA Proteinase 3 (PR3) p-ANCA Atypical p-ANCA Myeloperoxidase Ab Blood Type Antibody Screen Crossmatch 10/04/18 10/05/18 10/05/18 23:25 05:30 05:30 WBC 13.4 H RBC 3.02 L Hgb 8.2 L Hct 25.0 L D MCV 82.9 MCH 27.1 MCHC 32.8 RDW 14.5 Plt Count 305 MPV 8.2 Absolute Neuts (auto) 11.2 H Neutrophils % 83.7 H Neutrophils % (Manual) 78.0 Band Neutrophils % 5.0 Lymphocytes % 8.4 D Lymphocytes % (Manual) 6.0 L D Monocytes % 6.1 Monocytes % (Manual) 6 Eosinophils % 1.4 Eosinophils % (Manual) 0.0 D Basophils % 0.4 Basophils % (Manual) 0.0 Myelocytes % (Man) 1 D Promyelocytes % (Man) 0 Blast Cells % (Manual) 0 Nucleated RBC % 0 Metamyelocytes 2 D Hypochromia 0 Toxic Granulation 0 Dohle Bodies 0 Platelet Estimate Normal Platelet Comment Polychromasia 0 Poikilocytosis 0 Basophilic Stippling 0 Anisocytosis 0 Microcytosis 0 Macrocytosis 0 Spherocytes 0 Sickle Cells 0 Target Cells 0 Tear Drop Cells 0 Ovalocytes 0 Stomatocytes 0 Helmet Cells 0 [place] Bodies 0 [place] Rings 0 Sofia Cells 0 Acanthocytes (Spur) 0 Rouleaux 0 Fragmented RBCs 0 Schistocytes 0 Sodium 144 Potassium 4.3 Chloride 108 H Carbon Dioxide 28 Anion Gap 8 BUN 89 H Creatinine 4.4 H Creat Clearance w eGFR 9.75 POC Glucometer 107.64482 Random Glucose 123 H Calcium 7.6 L Phosphorus 4.9 Magnesium 1.9 Iron TIBC Iron Saturation Total Bilirubin 0.4 AST 26 ALT 7 L Alkaline Phosphatase 80 Total Protein 4.9 L Albumin 1.8 L Urine Color Urine Appearance Urine pH Ur Specific [place] Urine Protein Urine Glucose (UA) Urine Ketones Urine Blood Urine Nitrite Urine Bilirubin Urine Urobilinogen Ur Leukocyte Esterase Urine WBC (Auto) Urine RBC (Auto) Ur Epithelial Cells c-ANCA Proteinase 3 (PR3) p-ANCA Atypical p-ANCA Myeloperoxidase Ab Blood Type Antibody Screen Crossmatch 10/05/18 10/05/18 06:25 10:55 WBC RBC Hgb Hct MCV MCH MCHC RDW Plt Count MPV Absolute Neuts (auto) Neutrophils % Neutrophils % (Manual) Band Neutrophils % Lymphocytes % Lymphocytes % (Manual) Monocytes % Monocytes % (Manual) Eosinophils % Eosinophils % (Manual) Basophils % Basophils % (Manual) Myelocytes % (Man) Promyelocytes % (Man) Blast Cells % (Manual) Nucleated RBC % Metamyelocytes Hypochromia Toxic Granulation Dohle Bodies Platelet Estimate Platelet Comment Polychromasia Poikilocytosis Basophilic Stippling Anisocytosis Microcytosis Macrocytosis Spherocytes Sickle Cells Target Cells Tear Drop Cells Ovalocytes Stomatocytes Helmet Cells [place] Bodies [place] Rings [place]ia Cells Acanthocytes (Spur) Rouleaux Fragmented RBCs Schistocytes Sodium Potassium Chloride Carbon Dioxide Anion Gap BUN Creatinine Creat Clearance w eGFR POC Glucometer 132.63968 111.68984 Random Glucose Calcium Phosphorus Magnesium Iron TIBC Iron Saturation Total Bilirubin AST ALT Alkaline Phosphatase Total Protein Albumin Urine Color Urine Appearance Urine pH Ur Specific [place] Urine Protein Urine Glucose (UA) Urine Ketones Urine Blood Urine Nitrite Urine Bilirubin Urine Urobilinogen Ur Leukocyte Esterase Urine WBC (Auto) Urine RBC (Auto) Ur Epithelial Cells c-ANCA Proteinase 3 (PR3) p-ANCA Atypical p-ANCA Myeloperoxidase Ab Blood Type Antibody Screen Crossmatch Active Medications Generic Name Dose Route Start Last Admin Trade Name Freq PRN Reason Stop Dose Admin Acetaminophen 650 mg 10/02/18 03:28 10/04/18 02:15 Tylenol - PO 650 mg Q4H PRN Administration PAIN LEVEL 1 - 3 Cefazolin Sodium 1 gm/ 50 mls @ 100 mls/hr 09/28/18 22:00 10/05/18 00:05 Dextrose IVPB 100 mls/hr Q24H BLAYNE Administration Sodium Chloride 250 mls @ 3,000 mls/hr 10/01/18 16:11 Normal Saline - IV 10/02/18 16:11 PRN PRN Hypotension during Dialysis Pantoprazole Sodium 80 mg/ 100 mls @ 10 mls/hr 10/04/18 09:45 10/05/18 06:19 Sodium Chloride IVPB 10 mls/hr Q10H BLAYNE Administration 8 MG/HR Insulin Aspart 1 vial 09/27/18 16:30 10/05/18 06:37 Novolog Vial Sliding Scale - SQ Not Given ACHS BLAYNE Protocol ASSESSMENT/PLAN: Pt is a 78 y/o lady with a significant past medical history of DM, HTN, CKD, and dementia. Pt presented to [facility] ED this AM with daughter c/o weakness, nausea /vomiting and AMS. #G.I Bleed -Gastroenterology on board, EGD tomorrow - HGB 4.7 with episode of hypotensive last night, has received 2 U PRBC. Repeat HBH 7.0 in am. Continue to follow -ICU - Protonix drip - EGD earlier with Dr Baum. Findings: SINGLE BLEEDING DEEP ULCER 1.5MM W. AN ADHERENT CLOT AND ACTIVE OOZING W/ BLOOD FOUND IN DUODENAL BULB. SUBMUCOSAL INJECTION OF 4 ML EPINEPHRINE PERFORMED AROUND BLEEDING SITE. MONOPOLAR CAUTERY W/ 75 FR HEATER PROBE APPLIED O SITE. Multiple small erosions found in gastric antrum. #Sepsis 2/2 Pyelonephritis -WBC 12.5 today. -Troponin negative - CTAP--> Significant inflammatory changes in retroperitoneum appear to originate from kidneys compatible with significant b/l renal infection. - Nephrology on Board - Renal Bladder Ultrasound--> MORPHOLOGICALLY NORMAL KIDNEYS WITH NO EVIDENCE OF HYDRONEPHROSIS OR ACUTE PATHOLOGY - I.D on board--> Cefazolin 1 GM Q24H day 8 # SHERRON, Oliguria, Hyperkalemia -Potassium WNL -HD today 10/05/18 0.5 KG WT REMOVED. -Possible kidney biopsy -Monitor urine output #UTI: -Leukocyte Esterase 3+ - Urine/Blood cultures--> Lactose Fermenting Gram Neg Bacilli - I.D on board - Cefazolin day 7--> 1 GM Q24H #Atrial Fibrillation W/ RVR? - Metoprolol 25 MG PO BID -Echo --> EF 60-65%. #FEN No Fluids Monitor electrolytes Diabetic Diet DVT ppx: SCD's Dispo: ICU Visit type - Emergency Visit Emergency Visit: Yes ED Registration Date: 09/26/18 Care time: The patient presented to the Emergency Department on the above date and was hospitalized for further evaluation of their emergent condition. - New Patient This patient is new to me today: No - Critical Care Critical Care patient: Yes Total Critical Care Time (in minutes): 35 Critical Care Statement: The care of this patient involved high complexity decision making to prevent further life threatening deterioration of the patient 's condition and/or to evaluate & treat vital organ system(s) failure or risk of failure. - Discharge Referral Referred to [facility] Med P.C.: No
[2018-10-05 17:33] LABS: BASO % 0.5 % (0-2.0); EOS % 1.2 % (0-4.5); HEMATOCRIT 19.7 % (32.4-45.2); HEMOGLOBIN 7.1 GM/dL (10.7-15.3); LYMPH % 7.3 % (8-40); MCHC 35.9 g/dl (32.0-36.0); MEAN CELL VOLUME 80.8 fl (80-96); MEAN PLT VOLUME 8.1 fl (7.5-11.1); MONO % 6.3 % (3.8-10.2); NEUT % 84.7 % (42.8-82.8); PLATELET COUNT 304 K/MM3 (134-434); RBC 2.44 M/mm3 (3.60-5.2); RDW 14.5 % (11.6-15.6); WHITE BLOOD COUNT 12.5 K/mm3 (4.0-10.0)
[2018-10-05] MEDS ORDERED: DEXTROSE 5%-WATER - 50 ML IVPB ONE (21:25)
[2018-10-05] MEDS ORDERED: ceFAZolin SODIUM 1 GM VIAL ONE (21:25)
[2018-10-05 21:33] LABS: PLATELET ESTIMATE ADEQUATE
[2018-10-05 21:39] LABS: BASO % 0.5 % (0-2.0); EOS % 1.6 % (0-4.5); HEMATOCRIT 16.8 % (32.4-45.2); LYMPH % 9.8 % (8-40); MCH 29.7 pg (25.7-33.7); MCHC 36.7 g/dl (32.0-36.0); MEAN PLT VOLUME 8.2 fl (7.5-11.1); MONO % 6.9 % (3.8-10.2); NEUT % 81.2 % (42.8-82.8); PLATELET COUNT 278 K/MM3 (134-434); RBC 2.07 M/mm3 (3.60-5.2); RDW 14.8 % (11.6-15.6); WHITE BLOOD COUNT 10.2 K/mm3 (4.0-10.0)
[2018-10-05 21:44] LABS: HEMOGLOBIN 6.1 GM/dL (10.7-15.3)
[2018-10-05 22:02] LABS: HEMATOCRIT 18.1 % (32.4-45.2); MCH 29.7 pg (25.7-33.7); MCHC 36.6 g/dl (32.0-36.0); MEAN PLT VOLUME 8.4 fl (7.5-11.1); PLATELET COUNT 290 K/MM3 (134-434); RBC 2.23 M/mm3 (3.60-5.2); RDW 14.7 % (11.6-15.6); WHITE BLOOD COUNT 11.2 K/mm3 (4.0-10.0)
[2018-10-05 22:05] LABS: HEMOGLOBIN 6.6 GM/dL (10.7-15.3)
[2018-10-06] MEDS: PANTOPRAZOLE SODIUM 80 MG in SODIUM CHLORIDE 100 ML IVPB SCH ×2 (01:44→13:17)
[2018-10-06 06:33] LABS: BASO % 0.4 % (0-2.0); EOS % 1.7 % (0-4.5); HEMATOCRIT 27.6 % (32.4-45.2); HEMOGLOBIN 9.4 GM/dL (10.7-15.3); LYMPH % 7.2 % (8-40); MCH 28.2 pg (25.7-33.7); MEAN CELL VOLUME 82.9 fl (80-96); MEAN PLT VOLUME 8.2 fl (7.5-11.1); MONO % 6.3 % (3.8-10.2); NEUT % 84.4 % (42.8-82.8); PLATELET COUNT 295 K/MM3 (134-434); RBC 3.32 M/mm3 (3.60-5.2); RDW 14.1 % (11.6-15.6); WHITE BLOOD COUNT 13.6 K/mm3 (4.0-10.0)
[2018-10-06] MEDS: INSULIN SLIDING SCALE (NOVOLOG) 1 VIAL SQ SCH ×4 (06:55→22:30)
[2018-10-06 07:54] LABS: ANISOCYTOSIS 2+
[2018-10-06 07:55] LABS: PLATELET ESTIMATE ADEQUATE
[2018-10-06 08:05] LABS: ALBUMIN 1.9 g/dl (3.4-5.0); ALK PHOS 77 U/L (45-117); ANION GAP 8 MMOL/L (8-16); BILIRUBIN,TOTAL 0.7 mg/dL (0.2-1); BLOOD UREA NITROGEN 52 mg/dL (7-18); CALCIUM 7.5 mg/dL (8.5-10.1); CHLORIDE 112 mmol/L (98-107); CO2 30 mmol/L (21-32); GLUCOSE,RANDOM 102 mg/dL (74-106); MAGNESIUM 1.9 mg/dL (1.8-2.4); PHOSPHOROUS 4.8 mg/dL (2.5-4.9); POTASSIUM 4.1 mmol/L (3.5-5.1); SGOT/AST 31 U/L (15-37); SGPT/ALT 9 U/L (13-61); SODIUM 149 mmol/L (136-145); TOT PROT 4.9 g/dl (6.4-8.2)
--- NOTE | 2018-10-06 08:39 | PN ---
GI Progress Note Subjective: No melena reported overnight by nursing Hgb noted 6.6. received 2 U PRBC overnight - Objective Vital Signs: Vital Signs Temperature 98.4 F 10/06/18 06:00 Pulse Rate 70 10/06/18 08:00 Respiratory Rate 20 10/06/18 08:00 Blood Pressure 152/69 10/06/18 08:00 O2 Sat by Pulse Oximetry (%) 100 10/06/18 08:30 Constitutional: Calm Eyes: No: Sclera Icterus Cardiovascular: Yes: Regular Rate and Rhythm Respiratory: Yes: CTA Bilaterally Gastrointestinal Inspection: No: Distention ...Auscultate: Yes: Normoactive Bowel Sounds ...Palpate: Yes: Soft. No: Hepatomegaly, Splenomegaly, Tenderness ...Percussion: No: Tympanitic Edema: No Neurological: Yes: Alert Labs: CBC, BMP 10/06/18 05:30 10/06/18 05:30 INR, PTT INR 1.39 (0.83-1.09) H 10/04/18 08:47 Problem List - Problems (1) Duodenal ulcer Assessment/Plan: S/P heater probe and epinephrine therapy Decrease H/H noted along with PRBC transfusions. Vitals have remained stable, however, not suggestive of a significant acute recurrence of bleeding Would continue to monitor. Repeat CBC 12pm. If stable, begin clears. If continuing to dwindle / development of melena, may need 2nd look endoscopy. Continue PPI drip. Monitor magnesium levels Code(s): K26.9 - DUODENAL ULCER, UNSP ACUTE OR CHRONIC, W/O HEMOR OR PERF
--- NOTE | 2018-10-06 08:57 | PN ---
Progress Note (short form) - Note Progress Note: transferred to ICU for GI bleed, anemia s/p endoscopy yesterday with duodenal ulcer noted no abdominal pain quite comfortable today Vital Signs Period Temp Pulse Resp BP Sys/Ivan Pulse Ox Last 24 Hr 97.4 F-98.4 F 60-76 18-26 125-154/52-77 97-100 cor-rrr lungs clear abd soft,nt ext no edema +do +right IJ CBC, BMP 10/06/18 05:30 10/06/18 05:30 Microbiology 09/28/18 05:35 Blood - Peripheral Venous Blood Culture - Final NO GROWTH AFTER 5 DAYS INCUBATION 09/28/18 05:20 Blood - Peripheral Venous Blood Culture - Final NO GROWTH AFTER 5 DAYS INCUBATION 09/27/18 12:00 Urine - Urine Do Urine Culture - Final Escherichia Coli 09/26/18 06:53 Blood - Peripheral Venous Blood Culture - Final Lactose Fermenting Neg Bacilli 09/26/18 06:53 Blood - Peripheral Venous Blood Culture - Final Escherichia Coli 09/26/18 08:50 Urine - Urine Clean Catch Urine Culture - Final Escherichia Coli Current Medications Acetaminophen (Tylenol -) 650 mg PO Q4H PRN PRN Reason: PAIN LEVEL 1 - 3 Last Admin: 10/04/18 02:15 Dose: 650 mg Calcium Gluconate (Calcium Gluconate 10% -) 1,000 mg IVPB ONCE ONE Stop: 10/06/18 09:31 Cefazolin Sodium 1 gm/ (Dextrose) 50 mls @ 100 mls/hr IVPB Q24H [facility] Last Admin: 10/05/18 21:27 Dose: 100 mls/hr Sodium Chloride (Normal Saline -) 250 mls @ 3,000 mls/hr IV PRN PRN PRN Reason: Hypotension during Dialysis Stop: 10/02/18 16:11 Pantoprazole Sodium 80 mg/ (Sodium Chloride) 100 mls @ 10 mls/hr IVPB Q10H [facility] Last Admin: 10/06/18 01:44 Dose: 10 mls/hr Insulin Aspart (Novolog Vial Sliding Scale -) 1 vial SQ ACHS [facility]; Protocol Last Admin: 10/06/18 06:55 Dose: Not Given a/p GI bleed- bleeding duodenal ulcer- transfusion, per GI gram negative sepsis-Ecoli urinary source--ecoli uti, sonogram no obstruction acute renal failure-urine output improving continue cefazolin adjusted for renal failure-day #9 of 14 Problem List - Problems (1) Sepsis Code(s): A41.9 - SEPSIS, UNSPECIFIED ORGANISM Qualifiers: Sepsis type: sepsis due to unspecified organism Qualified Code(s): A41.9 - Sepsis, unspecified organism (2) SHERRON (acute kidney injury) Code(s): N17.9 - ACUTE KIDNEY FAILURE, UNSPECIFIED
[2018-10-06] MEDS ORDERED: CALCIUM GLUCONATE 10% - 1,000 MG/10 ML VIAL IVPB ONE (09:30)
--- NOTE | 2018-10-06 11:21 | PN ---
Progress Note, Physician History of Present Illness: Pt seen and examined at bedside. She is awake but confused. Her urine output has been improving. - Current Medication List Current Medications: Active Medications Acetaminophen (Tylenol -) 650 mg PO Q4H PRN PRN Reason: PAIN LEVEL 1 - 3 Last Admin: 10/04/18 02:15 Dose: 650 mg Cefazolin Sodium 1 gm/ (Dextrose) 50 mls @ 100 mls/hr IVPB Q24H [facility] Last Admin: 10/05/18 21:27 Dose: 100 mls/hr Sodium Chloride (Normal Saline -) 250 mls @ 3,000 mls/hr IV PRN PRN PRN Reason: Hypotension during Dialysis Stop: 10/02/18 16:11 Pantoprazole Sodium 80 mg/ (Sodium Chloride) 100 mls @ 10 mls/hr IVPB Q10H [facility] Last Admin: 10/06/18 01:44 Dose: 10 mls/hr Insulin Aspart (Novolog Vial Sliding Scale -) 1 vial SQ ACHS [facility]; Protocol Last Admin: 10/06/18 06:55 Dose: Not Given - Objective Vital Signs: Vital Signs Temperature 98.4 F 10/06/18 06:00 Pulse Rate 64 10/06/18 10:00 Respiratory Rate 23 H 10/06/18 10:00 Blood Pressure 142/58 L 10/06/18 10:00 O2 Sat by Pulse Oximetry (%) 100 10/06/18 08:30 Constitutional: Yes: Calm Eyes: Yes: Conjunctiva Clear Cardiovascular: Yes: S1, S2 Respiratory: Yes: CTA Bilaterally Gastrointestinal: Yes: Normal Bowel Sounds, Soft Genitourinary: Yes: [place] Present Musculoskeletal: Yes: WNL Edema: No Neurological: Yes: Confusion Labs: CBC, BMP 10/06/18 05:30 10/06/18 05:30 INR, PTT INR 1.39 (0.83-1.09) H 10/04/18 08:47 Problem List - Problems (1) SHERRON (acute kidney injury) Code(s): N17.9 - ACUTE KIDNEY FAILURE, UNSPECIFIED (2) Sepsis Code(s): A41.9 - SEPSIS, UNSPECIFIED ORGANISM Qualifiers: Sepsis type: sepsis due to unspecified organism Qualified Code(s): A41.9 - Sepsis, unspecified organism (3) UTI (urinary tract infection) Code(s): N39.0 - URINARY TRACT INFECTION, SITE NOT SPECIFIED Qualifiers: Urinary tract infection type: site unspecified Hematuria presence: with hematuria Qualified Code(s): N39.0 - Urinary tract infection, site not specified; R31.9 - Hematuria, unspecified Assessment/Plan Current Medications Generic Name Dose Route Start Last Admin Trade Name Freq PRN Reason Stop Dose Admin Acetaminophen 650 mg 10/02/18 03:28 10/04/18 02:15 Tylenol - PO 650 mg Q4H PRN Administration PAIN LEVEL 1 - 3 Cefazolin Sodium 1 gm/ 50 mls @ 100 mls/hr 09/28/18 22:00 10/05/18 21:27 Dextrose IVPB 100 mls/hr Q24H BLAYNE Administration Sodium Chloride 250 mls @ 3,000 mls/hr 10/01/18 16:11 Normal Saline - IV 10/02/18 16:11 PRN PRN Hypotension during Dialysis Pantoprazole Sodium 80 mg/ 100 mls @ 10 mls/hr 10/04/18 09:45 10/06/18 01:44 Sodium Chloride IVPB 10 mls/hr Q10H BLAYNE Administration 8 MG/HR Insulin Aspart 1 vial 09/27/18 16:30 10/06/18 06:55 Novolog Vial Sliding Scale - SQ Not Given ACHS BLAYNE Protocol Impression 1. SHERRON vs progression of CKD 2. sepsis 3. bacteremia 4. DM 5. HTN 6. active smoker 7. dementia 8. a-fib 9. anemia 10. GI bleed 11. hypernatremia Plan - will start fluids - will give hypotonic fluids - can remove shisebastian as it stopped working after about 2 hours of hd - monitor urine output - kidney biopsy once gi bleed and hg are stable, pt is still in the ICU - discussed with ICU team - cont to monitor urine output - will evaluate renal function and need for HD on a daily basis - renal workup is in progress, will follow - HCP Sana, [phone] Conde
[2018-10-06] MEDS ORDERED: DEXTROSE 5%-1/3 NS - 500 ML IV SCH (11:30)
--- NOTE | 2018-10-06 12:07 | PN ---
Teaching Attending Note Name of Resident: Delilah Rao ATTENDING PHYSICIAN STATEMENT I saw and evaluated the patient. I reviewed the resident's note and discussed the case with the resident. I agree with the resident's findings and plan as documented. SUBJECTIVE: Pt seen and examined in the ICU. Transfused 2 units PRBC yesterday with appropriate response. No bleeding overnight. Denies abdominal pain, shortness of breath or chest pain. OBJECTIVE: Vital Signs Period Temp Pulse Resp BP Sys/Ivan Pulse Ox Last 24 Hr 97.4 F-98.4 F 60-76 18- 125-154/52-77 97-100 Intake & Output 10/03/18 10/04/18 10/05/18 10/06/18 23:59 23:59 23:59 23:59 Intake Total 150 893 154 1759 Output Total 1100 1000 2825 1200 Balance -950 -220 -2055 -150 Weight 66.423 kg 66.3 kg 64.7 kg Gen: NAD at rest Heart: RRR Lung: decreased breath sounds at the bases Abd: soft, nontender Ext: no edema CBC, BMP 10/06/18 05:30 10/06/18 05:30 Active Medications Acetaminophen (Tylenol -) 650 mg PO Q4H PRN PRN Reason: PAIN LEVEL 1 - 3 Last Admin: 10/04/18 02:15 Dose: 650 mg Cefazolin Sodium 1 gm/ (Dextrose) 50 mls @ 100 mls/hr IVPB Q24H [facility] Last Admin: 10/05/18 21:27 Dose: 100 mls/hr Sodium Chloride (Normal Saline -) 250 mls @ 3,000 mls/hr IV PRN PRN PRN Reason: Hypotension during Dialysis Stop: 10/02/18 16:11 Pantoprazole Sodium 80 mg/ (Sodium Chloride) 100 mls @ 10 mls/hr IVPB Q10H [facility] Last Admin: 10/06/18 01:44 Dose: 10 mls/hr Dextrose/Sodium Chloride (D5-1/3ns -) 500 mls @ 75 mls/hr IV ASDIR BLAYNE Insulin Aspart (Novolog Vial Sliding Scale -) 1 vial SQ ACHS [facility]; Protocol Last Admin: 10/06/18 11:33 Dose: Not Given ASSESSMENT AND PLAN: GI Bleed Acute Blood Loss Anemia Acute on Chronic Renal Failure requiring HD UTI Gram Negative Bacteremia Severe Sepsis resolving Thrombocytopenia resolved Paroxysmal Atrial Fibrillation HTN DM - monitor H/H - transfuse as needed - protonix - continue antibiotics - HD per renal - monitor urine output, creatinine - glucose control - PO per GI - DVT prophylaxis - can monitor on floor
[2018-10-06 12:52] LABS: BASO % 0.5 % (0-2.0); HEMATOCRIT 26.2 % (32.4-45.2); HEMOGLOBIN 9.5 GM/dL (10.7-15.3); LYMPH % 7.7 % (8-40); MCH 29.6 pg (25.7-33.7); MCHC 36.3 g/dl (32.0-36.0); MEAN CELL VOLUME 81.4 fl (80-96); MEAN PLT VOLUME 8.5 fl (7.5-11.1); MONO % 5.9 % (3.8-10.2); NEUT % 83.9 % (42.8-82.8); PLATELET COUNT 336 K/MM3 (134-434); RBC 3.22 M/mm3 (3.60-5.2); RDW 14.3 % (11.6-15.6); WHITE BLOOD COUNT 13.2 K/mm3 (4.0-10.0)
--- NOTE | 2018-10-06 13:37 | PN ---
Physical Exam: SUBJECTIVE: Patient seen and examined Alert, Ecuadorean speaking. OBJECTIVE: Vital Signs Period Temp Pulse Resp BP Sys/Ivan Pulse Ox Last 24 Hr 97.6 F-98.4 F 60-73 18-23 125-154/52-77 99-100 GENERAL: The patient is awake, alert, AOx2, in no acute distress. HEAD: Normal with no signs of trauma. EYES: PERRLA ENT: moist mucous membranes. NECK: Trachea midline, full range of motion, supple. LUNGS: Breath sounds equal, clear to auscultation bilaterally, no wheezes, no crackles, no accessory muscle use. HEART: Regular rate and rhythm, S1, S2 without murmur, rub or gallop. ABDOMEN: Soft, nontender, nondistended, normoactive bowel sounds, no guarding, no rebound, no hepatosplenomegaly, no masses. EXTREMITIES: 2+ pulses, warm, well-perfused, no edema. NEUROLOGICAL: Cranial nerves II through XII grossly intact. SKIN: Warm, dry, normal turgor, no rashes or lesions noted Laboratory Results - last 24 hr 10/04/18 10/05/18 10/05/18 08:47 16:00 16:05 WBC 12.5 H RBC 2.44 L Hgb 7.1 L Hct 19.7 L D MCV 80.8 MCH 29.0 MCHC 35.9 RDW 14.5 Plt Count 304 MPV 8.1 Absolute Neuts (auto) 10.6 H Total Counted Neutrophils % 84.7 H Neutrophils % (Manual) 78.0 Band Neutrophils % 4.0 Lymphocytes % 7.3 L Lymphocytes % (Manual) 9.0 D Monocytes % 6.3 Monocytes % (Manual) 5 Eosinophils % 1.2 Eosinophils % (Manual) 0.0 Basophils % 0.5 Basophils % (Manual) 0.0 Nucleated RBC % 0 Metamyelocytes 4 H D Hypersegmented Neuts Few Hypochromia Platelet Estimate Adequate Platelet Comment Anisocytosis Sodium Potassium Chloride Carbon Dioxide Anion Gap BUN Creatinine Creat Clearance w eGFR POC Glucometer 121.36128 Random Glucose Calcium Phosphorus Magnesium Total Bilirubin AST ALT Alkaline Phosphatase Total Protein Albumin Blood Type A POSITIVE Antibody Screen Negative Crossmatch See Detail 10/05/18 10/05/18 10/05/18 21:20 21:55 22:10 WBC 10.2 H 11.2 H RBC 2.07 L 2.23 L Hgb 6.1 L* 6.6 L* Hct 16.8 L 18.1 L MCV 81.0 81.0 MCH 29.7 29.7 MCHC 36.7 H 36.6 H RDW 14.8 14.7 Plt Count 278 290 MPV 8.2 8.4 Absolute Neuts (auto) 8.3 H Total Counted 100 Neutrophils % 81.2 Neutrophils % (Manual) 84.0 H Band Neutrophils % 4.0 Lymphocytes % 9.8 D Lymphocytes % (Manual) 7.0 L Monocytes % 6.9 Monocytes % (Manual) 5 Eosinophils % 1.6 Eosinophils % (Manual) Basophils % 0.5 Basophils % (Manual) Nucleated RBC % 0 Metamyelocytes Hypersegmented Neuts Hypochromia 2+ Platelet Estimate Adequate Platelet Comment Giant platelets Anisocytosis 2+ Sodium Potassium Chloride Carbon Dioxide Anion Gap BUN Creatinine Creat Clearance w eGFR POC Glucometer 117.70072 Random Glucose Calcium Phosphorus Magnesium Total Bilirubin AST ALT Alkaline Phosphatase Total Protein Albumin Blood Type Antibody Screen Crossmatch 10/06/18 10/06/18 10/06/18 05:30 05:30 06:54 WBC 13.6 H RBC 3.32 L Hgb 9.4 L Hct 27.6 L D MCV 82.9 MCH 28.2 MCHC 34.0 RDW 14.1 Plt Count 295 MPV 8.2 Absolute Neuts (auto) 11.5 H Total Counted Neutrophils % 84.4 H Neutrophils % (Manual) Band Neutrophils % Lymphocytes % 7.2 L D Lymphocytes % (Manual) Monocytes % 6.3 Monocytes % (Manual) Eosinophils % 1.7 Eosinophils % (Manual) Basophils % 0.4 Basophils % (Manual) Nucleated RBC % 0 Metamyelocytes Hypersegmented Neuts Hypochromia Platelet Estimate Platelet Comment Anisocytosis Sodium 149 H Potassium 4.1 Chloride 112 H Carbon Dioxide 30 Anion Gap 8 BUN 52 H Creatinine 3.0 H Creat Clearance w eGFR 15.17 POC Glucometer 98.27691 Random Glucose 102 Calcium 7.5 L Phosphorus 4.8 Magnesium 1.9 Total Bilirubin 0.7 AST 31 ALT 9 L Alkaline Phosphatase 77 Total Protein 4.9 L Albumin 1.9 L Blood Type Antibody Screen Crossmatch 10/06/18 12:15 WBC 13.2 H RBC 3.22 L Hgb 9.5 L Hct 26.2 L MCV 81.4 MCH 29.6 MCHC 36.3 H RDW 14.3 Plt Count 336 MPV 8.5 Absolute Neuts (auto) 11.1 H Total Counted Neutrophils % 83.9 H Neutrophils % (Manual) Band Neutrophils % Lymphocytes % 7.7 L Lymphocytes % (Manual) Monocytes % 5.9 Monocytes % (Manual) Eosinophils % 2.0 Eosinophils % (Manual) Basophils % 0.5 Basophils % (Manual) Nucleated RBC % 0 Metamyelocytes Hypersegmented Neuts Hypochromia Platelet Estimate Platelet Comment Anisocytosis Sodium Potassium Chloride Carbon Dioxide Anion Gap BUN Creatinine Creat Clearance w eGFR POC Glucometer Random Glucose Calcium Phosphorus Magnesium Total Bilirubin AST ALT Alkaline Phosphatase Total Protein Albumin Blood Type Antibody Screen Crossmatch Active Medications Generic Name Dose Route Start Last Admin Trade Name Freq PRN Reason Stop Dose Admin Acetaminophen 650 mg 10/02/18 03:28 10/04/18 02:15 Tylenol - PO 650 mg Q4H PRN Administration PAIN LEVEL 1 - 3 Cefazolin Sodium 1 gm/ 50 mls @ 100 mls/hr 09/28/18 22:00 10/05/18 21:27 Dextrose IVPB 100 mls/hr Q24H BLAYNE Administration Sodium Chloride 250 mls @ 3,000 mls/hr 10/01/18 16:11 Normal Saline - IV 10/02/18 16:11 PRN PRN Hypotension during Dialysis Pantoprazole Sodium 80 mg/ 100 mls @ 10 mls/hr 10/04/18 09:45 10/06/18 13:17 Sodium Chloride IVPB 10 mls/hr Q10H BLAYNE Administration 8 MG/HR Dextrose/Sodium Chloride 500 mls @ 75 mls/hr 10/06/18 11:30 10/06/18 13:18 D5-1/3ns - IV 75 mls/hr ASDIR BLAYNE Administration Insulin Aspart 1 vial 09/27/18 16:30 10/06/18 11:33 Novolog Vial Sliding Scale - SQ Not Given ACHS [facility] Protocol ASSESSMENT/PLAN: 78yo F with PMH DM, HTN, dementia brought in by daughter for altered mental status with nausea and vomiting found to be acidemic with acute renal failure and uremic encephalopathy. Patient was previously in the ICU, but showed improvement and was transferred. Overnight the patient had dark stools, looked pale and diaphoretic. Morning labs showed Hb 4.7, transferred to ICU and repeat Hb was 4.5. HCP Sana, Heme - Duodenal Ulcer - s/p heat probe and epinephrine therapy (10/05) - trend H/H - 5pRBC - H/H: 9.5/26.2 - Per GI: if H/H continues to be unstable +/- melena may require second endoscopy - protonix gtt Renal - Acute renal failure, pyelonephritis, uremic encephalopathy In setting of ARF, uremia and now with acute GIB consider uremic bleeding. There is suggested evidence of uremia prolonging bleeding time without prolonging PT or PTT. Bleeding time test is no longer run by the laboratory. As of 10/04 platelets are wnl at 277, PTT 28.7, PTw/INR 16.50 and INR 1.39. Hemodialysis will be therapeutic for uremia and bleeding time. Will discuss with Dr. Corcoran for next dialysis. - Shiley to be removed today as it stopped working after 2 hours of HD - Nephrology following Dr. Corcoran, vasculitis and kidney biopsy pending 2/2 GIB - continue monitoring urine output ID - gram negative sepsis- urine source, Ecoli UTI - Per ID: [email or web address] adjusted for renal failure-day #9 of 14 Cardiac - New onset Afib w/ RVR considered to be likely 2/2 to sepsis vs electrolyte derangement Patient now with maintained sinus rhythm after initial conversion. - AC held at this time - Cardiology following - Echo 09/27/18: nlef, trace MR, mild TR, FCDAOV. - Metoprolol 25mg bid if repeat afib with RVR - not a candidate for NOAC or coumadin considering SHERRON and cognition. F/E/N - CLD - hold oral hypoglycemics - will start hypotonic fluids GI ppx: protonix gtt DVT ppx: SCDs, heparin held 2/2 GIB Code status: full code Dispo: Continue ICU monitoring Visit type - Emergency Visit Emergency Visit: No - New Patient This patient is new to me today: No - Critical Care Critical Care patient: No
--- NOTE | 2018-10-06 14:18 | PN ---
Teaching Attending Note Name of Resident: Pb Camargo ATTENDING PHYSICIAN STATEMENT I saw and evaluated the patient. I reviewed the resident's note and discussed the case with the resident. I agree with the resident's findings and plan as documented. SUBJECTIVE:asymptomatic. requesting to eat. denies CP, SOB, fever, chills, N/V/C /D had large melanotic stool last night with drop in Hgb and was transfused 2 units PRBC OBJECTIVE: Last Vital Signs Temp Pulse Resp BP Pulse Ox 98.4 F 65 18 151/63 100 10/06/18 06:00 10/06/18 12:00 10/06/18 12:00 10/06/18 12:00 10/06/18 08:30 General NAD, CV S1 S2 RRR +murmur Lungs CTA B/L no wheezing/rales/rhonchi Abdomen soft NT/ND Extremities no pedal edema ASSESSMENT AND PLAN: 78yo F with PMH DM, HTN, dementia and CKD brought in by daughter for altered mental status with nausea and vomiting. Pt was found to be acidemic with renal failure and started on HD. course complicated by development of melena 1. UGI bleed-s/p EGD 10/05. multiple ulcers with one in the duodenum with adherent clot. would cont NPO, PPI ggt. melena can be due to old blood and may continue to have for some time. may need repeat EGD if Hgb continues to drop requiring transfusions or large melanotic stools. 2. Acute blood loss anemia- due to suspected GI bleed. s/p 5 units PRBC this hospital stay. cont to trend Hgb Q8H. transfusion for Hgb <8. 3. Acute renal failure-s/p HD initiation here on this hospital stay. been tolerating regular HD. will need semi-permanent access prior to d/c and HD set up as outpatient. d/c do 2. Severe sepsis due to pylenopehritis and Ecoli bacteremia- leukocytosis stable. afebrile. BCX NGTD from 09/28. on Cefazolin day 9. will need 14 day course. cont to monitor. ID on board. 4. AGMA- resolved 5. Hyperkalemia- resolved 6. DM- hold oral agents. iss and BGM 7. HTN- currently normotesnive. hold oral antihypertensives 8. DVT ppx- SCD. hold pharmacologic anticoagluation at this time 9. MICU monitoring. full code. PT eval. will likely require HOWARD due to prolonged hospital stay and deconditioning. The care of this patient involved high complexity decision making to prevent further life threatening deterioration of the patient's condition and/or to evaluate & treat vital organ system(s) failure or risk of failure. 42 mins
[2018-10-06 14:25] LABS: ACANTHOCYTES 0; ANISOCYTOSIS 0; HELMET CELLS 0; HOWELL-JOLLY BODIES 0; MACROCYTOSIS 0; OVALOCYTE 0; PLATELET ESTIMATE NORMAL; ROULEAU 0; SICKELED CELLS 0; TARGET CELLS 0; TEAR DROP CELLS 0; TOXIC GRANULATION 0
[2018-10-06 14:42] LABS: ACANTHOCYTES 1+; ANISOCYTOSIS 2+; MACROCYTOSIS 0; PLATELET ESTIMATE NORMAL
--- NOTE | 2018-10-06 17:51 | PN ---
Physical Exam: SUBJECTIVE: Patient seen and examined at bedside. Received 2 U PRBC overnight. Asking for breakfast this am. OBJECTIVE: Vital Signs Period Temp Pulse Resp BP Sys/Ivan Pulse Ox Last 24 Hr 97.6 F-98.4 F 63-73 18-23 131-158/54-83 99-100 GENERAL: NAD Awak and Alert HEAD: NC/AT EYES: EOMI No scleral icterus Conjunctive clear ENT: MMM NECK: Trachea midline, full range of motion, supple. LUNGS:CTA B/L no wheezing rhonchi or rales HEART: RRR No MRG S1S2 ABDOMEN: NDNT No HSM EXTREMITIES: No CCE. NEUROLOGICAL: No neuro deficits appreciated PSYCH: Normal mood, normal affect. SKIN: No rashes or lesions appreciated Laboratory Results - last 24 hr 10/04/18 10/05/18 10/05/18 08:47 16:00 16:05 WBC RBC Hgb Hct MCV MCH MCHC RDW Plt Count MPV Absolute Neuts (auto) Total Counted Neutrophils % Neutrophils % (Manual) 78.0 Band Neutrophils % 4.0 Lymphocytes % Lymphocytes % (Manual) 9.0 D Monocytes % Monocytes % (Manual) 5 Eosinophils % Eosinophils % (Manual) 0.0 Basophils % Basophils % (Manual) 0.0 Myelocytes % (Man) Promyelocytes % (Man) Blast Cells % (Manual) Nucleated RBC % Metamyelocytes 4 H D Hypersegmented Neuts Few Hypochromia Toxic Granulation Dohle Bodies Platelet Estimate Adequate Platelet Comment Polychromasia Poikilocytosis Basophilic Stippling Anisocytosis Microcytosis Macrocytosis Spherocytes Sickle Cells Target Cells Tear Drop Cells Ovalocytes Stomatocytes Helmet Cells [place] Bodies [place] Rings Sofia Cells Acanthocytes (Spur) Rouleaux Fragmented RBCs Schistocytes Sodium Potassium Chloride Carbon Dioxide Anion Gap BUN Creatinine Creat Clearance w eGFR POC Glucometer 121.65028 Random Glucose Calcium Phosphorus Magnesium Total Bilirubin AST ALT Alkaline Phosphatase Total Protein Albumin Blood Type A POSITIVE Antibody Screen Negative Crossmatch See Detail 10/05/18 10/05/18 10/05/18 21:20 21:55 22:10 WBC 10.2 H 11.2 H RBC 2.07 L 2.23 L Hgb 6.1 L* 6.6 L* Hct 16.8 L 18.1 L MCV 81.0 81.0 MCH 29.7 29.7 MCHC 36.7 H 36.6 H RDW 14.8 14.7 Plt Count 278 290 MPV 8.2 8.4 Absolute Neuts (auto) 8.3 H Total Counted 100 Neutrophils % 81.2 Neutrophils % (Manual) 84.0 H Band Neutrophils % 4.0 Lymphocytes % 9.8 D Lymphocytes % (Manual) 7.0 L Monocytes % 6.9 Monocytes % (Manual) 5 Eosinophils % 1.6 Eosinophils % (Manual) Basophils % 0.5 Basophils % (Manual) Myelocytes % (Man) Promyelocytes % (Man) Blast Cells % (Manual) Nucleated RBC % 0 Metamyelocytes Hypersegmented Neuts Hypochromia 2+ Toxic Granulation Dohle Bodies Platelet Estimate Adequate Platelet Comment Giant platelets Polychromasia Poikilocytosis Basophilic Stippling Anisocytosis 2+ Microcytosis Macrocytosis Spherocytes Sickle Cells Target Cells Tear Drop Cells Ovalocytes Stomatocytes Helmet Cells [place] Bodies [place] Rings [place] Cells Acanthocytes (Spur) Rouleaux Fragmented RBCs Schistocytes Sodium Potassium Chloride Carbon Dioxide Anion Gap BUN Creatinine Creat Clearance w eGFR POC Glucometer 117.61200 Random Glucose Calcium Phosphorus Magnesium Total Bilirubin AST ALT Alkaline Phosphatase Total Protein Albumin Blood Type Antibody Screen Crossmatch 10/06/18 10/06/18 10/06/18 05:30 05:30 06:54 WBC 13.6 H RBC 3.32 L Hgb 9.4 L Hct 27.6 L D MCV 82.9 MCH 28.2 MCHC 34.0 RDW 14.1 Plt Count 295 MPV 8.2 Absolute Neuts (auto) 11.5 H Total Counted Neutrophils % 84.4 H Neutrophils % (Manual) 79.2 Band Neutrophils % 0.0 Lymphocytes % 7.2 L D Lymphocytes % (Manual) 6.9 L D Monocytes % 6.3 Monocytes % (Manual) 8 Eosinophils % 1.7 Eosinophils % (Manual) 1.0 D Basophils % 0.4 Basophils % (Manual) 0.0 Myelocytes % (Man) 2 D Promyelocytes % (Man) 0 Blast Cells % (Manual) 0 Nucleated RBC % 0 Metamyelocytes 1 D Hypersegmented Neuts Hypochromia 0 Toxic Granulation 0 Dohle Bodies 0 Platelet Estimate Normal Platelet Comment Polychromasia 0 Poikilocytosis 0 Basophilic Stippling 0 Anisocytosis 0 Microcytosis 0 Macrocytosis 0 Spherocytes 0 Sickle Cells 0 Target Cells 0 Tear Drop Cells 0 Ovalocytes 0 Stomatocytes 0 Helmet Cells 0 [place] Bodies 0 [place] Rings 0 Sofia Cells 0 Acanthocytes (Spur) 0 Rouleaux 0 Fragmented RBCs 0 Schistocytes 0 Sodium 149 H Potassium 4.1 Chloride 112 H Carbon Dioxide 30 Anion Gap 8 BUN 52 H Creatinine 3.0 H Creat Clearance w eGFR 15.17 POC Glucometer 98.95163 Random Glucose 102 Calcium 7.5 L Phosphorus 4.8 Magnesium 1.9 Total Bilirubin 0.7 AST 31 ALT 9 L Alkaline Phosphatase 77 Total Protein 4.9 L Albumin 1.9 L Blood Type Antibody Screen Crossmatch 10/06/18 12:15 WBC 13.2 H RBC 3.22 L Hgb 9.5 L Hct 26.2 L MCV 81.4 MCH 29.6 MCHC 36.3 H RDW 14.3 Plt Count 336 MPV 8.5 Absolute Neuts (auto) 11.1 H Total Counted Neutrophils % 83.9 H Neutrophils % (Manual) 82.2 Band Neutrophils % 5.9 Lymphocytes % 7.7 L Lymphocytes % (Manual) 2.0 L D Monocytes % 5.9 Monocytes % (Manual) 6 Eosinophils % 2.0 Eosinophils % (Manual) 3.0 D Basophils % 0.5 Basophils % (Manual) 0.0 Myelocytes % (Man) 0 D Promyelocytes % (Man) 0 Blast Cells % (Manual) 0 Nucleated RBC % 0 Metamyelocytes 0 D Hypersegmented Neuts Hypochromia 0 Toxic Granulation Dohle Bodies Platelet Estimate Normal Platelet Comment Polychromasia 0 Poikilocytosis 2+ Basophilic Stippling 1+ Anisocytosis 2+ Microcytosis 2+ Macrocytosis 0 Spherocytes 1+ Sickle Cells Target Cells Tear Drop Cells Ovalocytes Stomatocytes Helmet Cells [place] Bodies [place] Rings [place] Cells 2+ Acanthocytes (Spur) 1+ Rouleaux Fragmented RBCs Schistocytes Sodium Potassium Chloride Carbon Dioxide Anion Gap BUN Creatinine Creat Clearance w eGFR POC Glucometer Random Glucose Calcium Phosphorus Magnesium Total Bilirubin AST ALT Alkaline Phosphatase Total Protein Albumin Blood Type Antibody Screen Crossmatch Active Medications Generic Name Dose Route Start Last Admin Trade Name Freq PRN Reason Stop Dose Admin Acetaminophen 650 mg 10/02/18 03:10/04/18 02:15 Tylenol - PO 650 mg Q4H PRN Administration PAIN LEVEL 1 - 3 Cefazolin Sodium 1 gm/ 50 mls @ 100 mls/hr 09/28/18 22:00 10/05/18 21:27 Dextrose IVPB 100 mls/hr Q24H BLAYNE Administration Sodium Chloride 250 mls @ 3,000 mls/hr 10/01/18 16:11 Normal Saline - IV 10/02/18 16:11 PRN PRN Hypotension during Dialysis Pantoprazole Sodium 80 mg/ 100 mls @ 10 mls/hr 10/04/18 09:45 10/06/18 13:17 Sodium Chloride IVPB 10 mls/hr Q10H BLAYNE Administration 8 MG/HR Dextrose/Sodium Chloride 500 mls @ 75 mls/hr 10/06/18 11:30 10/06/18 13:18 D5-1/3ns - IV 75 mls/hr ASDIR BLAYNE Administration Insulin Aspart 1 vial 09/27/18 16:30 10/06/18 17:45 Novolog Vial Sliding Scale - SQ 2 units ACHS BLAYNE Administration Protocol ASSESSMENT/PLAN: Pt is a 78 y/o lady with a significant past medical history of DM, HTN, CKD, and dementia. Pt presented to [facility] ED this AM with daughter c/o weakness, nausea /vomiting and AMS. #G.I Bleed 2/2 Ulcer Duodenal bulb -Gastroenterology on board, EGD tomorrow - HGB 6.6 yesterday evening. Received 2 U PRBC overnight. HGB now 9.5. - Protonix drip - EGD yesterday with Dr Baum. Findings: SINGLE BLEEDING DEEP ULCER 1.5MM W. AN ADHERENT CLOT AND ACTIVE OOZING W/ BLOOD FOUND IN DUODENAL BULB. SUBMUCOSAL INJECTION OF 4 ML EPINEPHRINE PERFORMED AROUND BLEEDING SITE. MONOPOLAR CAUTERY W/ 75 FR HEATER PROBE APPLIED O SITE. Multiple small erosions found in gastric antrum. #Sepsis 2/2 Pyelonephritis -WBC 13.2 today 10/06/18 -Troponin negative - CTAP--> Significant inflammatory changes in retroperitoneum appear to originate from kidneys compatible with significant b/l renal infection. - Nephrology on Board - Renal Bladder Ultrasound--> MORPHOLOGICALLY NORMAL KIDNEYS WITH NO EVIDENCE OF HYDRONEPHROSIS OR ACUTE PATHOLOGY - I.D on board--> Cefazolin 1 GM Q24H day 9 # SHERRON, Oliguria, Hyperkalemia -Potassium WNL -HD daily per renal -Possible kidney biopsy -Monitor urine output #UTI: -Leukocyte Esterase 3+ - Urine/Blood cultures--> Lactose Fermenting Gram Neg Bacilli - I.D on board - Cefazolin day 9--> 1 GM Q24H #Atrial Fibrillation W/ RVR? - Metoprolol 25 MG PO BID -Echo --> EF 60-65%. #FEN D1/3 NS@75cc/hr hypotonic fluids in light of Hypernatremia Monitor electrolytes Clear Liquid DVT ppx: SCD's Dispo: Transfer to Med-Surg Visit type - Emergency Visit Emergency Visit: Yes ED Registration Date: 09/26/18 Care time: The patient presented to the Emergency Department on the above date and was hospitalized for further evaluation of their emergent condition. - New Patient This patient is new to me today: No - Critical Care Critical Care patient: Yes Total Critical Care Time (in minutes): 35 Critical Care Statement: The care of this patient involved high complexity decision making to prevent further life threatening deterioration of the patient 's condition and/or to evaluate & treat vital organ system(s) failure or risk of failure. - Discharge Referral Referred to [facility] Med [facility] No
[2018-10-06 21:46] LABS: BASO % 0.4 % (0-2.0); EOS % 2.1 % (0-4.5); HEMATOCRIT 26.1 % (32.4-45.2); HEMOGLOBIN 9.3 GM/dL (10.7-15.3); LYMPH % 7.8 % (8-40); MCH 29.2 pg (25.7-33.7); MCHC 35.6 g/dl (32.0-36.0); MEAN CELL VOLUME 82.2 fl (80-96); MEAN PLT VOLUME 8.5 fl (7.5-11.1); MONO % 6.4 % (3.8-10.2); NEUT % 83.3 % (42.8-82.8); PLATELET COUNT 349 K/MM3 (134-434); RBC 3.17 M/mm3 (3.60-5.2); RDW 14.8 % (11.6-15.6); WHITE BLOOD COUNT 14.9 K/mm3 (4.0-10.0)
[2018-10-06] MEDS ORDERED: DEXTROSE 5%-WATER - 50 ML IVPB ONE (22:12)
[2018-10-06] MEDS ORDERED: ceFAZolin SODIUM 1 GM VIAL ONE (22:12)
[2018-10-06] MEDS: CEFAZOLIN 1 GM in DEXTROSE 5%-WATER - 50 ML IVPB SCH (22:14)
[2018-10-06 23:34] LABS: PLATELET ESTIMATE ADEQUATE
[2018-10-07] MEDS ORDERED: ACETAMINOPHEN 325 MG TABLET (FP) PO PRN (01:42)
[2018-10-07] MEDS ORDERED: SODIUM CHLORIDE 250 ML IV PRN (01:42)
[2018-10-07] MEDS: DEXTROSE 5%-1/3 NS - 500 ML IV SCH ×2 (01:56→15:48)
[2018-10-07] MEDS: PANTOPRAZOLE SODIUM 80 MG in SODIUM CHLORIDE 100 ML IVPB SCH ×5 (06:16→18:14)
[2018-10-07] MEDS: INSULIN SLIDING SCALE (NOVOLOG) 1 VIAL SQ SCH ×4 (06:18→22:13)
[2018-10-07 08:34] LABS: BASO % 0.7 % (0-2.0); HEMATOCRIT 31.2 % (32.4-45.2); HEMOGLOBIN 10.4 GM/dL (10.7-15.3); LYMPH % 7.2 % (8-40); MCH 27.9 pg (25.7-33.7); MCHC 33.2 g/dl (32.0-36.0); MEAN PLT VOLUME 8.3 fl (7.5-11.1); MONO % 5.2 % (3.8-10.2); NEUT % 84.9 % (42.8-82.8); PLATELET COUNT 358 K/MM3 (134-434); RBC 3.71 M/mm3 (3.60-5.2); RDW 14.8 % (11.6-15.6); WHITE BLOOD COUNT 19.9 K/mm3 (4.0-10.0)
[2018-10-07 09:09] LABS: ALBUMIN 2.2 g/dl (3.4-5.0); ALK PHOS 95 U/L (45-117); ANION GAP 10 MMOL/L (8-16); BILIRUBIN,TOTAL 0.3 mg/dL (0.2-1); BLOOD UREA NITROGEN 40 mg/dL (7-18); CALCIUM 7.9 mg/dL (8.5-10.1); CHLORIDE 108 mmol/L (98-107); CO2 27 mmol/L (21-32); CREATININE 2.9 mg/dL (0.55-1.3); GLUCOSE,RANDOM 126 mg/dL (74-106); MAGNESIUM 1.6 mg/dL (1.8-2.4); PHOSPHOROUS 3.6 mg/dL (2.5-4.9); POTASSIUM 3.5 mmol/L (3.5-5.1); SGOT/AST 22 U/L (15-37); SGPT/ALT 9 U/L (13-61); SODIUM 145 mmol/L (136-145); TOT PROT 5.8 g/dl (6.4-8.2)
[2018-10-07 11:07] LABS: ACANTHOCYTES 0; HELMET CELLS 0; HOWELL-JOLLY BODIES 0; OVALOCYTE 0; PLATELET ESTIMATE NORMAL; ROULEAU 0; SICKELED CELLS 0; TARGET CELLS 0; TEAR DROP CELLS 0; TOXIC GRANULATION 0
[2018-10-07 11:43] LABS: ANISOCYTOSIS 1+; MACROCYTOSIS 1+
--- NOTE | 2018-10-07 11:53 | PN ---
Progress Note (short form) - Note Progress Note: Stable overnight. H&H stable from yesterday. No occult bleeding. No CP or SOB. OBJECTIVE: Intake & Output 10/04/18 10/05/18 10/06/18 10/07/18 23:59 23:59 23:59 23:59 Intake Total 136 857 7711 400 Output Total 1000 2825 2300 Balance -220 -2055 -628 400 Weight 146 lb 2.664 oz 142 lb 10.225 oz Last Vital Signs Temp Pulse Resp BP Pulse Ox 98.1 F 63 18 141/72 100 10/07/18 06:00 10/07/18 06:00 10/07/18 06:00 10/07/18 06:00 10/06/18 21:22 Active Medications Acetaminophen (Tylenol -) 650 mg PO Q4H PRN PRN Reason: PAIN LEVEL 1 - 3 Sodium Chloride (Normal Saline -) 250 mls @ 3,000 mls/hr IV PRN PRN PRN Reason: Hypotension during Dialysis Cefazolin Sodium 1 gm/ (Dextrose) 50 mls @ 100 mls/hr IVPB Q24H [facility] Dextrose/Sodium Chloride (D5-1/3ns -) 500 mls @ 75 mls/hr IV ASDIR [facility] Last Admin: 10/07/18 01:56 Dose: Not Given Pantoprazole Sodium 80 mg/ (Sodium Chloride) 100 mls @ 10 mls/hr IVPB Q10H [facility] Last Admin: 10/07/18 06:18 Dose: 10 mls/hr Insulin Aspart (Novolog Vial Sliding Scale -) 1 vial SQ ACHS [facility]; Protocol Last Admin: 10/07/18 06:18 Dose: Not Given Gen: NAD at rest Heart: RRR Lung: Clear Abd: soft, nontender Ext: no edema Laboratory Results - last 24 hr 10/06/18 10/06/18 10/06/18 05:30 11:31 12:15 WBC 13.2 H RBC 3.22 L Hgb 9.5 L Hct 26.2 L MCV 81.4 MCH 29.6 MCHC 36.3 H RDW 14.3 Plt Count 336 MPV 8.5 Absolute Neuts (auto) 11.1 H Total Counted Neutrophils % 83.9 H Neutrophils % (Manual) 79.2 82.2 Band Neutrophils % 0.0 5.9 Lymphocytes % 7.7 L Lymphocytes % (Manual) 6.9 L D 2.0 L D Monocytes % 5.9 Monocytes % (Manual) 8 6 Eosinophils % 2.0 Eosinophils % (Manual) 1.0 D 3.0 D Basophils % 0.5 Basophils % (Manual) 0.0 0.0 Myelocytes % (Man) 2 D 0 D Promyelocytes % (Man) 0 0 Blast Cells % (Manual) 0 0 Nucleated RBC % 0 Metamyelocytes 1 D 0 D Plasma Cells Hypochromia 0 0 Toxic Granulation 0 Dohle Bodies 0 Platelet Estimate Normal Normal Platelet Comment Polychromasia 0 0 Poikilocytosis 0 2+ Basophilic Stippling 0 1+ Anisocytosis 0 2+ Microcytosis 0 2+ Macrocytosis 0 0 Spherocytes 0 1+ Sickle Cells 0 Target Cells 0 Tear Drop Cells 0 Ovalocytes 0 Stomatocytes 0 Helmet Cells 0 [place] Bodies 0 [place] Rings 0 [place] Cells 0 2+ Acanthocytes (Spur) 0 1+ Rouleaux 0 Fragmented RBCs 0 Schistocytes 0 Sodium Potassium Chloride Carbon Dioxide Anion Gap BUN Creatinine Creat Clearance w eGFR POC Glucometer 120.11294 Random Glucose Calcium Phosphorus Magnesium Total Bilirubin AST ALT Alkaline Phosphatase Total Protein Albumin 10/06/18 10/06/18 10/06/18 17:40 21:00 22:22 WBC 14.9 H RBC 3.17 L Hgb 9.3 L Hct 26.1 L MCV 82.2 MCH 29.2 MCHC 35.6 RDW 14.8 Plt Count 349 MPV 8.5 Absolute Neuts (auto) 12.4 H Total Counted 100 Neutrophils % 83.3 H Neutrophils % (Manual) 83.0 H Band Neutrophils % 2.0 Lymphocytes % 7.8 L Lymphocytes % (Manual) 8.0 D Monocytes % 6.4 Monocytes % (Manual) 7 Eosinophils % 2.1 Eosinophils % (Manual) Basophils % 0.4 Basophils % (Manual) Myelocytes % (Man) Promyelocytes % (Man) Blast Cells % (Manual) Nucleated RBC % 1 H Metamyelocytes Plasma Cells Hypochromia 1+ Toxic Granulation Dohle Bodies Platelet Estimate Adequate Platelet Comment No clumping noted Polychromasia 1+ Poikilocytosis Basophilic Stippling Anisocytosis Microcytosis 1+ Macrocytosis Spherocytes Sickle Cells Target Cells Tear Drop Cells Ovalocytes Stomatocytes Helmet Cells [place] Bodies [place] Rings Sofia Cells Acanthocytes (Spur) Rouleaux Fragmented RBCs Schistocytes Sodium Potassium Chloride Carbon Dioxide Anion Gap BUN Creatinine Creat Clearance w eGFR POC Glucometer 172.94007 121.71211 Random Glucose Calcium Phosphorus Magnesium Total Bilirubin AST ALT Alkaline Phosphatase Total Protein Albumin 10/07/18 10/07/18 10/07/18 06:11 07:00 07:00 WBC 19.9 H RBC 3.71 Hgb 10.4 L Hct 31.2 L D MCV 84.0 MCH 27.9 MCHC 33.2 RDW 14.8 Plt Count 358 MPV 8.3 Absolute Neuts (auto) 16.9 H Total Counted Neutrophils % 84.9 H Neutrophils % (Manual) 89.1 H Band Neutrophils % 0.0 Lymphocytes % 7.2 L Lymphocytes % (Manual) 3.9 L D Monocytes % 5.2 Monocytes % (Manual) 3 L Eosinophils % 2.0 Eosinophils % (Manual) 3.0 Basophils % 0.7 Basophils % (Manual) 0.0 Myelocytes % (Man) 0 Promyelocytes % (Man) 0 Blast Cells % (Manual) 0 Nucleated RBC % 0 Metamyelocytes 0 Plasma Cells 0 Hypochromia 0 Toxic Granulation 0 Dohle Bodies 0 Platelet Estimate Normal Platelet Comment Polychromasia 0 Poikilocytosis 0 Basophilic Stippling 0 Anisocytosis 1+ Microcytosis 0 Macrocytosis 1+ Spherocytes 0 Sickle Cells 0 Target Cells 0 Tear Drop Cells 0 Ovalocytes 0 Stomatocytes 0 Helmet Cells 0 [place] Bodies 0 [place] Rings 0 [place]ia Cells 0 Acanthocytes (Spur) 0 Rouleaux 0 Fragmented RBCs 0 Schistocytes 0 Sodium 145 Potassium 3.5 Chloride 108 H Carbon Dioxide 27 Anion Gap 10 BUN 40 H Creatinine 2.9 H Creat Clearance w eGFR 15.78 POC Glucometer 155 Random Glucose 126 H Calcium 7.9 L Phosphorus 3.6 Magnesium 1.6 L Total Bilirubin 0.3 AST 22 ALT 9 L Alkaline Phosphatase 95 Total Protein 5.8 L Albumin 2.2 L ASSESSMENT AND PLAN: GI Bleed Acute Blood Loss Anemia Acute on Chronic Renal Failure requiring HD UTI Gram Negative Bacteremia Severe Sepsis resolving Thrombocytopenia resolved Paroxysmal Atrial Fibrillation HTN DM - Normal transfusion thresholds - protonix - ABX - HD per renal - glucose control - PO per GI - VTE prophylaxis Dr Nova
--- NOTE | 2018-10-07 13:47 | PN ---
Physical Exam: SUBJECTIVE: Patient seen and examined at bedside. Resting comfortably. Reported loose melena yesterday evening. No acute events today. OBJECTIVE: Vital Signs Period Temp Pulse Resp BP Sys/Ivan Pulse Ox Last 24 Hr 97.5 F-98.1 F 61-68 18-22 125-158/54-83 100-100 GENERAL: Awake Alert NAD HEAD: NC/AT EYES: EOMI No scleral icterus Conjunctive clear ENT: MMM NECK: No JVD, Supple LUNGS:Clear to auscultation B/l HEART: RRR No MRG S1S2 ABDOMEN: NDNT No HSM EXTREMITIES: No CCE. NEUROLOGICAL: No neuro def appreciated SKIN: No rashes or lesions appreciated Laboratory Results - last 24 hr 10/04/18 10/06/18 10/06/18 08:47 05:30 11:31 WBC RBC Hgb Hct MCV MCH MCHC RDW Plt Count MPV Absolute Neuts (auto) Total Counted Neutrophils % Neutrophils % (Manual) 79.2 Band Neutrophils % 0.0 Lymphocytes % Lymphocytes % (Manual) 6.9 L D Monocytes % Monocytes % (Manual) 8 Eosinophils % Eosinophils % (Manual) 1.0 D Basophils % Basophils % (Manual) 0.0 Myelocytes % (Man) 2 D Promyelocytes % (Man) 0 Blast Cells % (Manual) 0 Nucleated RBC % Metamyelocytes 1 D Plasma Cells Hypochromia 0 Toxic Granulation 0 Dohle Bodies 0 Platelet Estimate Normal Platelet Comment Polychromasia 0 Poikilocytosis 0 Basophilic Stippling 0 Anisocytosis 0 Microcytosis 0 Macrocytosis 0 Spherocytes 0 Sickle Cells 0 Target Cells 0 Tear Drop Cells 0 Ovalocytes 0 Stomatocytes 0 Helmet Cells 0 [place] Bodies 0 [place] Rings 0 [place] Cells 0 Acanthocytes (Spur) 0 Rouleaux 0 Fragmented RBCs 0 Schistocytes 0 Sodium Potassium Chloride Carbon Dioxide Anion Gap BUN Creatinine Creat Clearance w eGFR POC Glucometer 120.17045 Random Glucose Calcium Phosphorus Magnesium Total Bilirubin AST ALT Alkaline Phosphatase Total Protein Albumin Blood Type A POSITIVE Antibody Screen Negative Crossmatch See Detail 10/06/18 10/06/18 10/06/18 12:15 17:40 21:00 WBC 14.9 H RBC 3.17 L Hgb 9.3 L Hct 26.1 L MCV 82.2 MCH 29.2 MCHC 35.6 RDW 14.8 Plt Count 349 MPV 8.5 Absolute Neuts (auto) 12.4 H Total Counted 100 Neutrophils % 83.3 H Neutrophils % (Manual) 82.2 83.0 H Band Neutrophils % 5.9 2.0 Lymphocytes % 7.8 L Lymphocytes % (Manual) 2.0 L D 8.0 D Monocytes % 6.4 Monocytes % (Manual) 6 7 Eosinophils % 2.1 Eosinophils % (Manual) 3.0 D Basophils % 0.4 Basophils % (Manual) 0.0 Myelocytes % (Man) 0 D Promyelocytes % (Man) 0 Blast Cells % (Manual) 0 Nucleated RBC % 1 H Metamyelocytes 0 D Plasma Cells Hypochromia 0 1+ Toxic Granulation Dohle Bodies Platelet Estimate Normal Adequate Platelet Comment No clumping noted Polychromasia 0 1+ Poikilocytosis 2+ Basophilic Stippling 1+ Anisocytosis 2+ Microcytosis 2+ 1+ Macrocytosis 0 Spherocytes 1+ Sickle Cells Target Cells Tear Drop Cells Ovalocytes Stomatocytes Helmet Cells [place] Bodies [place] Rings Sofia Cells 2+ Acanthocytes (Spur) 1+ Rouleaux Fragmented RBCs Schistocytes Sodium Potassium Chloride Carbon Dioxide Anion Gap BUN Creatinine Creat Clearance w eGFR POC Glucometer 172.57305 Random Glucose Calcium Phosphorus Magnesium Total Bilirubin AST ALT Alkaline Phosphatase Total Protein Albumin Blood Type Antibody Screen Crossmatch 10/06/18 10/07/18 10/07/18 22:22 06:11 07:00 WBC RBC Hgb Hct MCV MCH MCHC RDW Plt Count MPV Absolute Neuts (auto) Total Counted Neutrophils % Neutrophils % (Manual) Band Neutrophils % Lymphocytes % Lymphocytes % (Manual) Monocytes % Monocytes % (Manual) Eosinophils % Eosinophils % (Manual) Basophils % Basophils % (Manual) Myelocytes % (Man) Promyelocytes % (Man) Blast Cells % (Manual) Nucleated RBC % Metamyelocytes Plasma Cells Hypochromia Toxic Granulation Dohle Bodies Platelet Estimate Platelet Comment Polychromasia Poikilocytosis Basophilic Stippling Anisocytosis Microcytosis Macrocytosis Spherocytes Sickle Cells Target Cells Tear Drop Cells Ovalocytes Stomatocytes Helmet Cells [place] Bodies [place] Rings Sofia Cells Acanthocytes (Spur) Rouleaux Fragmented RBCs Schistocytes Sodium 145 Potassium 3.5 Chloride 108 H Carbon Dioxide 27 Anion Gap 10 BUN 40 H Creatinine 2.9 H Creat Clearance w eGFR 15.78 POC Glucometer 121.37646 155 Random Glucose 126 H Calcium 7.9 L Phosphorus 3.6 Magnesium 1.6 L Total Bilirubin 0.3 AST 22 ALT 9 L Alkaline Phosphatase 95 Total Protein 5.8 L Albumin 2.2 L Blood Type Antibody Screen Crossmatch 10/07/18 10/07/18 07:00 11:57 WBC 19.9 H RBC 3.71 Hgb 10.4 L Hct 31.2 L D MCV 84.0 MCH 27.9 MCHC 33.2 RDW 14.8 Plt Count 358 MPV 8.3 Absolute Neuts (auto) 16.9 H Total Counted Neutrophils % 84.9 H Neutrophils % (Manual) 89.1 H Band Neutrophils % 0.0 Lymphocytes % 7.2 L Lymphocytes % (Manual) 3.9 L D Monocytes % 5.2 Monocytes % (Manual) 3 L Eosinophils % 2.0 Eosinophils % (Manual) 3.0 Basophils % 0.7 Basophils % (Manual) 0.0 Myelocytes % (Man) 0 Promyelocytes % (Man) 0 Blast Cells % (Manual) 0 Nucleated RBC % 0 Metamyelocytes 0 Plasma Cells 0 Hypochromia 0 Toxic Granulation 0 Dohle Bodies 0 Platelet Estimate Normal Platelet Comment Polychromasia 0 Poikilocytosis 0 Basophilic Stippling 0 Anisocytosis 1+ Microcytosis 0 Macrocytosis 1+ Spherocytes 0 Sickle Cells 0 Target Cells 0 Tear Drop Cells 0 Ovalocytes 0 Stomatocytes 0 Helmet Cells 0 [place] Bodies 0 [place] Rings 0 [place] Cells 0 Acanthocytes (Spur) 0 Rouleaux 0 Fragmented RBCs 0 Schistocytes 0 Sodium Potassium Chloride Carbon Dioxide Anion Gap BUN Creatinine Creat Clearance w eGFR POC Glucometer 132 Random Glucose Calcium Phosphorus Magnesium Total Bilirubin AST ALT Alkaline Phosphatase Total Protein Albumin Blood Type Antibody Screen Crossmatch Active Medications Generic Name Dose Route Start Last Admin Trade Name Freq PRN Reason Stop Dose Admin Acetaminophen 650 mg 10/07/18 01:42 Tylenol - PO Q4H PRN PAIN LEVEL 1 - 3 Sodium Chloride 250 mls @ 3,000 mls/hr 10/07/18 01:42 Normal Saline - IV PRN PRN Hypotension during Dialysis Cefazolin Sodium 1 gm/ 50 mls @ 100 mls/hr 10/07/18 22:00 Dextrose IVPB Q24H [facility] Dextrose/Sodium Chloride 500 mls @ 75 mls/hr 10/07/18 01:42 10/07/18 01:56 D5-1/3ns - IV Not Given ASDIR [facility] Pantoprazole Sodium 80 mg/ 100 mls @ 10 mls/hr 10/07/18 03:00 10/07/18 06:18 Sodium Chloride IVPB 10 mls/hr Q10H [facility] Administration 8 MG/HR Insulin Aspart 1 vial 10/07/18 07:00 10/07/18 11:58 Novolog Vial Sliding Scale - SQ Not Given ACHS [facility] Protocol ASSESSMENT/PLAN: Pt is a 78 y/o lady with a significant past medical history of DM, HTN, CKD, and dementia. Pt presented to [facility] ED this AM with daughter c/o weakness, nausea /vomiting and AMS. #G.I Bleed 2/2 Ulcer Duodenal bulb -Gastroenterology on board -HGB today 10/07/18---> 10.4 - Protonix drip - EGD with Dr Baum. Findings: SINGLE BLEEDING DEEP ULCER 1.5MM W. AN ADHERENT CLOT AND ACTIVE OOZING W/ BLOOD FOUND IN DUODENAL BULB. SUBMUCOSAL INJECTION OF 4 ML EPINEPHRINE PERFORMED AROUND BLEEDING SITE. MONOPOLAR CAUTERY W/ 75 FR HEATER PROBE APPLIED O SITE. Multiple small erosions found in gastric antrum. #Sepsis 2/2 Pyelonephritis -WBC 19.9 today 10/07/18. Urine and Blood Cx ordered. -Troponin negative - CTAP--> Significant inflammatory changes in retroperitoneum appear to originate from kidneys compatible with significant b/l renal infection. - Nephrology on Board - Renal Bladder Ultrasound--> MORPHOLOGICALLY NORMAL KIDNEYS WITH NO EVIDENCE OF HYDRONEPHROSIS OR ACUTE PATHOLOGY - I.D on board--> Cefazolin 1 GM Q24H day 10. Spoke with Dr Romo. Will switch to Keflex 500 PO BID as outpatient to complete 14 days # SHERRON, Oliguria, Hyperkalemia -Potassium WNL -HD daily per renal -Possible kidney biopsy -Monitor urine output #UTI: -Leukocyte Esterase 3+ - Urine/Blood cultures--> Lactose Fermenting Gram Neg Bacilli - I.D on board - Cefazolin day 10--> 1 GM Q24H. #Atrial Fibrillation W/ RVR? - Metoprolol 25 MG PO BID -Echo --> EF 60-65%. #FEN D1/3 NS@75cc/hr hypotonic fluids in light of Hypernatremia Monitor electrolytes Clear Liquid DVT ppx: SCD's Dispo: Med-Surg Visit type - Emergency Visit Emergency Visit: Yes ED Registration Date: 09/26/18 Care time: The patient presented to the Emergency Department on the above date and was hospitalized for further evaluation of their emergent condition. - New Patient This patient is new to me today: No - Critical Care Critical Care patient: No - Discharge Referral Referred to [facility] Med P.C.: No
--- NOTE | 2018-10-07 14:49 | PN ---
Teaching Attending Note Name of Resident: Pb Camargo ATTENDING PHYSICIAN STATEMENT I saw and evaluated the patient. I reviewed the resident's note and discussed the case with the resident. I agree with the resident's findings and plan as documented. SUBJECTIVE: asymptomatic. denies CP, SOB, fever, chillsm, N/V/C/D episode of melena overnight OBJECTIVE: Last Vital Signs Temp Pulse Resp BP Pulse Ox 98.1 F 63 18 141/72 100 10/07/18 06:00 10/07/18 06:00 10/07/18 06:00 10/07/18 06:00 10/06/18 21:22 General NAD, CV S1 S2 RRR +murmur Lungs CTA B/L no wheezing/rales/rhonchi Abdomen soft NT/ND Extremities no pedal edema ASSESSMENT AND PLAN: 78yo F with PMH DM, HTN, dementia and CKD brought in by daughter for altered mental status with nausea and vomiting. Pt was found to be acidemic with renal failure and started on HD. course complicated by development of melena 1. UGI bleed-s/p EGD 10/05. multiple ulcers with one in the duodenum with adherent clot. diet advance to clears by GI, appears to be tolerating. cont PPI ggt for 72H. melena overnight is likely old blood, low suspicion for acute bleeding as hemodynamically stable with Hgb improving, GI on board 2. Acute blood loss anemia- due to suspected GI bleed. s/p 5 units PRBC this hospital stay. Hgb improved. transfusion for Hgb <8. 3. Acute renal failure-s/p HD initiation here on this hospital stay. been tolerating regular HD. will need semi-permanent access prior to d/c and HD set up as outpatient. 2. Severe sepsis due to pylenopehritis and Ecoli bacteremia- leukocytosis trending up. afebrile. will repeat Bcx and Ucx. if continues to trend uo may need to consider movng HD access. cont Cefazolin day 10. will need 14 day course. cont to monitor. ID on board. 4. AGMA- resolved 5. Hyperkalemia- resolved 6. DM- hold oral agents. iss and BGM 7. HTN- currently normotesnive. hold oral antihypertensives 8. hypothyroid- restar LT4 9, DVT ppx- SCD. hold pharmacologic anticoagluation at this time 10, PT eval. will likely require HOWARD on discharge. will need facility with HD access
--- NOTE | 2018-10-07 15:02 | PN ---
Progress Note (short form) - Note Progress Note: transferred to the floor, alert no abdominal pain Vital Signs Period Temp Pulse Resp BP Sys/Ivan Pulse Ox Last 24 Hr 97.5 F-98.1 F 61-66 18-22 125-158/54-83 100-100 cor-rrr lungs clear abd soft,nt ext no edema CBC, BMP 10/07/18 07:00 10/07/18 07:00 Microbiology 10/06/18 09:00 Urine - Urine - Catheterized Urine Culture - Final NO GROWTH OBTAINED 09/28/18 05:35 Blood - Peripheral Venous Blood Culture - Final NO GROWTH AFTER 5 DAYS INCUBATION 09/28/18 05:20 Blood - Peripheral Venous Blood Culture - Final NO GROWTH AFTER 5 DAYS INCUBATION 09/27/18 12:00 Urine - Urine [place] Urine Culture - Final Escherichia Coli 09/26/18 06:53 Blood - Peripheral Venous Blood Culture - Final Lactose Fermenting Neg Bacilli 09/26/18 06:53 Blood - Peripheral Venous Blood Culture - Final Escherichia Coli 09/26/18 08:50 Urine - Urine Clean Catch Urine Culture - Final Escherichia Coli Current Medications Acetaminophen (Tylenol -) 650 mg PO Q4H PRN PRN Reason: PAIN LEVEL 1 - 3 Sodium Chloride (Normal Saline -) 250 mls @ 3,000 mls/hr IV PRN PRN PRN Reason: Hypotension during Dialysis Cefazolin Sodium 1 gm/ (Dextrose) 50 mls @ 100 mls/hr IVPB Q24H [facility] Dextrose/Sodium Chloride (D5-1/3ns -) 500 mls @ 75 mls/hr IV ASDIR [facility] Last Admin: 10/07/18 01:56 Dose: Not Given Pantoprazole Sodium 80 mg/ (Sodium Chloride) 100 mls @ 10 mls/hr IVPB Q10H [facility] Last Admin: 10/07/18 06:18 Dose: 10 mls/hr Insulin Aspart (Novolog Vial Sliding Scale -) 1 vial SQ ACHS [facility]; Protocol Last Admin: 10/07/18 11:58 Dose: Not Given a/p GI bleed- bleeding duodenal ulcer- transfusion, per GI-hemoglobin now stable Ecoli uti with bacteremia/sepsis- doing well leukocytosis noted- ?reactive to gi bleed- repeat in am acute renal failure-urine output improving continue cefazolin adjusted for renal failure-day #10 of 14 if ready for discharge, can switch to po keflex 500 bid to complete 14 days Problem List - Problems (1) Sepsis Code(s): A41.9 - SEPSIS, UNSPECIFIED ORGANISM Qualifiers: Sepsis type: sepsis due to unspecified organism Qualified Code(s): A41.9 - Sepsis, unspecified organism (2) SHERRON (acute kidney injury) Code(s): N17.9 - ACUTE KIDNEY FAILURE, UNSPECIFIED
--- NOTE | 2018-10-07 16:01 | PN ---
Progress Note, Physician History of Present Illness: Pt seen and examined at bedside. She is now in the medical [facility]. She denies shortness of breath. - Current Medication List Current Medications: Active Medications Acetaminophen (Tylenol -) 650 mg PO Q4H PRN PRN Reason: PAIN LEVEL 1 - 3 Sodium Chloride (Normal Saline -) 250 mls @ 3,000 mls/hr IV PRN PRN PRN Reason: Hypotension during Dialysis Cefazolin Sodium 1 gm/ (Dextrose) 50 mls @ 100 mls/hr IVPB Q24H [facility] Dextrose/Sodium Chloride (D5-1/3ns -) 500 mls @ 75 mls/hr IV ASDIR [facility] Last Admin: 10/07/18 15:48 Dose: 75 mls/hr Pantoprazole Sodium 80 mg/ (Sodium Chloride) 100 mls @ 10 mls/hr IVPB Q10H [facility] Last Admin: 10/07/18 06:18 Dose: 10 mls/hr Insulin Aspart (Novolog Vial Sliding Scale -) 1 vial SQ ACHS [facility]; Protocol Last Admin: 10/07/18 11:58 Dose: Not Given - Objective Vital Signs: Vital Signs Temperature 98.4 F 10/07/18 14:33 Pulse Rate 74 10/07/18 14:33 Respiratory Rate 22 H 10/07/18 14:33 Blood Pressure 153/66 10/07/18 14:33 O2 Sat by Pulse Oximetry (%) 100 10/06/18 21:22 Constitutional: Yes: Calm Eyes: Yes: Conjunctiva Clear HENT: Yes: Atraumatic Cardiovascular: Yes: S1, S2 Respiratory: Yes: CTA Bilaterally Gastrointestinal: Yes: Soft Genitourinary: Yes: WNL Musculoskeletal: Yes: WNL Edema: No Neurological: Yes: Confusion Labs: CBC, BMP 10/07/18 07:00 10/07/18 07:00 INR, PTT INR 1.39 (0.83-1.09) H 10/04/18 08:47 Problem List - Problems (1) SHERRON (acute kidney injury) Code(s): N17.9 - ACUTE KIDNEY FAILURE, UNSPECIFIED (2) Sepsis Code(s): A41.9 - SEPSIS, UNSPECIFIED ORGANISM Qualifiers: Sepsis type: sepsis due to unspecified organism Qualified Code(s): A41.9 - Sepsis, unspecified organism (3) UTI (urinary tract infection) Code(s): N39.0 - URINARY TRACT INFECTION, SITE NOT SPECIFIED Qualifiers: Urinary tract infection type: site unspecified Hematuria presence: with hematuria Qualified Code(s): N39.0 - Urinary tract infection, site not specified; R31.9 - Hematuria, unspecified Assessment/Plan Current Medications Generic Name Dose Route Start Last Admin Trade Name Freq PRN Reason Stop Dose Admin Acetaminophen 650 mg 10/07/18 01:42 Tylenol - PO Q4H PRN PAIN LEVEL 1 - 3 Sodium Chloride 250 mls @ 3,000 mls/hr 10/07/18 01:42 Normal Saline - IV PRN PRN Hypotension during Dialysis Cefazolin Sodium 1 gm/ 50 mls @ 100 mls/hr 10/07/18 22:00 Dextrose IVPB Q24H [facility] Dextrose/Sodium Chloride 500 mls @ 75 mls/hr 10/07/18 01:42 10/07/18 15:48 D5-1/3ns - IV 75 mls/hr ASDIR [facility] Administration Pantoprazole Sodium 80 mg/ 100 mls @ 10 mls/hr 10/07/18 03:00 10/07/18 06:18 Sodium Chloride IVPB 10 mls/hr Q10H [facility] Administration 8 MG/HR Insulin Aspart 1 vial 10/07/18 07:00 10/07/18 11:58 Novolog Vial Sliding Scale - SQ Not Given ACHS [facility] Protocol Impression 1. SHERRON vs progression of CKD 2. sepsis 3. bacteremia 4. DM 5. HTN 6. active smoker 7. dementia 8. a-fib 9. anemia 10. GI bleed 11. hypernatremia Plan - cont with fluids - monitor renal function - will evaluate for HD daily - attempt to monitor urine output - kidney biopsy once stable, will likely be next week as biopsies are not done over the weekend - renal workup is in progress, will follow - HCP Sana, [phone] Conde
[2018-10-07] MEDS ORDERED: ceFAZolin SODIUM 1 GM VIAL ONE (21:36)
[2018-10-07] MEDS ORDERED: DEXTROSE 5%-WATER - 50 ML IVPB ONE (21:36)
[2018-10-07] MEDS: CEFAZOLIN 1 GM in DEXTROSE 5%-WATER - 50 ML IVPB SCH (22:10)
[2018-10-08] MEDS: PANTOPRAZOLE SODIUM 80 MG in SODIUM CHLORIDE 100 ML IVPB SCH ×3 (00:07→12:02)
[2018-10-08] MEDS: INSULIN SLIDING SCALE (NOVOLOG) 1 VIAL SQ SCH ×4 (07:57→23:05)
[2018-10-08 08:15] LABS: BASO % 0.4 % (0-2.0); EOS % 1.3 % (0-4.5); HEMATOCRIT 27.7 % (32.4-45.2); HEMOGLOBIN 9.9 GM/dL (10.7-15.3); LYMPH % 8.1 % (8-40); MCH 29.7 pg (25.7-33.7); MCHC 35.6 g/dl (32.0-36.0); MEAN CELL VOLUME 83.3 fl (80-96); MEAN PLT VOLUME 8.4 fl (7.5-11.1); NEUT % 84.2 % (42.8-82.8); PLATELET COUNT 379 K/MM3 (134-434); RBC 3.33 M/mm3 (3.60-5.2); RDW 14.8 % (11.6-15.6); WHITE BLOOD COUNT 16.8 K/mm3 (4.0-10.0)
[2018-10-08 08:57] LABS: ANION GAP 10 MMOL/L (8-16); BLOOD UREA NITROGEN 30 mg/dL (7-18); CALCIUM 7.6 mg/dL (8.5-10.1); CHLORIDE 109 mmol/L (98-107); CO2 27 mmol/L (21-32); CREATININE 2.7 mg/dL (0.55-1.3); GLUCOSE,RANDOM 104 mg/dL (74-106); MAGNESIUM 1.5 mg/dL (1.8-2.4); POTASSIUM 3.1 mmol/L (3.5-5.1); SODIUM 146 mmol/L (136-145)
[2018-10-08] MEDS ORDERED: POTASSIUM CHLORIDE TABS 20 MEQ TABLET.ER (FP) PO ONE ×2 (11:04→15:32)
[2018-10-08] MEDS: DEXTROSE 5%-1/3 NS - 500 ML IV SCH ×2 (12:02→18:25)
--- NOTE | 2018-10-08 12:55 | PN ---
Progress Note (short form) - Note Progress Note: no complaints resting comfortably nurse reports no diarrhea Vital Signs Period Temp Pulse Resp BP Sys/Ivan Pulse Ox Last 24 Hr 98.1 F-99.2 F 68-90 20-22 132-155/51-66 100-100 cor-rrr lungs clear abd soft,nt ext no edema CBC, BMP 10/08/18 06:55 10/08/18 06:55 Microbiology 10/06/18 09:00 Urine - Urine - Catheterized Urine Culture - Final NO GROWTH OBTAINED 09/28/18 05:35 Blood - Peripheral Venous Blood Culture - Final NO GROWTH AFTER 5 DAYS INCUBATION 09/28/18 05:20 Blood - Peripheral Venous Blood Culture - Final NO GROWTH AFTER 5 DAYS INCUBATION 09/27/18 12:00 Urine - Urine [place] Urine Culture - Final Escherichia Coli 09/26/18 06:53 Blood - Peripheral Venous Blood Culture - Final Lactose Fermenting Neg Bacilli 09/26/18 06:53 Blood - Peripheral Venous Blood Culture - Final Escherichia Coli 09/26/18 08:50 Urine - Urine Clean Catch Urine Culture - Final Escherichia Coli a/p GI bleed- bleeding duodenal ulcer- transfusion, per GI-hemoglobin now stable Ecoli uti with bacteremia/sepsis- doing well leukocytosis noted- ?reactive to gi bleed-no diarrhea-would trend for now- repeat in am acute renal failure-urine output improving continue cefazolin adjusted for renal failure-day #11 of 14 if ready for discharge, can switch to po keflex 500 bid to complete 14 days Problem List - Problems (1) Sepsis Code(s): A41.9 - SEPSIS, UNSPECIFIED ORGANISM Qualifiers: Sepsis type: sepsis due to unspecified organism Qualified Code(s): A41.9 - Sepsis, unspecified organism (2) SHERRON (acute kidney injury) Code(s): N17.9 - ACUTE KIDNEY FAILURE, UNSPECIFIED
--- NOTE | 2018-10-08 15:24 | PN ---
Teaching Attending Note Name of Resident: bP Camargo ATTENDING PHYSICIAN STATEMENT I saw and evaluated the patient. I reviewed the resident's note and discussed the case with the resident. I agree with the resident's findings and plan as documented. SUBJECTIVE:requesting regular food. denies Cp, SOb, fever, chills, N/V/C/D. very little black stools noted in BM earlier OBJECTIVE: Last Vital Signs Temp Pulse Resp BP Pulse Ox 98.1 F 68 20 135/54 L 100 10/08/18 06:00 10/08/18 06:00 10/08/18 06:00 10/08/18 06:00 10/07/18 22:00 General NAD, CV S1 S2 RRR +murmur Lungs CTA B/L no wheezing/rales/rhonchi Abdomen soft NT/ND Extremities no pedal edema ASSESSMENT AND PLAN: 78yo F with PMH DM, HTN, dementia and CKD brought in by daughter for altered mental status with nausea and vomiting. Pt was found to be acidemic with renal failure and started on HD. course complicated by development of melena 1. UGI bleed-s/p EGD 10/05. multiple ulcers with one in the duodenum with adherent clot. will advance to regular diet. d/c PPI ggt and switch to PPI po BID. GI on board 2. Acute blood loss anemia- due to suspected GI bleed. s/p 5 units PRBC this hospital stay. Hgb improved. transfusion for Hgb <8. 3. Acute renal failure-s/p HD initiation here on this hospital stay. no need for HD at this time. will d/w nephro about removing permacath. plan for renal bx on thursday. 2. Severe sepsis due to pylenopehritis and Ecoli bacteremia- leukocytosis trending down. repeat BCx and UCx pending. on cefazolin day 11. up. will need 14 day course. cont to monitor. ID on board. 4. AGMA- resolved 5. Hyperkalemia- resolved 6. DM- hold oral agents. iss and BGM 7. HTN- currently normotesnive. hold oral antihypertensives 8. hypothyroid- restar LT4 9, DVT ppx- SCD. hold pharmacologic anticoagluation at this time 10, improved with PT. plan to d/c home iwth home PT and VNS after renal bx. planned on Thursday
[2018-10-08] MEDS ORDERED: MAGNESIUM SULF 50% (8.12 MEQ/2 ML-1 GM VIAL) IVPB ONE (15:32)
[2018-10-08] MEDS ORDERED: PT OWN MED DRAWER 7, Y5N ONE (15:39)
--- NOTE | 2018-10-08 15:40 | PN ---
Progress Note, Physician History of Present Illness: Pt seen and examined at bedside. She is awake and appears comfortable. - Current Medication List Current Medications: Active Medications Acetaminophen (Tylenol -) 650 mg PO Q4H PRN PRN Reason: PAIN LEVEL 1 - 3 Sodium Chloride (Normal Saline -) 250 mls @ 3,000 mls/hr IV PRN PRN PRN Reason: Hypotension during Dialysis Cefazolin Sodium 1 gm/ (Dextrose) 50 mls @ 100 mls/hr IVPB Q24H [facility] Last Admin: 10/07/18 22:10 Dose: 100 mls/hr Dextrose/Sodium Chloride (D5-1/3ns -) 500 mls @ 75 mls/hr IV ASDIR [facility] Last Admin: 10/08/18 12:02 Dose: Not Given Insulin Aspart (Novolog Vial Sliding Scale -) 1 vial SQ ACHS [facility]; Protocol Last Admin: 10/08/18 12:09 Dose: Not Given Magnesium Sulfate (Magnesium Sulfate) 1 gm IVPB ONCE ONE Stop: 10/08/18 15:33 Potassium Chloride (K-Dur -) 40 meq PO ONCE ONE Stop: 10/08/18 15:33 - Objective Vital Signs: Vital Signs Temperature 98.1 F 10/08/18 06:00 Pulse Rate 68 10/08/18 06:00 Respiratory Rate 20 10/08/18 06:00 Blood Pressure 135/54 L 10/08/18 06:00 O2 Sat by Pulse Oximetry (%) 100 10/07/18 22:00 Constitutional: Yes: Calm Eyes: Yes: Conjunctiva Clear HENT: Yes: Atraumatic Cardiovascular: Yes: S1, S2 Respiratory: Yes: CTA Bilaterally Gastrointestinal: Yes: Soft Genitourinary: Yes: WNL Musculoskeletal: Yes: WNL Edema: No Neurological: Yes: Confusion Psychiatric: Yes: Oriented Labs: CBC, BMP 10/08/18 06:55 10/08/18 06:55 INR, PTT INR 1.39 (0.83-1.09) H 10/04/18 08:47 Problem List - Problems (1) SHERRON (acute kidney injury) Code(s): N17.9 - ACUTE KIDNEY FAILURE, UNSPECIFIED (2) Sepsis Code(s): A41.9 - SEPSIS, UNSPECIFIED ORGANISM Qualifiers: Sepsis type: sepsis due to unspecified organism Qualified Code(s): A41.9 - Sepsis, unspecified organism (3) UTI (urinary tract infection) Code(s): N39.0 - URINARY TRACT INFECTION, SITE NOT SPECIFIED Qualifiers: Urinary tract infection type: site unspecified Hematuria presence: with hematuria Qualified Code(s): N39.0 - Urinary tract infection, site not specified; R31.9 - Hematuria, unspecified Assessment/Plan Current Medications Generic Name Dose Route Start Last Admin Trade Name Freq PRN Reason Stop Dose Admin Acetaminophen 650 mg 10/07/18 01:42 Tylenol - PO Q4H PRN PAIN LEVEL 1 - 3 Sodium Chloride 250 mls @ 3,000 mls/hr 10/07/18 01:42 Normal Saline - IV PRN PRN Hypotension during Dialysis Cefazolin Sodium 1 gm/ 50 mls @ 100 mls/hr 10/07/18 22:00 10/07/18 22:10 Dextrose IVPB 100 mls/hr Q24H [facility] Administration Dextrose/Sodium Chloride 500 mls @ 75 mls/hr 10/07/18 01:42 10/08/18 12:02 D5-1/3ns - IV Not Given ASDIR [facility] Insulin Aspart 1 vial 10/07/18 07:00 10/08/18 12:09 Novolog Vial Sliding Scale - SQ Not Given ACHS [facility] Protocol Magnesium Sulfate 1 gm 10/08/18 15:32 Magnesium Sulfate IVPB 10/08/18 15:33 ONCE ONE Potassium Chloride 40 meq 10/08/18 15:32 K-Dur - PO 10/08/18 15:33 ONCE ONE Laboratory Tests 09/28/18 10/07/18 16:00 07:00 Magnesium 1.6 L CHARLES Screen Negative Proteinase 3 (PR3) <3.5 p-ANCA <1:20 Atypical p-ANCA 1:40 H Myeloperoxidase Ab <9.0 Double Strand DNA Ab <1 Glomerular Base Memb Ab 3 Impression 1. SHERRON vs progression of CKD 2. sepsis 3. bacteremia 4. DM 5. HTN 6. active smoker 7. dementia 8. a-fib 9. anemia 10. GI bleed 11. hypernatremia Plan - restart fluids - repeat labs in am - pt appear to have renal recovery - will need kidney biopsy - biopsy was delayed as she developed a GI bleed and was in ICU - will follow - HCP Sana, , called today and left message to discuss kidney biopsy Dr Conde
--- NOTE | 2018-10-08 16:19 | PATH ---
Surgical Pathology Report Patient Name: CRIS PERALES [facility]. Rec. #: [id number] /Age/Gender: 1940 (Age: 78) / F Account: [id number] Location: [address] [place] [address] Taken: 10/05/2018 Received: 10/05/2018 Reported: 10/08/2018 Physicians: Salo Oglesby M.D. Specimen(s) Received A: BX ANTRAL EROSION B: BX ANTRUM BODY C: BX ESOPHAGUS STRICTURE Clinical History GI bleeding Postoperative diagnosis: GI bleeding, esophageal stricture, gastritis, gastric erosion, duodenal ulcer Final Diagnosis A. STOMACH, ANTRAL EROSION, BIOPSY: GASTRIC ANTRAL MUCOSA WITH MILD CHRONIC GASTRITIS. IMMUNOHISTOCHEMICAL STAIN FOR H. PYLORI IS NEGATIVE. B. STOMACH, ANTRUM AND BODY, BIOPSY: GASTRIC ANTRUM AND BODY MUCOSA WITH MILD CHRONIC GASTRITIS. IMMUNOHISTOCHEMICAL STAIN FOR H. PYLORI IS NEGATIVE. C. ESOPHAGEAL STRICTURE, 36 CM, BIOPSY: SQUAMOCOLUMNAR MUCOSA WITH MARKED ACUTE ESOPHAGITIS, ULCERATION, AND GRANULATION TISSUE. RARE FUNGAL FORMS PRESENT ADMIXED WITH ACUTE INFLAMMATORY DEBRIS HIGHLIGHTED BY PAS FUNGAL STAIN. INTESTINAL METAPLASIA PRESENT CONSISTENT WITH OLGUIN'S ESOPHAGUS IN A CONCORDANT WITH CLINICAL SETTING. NO DYSPLASIA IDENTIFIED. Electronically Signed Eugenie Wilson M.D. Gross Description A. Received in formalin, labeled "biopsy antral erosion" are 2 blas, irregular portions of soft tissue measuring 0.2 and 0.4 cm. in greatest dimension. The specimens are submitted in toto in one cassette. B. Received in formalin, labeled "antrum and body" are 3 blas, irregular portions of soft tissue ranging from 0.2-0.3 cm. in greatest dimension. The specimens are submitted in toto in one cassette. C. Received in formalin, labeled "36 cm esophageal stricture" are 5 blas, irregular portions of soft tissue ranging from 0.1-0.3 cm. in greatest dimension. The specimens are submitted in toto in one cassette. 10/05/201810/05/2018
[2018-10-08 16:49] VITALS: BMI 26.8
[2018-10-08 17:08] LABS: BASO % 0.2 % (0-2.0); EOS % 1.1 % (0-4.5); HEMATOCRIT 26.5 % (32.4-45.2); HEMOGLOBIN 9.4 GM/dL (10.7-15.3); LYMPH % 7.1 % (8-40); MCH 29.6 pg (25.7-33.7); MCHC 35.4 g/dl (32.0-36.0); MEAN CELL VOLUME 83.7 fl (80-96); MEAN PLT VOLUME 8.6 fl (7.5-11.1); MONO % 6.5 % (3.8-10.2); NEUT % 85.1 % (42.8-82.8); PLATELET COUNT 387 K/MM3 (134-434); RBC 3.17 M/mm3 (3.60-5.2); RDW 15.1 % (11.6-15.6); WHITE BLOOD COUNT 15.5 K/mm3 (4.0-10.0)
--- NOTE | 2018-10-08 20:05 | PN ---
Physical Exam: SUBJECTIVE: Patient seen and examined at bedside. Food at bedside. No acute events overnight. OBJECTIVE: Vital Signs Period Temp Pulse Resp BP Sys/Ivan Pulse Ox Last 24 Hr 97.8 F-98.5 F 68-90 20-20 132-135/51-60 100-100 GENERAL: Alert Awake Pleasant NAD HEAD: NC/AT EYES: PERRL EOMI No scleral icterus ENT: MMM NECK: Supple LUNGS: CTA B/L HEART: RRR No MRG S1S2 ABDOMEN: NDNT No HSM EXTREMITIES: No pedel edema appreciated NEUROLOGICAL: No neuro def appreciated SKIN: No rashes or lesions appreciated Laboratory Results - last 24 hr 10/07/18 10/08/18 10/08/18 22:12 06:55 06:55 WBC 16.8 H RBC 3.33 L Hgb 9.9 L Hct 27.7 L MCV 83.3 MCH 29.7 MCHC 35.6 RDW 14.8 Plt Count 379 MPV 8.4 Absolute Neuts (auto) 14.2 H Neutrophils % 84.2 H Lymphocytes % 8.1 Monocytes % 6.0 Eosinophils % 1.3 Basophils % 0.4 Nucleated RBC % 0 Sodium 146 H Potassium 3.1 L Chloride 109 H Carbon Dioxide 27 Anion Gap 10 BUN 30 H Creatinine 2.7 H Creat Clearance w eGFR 17.13 POC Glucometer 122 Random Glucose 104 Calcium 7.6 L Magnesium 1.5 L 10/08/18 10/08/18 10/08/18 07:45 12:05 15:30 WBC 15.5 H RBC 3.17 L Hgb 9.4 L Hct 26.5 L MCV 83.7 MCH 29.6 MCHC 35.4 RDW 15.1 Plt Count 387 MPV 8.6 Absolute Neuts (auto) 13.2 H Neutrophils % 85.1 H Lymphocytes % 7.1 L Monocytes % 6.5 Eosinophils % 1.1 Basophils % 0.2 Nucleated RBC % 0 Sodium Potassium Chloride Carbon Dioxide Anion Gap BUN Creatinine Creat Clearance w eGFR POC Glucometer 123 126 Random Glucose Calcium Magnesium 10/08/18 18:24 WBC RBC Hgb Hct MCV MCH MCHC RDW Plt Count MPV Absolute Neuts (auto) Neutrophils % Lymphocytes % Monocytes % Eosinophils % Basophils % Nucleated RBC % Sodium Potassium Chloride Carbon Dioxide Anion Gap BUN Creatinine Creat Clearance w eGFR POC Glucometer 123 Random Glucose Calcium Magnesium Active Medications Generic Name Dose Route Start Last Admin Trade Name Josue PRN Reason Stop Dose Admin Acetaminophen 650 mg 10/07/18 01:42 Tylenol - PO Q4H PRN PAIN LEVEL 1 - 3 Sodium Chloride 250 mls @ 3,000 mls/hr 10/07/18 01:42 Normal Saline - IV PRN PRN Hypotension during Dialysis Cefazolin Sodium 1 gm/ 50 mls @ 100 mls/hr 10/07/18 22:00 10/07/18 22:10 Dextrose IVPB 100 mls/hr Q24H [facility] Administration Dextrose/Sodium Chloride 500 mls @ 75 mls/hr 10/07/18 01:42 10/08/18 18:25 D5-1/3ns - IV 75 mls/hr ASDIR [facility] Administration Insulin Aspart 1 vial 10/07/18 07:00 10/08/18 17:49 Novolog Vial Sliding Scale - SQ Not Given ACHS [facility] Protocol Pantoprazole Sodium 40 mg 10/08/18 22:00 Protonix - PO BID [facility] ASSESSMENT/PLAN: Pt is a 78 y/o lady with a significant past medical history of DM, HTN, CKD, and dementia. Pt presented to [facility] ED this AM with daughter c/o weakness, nausea /vomiting and AMS. #G.I Bleed 2/2 Ulcer Duodenal bulb -Gastroenterology on board -HGB today 10/08/18---> 9.9 - Protonix drip discontinued switched to PO - EGD with Dr Baum. Findings: SINGLE BLEEDING DEEP ULCER 1.5MM W. AN ADHERENT CLOT AND ACTIVE OOZING W/ BLOOD FOUND IN DUODENAL BULB. SUBMUCOSAL INJECTION OF 4 ML EPINEPHRINE PERFORMED AROUND BLEEDING SITE. MONOPOLAR CAUTERY W/ 75 FR HEATER PROBE APPLIED O SITE. Multiple small erosions found in gastric antrum. #Sepsis 2/2 Pyelonephritis WBC 16.8 today 10/08/18. Urine and Blood Cx pending -Troponin negative - CTAP--> Significant inflammatory changes in retroperitoneum appear to originate from kidneys compatible with significant b/l renal infection. - Nephrology on Board - Renal Bladder Ultrasound--> MORPHOLOGICALLY NORMAL KIDNEYS WITH NO EVIDENCE OF HYDRONEPHROSIS OR ACUTE PATHOLOGY - I.D on board--> Cefazolin 1 GM Q24H day 11. Spoke with Dr Romo. Will switch to Keflex 500 PO BID as outpatient to complete 14 days # SHERRON, Oliguria, Hyperkalemia -Potassium 3.1. Repleat with K-Dur. -HD daily per renal -Possible kidney biopsy on Thursday PER RENAL DR CHOUDHARY -Monitor urine output #UTI: -Leukocyte Esterase 3+ - Urine/Blood cultures--> Lactose Fermenting Gram Neg Bacilli - I.D on board - Cefazolin day 11--> 1 GM Q24H. Will switch to PO. #Atrial Fibrillation W/ RVR? - Metoprolol 25 MG PO BID -Echo --> EF 60-65%. #FEN D5 11/11 NS@75cc/hr Monitor electrolytes Clear Liquid DVT ppx: SCD's Dispo: Med-Surg Visit type - Emergency Visit Emergency Visit: Yes ED Registration Date: 09/26/18 Care time: The patient presented to the Emergency Department on the above date and was hospitalized for further evaluation of their emergent condition. - New Patient This patient is new to me today: No - Critical Care Critical Care patient: No - Discharge Referral Referred to [facility] Med P.C.: No
[2018-10-08] MEDS: CEFAZOLIN 1 GM in DEXTROSE 5%-WATER - 50 ML IVPB SCH (23:02)
[2018-10-08] MEDS: PANTOPRAZOLE 40 MG TABLET (FP) PO SCH (23:05)
[2018-10-08] MEDS: CEFAZOLIN 1 GM/D5W 1 GM/50 ML BAG IVPB SCH (23:16)
[2018-10-09] MEDS: DEXTROSE 5%-1/3 NS - 500 ML IV SCH ×2 (02:02→22:53)
[2018-10-09] MEDS: INSULIN SLIDING SCALE (NOVOLOG) 1 VIAL SQ SCH ×4 (06:42→22:59)
[2018-10-09 07:38] LABS: BASO % 0.7 % (0-2.0); EOS % 1.8 % (0-4.5); HEMATOCRIT 26.8 % (32.4-45.2); HEMOGLOBIN 8.9 GM/dL (10.7-15.3); LYMPH % 9.4 % (8-40); MCHC 33.3 g/dl (32.0-36.0); MEAN PLT VOLUME 8.3 fl (7.5-11.1); MONO % 8.8 % (3.8-10.2); NEUT % 79.3 % (42.8-82.8); PLATELET COUNT 365 K/MM3 (134-434); RBC 3.19 M/mm3 (3.60-5.2); WHITE BLOOD COUNT 11.2 K/mm3 (4.0-10.0)
[2018-10-09 08:03] LABS: ALBUMIN 1.9 g/dl (3.4-5.0); ALK PHOS 83 U/L (45-117); ANION GAP 5 MMOL/L (8-16); BILIRUBIN,TOTAL 0.2 mg/dL (0.2-1); BLOOD UREA NITROGEN 22 mg/dL (7-18); CALCIUM 7.2 mg/dL (8.5-10.1); CHLORIDE 113 mmol/L (98-107); CO2 29 mmol/L (21-32); CREATININE 2.4 mg/dL (0.55-1.3); GLUCOSE,RANDOM 134 mg/dL (74-106); POTASSIUM 3.2 mmol/L (3.5-5.1); SGOT/AST 13 U/L (15-37); SGPT/ALT 6 U/L (13-61); SODIUM 147 mmol/L (136-145); TOT PROT 5.1 g/dl (6.4-8.2)
[2018-10-09] MEDS: PANTOPRAZOLE 40 MG TABLET (FP) PO SCH ×2 (09:45→22:56)
--- NOTE | 2018-10-09 10:25 | PN ---
Progress Note (short form) - Note Progress Note: no complaints doing well Vital Signs Period Temp Pulse Resp BP Sys/Ivan Pulse Ox Last 24 Hr 97.7 F-97.8 F 68-75 20-20 133-149/60-74 95-95 cor-rrr lungs clear abd soft,nt ext no edema CBC, BMP 10/09/18 06:30 10/09/18 06:30 Microbiology 10/07/18 16:45 Blood - Peripheral Venous Blood Culture - Preliminary NO GROWTH OBTAINED AFTER 24 HOURS, INCUBATION TO CONTINUE FOR 4 DAYS. 10/07/18 16:30 Blood - Peripheral Venous Blood Culture - Preliminary NO GROWTH OBTAINED AFTER 24 HOURS, INCUBATION TO CONTINUE FOR 4 DAYS. 10/06/18 09:00 Urine - Urine - Catheterized Urine Culture - Final NO GROWTH OBTAINED 09/28/18 05:35 Blood - Peripheral Venous Blood Culture - Final NO GROWTH AFTER 5 DAYS INCUBATION 09/28/18 05:20 Blood - Peripheral Venous Blood Culture - Final NO GROWTH AFTER 5 DAYS INCUBATION 09/27/18 12:00 Urine - Urine [place] Urine Culture - Final Escherichia Coli 09/26/18 06:53 Blood - Peripheral Venous Blood Culture - Final Lactose Fermenting Neg Bacilli 09/26/18 06:53 Blood - Peripheral Venous Blood Culture - Final Escherichia Coli 09/26/18 08:50 Urine - Urine Clean Catch Urine Culture - Final Escherichia Coli Current Medications Acetaminophen (Tylenol -) 650 mg PO Q4H PRN PRN Reason: PAIN LEVEL 1 - 3 Sodium Chloride (Normal Saline -) 250 mls @ 3,000 mls/hr IV PRN PRN PRN Reason: Hypotension during Dialysis Dextrose/Sodium Chloride (D5-1/3ns -) 500 mls @ 75 mls/hr IV ASDIR COUNTS INCLUDE 234 BEDS AT THE [facility] Last Admin: 10/09/18 02:02 Dose: 75 mls/hr Cefazolin Sodium (Ancef 1 Gm Premixed Ivpb -) 1 gm in 50 mls @ 100 mls/hr IVPB Q24H [facility]S [facility]CLUDE 234 BEDS AT THE [facility] Stop: 10/13/18 23:29 Last Admin: 10/08/18 23:16 Dose: 100 mls/hr Insulin Aspart (Novolog Vial Sliding Scale -) 1 vial SQ ACHS [facility] 234 BEDS AT THE [facility]; Protocol Last Admin: 10/09/18 06:42 Dose: Not Given Pantoprazole Sodium (Protonix -) 40 mg PO BID COUNTS INCLUDE 234 BEDS AT THE [facility] Last Admin: 10/09/18 09:45 Dose: 40 mg a/p GI bleed- bleeding duodenal ulcer- transfusion, per GI-hemoglobin now stable Ecoli uti with bacteremia/sepsis- doing well leukocytosis noted- ?reactive to gi bleed-no diarrhea-wbc improved acute renal failure-urine output improving continue cefazolin adjusted for renal failure-day #12 of 14 if ready for discharge, can switch to po keflex 500 bid to complete 14 days please call back if needed Problem List - Problems (1) Sepsis Code(s): A41.9 - SEPSIS, UNSPECIFIED ORGANISM Qualifiers: Sepsis type: sepsis due to unspecified organism Qualified Code(s): A41.9 - Sepsis, unspecified organism (2) SHERRON (acute kidney injury) Code(s): N17.9 - ACUTE KIDNEY FAILURE, UNSPECIFIED
[2018-10-09] MEDS ORDERED: MAGNESIUM OXIDE 400 MG TABLET (FP) PO ONE (14:32)
[2018-10-09] MEDS ORDERED: POTASSIUM CHLORIDE ORAL LIQUID 20 MEQ/15 ML PO ONE (14:32)
--- NOTE | 2018-10-09 14:38 | PN ---
Progress Note (short form) - Note Progress Note: asymptomatic. tolerating diet. denies CP, SOB, fever, chills, N/V/C?D Current Medications Generic Name Dose Route Start Last Admin Trade Name Josue PRN Reason Stop Dose Admin Acetaminophen 650 mg 10/07/18 01:42 Tylenol - PO Q4H PRN PAIN LEVEL 1 - 3 Sodium Chloride 250 mls @ 3,000 mls/hr 10/07/18 01:42 Normal Saline - IV PRN PRN Hypotension during Dialysis Dextrose/Sodium Chloride 500 mls @ 75 mls/hr 10/07/18 01:42 10/09/18 02:02 D5-1/3ns - IV 75 mls/hr ASDIR [facility] Administration Cefazolin Sodium 1 gm in 50 mls @ 100 mls/hr 10/08/18 23:00 10/08/18 23:16 Ancef 1 Gm Premixed Ivpb - IVPB 10/13/18 23:29 100 mls/hr Q24H [facility] Administration Insulin Aspart 1 vial 10/07/18 07:00 10/09/18 12:06 Novolog Vial Sliding Scale - SQ 2 units ACHS [facility] Administration Protocol Magnesium Oxide 800 mg 10/09/18 14:32 Mag-Ox - PO 10/09/18 14:33 ONCE ONE Pantoprazole Sodium 40 mg 10/08/18 22:00 10/09/18 09:45 Protonix - PO 40 mg BID [facility] Administration Potassium Chloride 40 meq 10/09/18 14:32 Potassium Chloride Oral Liquid PO 10/09/18 14:33 ONCE ONE Last Vital Signs Temp Pulse Resp BP Pulse Ox 97.4 F L 67 20 152/67 99 10/09/18 09:00 10/09/18 09:00 10/09/18 09:00 10/09/18 09:00 10/09/18 09:00 General NAD, CV S1 S2 RRR +murmur Lungs CTA B/L no wheezing/rales/rhonchi Abdomen soft NT/ND Extremities no pedal edema CBCD WBC 11.2 K/mm3 (4.0-10.0) H 10/09/18 06:30 RBC 3.19 M/mm3 (3.60-5.2) L 10/09/18 06:30 Hgb 8.9 GM/dL (10.7-15.3) L 10/09/18 06:30 Hct 26.8 % (32.4-45.2) L 10/09/18 06:30 MCV 84.0 fl (80-96) 10/09/18 06:30 MCHC 33.3 g/dl (32.0-36.0) 10/09/18 06:30 RDW 15.0 % (11.6-15.6) 10/09/18 06:30 Plt Count 365 K/MM3 (134-434) 10/09/18 06:30 MPV 8.3 fl (7.5-11.1) 10/09/18 06:30 CMP Sodium 147 mmol/L (136-145) H 10/09/18 06:30 Potassium 3.2 mmol/L (3.5-5.1) L 10/09/18 06:30 Chloride 113 mmol/L (98-107) H 10/09/18 06:30 Carbon Dioxide 29 mmol/L (21-32) 10/09/18 06:30 Anion Gap 5 MMOL/L (8-16) L 10/09/18 06:30 BUN 22 mg/dL (7-18) H 10/09/18 06:30 Creatinine 2.4 mg/dL (0.55-1.3) H 10/09/18 06:30 Creat Clearance w eGFR 19.63 (>60) 10/09/18 06:30 Calcium 7.2 mg/dL (8.5-10.1) L 10/09/18 06:30 Total Bilirubin 0.2 mg/dL (0.2-1) 10/09/18 06:30 AST 13 U/L (15-37) L 10/09/18 06:30 ALT 6 U/L (13-61) L 10/09/18 06:30 Alkaline Phosphatase 83 U/L (45-117) 10/09/18 06:30 Total Protein 5.1 g/dl (6.4-8.2) L 10/09/18 06:30 Albumin 1.9 g/dl (3.4-5.0) L 10/09/18 06:30 ASSESSMENT AND PLAN: 78yo F with PMH DM, HTN, dementia and CKD brought in by daughter for altered mental status with nausea and vomiting. Pt was found to be acidemic with renal failure and started on HD. course complicated by development of melena 1. UGI bleed-s/p EGD 10/05. multiple ulcers with one in the duodenum with adherent clot. tolerating regular diet. PPI BID. will liekly require repeat EGD In 3 months. GI on board 2. Acute blood loss anemia- due to suspected GI bleed. s/p 5 units PRBC this hospital stay. Hgb improved. transfusion for Hgb <8. 3. Acute renal failure-s/p HD initiation here on this hospital stay. no need for HD at this time. remove permacath. Renal function continues to improve. plan for renal bx on thursday. 2. Severe sepsis due to pylenopehritis and Ecoli bacteremia- leukocytosis trending down. repeat BCx and UCx NGTD. on cefazolin day 12. up. will need 14 day course. cont to monitor. ID on board. 4. hypomagnesemia- Mg po 5. Hypokalemia- Kcl po 6. DM- hold oral agents. iss and BGM 7. HTN- currently normotesnive. hold oral antihypertensives 8. hypothyroid- restart LT4 9, DVT ppx- SCD. hold pharmacologic anticoagluation at this time 10, D/c home Thursday after renal bx with home PT and VNS Visit type - Emergency Visit Emergency Visit: Yes ED Registration Date: 09/26/18 Care time: The patient presented to the Emergency Department on the above date and was hospitalized for further evaluation of their emergent condition. - New Patient This patient is new to me today: No - Critical Care Critical Care patient: No - Discharge Referral Referred to [facility] Med P.C.: No
--- NOTE | 2018-10-09 21:48 | PN ---
Progress Note (short form) - Note Progress Note: covering dr mcgee Problems 1. SHERRON vs progression of CKD 2. sepsis 3. bacteremia 4. DM 5. HTN 6. active smoker 7. dementia 8. a-fib 9. anemia 10. GI bleed 11. hypernatremia Active Medications Acetaminophen (Tylenol -) 650 mg PO Q4H PRN PRN Reason: PAIN LEVEL 1 - 3 Aripiprazole (Abilify) 5 mg PO HS [facility] Duloxetine HCl (Cymbalta -) 20 mg PO HS [facility] Sodium Chloride (Normal Saline -) 250 mls @ 3,000 mls/hr IV PRN PRN PRN Reason: Hypotension during Dialysis Dextrose/Sodium Chloride (D5-1/3ns -) 500 mls @ 75 mls/hr IV ASDIR [facility] Last Admin: 10/09/18 02:02 Dose: 75 mls/hr Cefazolin Sodium (Ancef 1 Gm Premixed Ivpb -) 1 gm in 50 mls @ 100 mls/hr IVPB Q24H [facility] Stop: 10/13/18 23:29 Last Admin: 10/08/18 23:16 Dose: 100 mls/hr Insulin Aspart (Novolog Vial Sliding Scale -) 1 vial SQ ACHS [facility]; Protocol Last Admin: 10/09/18 16:43 Dose: Not Given Levothyroxine Sodium (Synthroid -) 50 mcg PO ACBK [facility] Losartan Potassium (Cozaar -) 50 mg PO DAILY [facility] Pantoprazole Sodium (Protonix -) 40 mg PO BID [facility] Last Admin: 10/09/18 09:45 Dose: 40 mg Rosuvastatin Calcium (Crestor -) 20 mg PO HS [facility] Last Vital Signs Temp Pulse Resp BP Pulse Ox 98.0 F 66 19 146/60 99 10/09/18 18:00 10/09/18 18:00 10/09/18 18:00 10/09/18 18:00 10/09/18 09:00 CBC, BMP 10/09/18 06:30 10/09/18 06:30 s/p sherron temporary dialysis now off dialysis Plan - restart fluids - repeat labs in am - pt appear to have renal recovery
[2018-10-09] MEDS: CEFAZOLIN 1 GM/D5W 1 GM/50 ML BAG IVPB SCH (22:53)
[2018-10-09] MEDS: ARIPiprazole 5 MG TABLET (FP) PO SCH (22:56)
[2018-10-09] MEDS: DULoxetine HCL 20 MG CAPSULE.DR (FP) PO SCH (22:56)
[2018-10-09] MEDS: ROSUVASTATIN CA 20 MG TABLET (FP) PO SCH (22:57)
[2018-10-10] MEDS: DEXTROSE 5%-1/3 NS - 500 ML IV SCH (06:12)
[2018-10-10] MEDS: LEVOTHYROXINE NA 50 MCG TABLET (FP) PO SCH (06:14)
[2018-10-10] MEDS: INSULIN SLIDING SCALE (NOVOLOG) 1 VIAL SQ SCH ×4 (06:14→22:47)
[2018-10-10 08:11] LABS: ANION GAP 11 MMOL/L (8-16); BLOOD UREA NITROGEN 16 mg/dL (7-18); CALCIUM 7.5 mg/dL (8.5-10.1); CHLORIDE 109 mmol/L (98-107); CO2 28 mmol/L (21-32); CREATININE 2.1 mg/dL (0.55-1.3); GLUCOSE,RANDOM 125 mg/dL (74-106); MAGNESIUM 1.5 mg/dL (1.8-2.4); POTASSIUM 3.4 mmol/L (3.5-5.1); SODIUM 147 mmol/L (136-145)
[2018-10-10 08:31] LABS: HEMATOCRIT 31.5 % (32.4-45.2); HEMOGLOBIN 10.4 GM/dL (10.7-15.3); MCH 27.9 pg (25.7-33.7); MCHC 32.8 g/dl (32.0-36.0); MEAN CELL VOLUME 84.9 fl (80-96); MEAN PLT VOLUME 8.4 fl (7.5-11.1); PLATELET COUNT 428 K/MM3 (134-434); RBC 3.71 M/mm3 (3.60-5.2); RDW 15.2 % (11.6-15.6); WHITE BLOOD COUNT 11.4 K/mm3 (4.0-10.0)
[2018-10-10] MEDS: PANTOPRAZOLE 40 MG TABLET (FP) PO SCH ×2 (10:02→22:46)
[2018-10-10] MEDS: LOSARTAN POTASSIUM 50 MG TABLET (FP) PO SCH (10:02)
[2018-10-10] MEDS ORDERED: MAGNESIUM OXIDE 400 MG TABLET (FP) PO ONE ×2 (10:41→12:15)
--- NOTE | 2018-10-10 11:09 | PN ---
Teaching Attending Note Name of Resident: Pb Badillo ATTENDING PHYSICIAN STATEMENT I saw and evaluated the patient. I reviewed the resident's note and discussed the case with the resident. I agree with the resident's findings and plan as documented. SUBJECTIVE:asymptomatic. denies CP, SOB, fever, chills, N/V/C/D OBJECTIVE: Last Vital Signs Temp Pulse Resp BP Pulse Ox 97.5 F L 66 18 161/79 96 10/10/18 07:38 10/10/18 07:38 10/10/18 07:38 10/10/18 07:38 10/09/18 22:00 General NAD abdomen soft NT/ND ASSESSMENT AND PLAN: 78yo F with PMH DM, HTN, dementia and CKD brought in by daughter for altered mental status with nausea and vomiting. Pt was found to be acidemic with renal failure and started on HD. course complicated by development of melena 1. UGI bleed-s/p EGD 10/05. multiple ulcers with one in the duodenum with adherent clot. tolerating regular diet. PPI BID. will liekly require repeat EGD In 3 months. GI on board 2. Acute blood loss anemia- due to suspected GI bleed. s/p 5 units PRBC this hospital stay. Hgb improved. transfusion for Hgb <8. 3. Acute renal failure-s/p HD initiation here on this hospital stay. no need for HD at this time. permacath removed. Renal function continues to improve. plan for renal bx on thursday. 2. Severe sepsis due to pylenopehritis and Ecoli bacteremia- leukocytosis trending down. repeat BCx and UCx NGTD. on cefazolin day 13. up. will need 14 day course. cont to monitor. ID on board. 4. hypomagnesemia- Mg po and IV 5. Hypokalemia- Kcl po 6. DM- hold oral agents. iss and BGM 7. HTN- currently normotensive. hold oral antihypertensives 8. hypothyroid- LT4 9, DVT ppx- SCD. hold pharmacologic anticoagluation at this time 10, D/c home tomorrow after renal bx with home PT and VNS
[2018-10-10] MEDS ORDERED: MAGNESIUM SULF 50% (8.12 MEQ/2 ML-1 GM VIAL) IVPB ONE (12:15)
[2018-10-10] MEDS ORDERED: POTASSIUM CHLORIDE TABS 20 MEQ TABLET.ER (FP) PO ONE (12:15)
--- NOTE | 2018-10-10 12:22 | PN ---
Physical Exam: SUBJECTIVE: Patient seen and examined at bedside. No acute events. No complaints. OBJECTIVE: Vital Signs Period Temp Pulse Resp BP Sys/Ivan Pulse Ox Last 24 Hr 97.5 F-98.0 F 60-66 18-20 140-161/60-79 96-96 Gen: NAD, comfortable HEENT: NCAT, EOMI Neck: dressing from prior line cdi. Supple Cardio: rrr, normal s1s2, no mrg Pulm: cta b/l Abd: nondistended, soft, nontender, + bs Ext: 2+ pulses no edema Laboratory Results - last 24 hr 10/09/18 10/09/18 10/10/18 16:42 22:58 06:13 WBC RBC Hgb Hct MCV MCH MCHC RDW Plt Count MPV Sodium Potassium Chloride Carbon Dioxide Anion Gap BUN Creatinine Creat Clearance w eGFR POC Glucometer 124 120 140 Random Glucose Calcium Magnesium 10/10/18 10/10/18 06:35 06:35 WBC 11.4 H RBC 3.71 Hgb 10.4 L Hct 31.5 L D MCV 84.9 MCH 27.9 MCHC 32.8 RDW 15.2 Plt Count 428 MPV 8.4 Sodium 147 H Potassium 3.4 L Chloride 109 H Carbon Dioxide 28 Anion Gap 11 BUN 16 Creatinine 2.1 H Creat Clearance w eGFR 22.90 POC Glucometer Random Glucose 125 H Calcium 7.5 L Magnesium 1.5 L Active Medications Generic Name Dose Route Start Last Admin Trade Name Freq PRN Reason Stop Dose Admin Acetaminophen 650 mg 10/07/18 01:42 Tylenol - PO Q4H PRN PAIN LEVEL 1 - 3 Aripiprazole 5 mg 10/09/18 22:00 10/09/18 22:56 Abilify PO 5 mg HS BLAYNE Administration Duloxetine HCl 20 mg 10/09/18 22:00 10/09/18 22:56 Cymbalta - PO 20 mg HS BLAYNE Administration Sodium Chloride 250 mls @ 3,000 mls/hr 10/07/18 01:42 Normal Saline - IV PRN PRN Hypotension during Dialysis Dextrose/Sodium Chloride 500 mls @ 75 mls/hr 10/07/18 01:42 10/10/18 06:12 D5-1/3ns - IV 75 mls/hr ASDIR BLAYNE Administration Cefazolin Sodium 1 gm in 50 mls @ 100 mls/hr 10/08/18 23:00 10/09/18 22:53 Ancef 1 Gm Premixed Ivpb - IVPB 10/13/18 23:29 100 mls/hr Q24H BLAYNE Administration Insulin Aspart 1 vial 10/07/18 07:00 10/10/18 12:06 Novolog Vial Sliding Scale - SQ Not Given ACHS BLAYNE Protocol Levothyroxine Sodium 50 mcg 10/10/18 07:00 10/10/18 06:14 Synthroid - PO 50 mcg ACBK BLAYNE Administration Losartan Potassium 50 mg 10/10/18 10:00 10/10/18 10:02 Cozaar - PO 50 mg DAILY BLAYNE Administration Magnesium Sulfate 2 gm 10/10/18 12:15 Magnesium Sulfate IVPB 10/10/18 12:16 ONCE ONE Pantoprazole Sodium 40 mg 10/08/18 22:00 10/10/18 10:02 Protonix - PO 40 mg BID BLAYNE Administration Potassium Chloride 40 meq 10/10/18 12:15 K-Dur - PO 10/10/18 12:16 ONCE ONE Rosuvastatin Calcium 20 mg 10/09/18 22:00 10/09/18 22:57 Crestor - PO 20 mg HS BLAYNE Administration ASSESSMENT/PLAN: Pt is a 78 y/o F with PMH DM, HTN, CKD, dementia who presented to ED for AMS, n/ v. Pt was found to have ARF and sepsis and was dialyzed. Pt had GIB during hospital stay. 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 will repeat EGD as out pt #Severe Sepsis: resolving -2/2 pyelo 2/2 E.coli w/ bacteremia -ID consulted -to complete 14 days Cefazolin day 13 #DM -on ISS #HTN -holding in setting of sepsis -resume on d/c or if hypertensive #hypothyroid -c/w synthroid #FEN -not on fluids -hypokalemia. repleting -renal diet #PPx -holding AC in setting of GIB #Dispo -for d/c following renal Bx Pb Badillo MD PGY-2 IM Visit type - Emergency Visit Emergency Visit: No - New Patient This patient is new to me today: No - Critical Care Critical Care patient: No
[2018-10-10] MEDS ORDERED: PT OWN MED DRAWER 7, Y5N ONE (17:30)
--- NOTE | 2018-10-10 19:38 | PN ---
Progress Note (short form) - Note Progress Note: covering dr mcgee Problems 1. SHERRON vs progression of CKD 2. sepsis 3. bacteremia 4. DM 5. HTN 6. active smoker 7. dementia 8. a-fib 9. anemia 10. GI bleed 11. hypernatremia Current Medications Acetaminophen (Tylenol -) 650 mg PO Q4H PRN PRN Reason: PAIN LEVEL 1 - 3 Aripiprazole (Abilify) 5 mg PO HS [facility] Last Admin: 10/09/18 22:56 Dose: 5 mg Duloxetine HCl (Cymbalta -) 20 mg PO HS [facility] Last Admin: 10/09/18 22:56 Dose: 20 mg Sodium Chloride (Normal Saline -) 250 mls @ 3,000 mls/hr IV PRN PRN PRN Reason: Hypotension during Dialysis Dextrose/Sodium Chloride (D5-1/3ns -) 500 mls @ 75 mls/hr IV ASDIR [facility] Last Admin: 10/10/18 06:12 Dose: 75 mls/hr Cefazolin Sodium (Ancef 1 Gm Premixed Ivpb -) 1 gm in 50 mls @ 100 mls/hr IVPB Q24H [facility] Stop: 10/13/18 23:29 Last Admin: 10/09/18 22:53 Dose: 100 mls/hr Insulin Aspart (Novolog Vial Sliding Scale -) 1 vial SQ ACHS [facility]; Protocol Last Admin: 10/10/18 17:47 Dose: Not Given Levothyroxine Sodium (Synthroid -) 50 mcg PO ACBK [facility] Last Admin: 10/10/18 06:14 Dose: 50 mcg Losartan Potassium (Cozaar -) 50 mg PO DAILY [facility] Last Admin: 10/10/18 10:02 Dose: 50 mg Pantoprazole Sodium (Protonix -) 40 mg PO BID [facility] Last Admin: 10/10/18 10:02 Dose: 40 mg Rosuvastatin Calcium (Crestor -) 20 mg PO HS [facility] Last Admin: 10/09/18 22:57 Dose: 20 mg Last Vital Signs Temp Pulse Resp BP Pulse Ox 97.2 F L 70 17 176/78 H 99 10/10/18 17:11 10/10/18 17:11 10/10/18 17:11 10/10/18 17:11 10/10/18 10:00 alert in nad heent nl neck no jvd Lungs clear Heart reg Abd soft nontender Ext no edema CBC, BMP 10/10/18 06:35 10/10/18 06:35 s/p sherron temporary dialysis now off dialysis Hypernatremia hypokalemia Plan- add KCl supplementation to the ivf, same rate
[2018-10-10] MEDS ORDERED: POTASSIUM CHLORIDE 20 MEQ in DEXTROSE 5%-1/3 NS - 500 ML IVPB SCH (20:00)
[2018-10-10] MEDS: POTASSIUM CHLORIDE 10 MEQ in DEXTROSE 5%-1/3 NS - 500 ML IVPB SCH (21:39)
[2018-10-10] MEDS: ROSUVASTATIN CA 20 MG TABLET (FP) PO SCH (22:46)
[2018-10-10] MEDS: ARIPiprazole 5 MG TABLET (FP) PO SCH (22:47)
[2018-10-10] MEDS: CEFAZOLIN 1 GM/D5W 1 GM/50 ML BAG IVPB SCH (22:47)
[2018-10-10] MEDS: DULoxetine HCL 20 MG CAPSULE.DR (FP) PO SCH (22:47)
[2018-10-11] MEDS: POTASSIUM CHLORIDE 10 MEQ in DEXTROSE 5%-1/3 NS - 500 ML IVPB SCH ×6 (02:07→20:34)
[2018-10-11] MEDS: INSULIN SLIDING SCALE (NOVOLOG) 1 VIAL SQ SCH ×4 (06:37→22:41)
[2018-10-11] MEDS: LEVOTHYROXINE NA 50 MCG TABLET (FP) PO SCH (06:37)
[2018-10-11 07:36] LABS: BASO % 1.1 % (0-2.0); EOS % 2.8 % (0-4.5); HEMATOCRIT 27.9 % (32.4-45.2); LYMPH % 12.5 % (8-40); MCH 29.9 pg (25.7-33.7); MCHC 35.8 g/dl (32.0-36.0); MEAN CELL VOLUME 83.7 fl (80-96); MEAN PLT VOLUME 7.8 fl (7.5-11.1); MONO % 10.8 % (3.8-10.2); NEUT % 72.8 % (42.8-82.8); PLATELET COUNT 458 K/MM3 (134-434); RBC 3.33 M/mm3 (3.60-5.2); RDW 15.2 % (11.6-15.6); WHITE BLOOD COUNT 9.5 K/mm3 (4.0-10.0)
[2018-10-11 08:04] LABS: ANION GAP 6 MMOL/L (8-16); BLOOD UREA NITROGEN 12 mg/dL (7-18); CALCIUM 7.5 mg/dL (8.5-10.1); CHLORIDE 109 mmol/L (98-107); CO2 30 mmol/L (21-32); CREATININE 1.8 mg/dL (0.55-1.3); GLUCOSE,RANDOM 126 mg/dL (74-106); POTASSIUM 3.6 mmol/L (3.5-5.1); SODIUM 145 mmol/L (136-145)
[2018-10-11] MEDS: LOSARTAN POTASSIUM 50 MG TABLET (FP) PO SCH (10:24)
[2018-10-11] MEDS: PANTOPRAZOLE 40 MG TABLET (FP) PO SCH ×2 (10:24→22:32)
--- NOTE | 2018-10-11 13:11 | PN ---
Progress Note, Physician History of Present Illness: Pt seen and examined at bedside. She is awake and appears comfortable. She remains confused. - Current Medication List Current Medications: Active Medications Acetaminophen (Tylenol -) 650 mg PO Q4H PRN PRN Reason: PAIN LEVEL 1 - 3 Aripiprazole (Abilify) 5 mg PO HS [facility] Last Admin: 10/10/18 22:47 Dose: 5 mg Duloxetine HCl (Cymbalta -) 20 mg PO HS [facility] Last Admin: 10/10/18 22:47 Dose: 20 mg Sodium Chloride (Normal Saline -) 250 mls @ 3,000 mls/hr IV PRN PRN PRN Reason: Hypotension during Dialysis Cefazolin Sodium (Ancef 1 Gm Premixed Ivpb -) 1 gm in 50 mls @ 100 mls/hr IVPB Q24H [facility] Stop: 10/13/18 23:29 Last Admin: 10/10/18 22:47 Dose: 100 mls/hr Potassium Chloride 10 meq/ (Dextrose/Sodium Chloride) 505 mls @ 75 mls/hr IVPB Q6H [facility] Last Admin: 10/11/18 11:52 Dose: 75 mls/hr Insulin Aspart (Novolog Vial Sliding Scale -) 1 vial SQ ACHS [facility]; Protocol Last Admin: 10/11/18 11:56 Dose: Not Given Levothyroxine Sodium (Synthroid -) 50 mcg PO ACBK [facility] Last Admin: 10/11/18 06:37 Dose: Not Given Losartan Potassium (Cozaar -) 50 mg PO DAILY [facility] Last Admin: 10/11/18 10:24 Dose: 50 mg Pantoprazole Sodium (Protonix -) 40 mg PO BID [facility] Last Admin: 10/11/18 10:24 Dose: 40 mg Rosuvastatin Calcium (Crestor -) 20 mg PO HS [facility] Last Admin: 10/10/18 22:46 Dose: 20 mg - Objective Vital Signs: Vital Signs Temperature 97.9 F 10/11/18 06:00 Pulse Rate 73 10/11/18 06:00 Respiratory Rate 20 10/11/18 06:00 Blood Pressure 144/77 10/11/18 06:00 O2 Sat by Pulse Oximetry (%) 99 10/10/18 21:00 Constitutional: Yes: Calm Eyes: Yes: Conjunctiva Clear Cardiovascular: Yes: S1, S2 Respiratory: Yes: CTA Bilaterally Gastrointestinal: Yes: Soft Genitourinary: Yes: WNL Musculoskeletal: Yes: WNL Edema: No Neurological: Yes: Confusion Labs: CBC, BMP 10/11/18 06:45 10/11/18 06:45 INR, PTT INR 1.39 (0.83-1.09) H 10/04/18 08:47 Problem List - Problems (1) SHERRON (acute kidney injury) Code(s): N17.9 - ACUTE KIDNEY FAILURE, UNSPECIFIED (2) Sepsis Code(s): A41.9 - SEPSIS, UNSPECIFIED ORGANISM Qualifiers: Sepsis type: sepsis due to unspecified organism Qualified Code(s): A41.9 - Sepsis, unspecified organism (3) UTI (urinary tract infection) Code(s): N39.0 - URINARY TRACT INFECTION, SITE NOT SPECIFIED Qualifiers: Urinary tract infection type: site unspecified Hematuria presence: with hematuria Qualified Code(s): N39.0 - Urinary tract infection, site not specified; R31.9 - Hematuria, unspecified Assessment/Plan Current Medications Generic Name Dose Route Start Last Admin Trade Name Freq PRN Reason Stop Dose Admin Acetaminophen 650 mg 10/07/18 01:42 Tylenol - PO Q4H PRN PAIN LEVEL 1 - 3 Aripiprazole 5 mg 10/09/18 22:00 10/10/18 22:47 Abilify PO 5 mg HS BLAYNE Administration Duloxetine HCl 20 mg 10/09/18 22:00 10/10/18 22:47 Cymbalta - PO 20 mg HS BLAYNE Administration Sodium Chloride 250 mls @ 3,000 mls/hr 10/07/18 01:42 Normal Saline - IV PRN PRN Hypotension during Dialysis Cefazolin Sodium 1 gm in 50 mls @ 100 mls/hr 10/08/18 23:00 10/10/18 22:47 Ancef 1 Gm Premixed Ivpb - IVPB 10/13/18 23:29 100 mls/hr Q24H BLAYNE Administration Potassium Chloride 10 meq/ 505 mls @ 75 mls/hr 10/10/18 20:15 10/11/18 11:52 Dextrose/Sodium Chloride IVPB 75 mls/hr Q6H BLAYNE Administration Insulin Aspart 1 vial 10/07/18 07:00 10/11/18 11:56 Novolog Vial Sliding Scale - SQ Not Given ACHS BLAYNE Protocol Levothyroxine Sodium 50 mcg 10/10/18 07:00 10/11/18 06:37 Synthroid - PO Not Given ACBK [facility] Losartan Potassium 50 mg 10/10/18 10:00 10/11/18 10:24 Cozaar - PO 50 mg DAILY BLAYNE Administration Pantoprazole Sodium 40 mg 10/08/18 22:00 10/11/18 10:24 Protonix - PO 40 mg BID BLAYNE Administration Rosuvastatin Calcium 20 mg 10/09/18 22:00 10/10/18 22:46 Crestor - PO 20 mg HS BLAYNE Administration Laboratory Tests 09/28/18 16:00 Atypical p-ANCA 1:40 H Impression 1. SHERRON vs progression of CKD 2. sepsis 3. bacteremia 4. DM 5. HTN 6. active smoker 7. dementia 8. a-fib 9. anemia 10. GI bleed 11. hypernatremia Plan - renal function is improving - called and had a long discussion with Sana about the kidney biopsy. They do not wish to have the biopsy. They agree to bring the patient to the office for repeat bloodwork and ua. - avoid nsaids - will follow - [facility] Sana, Dr Conde
--- NOTE | 2018-10-11 13:24 | PN ---
Teaching Attending Note Name of Resident: Pb Camargo ATTENDING PHYSICIAN STATEMENT I saw and evaluated the patient. I reviewed the resident's note and discussed the case with the resident. I agree with the resident's findings and plan as documented. SUBJECTIVE:asymptomatic. denies Cp, SOB, fever, chills, N/V/C/D OBJECTIVE: Last Vital Signs Temp Pulse Resp BP Pulse Ox 97.9 F 73 20 144/77 99 10/11/18 06:00 10/11/18 06:00 10/11/18 06:00 10/11/18 06:00 10/10/18 21:00 General NAD abdomen soft NT/ND ASSESSMENT AND PLAN: 78yo F with PMH DM, HTN, dementia and CKD brought in by daughter for altered mental status with nausea and vomiting. Pt was found to be acidemic with renal failure and started on HD. course complicated by development of melena 1. UGI bleed-s/p EGD 10/05. multiple ulcers with one in the duodenum with adherent clot. tolerating regular diet. PPI BID. will liekly require repeat EGD In 3 months. GI on board 2. Acute blood loss anemia- due to suspected GI bleed. s/p 5 units PRBC this hospital stay. Hgb improved. transfusion for Hgb <8. 3. Acute renal failure-s/p HD initiation here on this hospital stay. no need for HD at this time. permacath removed. Renal function continues to improve. daughter now refusing renal bx. will be f/u with nephro as outpatient. 2. Severe sepsis due to pylenopehritis and Ecoli bacteremia- leukocytosis resolved. Cefazolin day 14 and will complete treatment today. 4. hypomagnesemia- resolved 5. Hypokalemia- resolved 6. DM- hold oral agents. iss and BGM 7. HTN- currently normotensive. hold oral antihypertensives 8. hypothyroid- LT4 9, DVT ppx- SCD. hold pharmacologic anticoagluation at this time 10, D/c home
--- NOTE | 2018-10-11 13:44 | PN ---
Physical Exam: SUBJECTIVE: Patient seen and examined at bedside. No acute events overnight. OBJECTIVE: Vital Signs Period Temp Pulse Resp BP Sys/Ivan Pulse Ox Last 24 Hr 97.2 F-97.9 F 64-73 17-20 144-176/65-78 99 GENERAL: NAD HEAD: NC/AT EYES: PERRL EOMI No scleral icterus ENT: MMM NECK: Supple LUNGS: CTA B/L no wheezing rhonchi or rales HEART: RRR No MRG S1S2 ABDOMEN: NDNT No HSM EXTREMITIES: 1+ pedel edema NEUROLOGICAL: No neuro def appreciated SKIN: No rashes or lesions appreciated Laboratory Results - last 24 hr 10/10/18 10/11/18 10/11/18 22:44 06:36 06:45 WBC 9.5 RBC 3.33 L Hgb 10.0 L Hct 27.9 L MCV 83.7 MCH 29.9 MCHC 35.8 RDW 15.2 Plt Count 458 H MPV 7.8 Absolute Neuts (auto) 6.9 Neutrophils % 72.8 Lymphocytes % 12.5 D Monocytes % 10.8 H Eosinophils % 2.8 Basophils % 1.1 Nucleated RBC % 0 Sodium Potassium Chloride Carbon Dioxide Anion Gap BUN Creatinine Creat Clearance w eGFR POC Glucometer 120 123 Random Glucose Calcium 10/11/18 10/11/18 06:45 11:55 WBC RBC Hgb Hct MCV MCH MCHC RDW Plt Count MPV Absolute Neuts (auto) Neutrophils % Lymphocytes % Monocytes % Eosinophils % Basophils % Nucleated RBC % Sodium 145 Potassium 3.6 Chloride 109 H Carbon Dioxide 30 Anion Gap 6 L BUN 12 Creatinine 1.8 H Creat Clearance w eGFR 27.36 POC Glucometer 127 Random Glucose 126 H Calcium 7.5 L Active Medications Generic Name Dose Route Start Last Admin Trade Name Freq PRN Reason Stop Dose Admin Acetaminophen 650 mg 10/07/18 01:42 Tylenol - PO Q4H PRN PAIN LEVEL 1 - 3 Aripiprazole 5 mg 10/09/18 22:00 10/10/18 22:47 Abilify PO 5 mg HS BLAYNE Administration Duloxetine HCl 20 mg 10/09/18 22:00 10/10/18 22:47 Cymbalta - PO 20 mg HS BLAYNE Administration Sodium Chloride 250 mls @ 3,000 mls/hr 10/07/18 01:42 Normal Saline - IV PRN PRN Hypotension during Dialysis Cefazolin Sodium 1 gm in 50 mls @ 100 mls/hr 10/08/18 23:00 10/10/18 22:47 Ancef 1 Gm Premixed Ivpb - IVPB 10/13/18 23:29 100 mls/hr Q24H BLAYNE Administration Potassium Chloride 10 meq/ 505 mls @ 75 mls/hr 10/10/18 20:15 10/11/18 11:52 Dextrose/Sodium Chloride IVPB 75 mls/hr Q6H BLAYNE Administration Insulin Aspart 1 vial 10/07/18 07:00 10/11/18 11:56 Novolog Vial Sliding Scale - SQ Not Given ACHS BLAYNE Protocol Levothyroxine Sodium 50 mcg 10/10/18 07:00 10/11/18 06:37 Synthroid - PO Not Given ACBK BLAYNE Losartan Potassium 50 mg 10/10/18 10:00 10/11/18 10:24 Cozaar - PO 50 mg DAILY BLAYNE Administration Pantoprazole Sodium 40 mg 10/08/18 22:00 10/11/18 10:24 Protonix - PO 40 mg BID BLAYNE Administration Rosuvastatin Calcium 20 mg 10/09/18 22:00 10/10/18 22:46 Crestor - PO 20 mg HS BLAYNE Administration ASSESSMENT/PLAN: Pt is a 78 y/o lady with a significant past medical history of DM, HTN, CKD, and dementia. Pt presented to [facility] ED this AM with daughter c/o weakness, nausea /vomiting and AMS. #G.I Bleed 2/2 Ulcer Duodenal bulb -Gastroenterology on board -HGB today ---> 10 - Protonix drip discontinued switched to PO - EGD with Dr Baum. Findings: SINGLE BLEEDING DEEP ULCER 1.5MM W. AN ADHERENT CLOT AND ACTIVE OOZING W/ BLOOD FOUND IN DUODENAL BULB. SUBMUCOSAL INJECTION OF 4 ML EPINEPHRINE PERFORMED AROUND BLEEDING SITE. MONOPOLAR CAUTERY W/ 75 FR HEATER PROBE APPLIED O SITE. Multiple small erosions found in gastric antrum. #Sepsis 2/2 Pyelonephritis WBC 9.5 today 10/11/18. Urine and Blood Cx Neg -Troponin negative - CTAP--> Significant inflammatory changes in retroperitoneum appear to originate from kidneys compatible with significant b/l renal infection. - Nephrology on Board - Renal Bladder Ultrasound--> MORPHOLOGICALLY NORMAL KIDNEYS WITH NO EVIDENCE OF HYDRONEPHROSIS OR ACUTE PATHOLOGY - I.D on board--> Cefazolin 1 GM Q24H day 14. # SHERRON, Oliguria, Hyperkalemia -HD daily per renal -Family decided against Kidney Biopsy. Will follow Nephro as outpatient. -Monitor urine output #UTI: -Leukocyte Esterase 3+ - Urine/Blood cultures--> Lactose Fermenting Gram Neg Bacilli - I.D on board - Cefazolin day 14 #Atrial Fibrillation W/ RVR? - Metoprolol 25 MG PO BID- Discontinued - AC not given in light of recent G.I bleed. -Echo --> EF 60-65%. #FEN No Fluids Monitor electrolytes Renal Diet DVT ppx: SCD's Dispo: Med-Surg Visit type - Emergency Visit Emergency Visit: Yes ED Registration Date: 09/26/18 Care time: The patient presented to the Emergency Department on the above date and was hospitalized for further evaluation of their emergent condition. - New Patient This patient is new to me today: No - Critical Care Critical Care patient: No - Discharge Referral Referred to [facility] Med P.C.: No
[2018-10-11] MEDS: DULoxetine HCL 20 MG CAPSULE.DR (FP) PO SCH (22:31)
[2018-10-11] MEDS: CEFAZOLIN 1 GM/D5W 1 GM/50 ML BAG IVPB SCH (22:32)
[2018-10-11] MEDS: ARIPiprazole 5 MG TABLET (FP) PO SCH (22:32)
[2018-10-11] MEDS: ROSUVASTATIN CA 20 MG TABLET (FP) PO SCH (22:32)
[2018-10-12] MEDS: POTASSIUM CHLORIDE 10 MEQ in DEXTROSE 5%-1/3 NS - 500 ML IVPB SCH ×2 (03:53→10:18)
[2018-10-12] MEDS: INSULIN SLIDING SCALE (NOVOLOG) 1 VIAL SQ SCH ×2 (06:00→11:41)
[2018-10-12] MEDS: LEVOTHYROXINE NA 50 MCG TABLET (FP) PO SCH (06:08)
[2018-10-12] MEDS: PANTOPRAZOLE 40 MG TABLET (FP) PO SCH (10:19)
[2018-10-12] MEDS: LOSARTAN POTASSIUM 50 MG TABLET (FP) PO SCH (10:19)
[2018-10-12 12:54] VITALS: BP 130/68; PULSE 75; TEMP 98.5
--- NOTE | 2018-10-12 14:19 | DS ---
Physical Exam: SUBJECTIVE: Patient seen and examined at bedside. No acute events overnight. OBJECTIVE: Vital Signs Period Temp Pulse Resp BP Sys/Ivan Pulse Ox Last 24 Hr 97.9 F-98.7 F 74-76 20-20 130-153/68-75 90-94 PHYSICAL EXAM GENERAL: NAD Awake Alert Eating breakfast HEAD: NC/AT EYES: EOMI ENT: MMM NECK: Supple LUNGS: CTA B/L no wheezing rhonchi or rales HEART: RRR No MRG S1S2 ABDOMEN: NDNT No HSM EXTREMITIES: 1+ pedel edema NEUROLOGICAL: No neuro def appreciated SKIN: No rashes or lesions appreciated LABS Laboratory Results - last 24 hr 10/11/18 10/11/18 10/12/18 16:59 21:18 05:54 POC Glucometer 164 103 130 10/12/18 11:40 POC Glucometer 122 HOSPITAL COURSE: Date of Admission:09/26/18 Pt with significant PMH of DM, HTN, dementia presented to [facility] with altered mental status, nausea and vomiting. Also endorsed hematuria for a few days duration. Pt was found to be acidemic with renal failure. Pt was started HD. Leukocyte esterase was 3+ and blood/urine cultures were E.Coli positive. Pt was treated with antibiotics. Had an episode of AFIB w/ RVR while on HD and was followed by cardiology. Furthermore, pt was also noted to be anemic during admission and was found to have a bleeding ulcer at the duodenal bulb. Ulcer was cauterized and injected with epinephrine. Pt also received 5 U packed red blood cells. Anemia subsequently improved. Pt completed 14 day course of I.V antibiotics and discharged with VNS. Date of Discharge: 10/12/18 Minutes to complete discharge: 35 Discharge Summary Reason For Visit: PYLONEPHRITIS, ACUTE KIDNEY INJURY Condition: Good - Instructions Diet, Activity, Other Instructions: You were admitted to the hospital for kidney failure and bacteria in your blood. You also were found to have a bleeding ulcer in your gastrointestinal tract. 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 A referral has been attached in your discharge papers. 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 Please follow up with the Kidney doctor in 2 week. You need to have your renal function monitored. You may benefit from a kidney biopsy which you deferred at this time. Please follow up with your Primary Care Physician in 1 week, Dr Green. Your home medications have been changed. refer to medication list for these changes. AVOID taking any NSAID like products (aleive, ibuprofen, naproxen, nabetuamone, etc). These will increase your risk of bleeding. Take tylenol as needed for pain. If you begin to experience fever, chills, shortness of breath, chest pain, blood in your urine, or any other health abnormalities, dark or bloody stools or any new concerns, please return to the Emergency Department and call 911 immediately. Referrals: Irving Baum DO [Staff Physician] - Howard Argueta MD [Staff Physician] - Tyrese Conde MD [Staff Physician] - Disposition: VNS/HOME HEALTH CARE - Home Medications Comprehensive Discharge Medication List: Ambulatory Orders Aripiprazole 1 tab PO HS 09/26/18 Calcium 500 + Vit D Caplet 1 cap PO DAILY 09/26/18 Duloxetine HCl 20 mg PO HS 09/26/18 Levothyroxine [Synthroid -] 50 mcg PO DAILY 09/26/18 Loratadine [Claritin] 10 mg PO DAILY 09/26/18 Rosuvastatin [Crestor -] 20 mg PO DAILY 09/26/18 Tramadol HCl 50 mg PO BID PRN 09/26/18 traZODone HCL [Trazodone HCl] 100 mg PO HS 09/26/18 Losartan Potassium 50 mg PO DAILY #30 tablet 10/11/18 Mirabegron [Myrbetriq] 25 mg PO DAILY #30 tab.er.24h 10/11/18 Pantoprazole Sodium [Protonix] 40 mg PO BID #60 tablet. 10/11/18 Sitagliptin Phosphate [Januvia] 25 mg PO DAILY #30 tablet 10/11/18 This patient is new to me today: No Emergency Visit: Yes ED Registration Date: 09/26/18 Care time: The patient presented to the Emergency Department on the above date and was hospitalized for further evaluation of their emergent condition. Critical Care patient: No - Discharge Referral Referred to [facility] Med P.C.: No
--- NOTE | 2018-10-12 15:44 | PN ---
Teaching Attending Note Name of Resident: Pb Camargo ATTENDING PHYSICIAN STATEMENT I saw and evaluated the patient. I reviewed the resident's note and discussed the case with the resident. I agree with the resident's findings and plan as documented with exceptions below. SUBJECTIVE: Patient seen and examined, no complaints, eager to go home. OBJECTIVE: Vital Signs Period Temp Pulse Resp BP Sys/Ivan Pulse Ox Last 24 Hr 97.9 F-98.7 F 74-76 20-20 130-153/68-75 90-94 Intake & Output 10/09/18 10/10/18 10/11/18 10/12/18 23:59 23:59 23:59 23:59 Intake Total 2250 3320 2220 1040 Balance 2250 3320 2220 1040 General: sitting in chair in no acute distress Chest: CTAB, no rales or wheezing Abdomen:soft, obese, NT, no CVA tenderness Extremities: no edema Home Medications Medication Instructions Recorded Aripiprazole 1 tab PO HS 09/26/18 Calcium 500 + Vit D Caplet 1 cap PO DAILY 09/26/18 Duloxetine HCl 20 mg PO HS 09/26/18 Levothyroxine [Synthroid -] 50 mcg PO DAILY 09/26/18 Loratadine [Claritin] 10 mg PO DAILY 09/26/18 Rosuvastatin [Crestor -] 20 mg PO DAILY 09/26/18 Tramadol HCl 50 mg PO BID PRN 09/26/18 traZODone HCL [Trazodone HCl] 100 mg PO HS 09/26/18 Losartan Potassium 50 mg PO DAILY #30 tablet 10/11/18 Mirabegron [Myrbetriq] 25 mg PO DAILY #30 tab.er.24h 10/11/18 Pantoprazole Sodium [Protonix] 40 mg PO BID #60 tablet.dr 10/11/18 Sitagliptin Phosphate [Januvia] 25 mg PO DAILY #30 tablet 10/11/18 Laboratory Results - last 24 hr 10/11/18 10/11/18 10/12/18 16:59 21:18 05:54 POC Glucometer 164 103 130 10/12/18 11:40 POC Glucometer 122 ASSESSMENT AND PLAN: 78yo F with PMH DM, HTN, dementia and CKD brought in by daughter for altered mental status with nausea and vomiting. Pt was found to be acidemic with renal failure and started on HD. course complicated by development of melena -Acute upper GI bleed s/p EGD 10/05 with duodenal ulcers with adherent clot s/p cautery/Epinephrine -Acute blood loss anemia s/p 5 units PRBC -SHERRON, ?sepsis mediated, post HD inhouse, now off with continued improvement in renal function, refused renal biopsy -Severe sepsis with E. coli pyelonephritis/Bacteremia -Hypomagnesemia -Hypokalemia -NIDDM -HTN -Hypothyroidism Plan: Doing well. Renal function stable. Continue PPI BID. FInished antibiotics. D/c home with VNS today as arranged. Discussed with patient and family at bedside.
--- NOTE | 2018-10-12 16:26 | CONSULT ---
Consult Consult Specialty:: Rheumatology - History of Present Illness History of Present Illness: 78 y/o female with a significant past medical history of DM, HTN, CKD, and dementia admitted with nausea, vomiting, hallucinations and UTI and hematuria. On admission she had acute on chronic renal failure related to septicemia. She was admitted to the ICU and started in HD, antibiotics and acute care. During the hospitalization she developed UGI bleeding related to multiple ulcers in duodenum. At the present time the patient is hemodynamically stable. Laboratory work-up revealed, on admission, creatinine of 6.5 and urinalysis with blood 1+ and protein 3+ and today creatinine 1.8 and urinalysis blood 2+ and protein 1+. Atypical ANCA 1:40. CHARLES, anti-DNAds, anti-glomerular basal membrane antibody, myeloperoxidase and proteinase-3 were all negative. - History Source History Provided By: Patient, Medical Record Limitations to Obtaining History: No Limitations - Past Medical History [employer]: Yes: Dementia Cardio/Vascular: Yes: HTN Endocrine: Yes: Diabetes Mellitus - Past Surgical History Past Surgical History: Yes: Hysterectomy - Alcohol/Substance Use Hx Alcohol Use: No - Smoking History Smoking history: Current every day smoker Aproximately how many cigarettes per day: 5 - Social History Usual Living Arrangement: Assisted Living ADL: Independent History of Recent Travel: No Home Medications - Allergies Allergies/Adverse Reactions: Allergies Allergy/AdvReac Type Severity Reaction Status Date / Time No Known Allergies Allergy Verified 09/26/18 06:24 - Home Medications Home Medications: Ambulatory Orders Aripiprazole 1 tab PO HS 09/26/18 Calcium 500 + Vit D Caplet 1 cap PO DAILY 09/26/18 Duloxetine HCl 20 mg PO HS 09/26/18 Levothyroxine [Synthroid -] 50 mcg PO DAILY 09/26/18 Loratadine [Claritin] 10 mg PO DAILY 09/26/18 Rosuvastatin [Crestor -] 20 mg PO DAILY 09/26/18 Tramadol HCl 50 mg PO BID PRN 09/26/18 traZODone HCL [Trazodone HCl] 100 mg PO HS 09/26/18 Losartan Potassium 50 mg PO DAILY #30 tablet 10/11/18 Mirabegron [Myrbetriq] 25 mg PO DAILY #30 tab.er.24h 10/11/18 Pantoprazole Sodium [Protonix] 40 mg PO BID #60 tablet.dr 10/11/18 Sitagliptin Phosphate [Januvia] 25 mg PO DAILY #30 tablet 10/11/18 Review of Systems - Review of Systems Constitutional: reports: Malaise Eyes: reports: No Symptoms HENT: reports: No Symptoms Neck: reports: No Symptoms Cardiovascular: reports: No Symptoms Respiratory: reports: No Symptoms Gastrointestinal: reports: No Symptoms Musculoskeletal: reports: Other (Denioes joint pain) Physical Exam Vital Signs: Vital Signs Temperature 98.5 F 10/12/18 10:00 Pulse Rate 75 10/12/18 10:00 Respiratory Rate 20 10/12/18 10:00 Blood Pressure 130/68 10/12/18 10:00 O2 Sat by Pulse Oximetry (%) 94 L 10/12/18 10:00 Constitutional: Yes: No Distress Eyes: Yes: WNL HENT: Yes: WNL Neck: Yes: WNL Cardiovascular: Yes: WNL Respiratory: Yes: WNL Gastrointestinal: Yes: WNL Musculoskeletal: Yes: Other (No active joints) Labs: CBC, BMP 10/11/18 06:45 10/11/18 06:45 Problem List - Problems (1) SHERRON (acute kidney injury) Assessment/Plan: Acute on chronic renal insufficiency, probably related to sepsis, improved during hospital stay. Atypical ANCA positive and othe rserology is negative. The patient does not have history of inflammatory bowel disease. It is unlikely that she has a connective tissue disease. Renal disease improved. The patien tis been discharged. No further serologic work-up is needed, Code(s): N17.9 - ACUTE KIDNEY FAILURE, UNSPECIFIED
== END 2018-10-12 13:19 | disposition home health service (06) | DRG 871 ==
LOC: JER 06:08 → JERBED 09:57 → JICU 15:47 → J4W 09-29 17:15 → J7W 10-01 13:00 → JICU 10-04 09:12 → J5S 10-07 01:37
PROVIDERS: ADMIT Internal Medicine; ATTEND Hospitalist
PROC: 02HV33Z Insertion of Infusion Device into Superior Vena Cava, Percutaneous Approach (ICD-10-PCS; principal; 2018-09-28)
PROC: B548ZZA Ultrasonography of Superior Vena Cava, Guidance (ICD-10-PCS; 2018-09-28)
PROC: 02HV33Z Insertion of Infusion Device into Superior Vena Cava, Percutaneous Approach (ICD-10-PCS; 2018-10-04)
PROC: B548ZZA Ultrasonography of Superior Vena Cava, Guidance (ICD-10-PCS; 2018-10-04)
PROC: 30233N1 Transfusion of Nonautologous Red Blood Cells into Peripheral Vein, Percutaneous Approach (ICD-10-PCS; 2018-10-04)
PROC: 0DB68ZX Excision of Stomach, Via Natural or Artificial Opening Endoscopic, Diagnostic (ICD-10-PCS; 2018-10-05)
PROC: 0DB58ZX Excision of Esophagus, Via Natural or Artificial Opening Endoscopic, Diagnostic (ICD-10-PCS; 2018-10-05)
PROC: 0W3P8ZZ Control Bleeding in Gastrointestinal Tract, Via Natural or Artificial Opening Endoscopic (ICD-10-PCS; 2018-10-05)
PROC: 3E0G8GC Introduction of Other Therapeutic Substance into Upper GI, Via Natural or Artificial Opening Endoscopic (ICD-10-PCS; 2018-10-05)
DX: A41.51 Sepsis due to Escherichia coli [E. coli] (principal); G93.41 Metabolic encephalopathy; K26.4 Chronic or unspecified duodenal ulcer with hemorrhage; N17.9 Acute kidney failure, unspecified; E87.2 Acidosis; N12 Tubulo-interstitial nephritis, not specified as acute or chronic; D62 Acute posthemorrhagic anemia; E87.0 Hyperosmolality and hypernatremia; F03.90 Unspecified dementia, unspecified severity, without behavioral disturbance, psychotic disturbance, mood disturbance, and anxiety; E11.22 Type 2 diabetes mellitus with diabetic chronic kidney disease; I12.9 Hypertensive chronic kidney disease with stage 1 through stage 4 chronic kidney disease, or unspecified chronic kidney disease; N18.9 Chronic kidney disease, unspecified; Z79.84 Long term (current) use of oral hypoglycemic drugs; E87.5 Hyperkalemia; R01.1 Cardiac murmur, unspecified; R65.20 Severe sepsis without septic shock; F17.210 Nicotine dependence, cigarettes, uncomplicated; D69.6 Thrombocytopenia, unspecified; I48.0 Paroxysmal atrial fibrillation; D64.9 Anemia, unspecified; E83.42 Hypomagnesemia; E87.6 Hypokalemia
CPT/HCPCS: 36415; 36430; 36511; 36600; 71045-TC-FY; 74176-TC; 76775-TC; 76856-TC; 80048; 80053; 80076; 81003; 81015; 82272; 82375; 82436; 82550; 82570; 82803; 82962; 83050; 83516; 83520; 83540; 83550; 83605; 83690; 83735; 84100; 84133; 84155; 84156; 84165; 84300; 84439; 84443; 84484; 85025; 85027; 85610; 85730; 86038; 86225; 86256; 86704; 86706; 86708; 86803; 86850; 86900; 86901; 86922; 87040; 87086; 87186; 87340; 88305-TC; 93005; 93010; 93306-TC; 97116-GP; 97161-GP; 99285-25; J1644; J7030; P9038; P9058

== ENCOUNTER → 2022-07-02 | Day surgery (SDC) | payer OTHER | END | disposition home or self-care (01) | LOC: JRADIR 09:14 | PROVIDERS: ATTEND Internal Medicine Endocrinology, Diabetes & Metabolism | PROC: 0G9K3ZX Drainage of Thyroid Gland, Percutaneous Approach, Diagnostic (ICD-10-PCS; principal; 2022-07-02) | DX: E04.1 Nontoxic single thyroid nodule (principal) | CPT/HCPCS: 10005; 76942; 88173; 88305-TC ==